=== PATIENT | female | born 1960 | race Caucasian/White ===

== ENCOUNTER 2023-02-15 09:48 | Emergency (ER) | payer SELFPAY ==
[2023-02-15] MEDS ORDERED: NA CHLORIDE 0.9% 1,000 ML ONE (10:27)
[2023-02-15] MEDS ORDERED: FOLIC ACID 5 MG/ML VIAL ONE (10:27)
--- NOTE | 2023-02-15 10:46 | RAD REPORT ---
EXAM DESCRIPTION: US - UPPER EXTREMITY VENOUS BILAT - 02/15/2023 10:32 am CLINICAL HISTORY: upper ext, bilateral;Pain Right arm pain and swelling COMPARISON: No comparisons FINDINGS: Right upper extremity venous system was interrogated. There is no evidence of bilateral up per extremity DVT. IMPRESSION: Negative for bilateral upper extremity DVT.
[2023-02-15 10:59] LABS: Absolute Lymphocytes (CBC) 0.8 K/uL (0.7-4.9); Hematocrit 44.3 % (36.0-45.0); Lymphocytes % 9.3 % (15.3-44.8); MCV 90.9 fL (80-100); MPV 7.4 fL (7.6-11.3); RBC Red Blood Cell Count 4.87 M/uL (3.86-4.86)
[2023-02-15 11:02] LABS: Protime INR 0.98
--- NOTE | 2023-02-15 11:16 | RAD REPORT ---
EXAM DESCRIPTION: RAD - Chest Single View - 02/15/2023 10:49 am CLINICAL HISTORY: COUGH Chest pain. COMPARISON: No comparisons FINDINGS: Portable technique limits examination quality. Prominent COPD is noted. Vague nodular opacity is present in the left upper lobe. The heart is normal in size. No displaced fractures. IMPRESSION: Prominent COPD. Vague nodularity in the left upper lobe is present. Nonemergent CT chest followup would be advised.
[2023-02-15 11:19] LABS: Albumin 4.2 g/dL (3.4-5.0); Bilirubin Direct 0.1 mg/dL (0-0.2); Bilirubin Indirect, Calculated 0.3 mg/dL (0.2-0.8); Bilirubin Total 0.4 mg/dL (0.2-1.0); C-Reactive Protein 2.98 mg/L (<3.00); Magnesium 2.2 mg/dL (1.6-2.4); Potassium 4.2 mEq/L (3.5-5.1); Protein, Total 8.3 g/dL (6.4-8.2); Troponin High Sensitivity 5.2 pg/mL (<58.9)
[2023-02-15] MEDS ORDERED: dexAMETHasone 10 MG/ML VIAL ONE (12:28)
[2023-02-15] MEDS ORDERED: levETIRAcetam 1,000 MG in NA CHLORIDE 0.9% 100 ML IV ONE (12:30)
[2023-02-15 12:36] LABS: Specific Gravity 1.007 (1.005-1.030); Urine Bacteria None Seen /HPF (<20); Urine Bilirubin NEGATIVE (Negative); Urine Blood Negative (Negative); Urine Clarity Clear (Clear); Urine Color Colorless (Yellow); Urine Glucose NEGATIVE (Negative); Urine Mucus Slight /HPF (None Seen); Urine Protein NEGATIVE (Negative); Urine RBC <5 /HPF (None Seen); Urine Urobilinogen Normal (Normal); Urine pH 6.5 (5.0-7.0)
--- NOTE | 2023-02-15 12:45 | RAD REPORT ---
EXAM DESCRIPTION: MRI - Brain W/Wo Cont - 02/15/2023 12:03 pm CLINICAL HISTORY: TIA Headache, drowsiness COMPARISON: Chest Single View dated 02/15/2023 TECHNIQUE: Multi-sequence, multiplanar MR imaging of the brain was performed with contrast. FINDINGS: Large intra-axial enhancing mass is present measuring 34 x 31 mm posterior left frontal lo be with moderate surrounding edema. There is evidence of hemorrhagic components to this mass. Additional smaller intra-axial enhancing mass measuring 14 x 11 mm is seen medial posterior right fro ntal lobe abutting the falx. There is very subtle midline shift related to the brain edema caused by the left-sided mass. No hydrocephalus is evident. No extra-axial fluid collection. IMPRESSION: Bilateral intra-axial solid brain masses are present, larger on the left as detailed. Mo st likely, this represents metastatic disease. Findings were discussed with doctor Paige in the emergency room. No pathologic post-contrast enhancement suspected.
--- NOTE | 2023-02-15 12:49 | RAD REPORT ---
EXAM DESCRIPTION: MRI - C Spine Wo Cont- 02/15/2023 12:03 pm CLINICAL HISTORY: cervical disc injury Neck pain, radiculopathy COMPARISON: No comparisons FINDINGS: Cervical vertebral bodies are normal in height and alignment. No suspicious marrow edema or marrow replacing process. No fracture or traumatic subluxation. The craniocervical junction is normal. C2-3 level: No significant findings. C3-4 level: Small posterior osteophyte/disc complex. C4-5 level: Small posterior disc bulge. C5-6 level: Small posterior osteophyte/ disc complex slightly attenuates the anterior subarachnoid sp jacklyn. C6-7 level: Small to moderate posterior osteophyte/ disc complex mildly attenuates the anterior subar achnoid space. C7-T1 level: No significant findings. Cervical cord is normal in size and signal. IMPRESSION: Mild lower cervical spondylosis. No severe canal stenosis or foraminal stenosis at any l evel.
--- NOTE | 2023-02-15 13:24 | ER ---
Nurse's Notes [facility] Name: Paola Alex Age: 62 yrs Sex: Female : 1960 Arrival Date: 02/15/2023 Time: 09:48 Bed 5 Private MD: Diagnosis: Secondary malignant neoplasm of brain;Malignant neoplasm of unspecified part of left bronchus or lung;Weakness-left arm, leg;Essential (primary) hypertension;Tobacco abuse counseling;Tobacco use Presentation: 02/15 10:08 Chief complaint: Patient states: R arm weakness/numbness for around 2 months. ll1 Coronavirus screen: Vaccine status: Patient reports receiving the 2nd dose of the covid vaccine. Client denies travel out of the [place] in the last 14 days. At this time, the client does not indicate any symptoms associated with coronavirus-19. Ebola Screen: Patient denies travel to an Ebola-affected area in the 21 days before illness onset. Initial Sepsis Screen: Does the patient meet any 2 criteria? No. Patient's initial sepsis screen is negative. Does the patient have a suspected source of infection? No. Patient's initial sepsis screen is negative. Risk Assessment: Do you want to hurt yourself or someone else? Patient reports no desire to harm self or others. Onset of symptoms was December 16, 2022. 10:08 Method Of Arrival: Ambulatory ll1 10:08 Acuity: TEENA 2 ll1 Triage Assessment: 10:09 General: Appears in no apparent distress. Behavior is calm, cooperative, appropriate ll1 for age. Pain: Denies pain. Neuro: Reports weakness in right arm. Musculoskeletal: Circulation, motion, and sensation intact. Capillary refill < 3 seconds, Reports numbness in right arm. Historical: - Allergies: 10:07 No Known Allergies; ll1 - PMHx: 12:59 Hypertensive disorder; ll1 13:33 Chronic obstructive lung disease; ll1 - Immunization history:: Client reports receiving the 2nd dose of the Covid vaccine. - Social history:: Smoking status: Patient reports the use of cigarette tobacco products, smokes one-half pack cigarettes per day. - Family history:: not pertinent. Screenin:23 [facility] ED Fall Risk Assessment (Adult) Score/Fall Risk Level 0 - 2 = Low Risk ll1 Oriented to surroundings, Maintained a safe environment, Educated pt \T\ family on fall prevention, incl call for assistance when getting out of bed, Hourly rounding (assess needs \T\ fall precautionary measures) done. Abuse screen: Denies threats or abuse. Nutritional screening: No deficits noted. Tuberculosis screening: No symptoms or risk factors identified. Assessment: 10:10 Reassessment: No changes from previously documented assessment. To US via stretcher. ll1 10:45 Reassessment: No changes from previously documented assessment. Patient and/or family ll1 updated on plan of care and expected duration. Pain level reassessed. Patient is alert, oriented x 3, equal unlabored respirations, skin warm/dry/pink. 12:51 Reassessment: No changes from previously documented assessment. Patient and/or family ll1 updated on plan of care and expected duration. Pain level reassessed. Patient is alert, oriented x 3, equal unlabored respirations, skin warm/dry/pink. 13:15 Reassessment: No changes from previously documented assessment. Her PCP at . ll1 14:54 Reassessment: No changes from previously documented assessment. Patient and/or family ll1 updated on plan of care and expected duration. Pain level reassessed. Patient is alert, oriented x 3, equal unlabored respirations, skin warm/dry/pink. Vital Signs: 10:08 BP 139 / 92; Pulse 96; Resp 17; Temp 98.4; Pulse Ox 100% on R/A; Weight 58.97 kg; ll1 Height 5 ft. 7 in. ; Pain 0/10; 12:23 BP 169 / 90; Pulse 88; Resp 17; ll1 12:57 BP 177 / 95; Pulse 91; Resp 16; Pulse Ox 97% ; ll1 13:14 BP 137 / 93; Pulse 88; Resp 17; Pulse Ox 98% ; ll1 13:31 BP 138 / 86; Pulse 89; Resp 17; Pulse Ox 97% on R/A; ll1 14:53 BP 150 / 91; Pulse 84; Resp 17; Pulse Ox 99% on R/A; Pain 0/10; ll1 10:08 Body Mass Index 20.36 (58.97 kg, 170.18 cm) ll1 10:08 Pain Scale: Adult ll1 14:53 Pain Scale: Adult ll1 ED Course: 09:52 Patient arrived in ED. ts1 09:53 Bill Paige MD is Attending Physician. [facility] 10:07 Ava Welch RN is Primary Nurse. ll1 10:07 Arm band placed on Patient placed in an exam room, on a stretcher. ll1 10:09 Triage completed. ll1 10:25 Inserted saline lock: 20 gauge in left antecubital area, using aseptic technique. Blood ll1 collected. 10:34 UPPER EXTREMITY VENOUS BILAT In Process Unspecified. EDMS 10:52 XRAY Chest (1 view) In Process Unspecified. EDMS 11:23 Patient has correct armband on for positive identification. Bed in low position. Call ll1 light in reach. Client placed on continuous cardiac and pulse oximetry monitoring. NIBP monitoring applied. clinical research monitor on. 12:05 C Spine Wo Cont In Process Unspecified. EDMS 12:05 Brain W/Wo Cont In Process Unspecified. EDMS 12:35 initiated transfer to [facility]. bd 14:00 No provider procedures requiring assistance completed. Patient transferred, IV remains ll1 in place. Administered Medications: 10:40 Drug: NS 0.9% IV 500 ml Route: IV; Rate: bolus; Site: left antecubital; ll1 10:58 Follow up: Response: No adverse reaction; IV Status: Completed infusion; IV Intake: ll1 500ml 10:41 Drug: foLIC Acid IVPB 1 mg Route: IVPB; Site: left antecubital; ll1 10:58 Follow up: Response: No adverse reaction; IV Status: Completed infusion; IV Intake: ll1 0.2ml 10:58 Drug: NS 0.9% IV 1000 ml Route: IV; Rate: 125 ml/hr; Site: left antecubital; ll1 13:35 Follow up: Response: No adverse reaction; IV Status: Completed infusion; IV Intake: ll1 125ml 12:50 Drug: Decadron - Dexamethasone IVP 20 mg Route: IVP; Site: left antecubital; ll1 13:34 Follow up: Response: No adverse reaction ll1 12:50 Drug: Keppra IV 1000 mg Route: IV; Rate: per protocol; Site: left antecubital; ll1 13:34 Follow up: Response: No adverse reaction; IV Status: Completed infusion; IV Intake: ll1 100ml Medication: 11:23 VIS not applicable for this client. ll1 Intake: 10:58 IV: 500ml; Total: 500ml. ll1 10:58 IV: 0ml; Total: 500ml. ll1 13:34 IV: 100ml; Total: 600ml. ll1 13:35 IV: 125ml; Total: 725ml. ll1 Outcome: 13:23 ER care complete, transfer ordered by . [place] 14:00 Transferred by ground EMS to [facility], Transfer form completed. [facility] 14:00 Transferred Note: Report called to EUGENIA Machado at [facility] 1231 14:00 Condition: stable 14:00 Instructed on the need for transfer. 14:54 Patient left the ED. 1 Signatures: Dispatcher [employer] EDMS Marjan Dewitt Corey, MD MD cha Lewis, Lynsay, RN RN ll1 Carlota Paredes, JACK PAS ts1 Corrections: (The following items were deleted from the chart) 11:30 11:20 In radiology for C Spine Wo Cont. EDMS EDMS
--- NOTE | 2023-02-15 13:24 | EDPHYS ---
Physician Documentation [facility] Name: Paola Alex Age: 62 yrs Sex: Female : 1960 Arrival Date: 02/15/2023 Time: 09:48 Bed 5 Private MD: ED Physician Bill Paige HPI: 02/15 12:27 This 62 yrs old Female presents to ER via Ambulatory with complaints of Arm [place] Pain, Hand Pain. 12:27 The patient or guardian complains of decreased range of motion. The complaints affect [place] the right bicep, dorsal aspect of right forearm, right hand, right tricep and palmar aspect of right forearm. Context: The problem was sustained at an unknown location, resulted from unknown cause. Onset: The symptoms/episode began/occurred 1 month(s) ago. Treatment prior to arrival includes: no previous treatment. Modifying factors: The symptoms are alleviated by nothing. the symptoms are aggravated by nothing. Associated signs and symptoms: Pertinent positives: decreased range of motion, tingling. Severity of symptoms: At their worst the symptoms were moderate, severe, in the emergency department the symptoms are unchanged. The patient has not experienced similar symptoms in the past. Historical: - Allergies: 10:07 No Known Allergies; ll1 - PMHx: 12:59 Hypertensive disorder; ll1 13:33 Chronic obstructive lung disease; ll1 - Immunization history:: Client reports receiving the 2nd dose of the Covid vaccine. - Social history:: Smoking status: Patient reports the use of cigarette tobacco products, smokes one-half pack cigarettes per day. - Family history:: not pertinent. ROS: 12:27 Constitutional: Negative for fever, chills, and weight loss, Eyes: Negative for injury, [place] pain, redness, and discharge, ENT: Negative for injury, pain, and discharge, Neck: Negative for injury, pain, and swelling, Cardiovascular: Negative for chest pain, palpitations, and edema, Respiratory: Negative for shortness of breath, cough, wheezing, and pleuritic chest pain, Abdomen/GI: Negative for abdominal pain, nausea, vomiting, diarrhea, and constipation, Back: Negative for injury and pain, : Negative for injury, bleeding, discharge, and swelling, MS/Extremity: Negative for injury and deformity, Skin: Negative for injury, rash, and discoloration, Psych: Negative for depression, anxiety, suicide ideation, homicidal ideation, and hallucinations, Allergy/Immunology: Negative for hives, rash, and allergies, Endocrine: Negative for neck swelling, polydipsia, polyuria, polyphagia, and marked weight changes, Hematologic/Lymphatic: Negative for swollen nodes, abnormal bleeding, and unusual bruising. 12:27 Neuro: Positive for weakness, of the right arm and right leg. Exam: 12:27 Constitutional: This is a well developed, well nourished patient who is awake, alert, [place] and in no acute distress. Head/Face: Normocephalic, atraumatic. Eyes: Pupils equal round and reactive to light, extra-ocular motions intact. Lids and lashes normal. Conjunctiva and sclera are non-icteric and not injected. Cornea within normal limits. Periorbital areas with no swelling, redness, or edema. ENT: Nares patent. No nasal discharge, no septal abnormalities noted. Tympanic membranes are normal and external auditory canals are clear. Oropharynx with no redness, swelling, or masses, exudates, or evidence of obstruction, uvula midline. Mucous membranes moist. Neck: Trachea midline, no thyromegaly or masses palpated, and no cervical lymphadenopathy. Supple, full range of motion without nuchal rigidity, or vertebral point tenderness. No Meningismus. Chest/axilla: Normal chest wall appearance and motion. Nontender with no deformity. No lesions are appreciated. Cardiovascular: Regular rate and rhythm with a normal S1 and S2. No gallops, murmurs, or rubs. Normal PMI, no JVD. No pulse deficits. Respiratory: Lungs have equal breath sounds bilaterally, clear to auscultation and percussion. No rales, rhonchi or wheezes noted. No increased work of breathing, no retractions or nasal flaring. Abdomen/GI: Soft, non-tender, with normal bowel sounds. No distension or tympany. No guarding or rebound. No evidence of tenderness throughout. Back: No spinal tenderness. No costovertebral tenderness. Full range of motion. Female : Normal external genitalia. Skin: Warm, dry with normal turgor. Normal color with no rashes, no lesions, and no evidence of cellulitis. Psych: Awake, alert, with orientation to person, place and time. Behavior, mood, and affect are within normal limits. 12:27 Musculoskeletal/extremity: Extremities: grossly normal except: decreased ROM, ROM: full passive range of motion, limited active range of motion, Circulation is intact in all extremities. Sensation intact. Compartment Syndrome exam of affected extremity: is normal. DVT Exam: No signs of deep vein thrombosis. no pain, no swelling, no tenderness, negative Homans' sign noted on exam, no appreciated bluish discoloration, no erythema, no increased warmth. 13:29 ECG was reviewed by the Attending Physician. [facility] Vital Signs: 10:08 BP 139 / 92; Pulse 96; Resp 17; Temp 98.4; Pulse Ox 100% on R/A; Weight 58.97 kg; ll1 Height 5 ft. 7 in. ; Pain 0/10; 12:23 BP 169 / 90; Pulse 88; Resp 17; ll1 12:57 BP 177 / 95; Pulse 91; Resp 16; Pulse Ox 97% ; ll1 13:14 BP 137 / 93; Pulse 88; Resp 17; Pulse Ox 98% ; ll1 13:31 BP 138 / 86; Pulse 89; Resp 17; Pulse Ox 97% on R/A; ll1 14:53 BP 150 / 91; Pulse 84; Resp 17; Pulse Ox 99% on R/A; Pain 0/10; ll1 10:08 Body Mass Index 20.36 (58.97 kg, 170.18 cm) ll1 10:08 Pain Scale: Adult ll1 14:53 Pain Scale: Adult ll1 MDM: 10:18 Patient medically screened. [facility] 13:13 Differential diagnosis: contusion. Data reviewed: vital signs, nurses notes, lab test [facility] result(s), EKG, radiologic studies, CT scan, doppler, MRI, plain films. Consideration of Admission/Observation Escalation of care including admission/observation considered. Management of patient was discussed with the following: Optoelectronic Technician: neuro. Independent interpretation of the following test(s) in the Emergency Department EKG: See my EKG interpretation above. Test considered but Not performed: CT: no ct chest. Care significantly affected by the following chronic conditions: Hypertension. Counseling: I had a detailed discussion with the patient and/or guardian regarding: the historical points, exam findings, and any diagnostic results supporting the discharge/admit diagnosis, lab results, radiology results. 02/15 09:57 Order name: Basic Metabolic Panel; Complete Time: 11:44 [place] 02/15 09:57 Order name: CBC with Diff; Complete Time: 11:44 [facility] 02/15 09:57 Order name: LFT's; Complete Time: 11:44 [facility] 02/15 09:57 Order name: Magnesium; Complete Time: 11:44 [facility] 02/15 09:57 Order name: NT PRO-BNP; Complete Time: 11:44 02/15 09:57 Order name: PT-INR; Complete Time: 11:44 02/15 09:57 Order name: Troponin HS; Complete Time: 11:44 [facility] 02/15 09:57 Order name: Lipase; Complete Time: 11:44 [facility] 02/15 09:57 Order name: Urinalysis W/Microscopic 02/15 09:57 Order name: CRP; Complete Time: 11:44 [facility] 02/15 09:57 Order name: XRAY Chest (1 view); Complete Time: 11:44 [facility] 02/15 10:01 Order name: UPPER EXTREMITY VENOUS BILAT; Complete Time: 11:44 [facility] 02/15 11:32 Order name: C Spine Wo Cont [facility] 02/15 11:37 Order name: Brain W/Wo Cont [facility] 02/15 09:57 Order name: EKG; Complete Time: 09:57 [facility] 02/15 09:57 Order name: Cardiac monitoring; Complete Time: 10:46 [facility] 02/15 09:57 Order name: EKG - Nurse/Tech; Complete Time: 10:46 [facility] 02/15 09:57 Order name: IV Saline Lock; Complete Time: 10:31 [facility] 02/15 09:57 Order name: Labs collected and sent; Complete Time: 10:31 [facility] 02/15 09:57 Order name: O2 Per Protocol; Complete Time: 10:10 [facility] 02/15 09:57 Order name: O2 Sat Monitoring; Complete Time: 10:10 [facility] EC:29 Rate is 81 beats/min. Rhythm is regular. QRS [place] is Normal. [place] interval is normal. QRS [place] interval is normal. QT interval is normal. No Q waves. T waves are Normal. No ST changes noted. Clinical impression: NSR w/ Non-specific ST/T Changes and No evidence of ischemia. Interpreted by me. Reviewed by me. Administered Medications: 10:40 Drug: NS 0.9% IV 500 ml Route: IV; Rate: bolus; Site: left antecubital; ll1 10:58 Follow up: Response: No adverse reaction; IV Status: Completed infusion; IV Intake: ll1 500ml 10:41 Drug: foLIC Acid IVPB 1 mg Route: IVPB; Site: left antecubital; ll1 10:58 Follow up: Response: No adverse reaction; IV Status: Completed infusion; IV Intake: ll1 0.2ml 10:58 Drug: NS 0.9% IV 1000 ml Route: IV; Rate: 125 ml/hr; Site: left antecubital; ll1 13:35 Follow up: Response: No adverse reaction; IV Status: Completed infusion; IV Intake: ll1 125ml 12:50 Drug: Decadron - Dexamethasone IVP 20 mg Route: IVP; Site: left antecubital; ll1 13:34 Follow up: Response: No adverse reaction ll1 12:50 Drug: Keppra IV 1000 mg Route: IV; Rate: per protocol; Site: left antecubital; ll1 13:34 Follow up: Response: No adverse reaction; IV Status: Completed infusion; IV Intake: ll1 100ml Disposition Summary: 02/15/23 13:23 Transfer Ordered Transfer Location: [facility] [place] Reason: Higher level of care [place] Condition: Fair [place] Problem: new [place] Symptoms: have improved [place] Accepting Physician: to [facility](02/15/23 14:54) ll1 Diagnosis - Secondary malignant neoplasm of brain [place] - Malignant neoplasm of unspecified part of left bronchus or lung [place] - Weakness - left arm, leg [place] - Essential (primary) hypertension [place] - Tobacco abuse counseling [place] - Tobacco use [place] Forms: - Medication Reconciliation Form [place] - SBAR form [place] Signatures: Dispatcher [employer] EDBill Pollack MD MD cha Lewis, Lynsay, RN RN ll1 Corrections: (The following items were deleted from the chart) 10:00 09:57 Extrem Venous W Compression Angel Luis+US.RAD.BRZ ordered. EDMS EDMS 11:30 09:58 C Spine Wo Cont ordered. EDMS EDMS 11:32 09:57 MR STROKE PROTOCOL+MRI.RAD.BRZ ordered. EDMS EDMS 11:37 11:33 Brain Wo Cont ordered. EDMS EDMS 14:54 13:23 to [facility] [place] ll1
[2023-02-15 15:14] VITALS: TEMP 98.4
[2023-02-15 15:25] VITALS: BP 150/91; O2SAT 99
--- NOTE | 2023-02-16 05:38 | EKG ---
Test Date: 2023-02-15 Test Time: 10:48:52 Victim Advocate: JACOBO MEASUREMENT RESULTS: Intervals: Rate: 81 CA: 136 QRSD: 84 QT: 358 QTc: 415 [place]: P: 75 CA: 136 QRS: 81 T: 82 INTERPRETIVE STATEMENTS: Normal sinus rhythm Normal ECG No previous ECG available for comparison Electronically Signed On 02-16-23 05:36:43 CDT by Jose Durham
== END 2023-02-15 14:54 | disposition short-term general hospital (02) ==
LOC: ER 09:48
DX: C79.31 Secondary malignant neoplasm of brain (principal); C34.92 Malignant neoplasm of unspecified part of left bronchus or lung; I10 Essential (primary) hypertension; Z72.0 Tobacco use; Z71.6 Tobacco abuse counseling; J44.9 Chronic obstructive pulmonary disease, unspecified
CPT/HCPCS: 36415; 70553; 71045; 72141; 80048; 80076; 81001; 83690; 83735; 83880; 84484; 85025; 85610; 86140; 93005; 93970; J1100; J1953; J7030

== ENCOUNTER 2023-04-28 18:17 | Emergency (ER) | payer OTHER ==
--- OUTSIDE RECORDS SUMMARY | 2023-04-28 18:23 | XMS REPORT | Continuity of Care Document ---
:1960 Author Organization [facility] t Address [address]. [address]. [address] [place] [address] Care Team Providers Name Role Phone RONY CRICKETJOSEPH Attending Clinician Unavailable SALLY JEROME IN H Attending Clinician Unavailable Lisa TORREZ, Danielle Carlin Attending Clinician [place] Sheyla DAVILA Attending Clinician [phone] Estuardo Walters MD Attending Clinician SHAZIA DOMINGO Admitting Clinician Unavailable Problems Condition Condition Condition Status Onset Resolution Last Treating Co mments Source Name Details Category Date Date Treatment Clinician Date Lung Lung Disease [facility]ur[facility] 00 [place] COPD COPD Disease Recur[facility] (chronic ([facility] obstructiv obstructiv 00:00: Wy dical e e 00 Center pulmonary pulmonary disease) disease) Vasogenic Vasogenic Disease [facility] brain [facility] edema edema 00:00: Medical 00 Center HTN HTN Disease Active [facility] (hypertens (hypertens 5-25 [facility] ion) ion) 00:00: Medical 00 Center Anxiety Anxiety Disease Active [facility] 00 [place] Alcohol Alcohol Disease Active [facility] use use [facility]25 [facility] disorder disorder 00:00: Medica l 00 [place] Brain mass Brain mass Disease Active [facility] 00 Center Allergies, Adverse Reactions, Alerts Allergy Allergy Status Severity Reaction(s) Onset Inactive Treating Comm ents Source Name Type Date Date Clinician NO KNOWN Allergy Active [facility] ALLERGIE [facility] Social History Social Habit Start Date Stop Date Quantity Comments Source Sex Assigned At [birth year] [facility] 00:00:00 [facility]:00 [facility] Center Medications Ordered Filled Start Stop Current Ordering Indication Dosage Frequency Signature Comments Components Source Medication Medication Date Date Medication? Clinician (SIG) Name Name amLODIPine 0 Yes 5mg QD Take [facility] ([facility] 5 5-26 tablet (5 [facility] MG tablet 08:23: mg total) Med ical 24 by mouth Center in the morning. lisinopriL 0 Yes 10mg QD Take 1 [facility] (PRINIVIL,Z 5-26 tablet (10 [facility] ESTRIL) 10 08:23: mg total) Me dical MG tablet 24 by mouth Center in the morning. sertraline 0 Yes 75mg QD Take 1.[address] [facility] (ZOLOFT) 50 5-26 tablets [facility] MG tablet 08:23: (75 mg Medica l 24 total) by Center mouth in the morning. TiZANidine 0 Yes 4mg Take 1 [facility] (ZANAFLEX) 5-26 capsule (4 Leila es 4 MG 08:23: mg total) Medical capsule 24 by mouth 3 Center (three) times daily as needed for Muscle spasms. hydrOXYzine 0 Yes 25mg Take [address] [facility] (ATARAX) 25 5-26 tablet (25 [facility] MG tablet 08:23: mg total) Med ical 24 by mouth 3 Center (three) times daily as needed for Itching. ALPRAZolam 2022-0 Yes 1mg Take 1 [facility] (XANAX) 1 5-26 tablet (1 [facility] MG tablet 08:23: mg total) Med ical 24 by mouth 3 Center (three) times daily as needed for Anxiety. Max Daily Amount: 3 mg thiamine 2022-0 2024- Yes 100mg QD Take 1 [facility] MG 5-26 05-25 tablet [facility] tablet 00:00: 23:59 (100 mg Medical 00 :00 total) by Center mouth in the morning. famotidine 2022- Yes 20mg Take 1 [facility] (PEPCID) 20 02-24-25 tablet (20 L ukes MG tablet 00:00: 23:59 mg total) Me dical 00 :00 by mouth Center every 12 (twelve) hours for 30 days. dexAMETHaso 2022- Yes 2mg Take 1 [facility] ne 02-24 06-09 tablet (2 [facility] (DECADRON) 00:00: 23:59 mg total) M edical 2 MG tablet 00 :00 by mouth [facility] er every 12 (twelve) hours for 14 days. Vital Signs Vital Name Observation Time Observation Value Comments Source HEIGHT 2023-02-22 14:00:00 170.2 cm WEIGHT 2023-02-22 14:00:00 61.1 kg WEIGHT 2023-02-15 16:36:00 58.968 kg HEIGHT 2023-02-22 14:00:00 170.2 cm WEIGHT 2023-02-22 14:00:00 61.1 kg WEIGHT 2023-02-15 16:36:00 58.968 kg Systolic blood 2023-02-28 07:57:00 166 mm[Hg] Rn Aware [facility] pressure [facility] Diastolic blood 2023-02-28 07:57:00 85 mm[Hg] Rn [facility]ware [facility] Heart rate 2023-02-28 07:57:00 77 /min [facility] Body temperature 2023-02-28 07:57:00 36.11 Ava [facility] Respiratory rate 2023-02-28 07:57:00 18 /min [facility] Oxygen saturation in 2023-02-28 07:57:00 94 /min [facility] Arterial blood by Medical Ce nter Pulse oximetry Body height 2023-02-23 07:03:00 170.2 cm [facility] Body weight 2023-02-23 07:03:00 61.1 kg [facility] BMI 2023-02-23 07:03:00 21.10 kg/m2 [facility] Procedures Procedure Date / Time Performing Clinician Source Performed POCT-GLUCOSE METER 2023-02-28 06:20:00 Rony [facility] CBC W/PLT COUNT & AUTO 2023-02-28 04:36:00 BlayneheydiAlma I [facility] BASIC METABOLIC PANEL 2023-02-28 04:36:[address] [facility] 2023-02-28 04:36:00 [facility] MAGNESIUM 2023-02-28 04:36:00 [facility] CBC W/PLT COUNT & AUTO 2023-02-28 04:36:00 BlayneZachary solizina [facility] POCT-GLUCOSE METER 2023-02-28 00:18:00 Rony [facility] POCT-GLUCOSE METER 2023-02-27 17:35:00 [facility] POCT-GLU[facility]SE METER 2023-02-27 13:15:00 Rony [facility] CBC W/PLT COUNT & AUTO 2023-02-27 05:40:00 Zachary Stapletonina [facility] BASIC METABOLIC PANEL 2023-02-27 05:40:00 Blayneheydi [facility] PHOSPHORUS 2023-02-27 05:40:00 Lisa [facility] MAGNESIUM 2023-02-27 05:40:00 [facility] CBC W/PLT COUNT & AUTO 2023-02-27 05:40:00 Blayneheydi Alma [facility] POCT-GLUCOSE METER 2023-02-26 21:50:00 Rony [facility] POCT-GLUCOSE METER 2023-02-26 [facility]:06[facility] 2023-02-26 11:50[facility]00 [facility]SE [facility] 2023-02-26 07:19:00 [facility]OLIC PANEL 2023-02-26 06:20:00 Rony, [facility] CBC W/PLT COUNT & AUTO 2023-02-26 06:20:00 Alma Stapleton [facility] MAGNESIUM 2023-02-26 06:20:00 [facility] 2023-02-26 06:20:00 Pieter [facility] CBC W/PLT COUNT & AUTO 2023-02-26 06:20:00 Alma Stapleton [facility] POCT-GLUCOSE METER 2023-02-25 22:12:00 [facility]SE METER 2023-02-25 17:53:00 [facility] POCT-[facility]UCOSE METER 2023-02-25 13:18:00 Rony [facility] POCT-GLUCOSE METER 2023-02-25 07:43:00 Rony [facility] CBC W/PLT COUNT & AUTO 2023-02-25 05:11:00 Alma Stapleton [facility] BASIC METABOLIC PANEL 2023-02-25 05:11:00 Pieter [facility] MAGNESIUM 2023-02-25 05:11:00 Pieter [facility] PHOSPHORUS 2023-02-25 05:11:00 Pieter [facility] CBC W/PLT COUNT & AUTO 2023-02-25 05:11:00 Alma Stapleton [facility] POCT-GLUCOSE METER 2023-02-25 05:02:00 Rony, [facility] POCT-GLUCOSE METER 2023-02-24 23:36:00 [facility] PO[facility]UCOSE METER 2023-02-24 17:29:00 [facility] POCT-GLUCOSE METER 2023-02-24 12:11[facility] 2023-02-24 06:15:00 [facility] CBC W/PLT COUNT & AUTO 2023-02-24 04:09:00 [facility] BASIC METABOLIC PANEL 2023-02-24 04:09:00 [facility] MAGNESIUM 2023-02-24 04:09:00 Blayneheydi [facility] PHOSPHORUS 2023-02-24 04:09:00 [facility] CBC W/PLT COUNT & AUTO 2023-02-24 04:09:00 [facility] POCT-GLUCOSE METER 2023-02-23 21:26:00 [facility] POCT-GLUCOSE METER 2023-02-23 15:43:00 [facility] MR BRAIN WITH & WITHOUT IV 2023-02-23 14:39:00 Surendra Massey [facility] CONTRAST [facility] POCT-GLUCOSE METER 2023-02-23 09:03:00 [facility] POCT-GLUCOSE METER 2023-02-23 05:29:00 [facility] CBC W/PLT COUNT & AUTO 2023-02-23 01:48:00 [facility] BASIC METABOLIC PANEL 2023-02-23 01:48:00 [facility]UM 2023-02-23 01:48:00 Pieter [facility] PHOSPHORUS 2023-02-23 01:48:00 [facility] CBC W/PLT COUNT & AUTO 2023-02-23 01:48:00 Surendra Massey [facility] (CELLAVISION MANUAL DIFF) 2023-02-23 01:48:00 Surendra Massey CH, I [facility] POCT-GLUCOSE METER 2023-02-23 00:43:00 [facility] POCT-[facility]SE METER 2023-02-22 17:33:00 [facility] CRANIECTOMY OR CRANIOTOMY, 2023-02-22 08:30:00 Estuardo Walters [facility] FOR EXCISION OF BRAIN Medical Ce nter NEOPLASM POCT-GLUCOSE METER 2023-02-22 06:32:00 Shazia Domingo [facility] CBC W/PLT COUNT & AUTO 2023-02-22 05:15:00 [facility] sol[facility] BASIC METABOLIC PANEL 2023-02-22 05:15:00 Alma Stapleton [facility] MAGNESIUM 2023-02-22 05:15:00 Alma Stapleton [facility] PHOSPHORUS 2023-02-22 05:15:00 [facility] TYPE AND SCREEN, AUTOMATED 2023-02-22 05:15:00 Danielle Gonzalez [facility] CBC W/PLT COUNT & AUTO 2023-02-22 05:15:[address] [facility] POCT-GLUCOSE METER 2023-02-21 23:35:00 Shazia Domingo [facility] SARS-COV2/RT-PCR ([facility] & 2023-02-21 17:24:[address] [facility] REF [facility] POCT-GLUCOSE METER 2023-02-21 17:23:00 Shazia Domingo [facility] PROTHROMBIN TIME/INR 2023-02-21 15:13:00 Dhaval Levy [facility] APTT 2023-02-21 15:13:00 Dhaval Levy [facility] POCT-GLUCOSE METER 2023-02-21 11:51:00 Shazia Domingo [facility] CBC W/PLT COUNT & AUTO 2023-02-21 05:04:00 Alma Stapleton [facility] I [facility] BASIC METABOLIC PANEL 2023-02-21 05:04:00 Alma Stapleton [facility] MAGNESIUM 2023-02-21 05:04:00 Alma Stapleton [facility] PHOSPHORUS 2023-02-21 05:04:00 Pieter [facility] CBC W/PLT COUNT & AUTO 2023-02-21 05:04:00 Sam, [facility] POCT-GLUCOSE METER 2023-02-21 04:01:00 Shazia Domingo [facility] POCT-GLUCOSE METER 2023-02-20 23:41:00 Shazia Domingo [facility] POCT-GLUCOSE METER 2023-02-20 16:28:00 Shazia Domingo [facility] POCT-GLUCOSE METER 2023-02-20 11:44:00 Shazia Domingo [facility] POCT-GLUCOSE METER 2023-02-20 10:41:00 Shazia Domingo [facility] POCT-GLUCOSE METER 2023-02-20 04:41:00 Shazia Domingo [facility] CBC W/PLT COUNT & AUTO 2023-02-20 03:40:00 Alma Stapleton [facility] BASIC METABOLIC PANEL 2023-02-20 03:40:00 Pieter [facility] MAGNESIUM 2023-02-20 03:40:00 [facility]US 2023-02-20 03:40:00 [facility] CBC W/PLT COUNT & AUTO 2023-02-20 03:40:00 Sam [facility] POCT-GLUCOSE METER 2023-02-19 23:41:00 Shazia Domingo [facility] POCT-GLUCOSE METER 2023-02-19 19:33:00 Shazia Domingo [facility] POCT-GLUCOSE METER 2023-02-19 16:22:00 Shazia Domingo [facility] POCT-GLUCOSE METER 2023-02-19 11:07:00 Shazia Domingo [facility] CBC W/PLT COUNT & AUTO 2023-02-19 06:06:00 [facility] METABOLIC PANEL 2023-02-19 06:06:00 Pieter [facility] MAGNESIUM 2023-02-19 06:06:00 Pieter [facility] PHOSPHORUS 2023-02-19 06:06:00 [facility] CBC W/PLT COUNT & AUTO 2023-02-19 06:06:00 Sma [facility] POCT-GLUCOSE METER 2023-02-19 05:31:00 Shazia Domingo [facility] POCT-GLUCOSE METER 2023-02-19 00:01:00 Shazia Domingo [facility] POCT-GLUCOSE METER 2023-02-18 12:10:00 Shazia Domingo [facility] POCT-GLUCOSE METER 2023-02-18 06:02:00 Shazia Domingo [facility] CBC W/PLT COUNT & AUTO 2023-02-18 05:57:00 PieterAlma [facility] BASIC METABOLIC PANEL 2023-02-18 05:57:00 [facility] MAGNESIUM 2023-02-18 05:57:00 [facility] PHOSPHORUS 2023-02-18 05:57:00 [facility] CBC W/PLT COUNT & AUTO 2023-02-18 05:57:00 Sam [facility] POCT-GLUCOSE METER 2023-02-18 00:26:00 Shazia Domingo [facility] XR CHEST 1 VIEW PORTABLE / 2023-02-17 17:56:00 Giovanny De Leon [facility] POCT-GLUCOSE METER 2023-02-17 17:02:00 Shazia Domingo [facility] XR CHEST 1 VIEW PORTABLE / 2023-02-17 15:27:00 Giovanny De Leon [facility] CT BIOPSY LUNG 2023-02-17 15:05:[address] [facility] TISSUE EXAM 2023-02-17 14:51:[address] [facility] POCT-GLUCOSE METER 2023-02-17 12:03:00 Shazia Domingo [facility] POCT-GLUCOSE METER 2023-02-17 05:35:00 Eva Santiago [facility] CBC W/PLT COUNT & AUTO 2023-02-17 04:52:00 [facility] BASIC METABOLIC PANEL 2023-02-17 04:52:00 [facility] MAGNESIUM 2023-02-17 04:52:00 [facility] PHOSPHORUS 2023-02-17 04:52:00 [facility] CBC W/PLT COUNT & AUTO 2023-02-17 04:52:00 [facility] POCT-GLUCOSE METER 2023-02-17 00:02:00 Eva [facility] MR BRAIN WITH & WITHOUT IV 2023-02-16 21:20:00 Dhaval Levy [facility] PROTHROMBIN TIME/INR 2023-02-16 18:14:00 Dhaval Levy [facility] APTT 2023-02-16 18:14:00 Dhaval Levy [facility] POCT-GLUCOSE METER 2023-02-16 17:43:00 Eva Santiago [facility] POCT-GLUCOSE METER 2023-02-16 11:02:00 Eva [facility]add[facility] hospital[facility] SODIUM, RANDOM URINE 2023-02-16 07:58:00 Katja Vargas [facility] CREATININE, RANDOM URINE 2023-02-16 07:58:00 Sam Kingsleyyaa Héctor [facility] POCT-GLUCOSE METER 2023-02-16 06:13:00 Edilia Westfall [facility] CBC W/PLT COUNT & AUTO 2023-02-16 05:20:00 [facility] BASIC METABOLIC PANEL 2023-02-16 05:20:00 [facility] MAGNESIUM 2023-02-16 05:20:00 [facility] PHOSPHORUS 2023-02-16 05:20:00 [facility] OSMOLALITY, SERUM 2023-02-16 05:20:00 Sam [facility] CBC W/PLT COUNT & AUTO 2023-02-16 05:20:00 Sam [facility] CARCINOEMBRYONIC ANTIGEN 2023-02-16 03:37:00 Edilia Westfall [facility] Center ABORH, MANUAL 2023-02-16 03:37:00 Ning Tavarez [facility] CT BRAIN WITHOUT IV 2023-02-16 02:28:00 Sam [facility] CONTRAST [facility] CT CHEST WITH IV CONTRAST 2023-02-16 02:28:[address] [facility] [address] ABDOMEN/PELVIS WITH IV 2023-02-16 02:28:00 Sam [facility] CBC W/PLT COUNT & AUTO 2023-02-15 23:09:00 Sam [facility] BASIC METABOLIC PANEL 2023-02-15 [facility]R 2023-02-15 23:09:00 [facility] TYPE AND SCREEN, AUTOMATED 2023-02-15 23:09:[address] [facility] CBC W/PLT COUNT & AUTO 2023-02-15 23:09:[address] [facility] DIFFERENTIAL [facility] XR CHEST 1 VIEW PORTABLE / 2023-02-15 19:09:[address] [facility] BEDSIDE [facility] Plan of Care Planned Activity Planned Date Details Comments Source Future Scheduled 2023-06-[address] [facility] Test 00:00:00 (Season Ended) [code = Medic al Center INFLUENZA VACCINE (Season Ended)] Future Scheduled [address] [facility] Test 00:00:00 (12+) [code = Medical Center DEPRESSION SCREENING (12+)] Future Scheduled 2007 Lipid panel (procedure) [facility] Test 00:00:00 [code = 41506290] Medical Ce nter Future Scheduled 1983 Screening for malignant [facility] Test 00:00:00 neoplasm of cervix Medical C enter (procedure) [code = 536281858] Future Scheduled 1981 DTAP/TDAP/TD VACCINES [facility] 00:00:00 (1 - Tdap) [code = Medical C enter DTAP/TDAP/TD VACCINES (1 - Tdap)] Future Scheduled 1981 SHINGLES VACCINES ([address] [facility] Test 00:00:00 2) [code = SHINGLES [facility] Center VACCINES (1 of 2)] Future Scheduled 1980 HEPATITIS C SCREENING [facility] 00:00:00 [code = HEPATITIS C Medical Center SCREENING] Future Scheduled [address] [facility] Test 00:00:00 Counseling and Medical Cente r Screening (12+) [code = Tobacco Cessation Counseling and Screening (12+)] Future Scheduled [address] [facility] Test 00:00:00 0-64 YRS (1 - PCV) Medical C enter [code = PNEUMOCOCCAL VACCINE 0-64 YRS (1 - PCV)] Future Scheduled 1961-04[birth year]01 COVID-19 VACCINE (#1) [facility] 00:[facility]:00 [code = COVID-[address] VACCINE (#1)] Future Scheduled 1962 Screening for malignant [facility] Test 00:00:00 neoplasm of breast Medical C enter (procedure) [code = 222791987] Future Scheduled 1962 CT Colonography (combo) [facility] Test 00:00:00 [code = CT Colonography [facility] (combo)] Future Scheduled 1962 Screening for malignant [facility] Test 00:00:00 neoplasm of colon Medical Ce nter (procedure) [code = 700031675] Future Scheduled 1962 Screening for malignant [facility] Test 00:00:00 neoplasm of colon Medical Ce nter (procedure) [code = 525535073] Future Scheduled 1962 Screening for malignant [facility] Test 00:00:00 neoplasm of colon Medical Ce nter (procedure) [code = 651951194] Future Scheduled 1962 Screening for malignant [facility] Test 00:00:00 neoplasm of colon Medical Ce nter (procedure) [code = 223915800] Future Scheduled 1960 Sigmoidoscopy [code = [facility] Sigmoidoscopy] Medical Cente r Encounters Start End Encounter Admission Attending Care Care Encounter Source Date/Time Date/Time Type Type Clinicians Facility Department ID 2023-02-15 2023-02-28 Inpatient ER BISMARK STRATTON Surgery [id number] [facility] 15:55:00 13:18:00 [facility] 2023-02-22 2023-02-22 Anesthesia Danielle Gonzalez [facility] [id number] [facility] 08:30:00 13:46:00 Event Sheyla Michael [facility] 2023-02-22 2023-02-22 Surgery Estuardo Walters [facility] [id number] 09:00:00 13:35:00 [facility] Results Test Description Test Time Test Comments Results Result Sour e Comments TISSUE EXAM 2023-03-06 Surgical Pathology Report 13:50:54 Case: [id number] Authorizing Provider: Estuardo Walters MD Collected: 02/22/2023 10:54 AM Ordering Location: [facility] PERIOPERATIVE Received: 02/22/2023 10:58 AM SERVICES Pathologist: Parker Petersen MD Specimens: A) - Brain, Left, LEFT FRONTAL BRAIN TUMOR B) - Brain, Right, RIGHT FRONTAL BRAIN TUMOR C) - Brain, Left, LEFT FRONTAL BRAIN TUMOR A. 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 In some areas, the tumor cells are more solid with abundant pale eosinophilic cytoplasm. Focally, bizarre, pleomorphic tumor giant cells are seen. Immunohistochemical stains (performed with appropriate control) show the following in tumor:- CK7: Diffusely positive- CK20: Negative- TTF1: Diffusely positive- NapsinA: Diffusely positive- CK5/6: Focally positive, including some glandular component- P40: Widespread weak nonspecific reactivity with focally strong reactivity, including some glandular component- Mucicarmine: Highlights mucinAdditional immunohistochemical stains (performed and interpreted at [facility]) shows:- NUT: Negative- P40: Positive in minor subpopulation of neoplastic cellsThe overall findings are most consistent with a metastatic poorly differentiated carcinoma. There is focal pleomorphic features. Morphologically it resembles an adenocarcinoma with diffuse TTF-1 and Napsin reactivity. There is focal weak p40 and CK5/6 immunostain without definitive squamous cell carcinoma morphology. The differential diagnosis includes an adenocarcinoma versus an adenosquamous carcinoma. Clinical and imaging correlation is recommended. Dr. Judy Jean reviewed the case and agrees.Block C4 has adequate tumor cellularity for additional ancillary studies.[id number], [id number], [id number], [id number], [id number] patient is a 62-year-old female with a lung lesion status post biopsy ([id number]) and a large left frontal brain lesion with a contralateral lesion.A. Brain, LeftReceived fresh for intraoperative consultation, labeled the patient's name, MRN and designated as "left frontal brain tumor" is a 1.5 x 0.5 x 0.5 cm lan-white to lan-red piece of brain. Touch preps are made and a portion is submitted in FSA1 with the remainder being submitted in cassette A2.B. Brain, RightReceived in formalin, labeled the patient's name, KAREN and designated as "right frontal brain tumor" is a 1.0 x 0.3 x 0.3 cm lan-white piece of tissue. It is submitted entirely in cassette B1 following filtration.C. Brain, LeftReceived in formalin, labeled the patient's name, MRJewel and designated as "left frontal brain tumor" is a 2.5 x 2.0 x 0.3 cm lan-white to lan-brown piece of tissue. It is serially sectioned and submitted entirely in cassettes C1-C4.A. Brain, LeftBRAIN, LEFT FRONTAL BRAIN TUMOR, BIOPSY:- METASTATIC NEOPLASMReported by Dr. Petersen at 11:17 AM on 02/22/2023.PerformedThe interpretation of this case included the use of immunohistochemistry or special stains.Control Slides Examined: In-house known positive controls were evaluated along with the test tissue. These control slides run alongside of the patients sample show appropriate staining. Internal positive and negative controls when available are evaluated Immunohistochemistry technical testing was performed at [facility], Pathology Laboratory where it was developed and its performance characteristics were determined. It has not been cleared or approved by the U.S. Food and Drug Administration. The FDA has determined that such clearance or approval is not necessary. The test is used for clinical purposes. It should not be regarded as investigational or for research. This laboratory is certified under the Clinical Laboratory Improvement Amendments of 1988 (CLIA-88) as qualified to perform high complexity clinical laboratory testing.[facility], Department of Pathology, [address] [place] [id number], [facility], Department of Pathology, [address] [place] [address], [facility], Department of Pathology, [address] [place] [address], POC-Glucose meter 2023-02-28 06:31:58 Test Item Value Reference Range Interpretation Comme nts POC-Glucose Meter (test code = 130 mg/dL 70-110 H : TESTED AT [facility] [address]) [place], [address]: Automotive Service Technician/Techni nate ID = [id number] for Nohemy Morfin Lab Interpretation (test code = Abnormal 53879-2) [facility] [id number] 06:31:58 Test Item Value Reference Range Interpretation Comments POC-GLUCOSE METER 130 mg/dL 70-110 H : TESTED A T [facility] [address]20 (BEAKER) (test code = [facility], 1538) [address]: Automotive Service Technician/Techni nate ID = [id number] for Nohemy Stone BASIC METABOLIC [id number] 05:18:43 Test Item Value Reference Range Interpretation Comments SODIUM (BEAKER) 127 meq/L 136-145 L (test code = 381) POTASSIUM 4.2 meq/L 3.5-5.1 Specimen slight ly (BEAKER) (test hemolyzed code = 379) CHLORIDE (BEAKER) 94 meq/L 98-107 L (test code = 382) CO2 (BEAKER) 22 meq/L 22-29 (test code = 355) BLOOD UREA 9 mg/dL 7-21 NITROGEN (BEAKER) (test code = 354) CREATININE 0.55 mg/dL 0.57-1.25 L Specimen slight ly (BEAKER) (test hemolyzed code = 358) GLUCOSE RANDOM 102 mg/dL 70-105 (BEAKER) (test code = 652) CALCIUM (BEAKER) 8.8 mg/dL 8.4-10.2 (test code = 697) EGFR (BEAKER) 105 Interpretatio n of eGFR (test code = mL/min/1.73 values Stage De scription 1092) sq m Result G1 Katie l or high >=90 G2 Mildly decreased 60-89 G3a Mildl y to moderately 45-5 9 G3b Moderately to s everely 30-44 G4 Severl y decreased 15-29 G5 Kidney failure <15Reported eGF R is based on the CKD-EPI 2020 equation that d oes not use a race coefficientEsti mated GFR is not as accur ate as Creatinine Shonna nadir in predicting glom erular filtration rate . Estimated GFR is not appl icable for dialysis patien ts Automotive Service Technician ID - DREW [id number] 05:18:42 Test Item Value Reference Range Interpretation Comments MAGNESIUM (BEAKER) 1.7 mg/dL 1.6-2.6 Specimen slightly (test code = 627) hemolyzed Automotive Service Technician ID - DREW [id number] 05:18:42 Test Item Value Reference Range Interpretation Comments PHOSPHORUS (BEAKER) 3.5 mg/dL 2.3-4.7 Specimen slightly (test code = 604) hemolyzed Automotive Service Technician ID - DREW WCBC W/PLT COUNT & AUTO [id number] 05:03:57 Test Item Value Reference Range Interpretation Comments WHITE BLOOD CELL COUNT 16.2 K/ L 3.5-10.5 H (BEAKER) (test code = 775) RED BLOOD CELL COUNT 4.11 M/ L 3.93-5.22 (BEAKER) (test code = 761) HEMOGLOBIN (BEAKER) 12.6 GM/DL 11.2-15.7 (test code = 410) HEMATOCRIT (BEAKER) 39.5 % 34.1-44.9 (test code = 411) MEAN CORPUSCULAR 96 fL 79-95 H Discordant results VOLUME (BEAKER) (test compar ed to previous code = 753) results; clinic al correlation req uired MEAN CORPUSCULAR 30.7 pg 25.6-32.2 HEMOGLOBIN (BEAKER) (test code = 751) MEAN CORPUSCULAR 31.9 GM/DL 32.2-35.5 L HEMOGLOBIN CONC (BEAKER) (test code = 752) RED CELL DISTRIBUTION 12.7 % 11.7-14.4 WIDTH (BEAKER) (test code = 412) PLATELET COUNT 322 K/CU MM 150-450 (BEAKER) (test code = 756) MEAN PLATELET VOLUME 9.6 fL 9.4-12.3 (BEAKER) (test code = 754) NUCLEATED RED BLOOD 0 /100 WBC 0-0 CELLS (BEAKER) (test code = 413) NEUTROPHILS RELATIVE 85 % PERCENT (BEAKER) (test code = 429) LYMPHOCYTES RELATIVE 6 % PERCENT (BEAKER) (test code = 430) MONOCYTES RELATIVE 5 % PERCENT (BEAKER) (test code = 431) EOSINOPHILS RELATIVE 2 % PERCENT (BEAKER) (test code = 432) BASOPHILS RELATIVE 0 % PERCENT (BEAKER) (test code = 437) NEUTROPHILS ABSOLUTE 13.86 K/ L 1.56-6.13 H COUNT (BEAKER) (test code = 670) LYMPHOCYTES ABSOLUTE 1.03 K/ L 1.18-3.74 L COUNT (BEAKER) (test code = 414) MONOCYTES ABSOLUTE 0.87 K/ L 0.24-0.36 H COUNT (BEAKER) (test code = 415) EOSINOPHILS ABSOLUTE 0.27 K/ L 0.04-0.36 COUNT (BEAKER) (test code = 416) BASOPHILS ABSOLUTE 0.05 K/ L 0.01-0.08 COUNT (BEAKER) (test code = 417) IMMATURE 0.80 % 0.00-1.00 GRANULOCYTES-RELATIVE PERCENT (BEAKER) (test code = 2801) POCT-GLUCOSE [id number] 00:29:38 Test Item Value Reference Range Interpretation Comments POC-GLUCOSE METER 120 mg/dL 70-110 H : TESTED A T [facility] 6720 (BEAKER) (test code = [facility]) [address]: Automotive Service Technician/Techni nate ID = [id number] for Nohemy Stone POCT-GLUCOSE [id number] 17:47:03 Test Item Value Reference Range Interpretation Comments POC-GLUCOSE METER 131 mg/dL 70-110 H : TESTED A T [facility] 6720 (BEAKER) (test code = [facility], 153) [address]: Automotive Service Technician/Techni nate ID = [id number] for Um eh, Akumbu POCT-GLUCOSE [id number] 17:14:57 Test Item Value Reference Range Interpretation Comments POC-GLUCOSE METER 89 mg/dL 70-110 : TESTED A T [facility] 6720 (BEAKER) (test code = [facility], 153) [address]: Automotive Service Technician/Techni nate ID = [id number] for Umeh , Akumbu [id number] 07:22:04 Test Item Value Reference Range Interpretation Comments PHOSPHORUS (BEAKER) 3.5 mg/dL 2.3-4.7 Specimen slightly (test code = 604) hemolyzed Automotive Service Technician ID - AAHAMIDBASIC METABOLIC [id number] 07:22:04 Test Item Value Reference Range Interpretation Comments SODIUM (BEAKER) 128 meq/L 136-145 L (test code = 381) POTASSIUM 4.5 meq/L 3.5-5.1 Specimen slight ly (BEAKER) (test hemolyzed code = 379) CHLORIDE (BEAKER) 95 meq/L 98-107 L (test code = 382) CO2 (BEAKER) 26 meq/L 22-29 (test code = 355) BLOOD UREA 10 mg/dL 7-21 NITROGEN (BEAKER) (test code = 354) CREATININE 0.59 mg/dL 0.57-1.25 Specimen slight ly (BEAKER) (test hemolyzed code = 358) GLUCOSE RANDOM 88 mg/dL 70-105 (BEAKER) (test code = 652) CALCIUM (BEAKER) 8.8 mg/dL 8.4-10.2 (test code = 697) EGFR (BEAKER) 103 Interpretatio n of eGFR (test code = mL/min/1.73 values Stage De scription 1092) sq m Result G1 Katie l or high >=90 G2 Mildly decreased 60-89 G3a Mildl y to moderately 45-5 9 G3b Moderately to s everely 30-44 G4 Severl y decreased 15-29 G5 Kidney failure <15Reported eGF R is based on the CKD-EPI 2020 equation that d oes not use a race coefficientEsti mated GFR is not as accur ate as Creatinine Shonna schmitz in predicting glom erular filtration rate . Estimated GFR is not appl icable for dialysis patien ts Automotive Service Technician ID - AAHAMIDOperator ID - [id number] 07:22:03 Test Item Value Reference Range Interpretation Comments MAGNESIUM (BEAKER) 1.7 mg/dL 1.6-2.6 Specimen slightly (test code = 627) hemolyzed Automotive Service Technician ID - AAHAMIDCBC W/PLT COUNT & AUTO [id number] 06:26:03 Test Item Value Reference Range Interpretation Comments WHITE BLOOD CELL COUNT (BEAKER) 14.4 K/ L 3.5-10.5 H (test code = 775) RED BLOOD CELL COUNT (BEAKER) 4.33 M/ L 3.93-5.22 (test code = 761) HEMOGLOBIN (BEAKER) (test code = 13.0 GM/DL 11.2-15.7 410) HEMATOCRIT (BEAKER) (test code = 38.1 % 34.1-44.9 411) MEAN CORPUSCULAR VOLUME (BEAKER) 88 fL 79-95 (test code = 753) MEAN CORPUSCULAR HEMOGLOBIN 30.0 pg 25.6-32.2 (BEAKER) (test code = 751) MEAN CORPUSCULAR HEMOGLOBIN CONC 34.1 GM/DL 32.2-35.5 (BEAKER) (test code = 752) RED CELL DISTRIBUTION WIDTH 12.6 % 11.7-14.4 (BEAKER) (test code = 412) PLATELET COUNT (BEAKER) (test 375 K/CU MM 150-450 code = 756) MEAN PLATELET VOLUME (BEAKER) 9.7 fL 9.4-12.3 (test code = 754) NUCLEATED RED BLOOD CELLS 0 /100 WBC 0-0 (BEAKER) (test code = 413) NEUTROPHILS RELATIVE PERCENT 84 % (BEAKER) (test code = 429) LYMPHOCYTES RELATIVE PERCENT 6 % (BEAKER) (test code = 430) MONOCYTES RELATIVE PERCENT 7 % (BEAKER) (test code = 431) EOSINOPHILS RELATIVE PERCENT 2 % (BEAKER) (test code = 432) BASOPHILS RELATIVE PERCENT 0 % (BEAKER) (test code = 437) NEUTROPHILS ABSOLUTE COUNT 12.14 K/ L 1.56-6.13 H (BEAKER) (test code = 670) LYMPHOCYTES ABSOLUTE COUNT 0.92 K/ L 1.18-3.74 L (BEAKER) (test code = 414) MONOCYTES ABSOLUTE COUNT (BEAKER) 1.04 K/ L 0.24-0.36 H (test code = 415) EOSINOPHILS ABSOLUTE COUNT 0.22 K/ L 0.04-0.36 (BEAKER) (test code = 416) BASOPHILS ABSOLUTE COUNT (BEAKER) 0.02 K/ L 0.01-0.08 (test code = 417) IMMATURE GRANULOCYTES-RELATIVE 0.60 % 0.00-1.00 PERCENT (BEAKER) (test code = 2801) POCT-GLUCOSE [id number] 22:02:06 Test Item Value Reference Range Interpretation Comments POC-GLUCOSE METER 101 mg/dL 70-110 : TESTED A T [facility] 6720 (BEAKER) (test code = [place], 1538) [address]: Automotive Service Technician/Techni nate ID = [id number] for JODIE ANGUIANO POCT-GLUCOSE [id number] 17:18:49 Test Item Value Reference Range Interpretation Comments POC-GLUCOSE METER 116 mg/dL 70-110 H : TESTED A T [facility] 6720 (BEAKER) (test code = DICK Schmidt [facility], 1538) [address]: Automotive Service Technician/Techni nate ID = [id number] for Emiliana Cao POCT-GLUCOSE [id number] 12:06:34 Test Item Value Reference Range Interpretation Comments POC-GLUCOSE METER 89 mg/dL 70-110 : TESTED A T [facility] 6720 (BEAKER) (test code = [facility] Brayan [facility], 1538) [address]: Automotive Service Technician/Techni nate ID = [id number] for Emiliana Caro [id number] 08:29:55 Test Item Value Reference Range Interpretation Comments PHOSPHORUS (BEAKER) (test code = 3.6 mg/dL 2.3-4.7 604) Automotive Service Technician ID - MARCOBASIC METABOLIC [id number] 08:29:54 Test Item Value Reference Range Interpretation Comments SODIUM (BEAKER) 130 meq/L 136-145 L (test code = 381) POTASSIUM 4.4 meq/L 3.5-5.1 (BEAKER) (test code = 379) CHLORIDE (BEAKER) 95 meq/L 98-107 L (test code = 382) CO2 (BEAKER) 28 meq/L 22-29 (test code = 355) BLOOD UREA 10 mg/dL 7-21 NITROGEN (BEAKER) (test code = 354) CREATININE 0.60 mg/dL 0.57-1.25 (BEAKER) (test code = 358) GLUCOSE RANDOM 90 mg/dL 70-105 (BEAKER) (test code = 652) CALCIUM (BEAKER) 9.0 mg/dL 8.4-10.2 (test code = 697) EGFR (BEAKER) 103 Interpretatio n of eGFR (test code = mL/min/1.73 values Stage De scription 1092) sq m Result G1 Katie l or high >=90 G2 Mildly decreased 60-89 G3a Mildl y to moderately 45-5 9 G3b Moderately to s everely 30-44 G4 Severl y decreased 15-29 G5 Kidney failure <15Reported eGF R is based on the CKD-EPI 1 equation that d oes not use a race coefficientEsti mated GFR is not as accur ate as Creatinine Shonna nadir in predicting glom erular filtration rate . Estimated GFR is not appl icable for dialysis patien ts Automotive Service Technician ID - [id number] 08:29:54 Test Item Value Reference Range Interpretation Comments MAGNESIUM (BEAKER) (test code = 1.8 mg/dL 1.6-2.6 627) Automotive Service Technician ID - MARCOCBC W/PLT COUNT & AUTO [id number] 07:41:47 Test Item Value Reference Range Interpretation Comments WHITE BLOOD CELL COUNT (BEAKER) 16.7 K/ L 3.5-10.5 H (test code = 775) RED BLOOD CELL COUNT (BEAKER) 4.35 M/ L 3.93-5.22 (test code = 761) HEMOGLOBIN (BEAKER) (test code = 13.3 GM/DL 11.2-15.7 410) HEMATOCRIT (BEAKER) (test code = 39.6 % 34.1-44.9 411) MEAN CORPUSCULAR VOLUME (BEAKER) 91 fL 79-95 (test code = 753) MEAN CORPUSCULAR HEMOGLOBIN 30.6 pg 25.6-32.2 (BEAKER) (test code = 751) MEAN CORPUSCULAR HEMOGLOBIN CONC 33.6 GM/DL 32.2-35.5 (BEAKER) (test code = 752) RED CELL DISTRIBUTION WIDTH 12.7 % 11.7-14.4 (BEAKER) (test code = 412) PLATELET COUNT (BEAKER) (test 359 K/CU MM 150-450 code = 756) MEAN PLATELET VOLUME (BEAKER) 10.1 fL 9.4-12.3 (test code = 754) NUCLEATED RED BLOOD CELLS 0 /100 WBC 0-0 (BEAKER) (test code = 413) NEUTROPHILS RELATIVE PERCENT 86 % (BEAKER) (test code = 429) LYMPHOCYTES RELATIVE PERCENT 6 % (BEAKER) (test code = 430) MONOCYTES RELATIVE PERCENT 6 % (BEAKER) (test code = 431) EOSINOPHILS RELATIVE PERCENT 1 % (BEAKER) (test code = 432) BASOPHILS RELATIVE PERCENT 0 % (BEAKER) (test code = 437) NEUTROPHILS ABSOLUTE COUNT 14.39 K/ L 1.56-6.13 H (BEAKER) (test code = 670) LYMPHOCYTES ABSOLUTE COUNT 1.05 K/ L 1.18-3.74 L (BEAKER) (test code = 414) MONOCYTES ABSOLUTE COUNT (BEAKER) 0.97 K/ L 0.24-0.36 H (test code = 415) EOSINOPHILS ABSOLUTE COUNT 0.24 K/ L 0.04-0.36 (BEAKER) (test code = 416) BASOPHILS ABSOLUTE COUNT (BEAKER) 0.01 K/ L 0.01-0.08 (test code = 417) IMMATURE GRANULOCYTES-RELATIVE 0.40 % 0.00-1.00 PERCENT (BEAKER) (test code = 2801) POCT-GLUCOSE [id number] 07:32:03 Test Item Value Reference Range Interpretation Comments POC-GLUCOSE METER 88 mg/dL 70-110 : [facility] T [facility] 6720 [facility] (test code = [facility]) [address]: Automotive Service Technician/Techni nate ID = [id number] for Kendall prado, Emiliana POCT-GLUCOSE [id number] 22:24:14 Test Item Value Reference Range Interpretation Comments POC-GLUCOSE METER 101 mg/dL 70-110 : TESTED A T [facility] 6720 ([facility]) (test code = [facility], [facility]) [address]: Automotive Service Technician/Techni nate ID = [id number] for GERARDO STEVENS JODIE POCT-GLUCOSE [id number] 18:24:18 Test Item Value Reference Range Interpretation Comments POC-GLUCOSE METER 104 mg/dL 70-110 : [facility] T [facility] 6720 [facility] (test code = [facility]) [address]: Automotive Service Technician/Techni nate ID = [id number] for MA RTINEZ, ROMMEL POCT-GLUCOSE [id number] 13:30:42 Test Item Value Reference Range Interpretation Comments POC-GLUCOSE METER 100 mg/dL 70-110 : TESTED A T [facility] 6720 (BEAKER) (test code = [facility], [facility]) [address]: Automotive Service Technician/Techni nate ID = [id number] for MA RTINEZ, ROMMEL POCT-GLUCOSE [id number] 08:34:38 Test Item Value Reference Range Interpretation Comments POC-GLUCOSE METER 85 mg/dL 70-110 : [facility] ([facility]ER[facility] (test code = [place], 1538) [address]: Automotive Service Technician/Techni nate ID = [id number] for ROMMEL ALLEN BASIC METABOLIC [id number] 06:48:43 Test Item Value Reference Range Interpretation Comments SODIUM (BEAKER) 127 meq/L 136-145 L (test code = 381) POTASSIUM 4.2 meq/L 3.5-5.1 Specimen slight ly (BEAKER) (test hemolyzed code = 379) CHLORIDE (BEAKER) 96 meq/L 98-107 L (test code = 382) CO2 (BEAKER) 23 meq/L 22-29 (test code = 355) BLOOD UREA 10 mg/dL 7-21 NITROGEN (BEAKER) (test code = 354) CREATININE 0.58 mg/dL 0.57-1.25 Specimen slight ly (BEAKER) (test hemolyzed code = 358) GLUCOSE RANDOM 99 mg/dL 70-105 (BEAKER) (test code = 652) CALCIUM (BEAKER) 8.6 mg/dL 8.4-10.2 (test code = 697) EGFR (BEAKER) 104 Interpretatio n of eGFR (test code = mL/min/1.73 values Stage De scription 1092) sq m Result G1 Katie l or high >=90 G2 Mildly decreased 60-89 G3a Mildl y to moderately 45-5 9 G3b Moderately to s everely 30-44 G4 Severl y decreased 15-29 G5 Kidney failure <15Reported eGF R is based on the CKD-EPI 2020 equation that d oes not use a race coefficientEsti mated GFR is not as accur ate as Creatinine Shonna schmitz in predicting glom erular filtration rate . Estimated GFR is not appl icable for dialysis patien ts Automotive Service Technician ID - [id number] 06:48:42 Test Item Value Reference Range Interpretation Comments MAGNESIUM (BEAKER) 1.9 mg/dL 1.6-2.6 Specimen slightly (test code = 627) hemolyzed Automotive Service Technician ID - [id number] 06:48:42 Test Item Value Reference Range Interpretation Comments PHOSPHORUS (BEAKER) 3.3 mg/dL 2.3-4.7 Specimen slightly (test code = 604) hemolyzed Automotive Service Technician ID - BSCBC W/PLT COUNT & AUTO [id number] 06:05:02 Test Item Value Reference Range Interpretation Comments WHITE BLOOD CELL COUNT (BEAKER) 15.6 K/ L 3.5-10.5 H (test code = 775) RED BLOOD CELL COUNT (BEAKER) 3.99 M/ L 3.93-5.22 (test code = 761) HEMOGLOBIN (BEAKER) (test code = 12.5 GM/DL 11.2-15.7 410) HEMATOCRIT (BEAKER) (test code = 35.9 % 34.1-44.9 411) MEAN CORPUSCULAR VOLUME (BEAKER) 90 fL 79-95 (test code = 753) MEAN CORPUSCULAR HEMOGLOBIN 31.3 pg 25.6-32.2 (BEAKER) (test code = 751) MEAN CORPUSCULAR HEMOGLOBIN CONC 34.8 GM/DL 32.2-35.5 (BEAKER) (test code = 752) RED CELL DISTRIBUTION WIDTH 12.7 % 11.7-14.4 (BEAKER) (test code = 412) PLATELET COUNT (BEAKER) (test 308 K/CU MM 150-450 code = 756) MEAN PLATELET VOLUME (BEAKER) 10.0 fL 9.4-12.3 (test code = 754) NUCLEATED RED BLOOD CELLS 0 /100 WBC 0-0 (BEAKER) (test code = 413) NEUTROPHILS RELATIVE PERCENT 84 % (BEAKER) (test code = 429) LYMPHOCYTES RELATIVE PERCENT 7 % (BEAKER) (test code = 430) MONOCYTES RELATIVE PERCENT 8 % (BEAKER) (test code = 431) EOSINOPHILS RELATIVE PERCENT 1 % (BEAKER) (test code = 432) BASOPHILS RELATIVE PERCENT 0 % (BEAKER) (test code = 437) NEUTROPHILS ABSOLUTE COUNT 13.00 K/ L 1.56-6.13 H (BEAKER) (test code = 670) LYMPHOCYTES ABSOLUTE COUNT 1.07 K/ L 1.18-3.74 L (BEAKER) (test code = 414) MONOCYTES ABSOLUTE COUNT (BEAKER) 1.23 K/ L 0.24-0.36 H (test code = 415) EOSINOPHILS ABSOLUTE COUNT 0.16 K/ L 0.04-0.36 (BEAKER) (test code = 416) BASOPHILS ABSOLUTE COUNT ([facility]) 0.02 K/ L 0.01-0.08 (test code = 417) IMMATURE GRANULOCYTES-RELATIVE 0.60 % 0.00-1.00 PERCENT ([facility]) (test code = 2801) POCT-GLUCOSE [id number] 05:13:39 Test Item Value Reference Range Interpretation Comments POC-GLUCOSE METER 113 mg/dL 70-110 H : Notified RN/MD: ([facility]) (test code = TESTED AT [place] [address]) [facility], [address]: Automotive Service Technician/Techni nate ID = [id number] for LATHBRIDGE, LARRY ICE POCT-GLUCOSE [id number] 23:47:59 Test Item Value Reference Range Interpretation Comments POC-GLUCOSE METER 91 mg/dL 70-110 : Notified RN/MD: TESTED ([facility]) (test code = AT [place] [address]) [facility], [address]: Automotive Service Technician/Techni nate ID = [id number] for LATH BRIDGE, GIRISH POCT-GLUCOSE [id number] 17:41:03 Test Item Value Reference Range Interpretation Comments POC-GLUCOSE METER 107 mg/dL 70-110 : [facility] (test code = [facility]) [address]: Automotive Service Technician/Techni nate ID = [id number] for RO DGERS, JAMECA POCT-GLUCOSE [id number] 12:28:51 Test Item Value Reference Range Interpretation Comments POC-GLUCOSE METER 129 mg/dL 70-110 H : TESTED A T [facility] 6720 ([facility]) (test code = [facility], [facility]) [address]: Automotive Service Technician/Techni nate ID = [id number] for RO DGERS, JAMECA POCT-GLUCOSE [id number] 06:26:17 Test Item Value Reference Range Interpretation Comments POC-GLUCOSE METER 95 mg/dL 70-110 : TESTED A T [facility] 6720 ([facility]) (test code = [facility], [facility]) [address]: Automotive Service Technician/Techni nate ID = [id number] for Weav er, Nohemy [id number] 04:51:25 Test Item Value Reference Range Interpretation Comments PHOSPHORUS (BEAKER) (test code = 3.1 mg/dL 2.3-4.7 604) Automotive Service Technician ID - MMBASIC METABOLIC [id number] 04:51:24 Test Item Value Reference Range Interpretation Comments SODIUM (BEAKER) 134 meq/L 136-145 L (test code = 381) POTASSIUM 4.0 meq/L 3.5-5.1 (BEAKER) (test code = 379) CHLORIDE (BEAKER) 102 meq/L 98-107 (test code = 382) CO2 (BEAKER) 25 meq/L 22-29 (test code = 355) BLOOD UREA 10 mg/dL 7-21 NITROGEN (BEAKER) (test code = 354) CREATININE 0.64 mg/dL 0.57-1.25 (BEAKER) (test code = 358) GLUCOSE RANDOM 96 mg/dL 70-105 (BEAKER) (test code = 652) CALCIUM (BEAKER) 8.5 mg/dL 8.4-10.2 (test code = 697) EGFR (BEAKER) 101 Interpretatio n of eGFR (test code = mL/min/1.73 values Stage De scription 1092) sq m Result G1 Katie l or high >=90 G2 Mildly decreased 60-89 G3a Mildl y to moderately 45-5 9 G3b Moderately to s everely 30-44 G4 Severl y decreased 15-29 G5 Kidney failure <15Reported eGF R is based on the CKD-EPI 2020 equation that d oes not use a race coefficientEsti mated GFR is not as accur ate as Creatinine Shonna nadir in predicting glom erular filtration rate . Estimated GFR is not appl icable for dialysis patien ts Automotive Service Technician ID - [id number] 04:51:24 Test Item Value Reference Range Interpretation Comments MAGNESIUM (BEAKER) (test code = 2.2 mg/dL 1.6-2.6 627) Automotive Service Technician ID - MMCBC W/PLT COUNT & AUTO [id number] 04:29:22 Test Item Value Reference Range Interpretation Comments WHITE BLOOD CELL COUNT (BEAKER) 13.0 K/ L 3.5-10.5 H (test code = 775) RED BLOOD CELL COUNT (BEAKER) 4.07 M/ L 3.93-5.22 (test code = 761) HEMOGLOBIN (BEAKER) (test code = 12.3 GM/DL 11.2-15.7 410) HEMATOCRIT (BEAKER) (test code = 36.0 % 34.1-44.9 411) MEAN CORPUSCULAR VOLUME (BEAKER) 89 fL 79-95 (test code = 753) MEAN CORPUSCULAR HEMOGLOBIN 30.2 pg 25.6-32.2 (BEAKER) (test code = 751) MEAN CORPUSCULAR HEMOGLOBIN CONC 34.2 GM/DL 32.2-35.5 (BEAKER) (test code = 752) RED CELL DISTRIBUTION WIDTH 12.8 % 11.7-14.4 (BEAKER) (test code = 412) PLATELET COUNT (BEAKER) (test 300 K/CU MM 150-450 code = 756) MEAN PLATELET VOLUME (BEAKER) 9.3 fL 9.4-12.3 L (test code = 754) NUCLEATED RED BLOOD CELLS 0 /100 WBC 0-0 (BEAKER) (test code = 413) NEUTROPHILS RELATIVE PERCENT 67 % (BEAKER) (test code = 429) LYMPHOCYTES RELATIVE PERCENT 20 % (BEAKER) (test code = 430) MONOCYTES RELATIVE PERCENT 11 % (BEAKER) (test code = 431) EOSINOPHILS RELATIVE PERCENT 1 % (BEAKER) (test code = 432) BASOPHILS RELATIVE PERCENT 0 % (BEAKER) (test code = 437) NEUTROPHILS ABSOLUTE COUNT 8.77 K/ L 1.56-6.13 H (BEAKER) (test code = 670) LYMPHOCYTES ABSOLUTE COUNT 2.56 K/ L 1.18-3.74 (BEAKER) (test code = 414) MONOCYTES ABSOLUTE COUNT (BEAKER) 1.44 K/ L 0.24-0.36 H (test code = 415) EOSINOPHILS ABSOLUTE COUNT 0.15 K/ L 0.04-0.36 (BEAKER) (test code = 416) BASOPHILS ABSOLUTE COUNT (BEAKER) 0.01 K/ L 0.01-0.08 (test code = 417) IMMATURE GRANULOCYTES-RELATIVE 0.50 % 0.00-1.00 PERCENT (BEAKER) (test code = 2801) POCT-GLUCOSE [id number] 21:47:28 Test Item Value Reference Range Interpretation Comments POC-GLUCOSE METER 148 mg/dL 70-110 H : TESTED A T [facility] 6720 (BEAKER) (test code = DICK Schmidt [facility], 1538) [id number]: Automotive Service Technician/Techni nate ID = [id number] for Efrain Geronimo MR, BRAIN, [id number] 21:20:00Unlisted Reason for Exam - Click Yes and Enter Reason Below->No [facility] : 1960 Sex: FFINAL REPORT MR, BRAIN, WITH \\T\\ WITHOUT CONTRAST INDICATION: Brain/PHYSICAL THERAPY ASSISTANT neoplasm,staging Technique: MRI of the brain utilizing axial T1, T2, FLAIR, GRE, DWI, sagittal T1; and postgadolinium axial, sagittal, and coronal T1-weighted images. 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 There is minimal linear enhancement surrounding the resection cavity. No residual nodular enhancement or residual tumor is identified. AdjacentT2/FLAIR hyperintense signal within the adjacent left parietal subcortical white matter is redemonstrated. 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 Pneumocephalus at the frontal poles. No restricted diffusion to suggest recent infarct. No hydrocephalus. Orbits are within normal limits. No obstructive paranasal sinus disease. Additional findings: None. 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 Signed: Rocio [place] Verified Date/Time: 02/23/2023 21:20:37 POCT-GLUCOSE [id number] 15:57:43 Test Item Value Reference Range Interpretation Comments POC-GLUCOSE METER 127 mg/dL 70-110 H : TESTED A T [facility] 6720 (BEAKER) (test code = [facility] Brayan [facility] [facility], 1538) [address]: Automotive Service Technician/Techni nate ID = [id number] for Burnett-Arredondo , Eunice POCT-GLUCOSE [id number] 09:17:01 Test Item Value Reference Range Interpretation Comments POC-GLUCOSE METER 118 mg/dL 70-110 H : TESTED A T [facility] 6720 (BEAKER) (test code = [facility], 1538) 679[address]: Automotive Service Technician/Techni nate ID = [id number] for Burnett-Arredondo , Eunice POCT-GLUCOSE [id number] 06:04:37 Test Item Value Reference Range Interpretation Comments POC-GLUCOSE METER 110 mg/dL 70-110 : TESTED A T [facility] 6720 (BEAKER) (test code = [facility], 1538) 32213: Automotive Service Technician/Techni nate ID = [id number] for CASSANDRA GARAY (CELLAVISION MANUAL DIFF)2023-02-23 02:31:17 Test Item Value Reference Range Interpretation Comments NEUTROPHILS - REL 85 % (CELLAVISION)(BEAKER) (test code = 2816) LYMPHOCYTES - REL 8 % (CELLAVISION)(BEAKER) (test code = 2817) MONOCYTES - REL 6 % (CELLAVISION)(BEAKER) (test code = 2818) BANDS - REL (CELLAVISION)(BEAKER) 1 % 0-10 (test code = 2826) NEUTROPHILS - ABS 16.92 K/ul 1.56-6.13 H (CELLAVISION)(BEAKER) (test code = 2830) LYMPHOCYTES - ABS 1.59 K/ul 1.18-3.74 (CELLAVISION)(BEAKER) (test code = 2831) MONOCYTES - ABS 1.19 K/uL 0.24-0.36 H (CELLAVISION)(BEAKER) (test code = 2832) BANDS - ABS (CELLAVISION)(BEAKER) 0.20 K/uL 0.00-0.80 (test code = 2840) TOTAL COUNTED (BEAKER) (test code 100 = 1351) RBC MORPHOLOGY (BEAKER) (test code Normal = 762) WBC MORPHOLOGY (BEAKER) (test code Normal = 487) PLT MORPHOLOGY (BEAKER) (test code Normal = 486) ARTIFACT (CELLAVISION)(BEAKER) Present (test code = 3432) PLATELET CONCENTRATION Adequate (CELLAVISION)(BEAKER) (test code = 3438) Automotive Service Technician ID - Jaycee ScottTrue comments: Slide comments:CBC W/PLT COUNT & AUTO [id number] 02:31:16 Test Item Value Reference Range Interpretation Comments WHITE BLOOD CELL COUNT 19.9 K/ L 3.5-10.5 H (BEAKER) (test code = 775) RED BLOOD CELL COUNT 3.99 M/ L 3.93-5.22 (BEAKER) (test code = 761) HEMOGLOBIN (BEAKER) 12.3 GM/DL 11.2-15.7 (test code = 410) HEMATOCRIT (BEAKER) 36.3 % 34.1-44.9 (test code = 411) MEAN CORPUSCULAR 91 fL 79-95 Discordant results VOLUME (BEAKER) (test compar ed to previous code = 753) results; clinic al correlation req uired MEAN CORPUSCULAR 30.8 pg 25.6-32.2 HEMOGLOBIN (BEAKER) (test code = 751) MEAN CORPUSCULAR 33.9 GM/DL 32.2-35.5 HEMOGLOBIN CONC (BEAKER) (test code = 752) RED CELL DISTRIBUTION 12.8 % 11.7-14.4 WIDTH (BEAKER) (test code = 412) PLATELET COUNT 295 K/CU MM 150-450 (BEAKER) (test code = 756) MEAN PLATELET VOLUME 9.4 fL 9.4-12.3 (BEAKER) (test code = 754) NUCLEATED RED BLOOD 0 /100 WBC 0-0 CELLS (BEAKER) (test code = 413) [id number] 02:18:54 Test Item Value Reference Range Interpretation Comments PHOSPHORUS (BEAKER) (test code = 3.4 mg/dL 2.3-4.7 604) Automotive Service Technician ID - BSBASIC METABOLIC [id number] 02:18:53 Test Item Value Reference Range Interpretation Comments SODIUM (BEAKER) 129 meq/L 136-145 L (test code = 381) POTASSIUM 3.7 meq/L 3.5-5.1 (BEAKER) (test code = 379) CHLORIDE (BEAKER) 100 meq/L 98-107 (test code = 382) CO2 (BEAKER) 21 meq/L 22-29 L (test code = 355) BLOOD UREA 12 mg/dL 7-21 NITROGEN (BEAKER) (test code = 354) CREATININE 0.62 mg/dL 0.57-1.25 (BEAKER) (test code = 358) GLUCOSE RANDOM 100 mg/dL 70-105 (BEAKER) (test code = 652) CALCIUM (BEAKER) 8.2 mg/dL 8.4-10.2 L (test code = 697) EGFR (BEAKER) 102 Interpretatio n of eGFR (test code = mL/min/1.73 values Stage De scription 1092) sq m Result G1 Katie l or high >=90 G2 Mildly decreased 60-89 G3a Mildl y to moderately 45-5 9 G3b Moderately to s everely 30-44 G4 Severl y decreased 15-29 G5 Kidne y failure <15Reported eGF R is based on the CKD-EPI 2020 equation that d oes not use a race coefficientEsti mated GFR is not as accur ate as Creatinine Shonna schmitz in predicting glom erular filtration rate . Estimated GFR is not appl icable for dialysis patien ts Automotive Service Technician ID - [id number] 02:18:53 Test Item Value Reference Range Interpretation Comments MAGNESIUM (BEAKER) (test code = 1.8 mg/dL 1.6-2.6 627) Automotive Service Technician ID - BSPOCT-GLUCOSE [id number] 00:56:09 Test Item Value Reference Range Interpretation Comments POC-GLUCOSE METER 99 mg/dL 70-110 : [facility] ([facility]ER) (test code = [facility] [place], 1538) [address]: Automotive Service Technician/Techni nate ID = [id number] for Gerardo araujo Terri POCT-GLUCOSE [id number] 17:47:55 Test Item Value Reference Range Interpretation Comments POC-GLUCOSE METER 112 mg/dL 70-110 H : TESTED A T [facility] 6720 (BEAKER) (test code = [facility], 1538) 34654: Automotive Service Technician/Techni nate ID = [id number] for Eunice Urbina POCT-GLUCOSE [id number] 06:44:18 Test Item Value Reference Range Interpretation Comments POC-GLUCOSE METER 97 mg/dL 70-110 : TESTED A T [facility] 6720 (BEAKER) (test code = [facility], 1538) 882[address]: Automotive Service Technician/Techni nate ID = [id number] for Bethany Talley [id number] 06:39:21 Test Item Value Reference Range Interpretation Comments MAGNESIUM (BEAKER) (test code = 2.0 mg/dL 1.6-2.6 627) Automotive Service Technician ID - DREW [id number] 06:39:21 Test Item Value Reference Range Interpretation Comments PHOSPHORUS (BEAKER) (test code = 3.1 mg/dL 2.3-4.7 604) Automotive Service Technician ID - DREW WBASIC METABOLIC [id number] 06:39:20 Test Item Value Reference Range Interpretation Comments SODIUM (BEAKER) 130 meq/L 136-145 L (test code = 381) POTASSIUM 4.2 meq/L 3.5-5.1 (BEAKER) (test code = 379) CHLORIDE (BEAKER) 98 meq/L 98-107 (test code = 382) CO2 (BEAKER) 24 meq/L 22-29 (test code = 355) BLOOD UREA 12 mg/dL 7-21 NITROGEN (BEAKER) (test code = 354) CREATININE 0.68 mg/dL 0.57-1.25 (BEAKER) (test code = 358) GLUCOSE RANDOM 106 mg/dL 70-105 H (BEAKER) (test code = 652) CALCIUM (BEAKER) 8.9 mg/dL 8.4-10.2 (test code = 697) EGFR (BEAKER) 100 Interpretatio n of eGFR (test code = mL/min/1.73 values Stage De scription 1092) sq m Result G1 Katie l or high >=90 G2 Mildly decreased 60-89 G3a Mildl y to moderately 45-5 9 G3b Moderately to s everely 30-44 G4 Severl y decreased 15-29 G5 Kidney failure <15Reported eGF R is based on the CKD-EPI 202 equation that d oes not use a race coefficientEsti mated GFR is not as accur ate as Creatinine Shonna schmitz in predicting glom erular filtration rate . Estimated GFR is not appl icable for dialysis patien ts Automotive Service Technician ID - DREW WCBC W/PLT COUNT & AUTO [id number] 06:02:52 Test Item Value Reference Range Interpretation Comments WHITE BLOOD CELL COUNT (BEAKER) 16.2 K/ L 3.5-10.5 H (test code = 775) RED BLOOD CELL COUNT (BEAKER) 4.81 M/ L 3.93-5.22 (test code = 761) HEMOGLOBIN (BEAKER) (test code = 14.3 GM/DL 11.2-15.7 410) HEMATOCRIT (BEAKER) (test code = 41.9 % 34.1-44.9 411) MEAN CORPUSCULAR VOLUME (BEAKER) 87 fL 79-95 (test code = 753) MEAN CORPUSCULAR HEMOGLOBIN 29.7 pg 25.6-32.2 (BEAKER) (test code = 751) MEAN CORPUSCULAR HEMOGLOBIN CONC 34.1 GM/DL 32.2-35.5 (BEAKER) (test code = 752) RED CELL DISTRIBUTION WIDTH 12.4 % 11.7-14.4 (BEAKER) (test code = 412) PLATELET COUNT (BEAKER) (test 378 K/CU MM 150-450 code = 756) MEAN PLATELET VOLUME (BEAKER) 9.6 fL 9.4-12.3 (test code = 754) NUCLEATED RED BLOOD CELLS 0 /100 WBC 0-0 (BEAKER) (test code = 413) NEUTROPHILS RELATIVE PERCENT 92 % (BEAKER) (test code = 429) LYMPHOCYTES RELATIVE PERCENT 5 % (BEAKER) (test code = 430) MONOCYTES RELATIVE PERCENT 3 % (BEAKER) (test code = 431) EOSINOPHILS RELATIVE PERCENT 0 % (BEAKER) (test code = 432) BASOPHILS RELATIVE PERCENT 0 % (BEAKER) (test code = 437) NEUTROPHILS ABSOLUTE COUNT 14.84 K/ L 1.56-6.13 H (BEAKER) (test code = 670) LYMPHOCYTES ABSOLUTE COUNT 0.80 K/ L 1.18-3.74 L (BEAKER) (test code = 414) MONOCYTES ABSOLUTE COUNT (BEAKER) 0.46 K/ L 0.24-0.36 H (test code = 415) EOSINOPHILS ABSOLUTE COUNT 0.01 K/ L 0.04-0.36 L (BEAKER) (test code = 416) BASOPHILS ABSOLUTE COUNT (BEAKER) 0.02 K/ L 0.01-0.08 (test code = 417) IMMATURE GRANULOCYTES-RELATIVE 0.40 % 0.00-1.00 PERCENT (BEAKER) (test code = 2801) POCT-GLUCOSE [id number] 23:46:20 Test Item Value Reference Range Interpretation Comments POC-GLUCOSE METER 122 mg/dL 70-110 H : TESTED A T [facility] 6720 (BEAKER) (test code = [facility], 1538) 38353: Automotive Service Technician/Techni nate ID = [id number] for Bethany Anguiano SARS-CoV2/RT-PCR ([facility])2023-02-21 18:36:57 Test Item Value Reference Interpretation Comments Range SARS-COV2/RT-PCR Negative Negative The SARS-Co V-2 (test code = target nucleic 36556-1) acids are not detected in thi s specimen. Negat efrain results do not preclude SARS-C oV-2 infection and should not be u sed as the sole bas is for patient management decisions. Nega tive results must be combined with clinical observations, patient history , and epidemiolog ical information. A false negative result may occu r if a specimen is improperly collected, transported or handled. This S ARS CoV-2 test is a rapid, real-kisha e RT-PCR test intended for th e qualitative detection of nucleic acid fr om SARS-CoV-2 in a nasopharyngeal swab specimen collec ad from individual s suspected of COVID-19 by the ir healthcare provider. MIKIE (test code = This test has been MIKIE) authorized by FDA under an EUA for use by authorized laboratories. This test is only authorized for the duration of the declaration that circumstances exist justifying the authorization of emergency use of in vitro diagnostic tests for detection and/or diagnosis of COVID-19 under Section 564(b)(1) of the Federal Food, Drug and Cosmetic Act, 21 U.S.C. 360bbb-3(b)(1), unless the authorization is terminated or revoked sooner. Fact Sheet for Healthcare Providers: https://www.Fooducate/Documents/Xp ert%20Xpress%20SAR S%20CoV-2/Fact%20S heets/302-3802%20S ARS-COV-2%20HEALTH CARE%20PROVIDERS%2 0FACT%20SHEET.pdf Fact Sheet for Healthcare Patients: https://www.Fooducate/Documents/Xp ert%20Xpress%20SAR S%20CoV-2/Fact%20S heets/302-3801%20S ARS-COV-2%20PATIEN T%20FACT%20SHEET.p df Lab Interpretation Normal (test code = 59817-6) [facility]2023-02-21 18:36:57 Test Item Value Reference Range Interpretation Comments SARS-COV2/RT-PCR Negative Negative The SARS-Co V-2 target (test code = nucleic acids a re not 8494713) detected in thi s specimen. Negative result s do not preclude SARS-C oV-2 infection and s hould not be used as the destiney e basis for patient managem ent decisions. Nega tive results must be combine d with clinical observ ations, patient history , and epidemiological information. A false negativ e result may occur if a spec imen is improperly samara ected, transported or handled. This SARS CoV-2 test is a rapid, real-time RT-PC R test intended for th e qualitative detection of nu cleic acid from SARS-CoV-2 in a nasopharyngeal swab specimen collected from individuals suspected of CO VID-19 by their healthcar e provider. This test has been authorized by FDA under an EUA for use by authorized laboratories. This test is only authorized for the duration of the declaration that circumstances exist justifying the authorization of emergency use of in vitro diagnostic tests for detection and/or diagnosis of COVID-19 under Section 564(b)(1) of the Federal Food, Drug and Cosmetic Act, 21 U.S.C. 360bbb-3(b)(1), unless the authorization is terminated or revoked sooner. Fact Sheet for Healthcare Providers: https://www.GreenerU m/Documents/Xpert%20Xpress%20SARS%20CoV-2/Fact%20Sheets/302-3802%92MLNI-UUO-2%20 HEALTHCARE%20PROVIDERS%20FACT%20SHEET.pdf Fact Sheet for Healthcare Patients: https://www.Kozio/Documents/Xpert%20Xp ress%20SARS%20CoV-2/Fact%20Sheets/302-3801%96AZQY-SPE-5%20PATIENT%20FACT%20SHEET .pdfPOCT-GLUCOSE [id number] 17:36:21 Test Item Value Reference Range Interpretation Comments POC-GLUCOSE METER 125 mg/dL 70-110 H : TESTED A T [facility] 6720 (BEAKER) (test code = [facility] [place], 1538) [address]: Automotive Service Technician/Techni nate ID = [id number] for GUANAKITO BALDWIN [id number] 15:40:40 Test Item Value Reference Range Interpretation Comments PARTIAL THROMBOPLASTIN TIME 28.9 seconds 22.5-36.0 (BEAKER) (test code = 760) PROTHROMBIN TIME/[id number] 15:39:58 Test Item Value Reference Range Interpretation Comments PROTIME (BEAKER) (test code = 13.9 seconds 11.9-14.2 759) INR (BEAKER) (test code = 370) 1.14 <=5.90 RECOMMENDED COUMADIN/WARFARIN INR THERAPY RANGESSTANDARD DOSE: 2.0 - 3.0 Includes: PROPHYLAXIS for venous thrombosis, systemic embolization; TREATMENT for venous thrombosis and/or pulmonary embolus.HIGH RISK: Target INR is 2.5-3.5 for patients with mechanical heart valves.Tissue [id number] 15:21:06 Test Item Value Reference Range Interpretation Comments Case Report (test code Surgical Pathology = 104) Report Case: [id number] Authorizing Provider: Edilia Westfall MD Collected: 02/17/2023 02:51 PM Ordering Location: [address] Received: 02/17/2023 04:08 PM Service Pathologist: Judy Ramineni, MD Specimen: Lung DIAGNOSIS (test code = [id number] 3220) FuZzEwMzNcZnRuYmpcdWMx IHtccnRmMVxlcGljMTAyMD RmHO5alLyitFt2zAcfCASq trZ5wUPnFYxrs3gfTVP2o3 vgmnzdVCTaGBvwLk1vkCNz nLijUlIbFVZpWZg5wF41EA GreQ2icQKyNHz7EDXyjSIo hnEqWwScCIUwuDTgcGF6LB OgLX0phgcsWPgeEZgtFFRl ngD3FJBpsNInF3NyXBIyWI 2xlbfpJGL7VPweRGSoMJR1 FbAbEJZfu6Pzsju9VaXpsM FyZFxwbGFpblxmczIwIEEu MZfVVwykGLOKZOXzXl5NUS OPURMYCpgUZAvdM8JrK4PJ LLEPWA7DBWQBGVIYVR3TL5 r3FKUzriWxVUSbRVnETIXB RTJYJA5IKHgIV4jpUEDyVU EzWDCAWUXCP5DPKBNEZYyF OSQCYO2EJw9JTt6SKZwPIH MNWqZAH9KTMhVhM7zPBZFI JR5IHAVPGG3OH0VLY8nXG9 6VSXWpes73EPE9XwCdn7N7 VEU6OHZlBEPdb8baXUSufD FuZzEwMzNcZnRuYmpcdWMx FEMeSsXyk8hvj910eWKod8 qxQZRzHdL1bEWkUCFftPJf O851WBAuQDlhq8ehm9NaIS SbaZFym1M4PATZtwyccNd5 kLyjQ41lv8W9YqisM7krBM PsHTZmR1HkUR6gMJBvWjk8 EXJ5XJH4RMPeGXZlB2NvGY 1rWPZfrNIqHWn8s8jotSlf KKEbBPB8y2egJQxwqxTfKO 5hzb8jzUq4w7ifceKkNMJe UCSvzFDFTAXuA4AjrRccUp 0rgOj7gKbqEdmwRKY1Nxm3 BC9jtc95uhx8jUglKQRzig jmWmF3VNplNDWhfwpiGWh5 VVhiUIAflYF2AKXdrTNzB9 GoDDZdRU9fewr9SNK7FNtg KRFsIvS7UTUxcOToJHCwcJ usXYgif627XLM7HrQbCO4o T1Rni5H4tU6koNSlLCMomX CfApTvBQJaxa9lnJRmGZqa i4EtNII0lvA5iBAhvBYrHO JmNrA5RYuhFT9jnu27BPAg RZL5if9gtCOseIjofwRaqG UpIVpqK7QtQOXgw792LBVz X2QmDYLpq0R2iuXmOnAqWY UphWP7pbC4UFLpFQ8ttuqg q2arZPeaMNbbBEIecpL9oy D9BYQogHSdG4TmqO7lSFZz MR8wxuipa5vpNRI5IUmzPP TqLBN1IcXfTFPlc9Hkdoq8 RcZhc0RfhUIjRAioJ26uv7 91RCBsesWuI1qgcUDmfyle sDEamhqjJAmcxjC5IKBaLN olcbrfUEZqIQmeJ3kvXoVf UPOonXxhOSloy9QlECLmII ChFaCfeTGcCHJcApe6VUDi cTEoGNOxAjEnG0fwagqgRk EZOSIsu4ueW2qvzYVOjHSv V0TyJQyatjXgGPumYAdyGu DaMCc8VB27WmVwRQUuer45 COMMENT (test code = l6pppSBvEUAseHPnIFEyJG 3359) vkloPvPEYmvPCgN1Zazgke GZuwSL2qBW8fyNmwrAVxsH RpXGQhYnAmz4evi880sTUw g0sbMMZOqgcakEb4oAsxL2 5qp6Z9KpdkY44cbDUtLAK1 SQCsIICfkCUtNCDjYEA9CC WupNOvP8wqPKIyEN4axncf EWacOMmoCPGidZQ0WJQcnF HzO2LtLPJiIUpeRSNxnxm3 VrYcPn4swNTacZmiFCryOQ JkXHBsYWluXGZzMjAgVGhl JBGdfTHunP0lBEwgCMK6qQ YoqMSlfQJimR6jmBPfWGOu ZVIxy30bjRI8lcUbNcWkpI GaiYMgt5RqNV8wAHN4qUQw P6CwTXFvqDkkSCL2oOdghJ OfyTPiczWqi0SvaJe4ORF0 oUXoCIVNOi4pABHqqMOwj4 U9xI9nANUlGUPrAq16EVZs gSLhdr5ruWNdFGPIbOWhkQ pcg5CnUTnuHQQ4bDPrkDAh oLEgeLGhvLUetmHcaJ1vIY AbdUQ7LYZwu3FvZwzluBAx m6QbEWUmc7KswtzcPOIpof 0= CPT Code(s) (test code s4crqGXvFOLxxMOpANFlAB = 8979) bqcmBiXMDmyQErR7Tkabmk TVemFM3iDX1gmUfslORdmA NtNFPoBqVei8zrv102tRDs y3vjWFRInzkbyLt5pYckL8 0zg5M2PhzvH90zqOKwMSX6 ZNVkYRPpyREjKIWjVVC8YL SsrSHiB6oiNWGdIQ1pmncr TEipMKtwBTBbuDE0FHVwjR IoD4PkUVHyHFbvEVKeape9 UrLlMk1tkVJtmGbyOFaeGK JkXHBsYWluXGZzMjAgODgz TCGcnOTpBGq5PmFxWAEhww O5LRL8UPfzYVCthp2= CLINICAL HISTORY (test b6zjnFMtLRYwnGNjFPArRL code = 3356) vcxmDoEKKspTPyE1Uwbdkz FFzpZI2cED7rtWlvjDIjoX UtXWLiXpJrn2dhm297wWAi g3ndQNUAsobnzPz1kAhhX0 8jh3G1QynvL46icQZgQPX9 UMUpHISdjOMtFKJuPOO5BW TxkLNkK6ntVWGuSM8bipoj IAtdYYuvMMFwqHJ4BTHktL DpZ5JlWEStNRnwBWXvioa7 KuFnQh3uoBWwxCmaUDqtUZ JkXHBsYWluXGZzMjAgNjAt sJUzqf2qzGQeQmPjFLjjXX F3qaXknzLeg91iy5YyRXEu SEByrzXfJVW9nQOrXMhhcY ggcmlnaHQgYXJtIHdlYWtu BGGgPdHxHDFLGQ7uUQMzQX NlyySavpJvyM07CNXlOHHr MTEtKDOohkUsQM7gsYjssS BlbmhhbmNpbmcgbWFzcyBt ZWFzdXJpbmcgMzQgeCAzMS RvcDKbilI5pKDteP1czSLh eF8hVQgfQwPnAtSoqqAukN Ukf2QuHuIkCI9iwFaatrZa ewArPR7bgDgpoQAlZLJkFO 4uAAL3zzjxZpJyUHC1EYVy HS9jFCrxXPSxUTOwj6I5CW Tfy5LuansmkNOlNeKnqdUi bZMjz0ExPcFbZ0TbI5xfe5 Xdi2jzr9JlGPXiTlM5LGBc NSBjbSBtYXNzbGlrZSBvcG XmlNI6FGefBJGqZDVcZUC5 FAogh4XeZPspRwLjMFLAME SlJ15jlFYfuTQpdBffjyHo tS5tzOOsy0FzNIkcNMwflk Pgg73lYLZql9Smmf4dXVmm mWW1LKD2DJDxij5jtZFsbZ == GROSS DESCRIPTION (test j3qwnBDkHORtoRECJBIhZB code = [id number]) RwHY0wxEtgeHi6uJzfJYZz wvD7gNNoONdub0pyCCD2o0 lonnQLZdmhZOVlNM6ePRcg JTFwPM4fEfJcUTLxDrZxGQ BhcGVydzEyMjQwXHBhcGVy dRP7GYJvCA8kencdXHmoWY hcIPRvroD3DYQobZGoX9Mw AJYfMI0kkwxqRMD9FGZMMe jcWn8utNYggDbtQwNoFaIp YXJzZXQwXGZuaWwgQXJpYW b2tU6VBamtG01wp5R0Jit9 SPBtWTMhC8DfRW3fIJCkeY KsR63OQxtySBW0OLQKPjyu XogefDoaz3EjkLLdTDQcHF xcaWQgNTEwMDAgXFxkYiBP ZbTkVeNlAUY5KSn6WVQiZW i9XUlrUlQIPMD1HUN7GCdw IBa3MIuvUXlmtUViEZSlSL BwKPUrCPixudY9p1urPWWq zYIoZIG7ZVqpd3ucBUybQS G9VGYlQsWkGLQeUA9PVoKp CMTbBCPdNTPvQwO8SXz2AY BPVlMgIiAgMzQzNjcwMDUi PXp6YSp4OLhMGhW7KwuuKu oxOrLeLCO9RXuePFy9OJBc XFxzcyAzIFxcZmwgXFxuY3 1ccGFyZCANClxwbGFpblxm iaIbVKObIZm7tvqwjMGgHB 0OKXGpjpVdPYqqdKepgH2a ZnMyMlxsdHJjaFxlcGljTm VzdERvYzEgDQpcbHRycGFy XGxpbjBccmluMCANClxjZj FcZnMyMCBSZWNlaXZlZCBp yhXpj9UzUNillbDeTUMjmE VkIHdpdGggdGhlIHBhdGll pvMpS5P6bcArCO4mRHTtPE RfU9ZkNMOeS54kLJQjbS4n YJTnHR4tETz0XTFpBGQlGv zguUWiLhLaPBZmXN69dXGf tVqbOVRnvjKxw6IoVRLlf3 TycSHdTEXtmfrhatxigJ3u h1w8ZLYqdb5mSPEpPL0bEv SmJ44zTEcmiEElTKClARDv sFXcmHJ9PBVlgR0wdX66vm ZfigLUQUk3MWOpBWVcKtm5 QTIuXHBhciANClxwYXIgDQ emu8gmA6CnjHPqLCYaOyVd DGDgU0vyYQQfPN1LOWHtFM sifiNbGLxlgVN0osLKHB5x vu8IFPYrhFJACAE9BP7xWL biAMKpV4XpD5TegmT8p9sf bWubi1RehZBiRF1fgJVmFS 4CYFDkonWtKAo4 MICROSCOPIC DESCRIPTION y9mwxTLdHGLtwENzGMIuWQ (test code = 3371) cvysXeBZXkbBGvA2Oiphve YSjnDL6vJN9ljZsehRNrmG CcMTNwOzJke8vhm460yPDr d0neFTQOkrvgoOc2vJmfE8 7us9R9InzmS13jjZKmJCJ2 QQXvYLYueYOhTOUfUCK2KL DpdUPbM7zyBMMiQR2kmokt ZQbqFLtdIGHdtMZ8WUVllA OrO2GwYKHzKCcvDSObsxs4 UaZgZn8vcLQdyNjtMOodLM JkXHBsYWluXGZzMjAgUGVy Fl0jiEJxVGSxmq9= SPECIAL STUDIES (test f7hduOOkKLGweGYkEMOiQU code = 3376) gykpYsXQWlzXHxI6Zzemiv YLzfMN3pHB5yxGbadQSgtA WyEYEnNpYua3vpz024ePZv k7guFIWXylubpKk7z6xjBU XJFQvkMzKuF342v6stf2wc wiZmzFF9MDLeXWWoX6NmXM 6mTWOtsMZxM03agWDaYKL4 EPBsPGOzkNNsEEFvYRS5MF AefIUjA1zrWZOgAN1lsfdf QOazJBdiLUXxsBT6MDJbkD MrX2RbESErAPurYWCbilr6 UaWgUw3feRXjzXwzTOkuAD JkXHBsYWluXGYxXGZzMjJc T5PdEWSsERPbdnLlmpAbIF PqzJkvimHzOgS9qSmvZPHf e3XgcG7ieKEtHJKkaHmuPS OmOMNwFdLuqO43ap1wyUT0 n6NqPC7vp4DhjFOewlJgyF WjuYBnNRA9GHvomi4laKHx ZEHdicPJd681gr6fNUPoaS FnycAPtEIqhA9fJQruCAbq NQtugEQmLLbzh1zzQEItd3 y5uMYgKHTmcvSsi9roPUqb cmUgZXZhbHVhdGVkIGFsb2 0fCHermBvhgLnbRPXza7Dp tCqlf8VqIsHgMOfxt6FqT8 9udHJvbCBzbGlkZXMgcnVu YZIsz62sj7moRBJzObT4pV RtmWX0aQRbmRKcq1VaiMth WWNpq2uoNYCbdl7yfoirxN Dug8FtxI7exhtfMUysuZAe nhOlFFSjs7d6sVRsCXQqIS SnEHrkeZi3OCIbp582rx4z smU2kFWtWCQ6ZSixSAExBN BhcmUgZXZhbHVhdGVkXHBh tzPkPCCgydLUjG52su5oxQ I8m7SqNK4oy9OxzDB7AGNm rsidRSdhpHWwaMvwDlG6OB ZrgGKbYh0oxROmVWI4FAGs bYjasnLXfW4iQYYhHSg9ZT QaQoDeTiabxuZTMTFiW1Hh VXImbeOlphqhXNS0fI7ct9 l5BDkqEw1sCKVwasbob5mn euTwxMBso3DeKKSjzuGkz5 BlZCBhbmQgaXRzIHBlcmZv dn1cqvIrUNOsSVVpV1Tejv xgeFjycgM5MQAmZABdkHYq nIzhSQLhPGt0HWdwnlArq4 HuHeOhneCqpGDrciVwZO8h CRPzsPPhkyFaLPR2SUOsHG KDEtHdQBTkz4YoWL6tAIFi yOfaJJJuiN9ru1SkAUAcs1 4uIFRoZSBGREEgaGFzIGRl dGVybWluZWQgdGhhdCBzdW UmGDHrHJEaTN2uGPKxozXl mMKul0DnsCEahuAga4Eatq MeQAHmHVT9CzOIuRVzbJAo pFLyteX3h5OmNIVbyvLzxE wgnEZmmUVilOWmx5Adyw2o YPIis1qwgUtmUB1krZDaCL ByZWdhcmRlZCBhcyBpbnZl z6KkX3C8sC1vYZfxf8DmVb 8vGJEof8PyccUrKwWToUyt HPgqZp8aZYSuqroxrKAzT1 VydGlmaWVkIHVuZGVyIHRo ZSBDbGluaWNhbCBMYWJvcm D1p1O0DPogkCVttwPrRO36 EIAjCL6qdIRytBQnl4PnSC p4ZNAsQ1wAVD56HJlzMYCv cXVhbGlmaWVkIHRvIHBlcm Dyow2ecWbqhWBop88ujEV6 mJA5UFGghB0yQ2PpIWymRl 1eWVAxchemaPMvfDqxYt1t sNVcXOMij1DjYHFhAsgkPC SpLPXXDND6JAXcp5v3vRVl VMNolaVWEYI0IS4uE0V8lT ZlXHBhciBHQVRBMzogTmVn YXRpdmVccGFyfQ== [id number] 15:21:06Surgical Pathology Report Case: [id number] Authorizing Provider: Edilia Westfall MD Collected: 02/17/2023 02:51 PM Ordering Location: [address] Received: 02/17/2023 04:08 PM Service Pathologist: Judy Jean MD Specimen: Lung A. LUNG, SITE NOT SPECIFIED, CT-GUIDED NEEDLE BIOPSY:- LIMITED SAMPLING- ATYPICAL CELLS, IMMUNOPROFILE CONSISTENT WITH LUNG ADENOCARCINOMA Signing Pathologist Direct Phone Line: [phone] signed by Judy Jean MD on 02/21/2023 at 3:21 PMPreliminary result electronically signed by Judy Jean MD on 02/20/2023 at 11:37 AMThe sampling is extremely limited and consists of small foci of atypical cells, which stain positive with TTF-1, supporting the above diagnosis. The tissue is extremely small and inadequate for biomarker testing.[id number] female current smoker presented with with right arm weakness. MRI of the brain showed a large intra-axial enhancing mass measuring 34 x 31 mm in the posterior left frontal lobe. Another intra-axial mass measuring 14 x 11 mm in the posterior right frontal lobe. CT chest showed 3.2 x 2.5 cm masslike opacity in the left lower lobe. A 1 cm left hilar lymph node is worrisome for charlette metastasis.A. LungReceived in formalin labeled with the patient's name, medical record number and "lung" are multiple lan core biopsies ranging in size from 0.1-1.2 cm, which are submitted in toto in A1-A2.Elvira CamachoPerformedThe interpretation of this case included the use of immunohistochemistry or special stains.Control Slides Examined: In-house known positive controls were evaluated along with the test tissue. These control slides run alongside of the patients sample show appropri ate staining. Internal positive and negative controls when available are evaluated Immunohistochemistry technical testing was performed at [facility], Pathology Laboratory where it was developed and its performance characteristics were determined. It has not been cleared or approved by the U.S. Food and Drug Administration. The FDA has determined that such clearance or approval is not necessary. The test is used for clinical purposes. It should not be regarded as investigational or for research. This laboratory is certified under the Clinical Laboratory Improvement Amendments of 1988 (CLIA-88) as qualified to perform high complexity clinical laboratory testing.Block A1:TTF-1:NrhqviupX41: NegativeGATA3: NegativePOCT-GLUCOSE [id number] 12:24:38 Test Item Value Reference Range Interpretation Comments POC-GLUCOSE METER 152 mg/dL 70-110 H : TESTED A T BSC 6720 (BEAKER) (test code = [facility], 1538) [address]148: Automotive Service Technician/Techni nate ID = [id number] for GUANAKITO BALDWIN [id number] 06:02:41 Test Item Value Reference Range Interpretation Comments MAGNESIUM (BEAKER) (test code = 2.1 mg/dL 1.6-2.6 627) Automotive Service Technician ID - [id number] 06:02:41 Test Item Value Reference Range Interpretation Comments PHOSPHORUS (BEAKER) (test code = 3.8 mg/dL 2.3-4.7 604) Automotive Service Technician ID - MMBASIC METABOLIC [id number] 06:02:40 Test Item Value Reference Range Interpretation Comments SODIUM (BEAKER) 127 meq/L 136-145 L (test code = 381) POTASSIUM 3.9 meq/L 3.5-5.1 (BEAKER) (test code = 379) CHLORIDE (BEAKER) 95 meq/L 98-107 L (test code = 382) CO2 (BEAKER) 25 meq/L 22-29 (test code = 355) BLOOD UREA 13 mg/dL 7-21 NITROGEN (BEAKER) (test code = 354) CREATININE 0.71 mg/dL 0.57-1.25 (BEAKER) (test code = 358) GLUCOSE RANDOM 115 mg/dL 70-105 H (BEAKER) (test code = 652) CALCIUM (BEAKER) 9.2 mg/dL 8.4-10.2 (test code = 697) EGFR (BEAKER) 97 Interpretatio n of eGFR (test code = mL/min/1.73 values Stage De scription 1092) sq m Result G1 Katie l or high >=90 G2 Mildly decreased 60-89 G3a Mildl y to moderately 45-5 9 G3b Moderately to s everely 30-44 G4 Severl y decreased 15-29 G5 Kidney failure <15Reported eGF R is based on the CKD-EPI 2020 equation that d oes not use a race coefficientEsti mated GFR is not as accur ate as Creatinine Shonna nadir in predicting glom erular filtration rate . Estimated GFR is not appl icable for dialysis patien ts Automotive Service Technician ID - MMCBC W/PLT COUNT & AUTO [id number] 05:48:33 Test Item Value Reference Range Interpretation Comments WHITE BLOOD CELL COUNT (BEAKER) 10.9 K/ L 3.5-10.5 H (test code = 775) RED BLOOD CELL COUNT (BEAKER) 4.83 M/ L 3.93-5.22 (test code = 761) HEMOGLOBIN (BEAKER) (test code = 14.4 GM/DL 11.2-15.7 410) HEMATOCRIT (BEAKER) (test code = 42.2 % 34.1-44.9 411) MEAN CORPUSCULAR VOLUME (BEAKER) 87 fL 79-95 (test code = 753) MEAN CORPUSCULAR HEMOGLOBIN 29.8 pg 25.6-32.2 (BEAKER) (test code = 751) MEAN CORPUSCULAR HEMOGLOBIN CONC 34.1 GM/DL 32.2-35.5 (BEAKER) (test code = 752) RED CELL DISTRIBUTION WIDTH 12.4 % 11.7-14.4 (BEAKER) (test code = 412) PLATELET COUNT (BEAKER) (test 337 K/CU MM 150-450 code = 756) MEAN PLATELET VOLUME (BEAKER) 9.5 fL 9.4-12.3 (test code = 754) NUCLEATED RED BLOOD CELLS 0 /100 WBC 0-0 (BEAKER) (test code = 413) NEUTROPHILS RELATIVE PERCENT 90 % (BEAKER) (test code = 429) LYMPHOCYTES RELATIVE PERCENT 6 % (BEAKER) (test code = 430) MONOCYTES RELATIVE PERCENT 4 % (BEAKER) (test code = 431) EOSINOPHILS RELATIVE PERCENT 0 % (BEAKER) (test code = 432) BASOPHILS RELATIVE PERCENT 0 % (BEAKER) (test code = 437) NEUTROPHILS ABSOLUTE COUNT 9.75 K/ L 1.56-6.13 H (BEAKER) (test code = 670) LYMPHOCYTES ABSOLUTE COUNT 0.60 K/ L 1.18-3.74 L (BEAKER) (test code = 414) MONOCYTES ABSOLUTE COUNT (BEAKER) 0.41 K/ L 0.24-0.36 H (test code = 415) EOSINOPHILS ABSOLUTE COUNT 0.01 K/ L 0.04-0.36 L (BEAKER) (test code = 416) BASOPHILS ABSOLUTE COUNT (BEAKER) 0.01 K/ L 0.01-0.08 (test code = 417) IMMATURE GRANULOCYTES-RELATIVE 0.70 % 0.00-1.00 PERCENT (BEAKER) (test code = 2801) POCT-GLUCOSE [id number] 04:12:24 Test Item Value Reference Range Interpretation Comments POC-GLUCOSE METER 123 mg/dL 70-110 H : TESTED A T [facility] 6720 (BEAKER) (test code = [facility], 153) 48574: Automotive Service Technician/Techni nate ID = [id number] for Li jeanine, Phillips POCT-GLUCOSE [id number] 23:52:59 Test Item Value Reference Range Interpretation Comments POC-GLUCOSE METER 126 mg/dL 70-110 H : TESTED A T [facility] 6720 (BEAKER) (test code = [facility], 1538) 84242: Automotive Service Technician/Techni nate ID = [id number] for Bethany Anguiano POCT-GLUCOSE [id number] 16:39:21 Test Item Value Reference Range Interpretation Comments POC-GLUCOSE METER 110 mg/dL 70-110 : TESTED A T [facility] 6720 (BEAKER) (test code = [facility], 1538) 64448: Automotive Service Technician/Techni nate ID = [id number] for Dajuan Winkler POCT-GLUCOSE [id number] 11:56:10 Test Item Value Reference Range Interpretation Comments POC-GLUCOSE METER 92 mg/dL 70-110 : TESTED A T [facility] 6720 (BEAKER) (test code = [facility], 1538) 81484: Automotive Service Technician/Techni nate ID = [id number] for Dajuan Melgoza POCT-GLUCOSE [id number] 10:53:04 Test Item Value Reference Range Interpretation Comments POC-GLUCOSE METER 124 mg/dL 70-110 H : TESTED A T [facility] 6720 (BEAKER) (test code = [facility], 1538) 09470: Automotive Service Technician/Techni nate ID = [id number] for Shar keke (contract)Mandy POCT-GLUCOSE [id number] 04:53:12 Test Item Value Reference Range Interpretation Comments POC-GLUCOSE METER 122 mg/dL 70-110 H : TESTED A T [facility] 6720 (BEAKER) (test code = [facility], 1538) 82436: Automotive Service Technician/Techni nate ID = [id number] for Eboni nh, Phillips [id number] 04:49:28 Test Item Value Reference Range Interpretation Comments PHOSPHORUS (BEAKER) (test code = 3.9 mg/dL 2.3-4.7 604) Automotive Service Technician ID - MMBASIC METABOLIC [id number] 04:49:27 Test Item Value Reference Range Interpretation Comments SODIUM (BEAKER) 126 meq/L 136-145 L (test code = 381) POTASSIUM 3.7 meq/L 3.5-5.1 (BEAKER) (test code = 379) CHLORIDE (BEAKER) 96 meq/L 98-107 L (test code = 382) CO2 (BEAKER) 20 meq/L 22-29 L (test code = 355) BLOOD UREA 16 mg/dL 7-21 NITROGEN (BEAKER) (test code = 354) CREATININE 0.67 mg/dL 0.57-1.25 (BEAKER) (test code = 358) GLUCOSE RANDOM 115 mg/dL 70-105 H (BEAKER) (test code = 652) CALCIUM (BEAKER) 8.9 mg/dL 8.4-10.2 (test code = 697) EGFR (BEAKER) 100 Interpretatio n of eGFR (test code = mL/min/1.73 values Stage De scription 1092) sq m Result G1 Katie l or high >=90 G2 Mildly decreased 60-89 G3a Mildl y to moderately 45-5 9 G3b Moderately to s everely 30-44 G4 Severl y decreased 15-29 G5 Kidney failure <15Reported eGF R is based on the CKD-EPI 2020 equation that d oes not use a race coefficientEsti mated GFR is not as accur ate as Creatinine Shonna nadir in predicting glom erular filtration rate . Estimated GFR is not appl icable for dialysis patien ts Automotive Service Technician ID - [id number] 04:49:27 Test Item Value Reference Range Interpretation Comments MAGNESIUM (BEAKER) (test code = 2.1 mg/dL 1.6-2.6 627) Automotive Service Technician ID - MMCBC W/PLT COUNT & AUTO [id number] 04:34:15 Test Item Value Reference Range Interpretation Comments WHITE BLOOD CELL COUNT (BEAKER) 12.9 K/ L 3.5-10.5 H (test code = 775) RED BLOOD CELL COUNT (BEAKER) 4.72 M/ L 3.93-5.22 (test code = 761) HEMOGLOBIN (BEAKER) (test code = 14.3 GM/DL 11.2-15.7 410) HEMATOCRIT (BEAKER) (test code = 42.3 % 34.1-44.9 411) MEAN CORPUSCULAR VOLUME (BEAKER) 90 fL 79-95 (test code = 753) MEAN CORPUSCULAR HEMOGLOBIN 30.3 pg 25.6-32.2 (BEAKER) (test code = 751) MEAN CORPUSCULAR HEMOGLOBIN CONC 33.8 GM/DL 32.2-35.5 (BEAKER) (test code = 752) RED CELL DISTRIBUTION WIDTH 12.4 % 11.7-14.4 (BEAKER) (test code = 412) PLATELET COUNT (BEAKER) (test 312 K/CU MM 150-450 code = 756) MEAN PLATELET VOLUME (BEAKER) 9.6 fL 9.4-12.3 (test code = 754) NUCLEATED RED BLOOD CELLS 0 /100 WBC 0-0 (BEAKER) (test code = 413) NEUTROPHILS RELATIVE PERCENT 88 % (BEAKER) (test code = 429) LYMPHOCYTES RELATIVE PERCENT 7 % (BEAKER) (test code = 430) MONOCYTES RELATIVE PERCENT 4 % (BEAKER) (test code = 431) EOSINOPHILS RELATIVE PERCENT 0 % (BEAKER) (test code = 432) BASOPHILS RELATIVE PERCENT 0 % (BEAKER) (test code = 437) NEUTROPHILS ABSOLUTE COUNT 11.34 K/ L 1.56-6.13 H (BEAKER) (test code = 670) LYMPHOCYTES ABSOLUTE COUNT 0.88 K/ L 1.18-3.74 L (BEAKER) (test code = 414) MONOCYTES ABSOLUTE COUNT (BEAKER) 0.56 K/ L 0.24-0.36 H (test code = 415) EOSINOPHILS ABSOLUTE COUNT 0.03 K/ L 0.04-0.36 L (BEAKER) (test code = 416) BASOPHILS ABSOLUTE COUNT (BEAKER) 0.01 K/ L 0.01-0.08 (test code = 417) IMMATURE GRANULOCYTES-RELATIVE 0.50 % 0.00-1.00 PERCENT (BEAKER) (test code = 2801) POCT-GLUCOSE [id number] 23:53:02 Test Item Value Reference Range Interpretation Comments POC-GLUCOSE METER 89 mg/dL 70-110 : TESTED A T [facility] 6720 (BEAKER) (test code = [facility], [facility]) 16972: Automotive Service Technician/Techni nate ID = [id number] for Wandy , Phillips POCT-GLUCOSE [id number] 19:45:14 Test Item Value Reference Range Interpretation Comments POC-GLUCOSE METER 115 mg/dL 70-110 H : TESTED A T [facility] 6720 (BEAKER) (test code = [facility], 1538) 31968: Automotive Service Technician/Techni nate ID = [id number] for Bi bbs (contract), Mandy xis POCT-GLUCOSE [id number] 16:33:23 Test Item Value Reference Range Interpretation Comments POC-GLUCOSE METER 193 mg/dL 70-110 H : TESTED A T [facility] 6720 (BEAKER) (test code = [facility], 1538) 71388: Automotive Service Technician/Techni nate ID = [id number] for Co ok, Skye POCT-GLUCOSE [id number] 11:18:13 Test Item Value Reference Range Interpretation Comments POC-GLUCOSE METER 126 mg/dL 70-110 H : TESTED A T [facility] 6720 (BEAKER) (test code = [facility] [place], 1538) 98510: Automotive Service Technician/Techni nate ID = [id number] for Co Skye allen CBC W/PLT COUNT & AUTO [id number] 06:51:35 Test Item Value Reference Range Interpretation Comments WHITE BLOOD CELL COUNT (BEAKER) 10.2 K/ L 3.5-10.5 (test code = 775) RED BLOOD CELL COUNT (BEAKER) 4.98 M/ L 3.93-5.22 (test code = 761) HEMOGLOBIN (BEAKER) (test code = 14.8 GM/DL 11.2-15.7 410) HEMATOCRIT (BEAKER) (test code = 43.9 % 34.1-44.9 411) MEAN CORPUSCULAR VOLUME (BEAKER) 88 fL 79-95 (test code = 753) MEAN CORPUSCULAR HEMOGLOBIN 29.7 pg 25.6-32.2 (BEAKER) (test code = 751) MEAN CORPUSCULAR HEMOGLOBIN CONC 33.7 GM/DL 32.2-35.5 (BEAKER) (test code = 752) RED CELL DISTRIBUTION WIDTH 12.6 % 11.7-14.4 (BEAKER) (test code = 412) PLATELET COUNT (BEAKER) (test 349 K/CU MM 150-450 code = 756) MEAN PLATELET VOLUME (BEAKER) 9.3 fL 9.4-12.3 L (test code = 754) NUCLEATED RED BLOOD CELLS 0 /100 WBC 0-0 (BEAKER) (test code = 413) NEUTROPHILS RELATIVE PERCENT 87 % (BEAKER) (test code = 429) LYMPHOCYTES RELATIVE PERCENT 8 % (BEAKER) (test code = 430) MONOCYTES RELATIVE PERCENT 4 % (BEAKER) (test code = 431) EOSINOPHILS RELATIVE PERCENT 0 % (BEAKER) (test code = 432) BASOPHILS RELATIVE PERCENT 0 % (BEAKER) (test code = 437) NEUTROPHILS ABSOLUTE COUNT 8.88 K/ L 1.56-6.13 H (BEAKER) (test code = 670) LYMPHOCYTES ABSOLUTE COUNT 0.80 K/ L 1.18-3.74 L (BEAKER) (test code = 414) MONOCYTES ABSOLUTE COUNT (BEAKER) 0.41 K/ L 0.24-0.36 H (test code = 415) EOSINOPHILS ABSOLUTE COUNT 0.01 K/ L 0.04-0.36 L (BEAKER) (test code = 416) BASOPHILS ABSOLUTE COUNT (BEAKER) 0.01 K/ L 0.01-0.08 (test code = 417) IMMATURE GRANULOCYTES-RELATIVE 0.60 % 0.00-1.00 PERCENT (BEAKER) (test code = 2801) [id number] 06:41:32 Test Item Value Reference Range Interpretation Comments PHOSPHORUS (BEAKER) (test code = 4.2 mg/dL 2.3-4.7 604) Automotive Service Technician ID - MARCOBASIC METABOLIC [id number] 06:41:31 Test Item Value Reference Range Interpretation Comments SODIUM (BEAKER) 130 meq/L 136-145 L (test code = 381) POTASSIUM 4.2 meq/L 3.5-5.1 (BEAKER) (test code = 379) CHLORIDE (BEAKER) 96 meq/L 98-107 L (test code = 382) CO2 (BEAKER) 27 meq/L 22-29 (test code = 355) BLOOD UREA 12 mg/dL 7-21 NITROGEN (BEAKER) (test code = 354) CREATININE 0.69 mg/dL 0.57-1.25 (BEAKER) (test code = 358) GLUCOSE RANDOM 117 mg/dL 70-105 H (BEAKER) (test code = 652) CALCIUM (BEAKER) 9.3 mg/dL 8.4-10.2 (test code = 697) EGFR (BEAKER) 99 Interpretatio n of eGFR (test code = mL/min/1.73 values Stage De scription 1092) sq m Result G1 Katie l or high >=90 G2 Mildly decreased 60-89 G3a Mildl y to moderately 45-5 9 G3b Moderately to s everely 30-44 G4 Severl y decreased 15-29 G5 Kidney failure <15Reported eGF R is based on the CKD-EPI 2021 equation that d oes not use a race coefficientEsti mated GFR is not as accur ate as Creatinine Shonna nadir in predicting glom erular filtration rate . Estimated GFR is not appl icable for dialysis patien ts Automotive Service Technician ID - [id number] 06:41:31 Test Item Value Reference Range Interpretation Comments MAGNESIUM (BEAKER) (test code = 2.1 mg/dL 1.6-2.6 627) Automotive Service Technician ID - MARCOPOCT-GLUCOSE [id number] 05:42:09 Test Item Value Reference Range Interpretation Comments POC-GLUCOSE METER 137 mg/dL 70-110 H : TESTED A T [facility] 6720 (BEAKER) (test code = [facility], 1538) 50263: Automotive Service Technician/Techni nate ID = [id number] for HANDY HARTMAN POCT-GLUCOSE [id number] 00:13:36 Test Item Value Reference Range Interpretation Comments POC-GLUCOSE METER 159 mg/dL 70-110 H : TESTED A T [facility] 6720 (BEAKER) (test code = [facility], 1538) 65425: Automotive Service Technician/Techni nate ID = [id number] for HANDY HARTMAN POCT-GLUCOSE [id number] 12:23:13 Test Item Value Reference Range Interpretation Comments POC-GLUCOSE METER 112 mg/dL 70-110 H : TESTED A T [facility] 6720 (BEAKER) (test code = [facility], 1538) 71473: Automotive Service Technician/Techni nate ID = [id number] for Dajuan Winkler [id number] 06:31:41 Test Item Value Reference Range Interpretation Comments PHOSPHORUS (BEAKER) 3.9 mg/dL 2.3-4.7 Specimen slightly (test code = 604) hemolyzed Automotive Service Technician ID - MARCOBASIC METABOLIC [id number] 06:31:41 Test Item Value Reference Range Interpretation Comments SODIUM (BEAKER) 129 meq/L 136-145 L (test code = 381) POTASSIUM 4.2 meq/L 3.5-5.1 Specimen slight ly (BEAKER) (test hemolyzed code = 379) CHLORIDE (BEAKER) 99 meq/L 98-107 (test code = 382) CO2 (BEAKER) 22 meq/L 22-29 (test code = 355) BLOOD UREA 12 mg/dL 7-21 NITROGEN (BEAKER) (test code = 354) CREATININE 0.66 mg/dL 0.57-1.25 Specimen slight ly (BEAKER) (test hemolyzed code = 358) GLUCOSE RANDOM 120 mg/dL 70-105 H (BEAKER) (test code = 652) CALCIUM (BEAKER) 8.8 mg/dL 8.4-10.2 (test code = 697) EGFR (BEAKER) 100 Interpretatio n of eGFR (test code = mL/min/1.73 values Stage De scription 1092) sq m Result G1 Katie l or high >=90 G2 Mildly decreased 60-89 G3a Mildl y to moderately 45-5 9 G3b Moderately to s everely 30-44 G4 Severl y decreased 15-29 G5 Kidney failure <15Reported eGF R is based on the CKD-EPI 2020 equation that d oes not use a race coefficientEsti mated GFR is not as accur ate as Creatinine Shonna nadir in predicting glom erular filtration rate . Estimated GFR is not appl icable for dialysis patien ts Automotive Service Technician ID - [id number] 06:31:40 Test Item Value Reference Range Interpretation Comments MAGNESIUM (BEAKER) 2.0 mg/dL 1.6-2.6 Specimen slightly (test code = 627) hemolyzed Automotive Service Technician ID - MARCOPOCT-GLUCOSE [id number] 06:13:53 Test Item Value Reference Range Interpretation Comments POC-GLUCOSE METER 123 mg/dL 70-110 H : [facility] (test code = [facility], 1538) 19114: Automotive Service Technician/Techni nate ID = [id number] for Safia Isaacs CBC W/PLT COUNT & AUTO [id number] 06:10:17 Test Item Value Reference Range Interpretation Comments WHITE BLOOD CELL COUNT (BEAKER) 11.6 K/ L 3.5-10.5 H (test code = 775) RED BLOOD CELL COUNT (BEAKER) 4.54 M/ L 3.93-5.22 (test code = 761) HEMOGLOBIN (BEAKER) (test code = 13.8 GM/DL 11.2-15.7 410) HEMATOCRIT (BEAKER) (test code = 40.1 % 34.1-44.9 411) MEAN CORPUSCULAR VOLUME (BEAKER) 88 fL 79-95 (test code = 753) MEAN CORPUSCULAR HEMOGLOBIN 30.4 pg 25.6-32.2 (BEAKER) (test code = 751) MEAN CORPUSCULAR HEMOGLOBIN CONC 34.4 GM/DL 32.2-35.5 (BEAKER) (test code = 752) RED CELL DISTRIBUTION WIDTH 12.6 % 11.7-14.4 (BEAKER) (test code = 412) PLATELET COUNT (BEAKER) (test 328 K/CU MM 150-450 code = 756) MEAN PLATELET VOLUME (BEAKER) 9.5 fL 9.4-12.3 (test code = 754) NUCLEATED RED BLOOD CELLS 0 /100 WBC 0-0 (BEAKER) (test code = 413) NEUTROPHILS RELATIVE PERCENT 91 % (BEAKER) (test code = 429) LYMPHOCYTES RELATIVE PERCENT 5 % (BEAKER) (test code = 430) MONOCYTES RELATIVE PERCENT 3 % (BEAKER) (test code = 431) EOSINOPHILS RELATIVE PERCENT 0 % (BEAKER) (test code = 432) BASOPHILS RELATIVE PERCENT 0 % (BEAKER) (test code = 437) NEUTROPHILS ABSOLUTE COUNT 10.53 K/ L 1.56-6.13 H (BEAKER) (test code = 670) LYMPHOCYTES ABSOLUTE COUNT 0.62 K/ L 1.18-3.74 L (BEAKER) (test code = 414) MONOCYTES ABSOLUTE COUNT (BEAKER) 0.35 K/ L 0.24-0.36 (test code = 415) EOSINOPHILS ABSOLUTE COUNT 0.01 K/ L 0.04-0.36 L (BEAKER) (test code = 416) BASOPHILS ABSOLUTE COUNT (BEAKER) 0.00 K/ L 0.01-0.08 L (test code = 417) IMMATURE GRANULOCYTES-RELATIVE 0.30 % 0.00-1.00 PERCENT (BEAKER) (test code = 2801) POCT-GLUCOSE [id number] 00:37:58 Test Item Value Reference Range Interpretation Comments POC-GLUCOSE METER 157 mg/dL 70-110 H : TESTED A T [facility] 6720 (BEAKER) (test code = [facility] [place], 1538) 20122: Automotive Service Technician/Techni nate ID = [id number] for Safia Isaacs RAD, CHEST, 1 VIEW, NON [id number] 17:56:00Reason for exam:->post lung biopsy 3 hrShould this be performed at the bedside?->Yes [facility] 1960 Sex: FFINAL REPORT Exam: RAD, CHEST, 1 VIEW, NON DEPTDate: 02/17/2023 5:54 PM Indication: Status post lung biopsy Comparison: Chest x-ray from three hours prior FINDINGS: Lines/Tubes:None Lungs:Stable appearance of a left lower lobe pulmonary mass. Pleura:No pleural effusion. No pneumothorax. Heart/Mediastinum:The cardiomediastinal silhouette is normal in size and contour. Bones/Soft Tissues: No acute osseous injury. Old left eighth and ninth rib fractures. Abdomen: No free air below thediaphragm. IMPRESSION:Status post left lung mass biopsy. No pneumothorax. Signed: Giovanny De Leon Verified Date/Time: 02/17/2023 17:56:58 Reading Location: [address] Neuro Reading Room POCT-GLUCOSE [id number] 17:13:48 Test Item Value Reference Range Interpretation Comments POC-GLUCOSE METER 177 mg/dL 70-110 H : TESTED A T [facility] 6720 (ARMANDOCHARLIE) (test code = [facility] [place], 1538) 66374: Automotive Service Technician/Techni nate ID = [id number] for Dajuan Winkler RAD, CHEST, 1 VIEW, NON [id number] 17:09:00Reason for exam:->Post lung biopsy immediateShould this be performed at the bedside?->Yes [facility] 1960 Sex: FFINAL REPORT TECHNIQUE: Frontal view of the chest. INDICATION: Post lung biopsy immediate. COMPARISON: 02/15/2023. FINDINGS: LINES/TUBES: None. HEART AND MEDIASTINUM: Cardiomediastinal contour is within normal limits. LUNGS: Nodules in the left mid-upper lung, as before. No consolidation or pulmonary edema. PLEURA: No pneumothorax. No significant pleural effusion. SOFT TISSUES AND ARABELLA CHRISTOPH: Healing eighth and ninth rib fractures laterally. IMPRESSION: 1. No pneumothorax status post left lung nodule biopsy.2. Healing left eighth and ninth rib fractures laterally. Signed: Jones Ely [facility] Verified Date/Time: 02/17/2023 17:09:20 CT, BIOPSY, [id number] 15:36:00lung biopsy julienne mass [facility] 1960 Sex: FFINAL REPORT PROCEDURE: CT-guided lung biopsy Procedural PersonnelAttending physician(s): Fransisco Lowery physician(s): NoneResident physician(s): NoneAdvanced practice provider(s): None Pre-procedure diagnosis: Left lower lobe pulmonary massPost-procedure diagnosis: SameIndic ation: Histopathologic diagnosisPrevious biopsy of same target (QCDR): NoAdditional clinical history: None Complications: No immediate complications. IMPRESSION: CT-guided left lower lobe pulmonary mass biopsy. Plan: Specimen(s) sent for evaluation. PROCEDURE SUMMARY:- Percutaneous CT-guided coaxial core needle biopsy- Additional procedure(s): None PROCEDURE DETAILS: Pre-procedureReference imaging for biopsy target: NoneConsent: Informedconsent for the procedure including risks, benefits and alternatives was obtained and time-out was performed prior to the procedure.Preparation: The site was prepared and draped using maximal sterile barrier technique including cutaneous antisepsis. Anesthesia/sedationLevel of anesthesia/sedation: Moderate sedation (conscious sedation)Anesthesia/sedation administered by: Independent trained observer under attending supervision with continuous monitoring of the patient\\X2019\\s level of consciousness and physiologic statusTotal intra-service sedation time (minutes): 30 Imaging prior to biopsyThe patient was positioned prone. Initial imaging was performed using noncontrast CT.Biopsy target:- Maximal diameter (cm): 3.0- Location: Left lower lobeOther findings: None Biopsy Local anesthesia was administered. Under CT guidance, the biopsy needle was advanced to the target and biopsy was performed.Coaxial needle: 19 gauge Core needle biopsy device: Wirescan needle size: 20 gaugeNumber of core specimens: 3 On-site biopsy touch preparation: No Additional sampling recommendations: NonePreliminary assessment of sample adequacy: Not applicable Needle removalThe biopsy needle was removed and a sterile dressing was applied.Tract embolization: None Imaging following biopsyImmediate post-biopsy imaging was performed using noncontrast CT.Post- biopsy imaging findings: No pneumothorax. ContrastContrast agent:NoneContrast volume (mL): 0 Radiation DoseCT dose length product (mGy-cm): 628 This exam was performed according to the departmental dose-optimization program which includes automated exposure control,adjustment of the mA and/or kV according to patient size and/or use of iterative reconstruction technique. Additional DetailsAdditional description of procedure: NoneEquipment details: NoneSpecimens removed: Biopsy samples as detailed aboveEstimated blood loss (mL): Less than 10Standardized report: [id number] AttestationSigner name: Giovanny Daly attest that I was present for the entire procedure. I reviewed the stored images and agree with the report as written. Signed: Giovanny De Leon MDReport Verified Date/Time: 02/17/2023 15:36:51 Reading Location: [address] Neuro Reading Room POCT-GLUCOSE [id number] 12:17:07 Test Item Value Reference Range Interpretation Comments POC-GLUCOSE METER 118 mg/dL 70-110 H : TESTED A T [facility] 6720 (BEAKER) (test code = [facility], 1538) 53478: Automotive Service Technician/Techni nate ID = [id number] for Dajuan Winkler BASIC METABOLIC [id number] 06:10:23 Test Item Value Reference Range Interpretation Comments SODIUM (BEAKER) 131 meq/L 136-145 L (test code = 381) POTASSIUM 4.0 meq/L 3.5-5.1 (BEAKER) (test code = 379) CHLORIDE (BEAKER) 100 meq/L 98-107 (test code = 382) CO2 (BEAKER) 22 meq/L 22-29 (test code = 355) BLOOD UREA 12 mg/dL 7-21 NITROGEN (BEAKER) (test code = 354) CREATININE 0.67 mg/dL 0.57-1.25 (BEAKER) (test code = 358) GLUCOSE RANDOM 127 mg/dL 70-105 H (BEAKER) (test code = 652) CALCIUM (BEAKER) 8.9 mg/dL 8.4-10.2 (test code = 697) EGFR (BEAKER) 100 Interpretatio n of eGFR (test code = mL/min/1.73 values Stage De scription 1092) sq m Result G1 Katie l or high >=90 G2 Mildly decreased 60-89 G3a Mildl y to moderately 45-5 9 G3b Moderately to s everely 30-44 G4 Severl y decreased 15-29 G5 Kidney failure <15Reported eGF R is based on the CKD-EPI 2020 equation that d oes not use a race coefficientEsti mated GFR is not as accur ate as Creatinine Shonna nadir in predicting glom erular filtration rate . Estimated GFR is not appl icable for dialysis patien ts Automotive Service Technician ID - [id number] 06:10:23 Test Item Value Reference Range Interpretation Comments MAGNESIUM (BEAKER) (test code = 2.0 mg/dL 1.6-2.6 627) Automotive Service Technician ID - [id number] 06:10:23 Test Item Value Reference Range Interpretation Comments PHOSPHORUS (BEAKER) (test code = 4.0 mg/dL 2.3-4.7 604) Automotive Service Technician ID - [id number] [id number] 05:46:20 Test Item Value Reference Range Interpretation Comments POC-GLUCOSE METER 109 mg/dL 70-110 : TESTED A T [facility] 6720 (BEAKER) (test code = [facility], 1538) [address]: Automotive Service Technician/Techni nate ID = [id number] for Eg be, Mary CBC W/PLT COUNT & AUTO [id number] 05:38:28 Test Item Value Reference Range Interpretation Comments WHITE BLOOD CELL COUNT (BEAKER) 12.1 K/ L 3.5-10.5 H (test code = 775) RED BLOOD CELL COUNT (BEAKER) 4.48 M/ L 3.93-5.22 (test code = 761) HEMOGLOBIN (BEAKER) (test code = 13.6 GM/DL 11.2-15.7 410) HEMATOCRIT (BEAKER) (test code = 39.1 % 34.1-44.9 411) MEAN CORPUSCULAR VOLUME (BEAKER) 87 fL 79-95 (test code = 753) MEAN CORPUSCULAR HEMOGLOBIN 30.4 pg 25.6-32.2 (BEAKER) (test code = 751) MEAN CORPUSCULAR HEMOGLOBIN CONC 34.8 GM/DL 32.2-35.5 (BEAKER) (test code = 752) RED CELL DISTRIBUTION WIDTH 12.8 % 11.7-14.4 (BEAKER) (test code = 412) PLATELET COUNT (BEAKER) (test 334 K/CU MM 150-450 code = 756) MEAN PLATELET VOLUME (BEAKER) 9.5 fL 9.4-12.3 (test code = 754) NUCLEATED RED BLOOD CELLS 0 /100 WBC 0-0 (BEAKER) (test code = 413) NEUTROPHILS RELATIVE PERCENT 91 % (BEAKER) (test code = 429) LYMPHOCYTES RELATIVE PERCENT 6 % (BEAKER) (test code = 430) MONOCYTES RELATIVE PERCENT 3 % (BEAKER) (test code = 431) EOSINOPHILS RELATIVE PERCENT 0 % (BEAKER) (test code = 432) BASOPHILS RELATIVE PERCENT 0 % (BEAKER) (test code = 437) NEUTROPHILS ABSOLUTE COUNT 11.05 K/ L 1.56-6.13 H (BEAKER) (test code = 670) LYMPHOCYTES ABSOLUTE COUNT 0.68 K/ L 1.18-3.74 L (BEAKER) (test code = 414) MONOCYTES ABSOLUTE COUNT (BEAKER) 0.33 K/ L 0.24-0.36 (test code = 415) EOSINOPHILS ABSOLUTE COUNT 0.01 K/ L 0.04-0.36 L (BEAKER) (test code = 416) BASOPHILS ABSOLUTE COUNT (BEAKER) 0.01 K/ L 0.01-0.08 (test code = 417) IMMATURE GRANULOCYTES-RELATIVE 0.40 % 0.00-1.00 PERCENT (BEAKER) (test code = 2801) POCT-GLUCOSE [id number] 00:13:52 Test Item Value Reference Range Interpretation Comments POC-GLUCOSE METER 151 mg/dL 70-110 H : TESTED A T [facility] 6720 (BEAKER) (test code = [place], 1538) [id number]: Automotive Service Technician/Techni nate ID = [id number] for MEERA HASSANZIHANDY Hunter MR, BRAIN, [id number] 21:24:00STEALTH protocol - please include the tip of the noseUnlisted Reason for Exam - Click Yes and Enter Reason Below- >YesUnlisted Reason for Exam->Brain massDoes the patient have an implanted electronic device?->No [facility] 1960 Sex: FFINAL REPORT EXAM: MR, BRAIN, WITH \\T\\ WITHOUT CONTRAST CLINICAL INDICATION: Brain mass. TECHNIQUE: Pre-contrast sagittal and axial T1-w, and axial T2-FLAIR, GRE, and diffusion-w sequences of the brain with ADC maps. Post- contrast axial fat-saturated T2-w and T1-w, and sagittal volumetric T1-w images of the brain with axial and coronal reformations. Intravenous contrast material was administered for the examination. COMPARISON: CT from one day prior FINDINGS:Parenchyma: There yolanda ring-enhancing intra-axial mass in the posterior left frontal lobe involving the left precentral gyrus with moderate associated vasogenic edema and measurements of 3.6 x 2.9 x 3.1 cm. There is an additional ring-enhancing mass with mild associated vasogenic edema in the posterior right paracentral frontal lobe involving the right superior frontal gyrus abutting the falx with measurements of 1.4 x 1.3 x 1.7 cm. No midline shift or downward herniation. The left frontal lobe mass contains intralesional hemorrhage and is heterogeneously T1 and T2 hyper/isointense with mild restricted diffusion suggesting hypercellularity. No infarction on DWI. No hemorrhage separate from the masses. Abnormal Enhancement: As above Extra-axial Collection: None Ventricular System: Normal Major Intracranial Flow Voids:Pedunculated T2 hypointense lesion suspicious for saccular aneurysm arising superiorly from the right M1/M2 junction with measurements of 0.8 x 0.5 x 0.5 cm. Flow-voids are otherwise preserved. OsseousStructures: Expected marrow signal. Included Orbits: Normal Paranasal Sinuses: Predominantly clear Tympanomastoid Cavities: Normal IMPRESSION: 1. 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 No midline shift. 2. 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 Recommend further evaluation with CTA which may be obtained on a nonemergent basis. Signed: Jae Castillo MDReport Verified Date/Time: 02/16/2023 21:24:19 [id number] 19:01:06 Test Item Value Reference Range Interpretation Comments PARTIAL THROMBOPLASTIN TIME 28.7 seconds 22.5-36.0 (BEAKER) (test code = 760) PROTHROMBIN [id number] 19:00:25 Test Item Value Reference Range Interpretation Comments PROTIME (BEAKER) (test code = 14.1 seconds 11.9-14.2 759) INR (BEAKER) (test code = 370) 1.16 <=5.90 RECOMMENDED COUMADIN/WARFARIN INR THERAPY RANGESSTANDARD DOSE: 2.0 - 3.0 Includes: PROPHYLAXIS for venous thrombosis, systemic embolization; TREATMENT for venous thrombosis and/or pulmonary embolus.HIGH RISK: Target INR is 2.5-3.5 for patients with mechanical heart valves.POCT-GLUCOSE [id number] 17:54:50 Test Item Value Reference Range Interpretation Comments POC-GLUCOSE METER 124 mg/dL 70-110 H : TESTED A T [facility] 6720 ([place]) (test code = [employer] [place], 1538) [id number]: Automotive Service Technician/Techni nate ID = [id number] for Pa stran, Joy POCT-GLUCOSE [id number] 11:14:09 Test Item Value Reference Range Interpretation Comments POC-GLUCOSE METER 109 mg/dL 70-110 : TESTED A T [facility] 6720 ([place]) (test code = [facility], 1538) [address]: Automotive Service Technician/Techni nate ID = [id number] for Pa stran, Joy Sodium, random [id number] 10:41:26 Test Item Value Reference Range Interpretation Comments Sodium Urine (test 54 meq/L code = 2955-3) MIKIE (test code = Reference Range: No MIKIE) NormalsOperator ID - ADMIN [facility] HospitalODIUM, RANDOM [id number] 10:41:26 Test Item Value Reference Range Interpretation Comments SODIUM URINE (BEAKER) (test code = 54 meq/L 243) Reference Range: No NormalsOperator ID - ADMINCreatinine, random [id number] 10:41:25 Test Item Value Reference Range Interpretation Comments Creatinine, Ur 81.8 mg/dL (test code = 2161-8) MIKIE (test code = Reference Range: No MIKIE) NormalsOperator ID - ADMIN [facility] CenterCREATININE, RANDOM [id number] 10:41:25 Test Item Value Reference Range Interpretation Comments CREATININE URINE (BEAKER) (test 81.8 mg/dL code = 375) Reference Range: No NormalsOperator ID - ADMINCT, CHEST, WITH [id number] 08:55:00Unlisted Reason for Exam - Click Yes and Enter Reason Below->No 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 This exam was performed according to our departmental dose optimization program which includes automated exposure control, adjustment of the mA and/or kV according to patient's size and/or use of iterative reconstructive technique. Comparison Film: None Discussion: Visualized thyroid gland is normal. No supraclavicular, axillary, or mediastinal lymphadenopathy. There is a mildly enlarged left hilar lymph node that measures 1 cm. Heart and pericardium are unremarkable. In the superior segment of the left lower lobe, there is a lobulated masslike opacity that measures 3.2 x 2.5 cm, highly suspicious for malignancy. There is minimal atelectasis/or scarring in both lower lobes. No effusion. No bronchiectasis or bronchial wall thickening. There is focal hypodensity aroundthe falciform ligament most likely to represent focal fat. No liver mass. No biliary ductal dilatation, gallbladder is normal. The spleen, pancreas, and adrenal glands are normal. Kidneys demonstrate no mass, hydronephrosis, or radiopaque stone. No evidence of bowel obstruction, or abnormal bowel wallthickening. Normal appendix. No pericolonic or mesenteric edema. There is mild colonic diverticulosis. In the pelvis, bladder, uterus and adnexa are unremarkable. No ascites, free air or adenopathy. Bony structures demonstrate mild degenerative changes. A densely sclerotic focus in the right posterioriliac bone is likely a bone island. No destructive bony lesion is seen. Impression: 3.2 x 2.5 cm mass like opacity in the left lower lobe, highly suspicious for bronchogenic neoplasm. A 1 cm left hilar lymph node is worrisome for charlette metastasis. 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 This exam was performed according to our departmental dose optimizationprogram which includes automated exposure control, adjustment of the mA and/or kV according to patien t's size and/or use of iterative reconstructive technique. Comparison Film: None Discussion: Visualized thyroid gland is normal. No supraclavicular, axillary, or mediastinal lymphadenopathy. There is amildly enlarged left hilar lymph node that measures 1 cm. Heart and pericardium are unremarkable. Inthe superior segment of the left lower lobe, there is a lobulated masslike opacity that measures 3.2x 2.5 cm, highly suspicious for malignancy. There is minimal atelectasis/or scarring in both lower lobes. No effusion. No bronchiectasis or bronchial wall thickening. There is focal hypodensity around the falciform ligament most likely to represent focal fat. No liver mass. No biliary ductal dilatation, gallbladder is normal. The spleen, pancreas, and adrenal glands are normal. Kidneys demonstrate nomass, hydronephrosis, or radiopaque stone. No evidence of bowel obstruction, or abnormal bowel wall thickening. Normal appendix. No pericolonic or mesenteric edema. There is mild colonic diverticulosis. In the pelvis, bladder, uterus and adnexa are unremarkable. No ascites, free air or adenopathy. Bony structures demonstrate mild degenerative changes. A densely sclerotic focus in the right posterior iliac bone is likely a bone island. No destructive bony lesion is seen. Impression: 3.2 x 2.5 cm massl lizzy opacity in the left lower lobe, highly suspicious for bronchogenic neoplasm. A 1 cm left hilar lymph node is worrisome for charlette metastasis. Signed: Rand Putnam Verified Date/Time: 308:55:23 Reading Location: [facility] [id number] [facility] Consult Reading Room OSMOLALITY, [id number] 07:54:52 Test Item Value Reference Range Interpretation Comments OSMOLALITY, SERUM (BEAKER) (test 275 mOsm/kg 275-295 code = 615) CARCINOEMBRYONIC ANTIGEN (CEA)2023-02-16 06:59:03 Test Item Value Reference Range Interpretation Comments CARCINOEMBRYONIC ANTIGEN (BEAKER) 102.4 ng/mL 0.0-5.0 H (test code = 685) Automotive Service Technician ID - ADMINBASIC METABOLIC [id number] 06:27:36 Test Item Value Reference Range Interpretation Comments SODIUM (BEAKER) 129 meq/L 136-145 L (test code = 381) POTASSIUM 3.9 meq/L 3.5-5.1 (BEAKER) (test code = 379) CHLORIDE (BEAKER) 98 meq/L 98-107 (test code = 382) CO2 (BEAKER) 22 meq/L 22-29 (test code = 355) BLOOD UREA 9 mg/dL 7-21 NITROGEN (BEAKER) (test code = 354) CREATININE 0.69 mg/dL 0.57-1.25 (BEAKER) (test code = 358) GLUCOSE RANDOM 122 mg/dL 70-105 H (BEAKER) (test code = 652) CALCIUM (BEAKER) 8.9 mg/dL 8.4-10.2 (test code = 697) EGFR (BEAKER) 99 Interpretatio n of eGFR (test code = mL/min/1.73 values Stage De scription 1092) sq m Result G1 Katie l or high >=90 G2 Mildly decreased 60-89 G3a Mildl y to moderately 45-5 9 G3b Moderately to s everely 30-44 G4 Severl y decreased 15-29 G5 Kidney failure <15Reported eGF R is based on the CKD-EPI 1 equation that d oes not use a race coefficientEsti mated GFR is not as accur ate as Creatinine Shonna nadir in predicting glom erular filtration rate . Estimated GFR is not appl icable for dialysis patien ts Automotive Service Technician ID - [id number] 06:27:36 Test Item Value Reference Range Interpretation Comments MAGNESIUM (BEAKER) (test code = 2.0 mg/dL 1.6-2.6 627) Automotive Service Technician ID - [id number] 06:27:36 Test Item Value Reference Range Interpretation Comments PHOSPHORUS (BEAKER) (test code = 4.0 mg/dL 2.3-4.7 604) Automotive Service Technician ID - ADMINPOCT-GLUCOSE [id number] 06:25:21 Test Item Value Reference Range Interpretation Comments POC-GLUCOSE METER 117 mg/dL 70-110 H : TESTED Renny T [facility] 67[address] (BEAKER) (test code = [place], 1538) [address]: Automotive Service Technician/Techni nate ID = [id number] for Eg be, Mary CBC W/PLT COUNT & AUTO [id number] 05:57:23 Test Item Value Reference Range Interpretation Comments WHITE BLOOD CELL COUNT 6.3 K/ L 3.5-10.5 (BEAKER) (test code = 775) RED BLOOD CELL COUNT 4.92 M/ L 3.93-5.22 (BEAKER) (test code = 761) HEMOGLOBIN (BEAKER) 14.7 GM/DL 11.2-15.7 (test code = 410) HEMATOCRIT (BEAKER) 42.9 % 34.1-44.9 (test code = 411) MEAN CORPUSCULAR 87 fL 79-95 Discordant results VOLUME (BEAKER) (test compar ed to previous code = 753) results; clinic al correlation req uired MEAN CORPUSCULAR 29.9 pg 25.6-32.2 HEMOGLOBIN (BEAKER) (test code = 751) MEAN CORPUSCULAR 34.3 GM/DL 32.2-35.5 HEMOGLOBIN CONC (BEAKER) (test code = 752) RED CELL DISTRIBUTION 12.7 % 11.7-14.4 WIDTH (BEAKER) (test code = 412) PLATELET COUNT 336 K/CU MM 150-450 (BEAKER) (test code = 756) MEAN PLATELET VOLUME 9.3 fL 9.4-12.3 L (BEAKER) (test code = 754) NUCLEATED RED BLOOD 0 /100 WBC 0-0 CELLS (BEAKER) (test code = 413) NEUTROPHILS RELATIVE 90 % PERCENT (BEAKER) (test code = 429) LYMPHOCYTES RELATIVE 7 % PERCENT (BEAKER) (test code = 430) MONOCYTES RELATIVE 2 % PERCENT (BEAKER) (test code = 431) EOSINOPHILS RELATIVE 0 % PERCENT (BEAKER) (test code = 432) BASOPHILS RELATIVE 0 % PERCENT (BEAKER) (test code = 437) NEUTROPHILS ABSOLUTE 5.61 K/ L 1.56-6.13 COUNT (BEAKER) (test code = 670) LYMPHOCYTES ABSOLUTE 0.46 K/ L 1.18-3.74 L COUNT (BEAKER) (test code = 414) MONOCYTES ABSOLUTE 0.14 K/ L 0.24-0.36 L COUNT (BEAKER) (test code = 415) EOSINOPHILS ABSOLUTE 0.00 K/ L 0.04-0.36 L COUNT (BEAKER) (test code = 416) BASOPHILS ABSOLUTE 0.01 K/ L 0.01-0.08 COUNT (BEAKER) (test code = 417) IMMATURE 0.50 % 0.00-1.00 GRANULOCYTES-RELATIVE PERCENT (BEAKER) (test code = 2801) CT, BRAIN, WITHOUT [id number] 03:24:00[facility] protocol [facility] : 1960 Sex: FFINAL REPORT EXAM: CT, BRAIN, WITHOUT CONTRAST INDICATION: Unlisted Reason for Exam TECHNIQUE: CT images from skull base to vertex without IV contrast. This exam was performed according to the departmental dose optimization program which includes automated exposure control, adjustment of the mA and/or kV according to the patient size, and/or use of an iterative reconstruction technique. COMPARISON: None. FINDINGS: Parenchyma: There is a heterogeneously dense mass favored to be intra-axial within the posterior left frontal lobe with measurements of 3.0 x 3.4 x 2.8 cm with moderatesurrounding vasogenic edema. No midline shift or downward herniation. Additional focal hyperdensity adjacent to the right sylvian fissure 0.5 cm in diameter without associated mass effect. No evidence of acute infarction. No hemorrhage. Extra- axial Collection: None Ventricular System: No hydrocephalusOsseous Structures: No acute osseous abnormality. Included Orbits: Normal Paranasal Sinuses: Predominantly clear Tympanomastoid Cavities: Normal Other: None IMPRESSION:The 3.0 x 3.4 x 2.7 mass in the posterior left frontal lobe is favored intra-axial and is compatible with neoplasm. There is moderate associated vasogenic edema without midline shift. Recommend further evaluation with MRI preferably with and without contrast. Additional small focal 0.5 cm hyperdensity in the cerebral parenchyma near the right sylvian fissure suspicious for additional brain lesion. Attention to on forthcoming MRI. Signed: Jae Castillo MDReport Verified Date/Time: 02/16/2023 03:24:24 BASIC METABOLIC [id number] 23:45:44 Test Item Value Reference Range Interpretation Comments SODIUM (BEAKER) 129 meq/L 136-145 L (test code = 381) POTASSIUM 4.8 meq/L 3.5-5.1 Specimen slight ly (BEAKER) (test hemolyzed code = 379) CHLORIDE (BEAKER) 98 meq/L 98-107 (test code = 382) CO2 (BEAKER) 19 meq/L 22-29 L (test code = 355) BLOOD UREA 8 mg/dL 7-21 NITROGEN (BEAKER) (test code = 354) CREATININE 0.72 mg/dL 0.57-1.25 Specimen slight ly (BEAKER) (test hemolyzed code = 358) GLUCOSE RANDOM 123 mg/dL 70-105 H (BEAKER) (test code = 652) CALCIUM (BEAKER) 9.2 mg/dL 8.4-10.2 (test code = 697) EGFR (BEAKER) 96 Interpretatio n of eGFR (test code = mL/min/1.73 values Stage De scription 1092) sq m Result G1 Katie l or high >=90 G2 Mildly decreased 60-89 G3a Mildl y to moderately 45-5 9 G3b Moderately to s everely 30-44 G4 Severl y decreased 15-29 G5 Kidney failure <15Reported eGF R is based on the CKD-EPI 2020 equation that d oes not use a race coefficientEsti mated GFR is not as accur ate as Creatinine Shonna schmitz in predicting glom erular filtration rate . Estimated GFR is not appl icable for dialysis patien ts Automotive Service Technician ID - ADMINPT/[id number] 23:32:32 Test Item Value Reference Range Interpretation Comments PROTIME (BEAKER) (test code = 14.0 seconds 11.9-14.2 759) INR (BEAKER) (test code = 370) 1.14 <=5.90 PARTIAL THROMBOPLASTIN TIME 31.5 seconds 22.5-36.0 (BEAKER) (test code = 760) RECOMMENDED COUMADIN/WARFARIN INR THERAPY RANGESSTANDARD DOSE: 2.0 - 3.0 Includes: PROPHYLAXIS for venous thrombosis, systemic embolization; TREATMENT for venous thrombosis and/or pulmonary embolus.HIGH RISK: Target INR is 2.5-3.5 for patients with mechanical heart valves.PROTHROMBIN [id number] 23:31:34 Test Item Value Reference Range Interpretation Comments PROTIME (BEAKER) (test code = 14.1 seconds 11.9-14.2 759) INR (BEAKER) (test code = 370) 1.16 <=5.90 RECOMMENDED COUMADIN/WARFARIN INR THERAPY RANGESSTANDARD DOSE: 2.0 - 3.0 Includes: PROPHYLAXIS for venous thrombosis, systemic embolization; TREATMENT for venous thrombosis and/or pulmonary embolus.HIGH RISK: Target INR is 2.5-3.5 for patients with mechanical heart valves.CBC W/PLT COUNT & AUTO [id number] 23:21:41 Test Item Value Reference Range Interpretation Comments WHITE BLOOD CELL COUNT (BEAKER) 4.9 K/ L 3.5-10.5 (test code = 775) RED BLOOD CELL COUNT (BEAKER) 4.74 M/ L 3.93-5.22 (test code = 761) HEMOGLOBIN (BEAKER) (test code = 14.4 GM/DL 11.2-15.7 410) HEMATOCRIT (BEAKER) (test code = 42.9 % 34.1-44.9 411) MEAN CORPUSCULAR VOLUME (BEAKER) 91 fL 79-95 (test code = 753) MEAN CORPUSCULAR HEMOGLOBIN 30.4 pg 25.6-32.2 (BEAKER) (test code = 751) MEAN CORPUSCULAR HEMOGLOBIN CONC 33.6 GM/DL 32.2-35.5 (BEAKER) (test code = 752) RED CELL DISTRIBUTION WIDTH 12.8 % 11.7-14.4 (BEAKER) (test code = 412) PLATELET COUNT (BEAKER) (test 351 K/CU MM 150-450 code = 756) MEAN PLATELET VOLUME (BEAKER) 9.1 fL 9.4-12.3 L (test code = 754) NUCLEATED RED BLOOD CELLS 0 /100 WBC 0-0 (BEAKER) (test code = 413) NEUTROPHILS RELATIVE PERCENT 92 % (BEAKER) (test code = 429) LYMPHOCYTES RELATIVE PERCENT 7 % (BEAKER) (test code = 430) MONOCYTES RELATIVE PERCENT 0 % (BEAKER) (test code = 431) EOSINOPHILS RELATIVE PERCENT 0 % (BEAKER) (test code = 432) BASOPHILS RELATIVE PERCENT 0 % (BEAKER) (test code = 437) NEUTROPHILS ABSOLUTE COUNT 4.52 K/ L 1.56-6.13 (BEAKER) (test code = 670) LYMPHOCYTES ABSOLUTE COUNT 0.33 K/ L 1.18-3.74 L (BEAKER) (test code = 414) MONOCYTES ABSOLUTE COUNT (BEAKER) 0.02 K/ L 0.24-0.36 L (test code = 415) EOSINOPHILS ABSOLUTE COUNT 0.00 K/ L 0.04-0.36 L (BEAKER) (test code = 416) BASOPHILS ABSOLUTE COUNT (BEAKER) 0.01 K/ L 0.01-0.08 (test code = 417) IMMATURE GRANULOCYTES-RELATIVE 0.40 % 0.00-1.00 PERCENT (BEAKER) (test code = 2801) RAD, CHEST, 1 VIEW, NON [id number] 21:27:00Reason for exam:->Pre-opShould this be performed at the bedside?->Yes [facility] : 1960 Sex: FFINAL REPORT EXAM: Chest one view CLINICAL HISTORY: Preop FINDINGS: A 2.6 cm softtissue density lesion is seen in the left suprahilar region with ill- defined border. This may represent a pulmonary mass. CT is recommended for further assessment. There is no evidence of pleural effusion or pneumothorax. The cardiac size is within normal limits. The regional osseous structures are unremarkable. IMPRESSION: 1. Left suprahilar pulmonary lesion as described. Signed: Anastacio Hooper MDReport Verified Date/Time: 02/15/2023 21:27:18
[2023-04-28] MEDS ORDERED: NA CHLORIDE 0.9% 500 ML ONE (19:01)
[2023-04-28] MEDS ORDERED: NA CHLORIDE 0.9% 1,000 ML ONE (19:01)
[2023-04-28] MEDS ORDERED: FOLIC ACID 5 MG/ML VIAL ONE (19:02)
--- NOTE | 2023-04-28 19:17 | RAD REPORT ---
EXAM DESCRIPTION: CT - Ct Stroke Brain Wo Cont - 04/28/2023 6:48 pm CLINICAL HISTORY: C79.31 right-sided weakness COMPARISON: MRI may in April 2023 TECHNIQUE: Computed axial tomography of the head was obtained. All CT scans are performed using dose optimization technique as appropriate and may include automated exposure control or mA/KV adjustment according to patient size. FINDINGS: Postsurgical changes left cerebrum. 3.8 centimeter bleed posterior left frontal lobe at the site of prior presumed metastasis. Moderate s urrounding vasogenic edema. Shift of midline structures 2 millimeters. Ventricles normal caliber Previously described small lesion right cerebrum not visualized on this unenhanced scan Fluid within the sinuses/ mastoids is not seen. IMPRESSION: 3.8 centimeter bleed at the site of prior presumed metastasis posterior left frontal lob e. The majority of this bleed is acute Satya Muna of the emergency room notified 6:50 p.m. April 28, 2023
[2023-04-28 19:21] LABS: Protime INR 1.01
[2023-04-28 19:23] LABS: Absolute Lymphocytes (CBC) 1.7 K/uL (0.7-4.9); Hematocrit 38.7 % (36.0-45.0); Lymphocytes % 22.6 % (15.3-44.8); MCV 91.5 fL (80-100); MPV 6.7 fL (7.6-11.3); RBC Red Blood Cell Count 4.22 M/uL (3.86-4.86)
[2023-04-28] MEDS ORDERED: dexAMETHasone 10 MG/ML VIAL ONE (19:26)
[2023-04-28 19:34] LABS: ALT/SGPT 17 U/L (13-56); AST/SGOT 14 U/L (15-37); Albumin 3.9 g/dL (3.4-5.0); Alkaline Phosphatase 193 U/L (45-117); BUN Blood Urea Nitrogen 14 mg/dL (7-18); Bicarbonate 27 mEq/L (21-32); Bilirubin Total 0.3 mg/dL (0.2-1.0); Glomerular Filtration Rate 76 ml/min (=/>90); Glucose Level 104 mg/dL (74-106); Magnesium 2.4 mg/dL (1.6-2.4); NT PRO-BNP 277 pg/mL (<125); Potassium 4.1 mEq/L (3.5-5.1); Protein, Total 8.1 g/dL (6.4-8.2); Sodium Level 133 mEq/L (136-145); Troponin High Sensitivity 3.8 pg/mL (<58.9)
--- NOTE | 2023-04-28 19:36 | EDPHYS ---
Physician Documentation [facility] Name: Paola Alex Age: 62 yrs Sex: Female : 1960 Arrival Date: 04/28/2023 Time: 18:17 Bed 18 Private MD: ED Physician Bill Paige HPI: 04/28 19:27 This 62 yrs old Female presents to ER via Wheelchair with complaints of [place] Numbness, General Weakness. 19:27 The patient's problem is reported as weakness, in the right upper extremity, in the [place] right lower extremity. Onset: The symptoms/episode began/occurred just prior to arrival, at 17:00. Duration: The episode is continuous. Context: the episode(s) was witnessed, by family. The symptoms are alleviated by nothing. The symptoms are aggravated by nothing. Associated signs and symptoms: Pertinent positives: dizziness, gait abnormality. Severity of symptoms: At their worst the symptoms were moderate in the emergency department the symptoms are unchanged. Patient's baseline: Neuro: alert and fully oriented. The patient has not experienced similar symptoms in the past. Historical: - Allergies: 18:32 No Known Allergies; hb - Home Meds: 18:32 Lisinopril Oral [Active]; Famotidine Oral [Active]; sertraline oral [Active]; hb - PMHx: 18:32 Chronic obstructive lung disease; Hypertensive disorder; hb - PSHx: 18:32 Brain CA; hb - Immunization history:: Adult Immunizations up to date. - Social history:: Smoking status: unknown. ROS: 19:28 Constitutional: Negative for fever, chills, and weight loss, Eyes: Negative for injury, [place] pain, redness, and discharge, ENT: Negative for injury, pain, and discharge, Neck: Negative for injury, pain, and swelling, Cardiovascular: Negative for chest pain, palpitations, and edema, Respiratory: Negative for shortness of breath, cough, wheezing, and pleuritic chest pain, Abdomen/GI: Negative for abdominal pain, nausea, vomiting, diarrhea, and constipation, Back: Negative for injury and pain, : Negative for injury, bleeding, discharge, and swelling, Skin: Negative for injury, rash, and discoloration, Psych: Negative for depression, anxiety, suicide ideation, homicidal ideation, and hallucinations, Allergy/Immunology: Negative for hives, rash, and allergies, Endocrine: Negative for neck swelling, polydipsia, polyuria, polyphagia, and marked weight changes, Hematologic/Lymphatic: Negative for swollen nodes, abnormal bleeding, and unusual bruising. 19:28 MS/extremity: Positive for decreased range of motion, paresthesias, of the right arm and right leg. 19:28 Neuro: Positive for headache, weakness, of the right arm and right leg. Exam: 19:28 Radiologist reports: 3.8 cm hemorrhage post left vfrontal [place] 19:28 Constitutional: This is a well developed, well nourished patient who is awake, alert, and in no acute distress. Head/Face: Normocephalic, atraumatic. Eyes: Pupils equal round and reactive to light, extra-ocular motions intact. Lids and lashes normal. Conjunctiva and sclera are non-icteric and not injected. Cornea within normal limits. Periorbital areas with no swelling, redness, or edema. ENT: Nares patent. No nasal discharge, no septal abnormalities noted. Tympanic membranes are normal and external auditory canals are clear. Oropharynx with no redness, swelling, or masses, exudates, or evidence of obstruction, uvula midline. Mucous membranes moist. Neck: Trachea midline, no thyromegaly or masses palpated, and no cervical lymphadenopathy. Supple, full range of motion without nuchal rigidity, or vertebral point tenderness. No Meningismus. Chest/axilla: Normal chest wall appearance and motion. Nontender with no deformity. No lesions are appreciated. Cardiovascular: Regular rate and rhythm with a normal S1 and S2. No gallops, murmurs, or rubs. Normal PMI, no JVD. No pulse deficits. Respiratory: Lungs have equal breath sounds bilaterally, clear to auscultation and percussion. No rales, rhonchi or wheezes noted. No increased work of breathing, no retractions or nasal flaring. Abdomen/GI: Soft, non-tender, with normal bowel sounds. No distension or tympany. No guarding or rebound. No evidence of tenderness throughout. Back: No spinal tenderness. No costovertebral tenderness. Full range of motion. Female : Normal external genitalia. Skin: Warm, dry with normal turgor. Normal color with no rashes, no lesions, and no evidence of cellulitis. MS/ Extremity: Pulses equal, no cyanosis. Neurovascular intact. Full, normal range of motion. Psych: Awake, alert, with orientation to person, place and time. Behavior, mood, and affect are within normal limits. 19:28 Neuro: Orientation: is normal, appropriate for stated age, no acute changes, Mentation: is normal, appropriate for stated age, no acute changes, Memory: is normal, appropriate for stated age, no acute changes, Cranial nerves: grossly normal, is grossly normal based on the patient's age, no acute changes, Motor: Strength is 3/5 in the right arm and right leg, Sensation: is normal, Gait: not tested. seizure activity, is not displayed by the patient. 19:38 ECG was reviewed by the Attending Physician. [facility] Vital Signs: 18:30 BP 159 / 91; Pulse 93; Resp 20; Temp 98.2(TE); Pulse Ox 100% on R/A; Weight 62.6 kg; hb Height 5 ft. 7 in. ; Pain 0/10; 19:00 BP 149 / 91; Pulse 88; Resp 18; Pulse Ox 100% on R/A; eh3 19:30 BP 169 / 96; Pulse 80; Resp 18; Pulse Ox 100% on R/A; eh3 20:00 BP 161 / 96; Pulse 78; Resp 16; Pulse Ox 100% on R/A; eh3 20:30 BP 156 / 90; Pulse 80; Resp 16; Pulse Ox 100% on R/A; eh3 21:00 BP 154 / 95; Pulse 83; Resp 14; Pulse Ox 100% on R/A; eh3 18:30 Body Mass Index 21.61 (62.60 kg, 170.18 cm) hb 18:30 Pain Scale: Adult hb NIH Stroke Scale Scores: 19:36 NIHSS Score: 6 [place] Pat[place] Coma Score: 19:32 Eye Response: spontaneous(4). Motor Response: obeys commands(6). Verbal Response: [place] oriented(5). Total: 15. 19:36 Eye Response: spontaneous(4). Motor Response: obeys commands(6). Verbal Response: [place] oriented(5). Total: 15. MDM: 18:40 Patient medically screened. [place] 18:46 Patient medically screened. [place] 19:32 Differential diagnosis: cerebral abscess, cervical epidural bleed, cervical perispinal [place] abcess, cerebral vascular accident, epidural hematoma, CVA, TIA, paralysis, metabolic disorder, hypertensive headache, hyponatremia, intracerebral hemorrhage, migraine, neoplasm, sinusitis, subarachnoid bleed, subdural hematoma, tension headache, traumatic injuries, trigeminal neuralgia, vasomotor headache. Data reviewed: vital signs, nurses notes, lab test result(s), EKG, radiologic studies, CT scan. Consideration of Admission/Observation Escalation of care including admission/observation considered. I considered the following discharge prescriptions or medication management in the emergency department Medications were administered in the Emergency Department. See MAR. Discussion of test interpretation with radiology: I had a discussion with radiology regarding a test interpretation. ct with hemorrhage. Care significantly affected by the following chronic conditions: Hypertension, Chronic Obstructive Pulmonary Disease, Cancer. Counseling: I had a detailed discussion with the patient and/or guardian regarding: the historical points, exam findings, and any diagnostic results supporting the discharge/admit diagnosis, lab results, the need to transfer to another facility, for higher level of care, [facility] does not immediately have the required specialist. 04/28 18:42 Order name: Basic Metabolic Panel; Complete Time: 20:47 04/28 18:42 Order name: CBC with Diff; Complete Time: 20:47 04/28 18:42 Order name: LFT's; Complete Time: 20:47 04/28 18:42 Order name: Magnesium; Complete Time: 20:47 04/28 18:42 Order name: NT PRO-BNP; Complete Time: 20:47 04/28 18:42 Order name: PT-INR; Complete Time: 20:47 04/28 18:42 Order name: Troponin HS; Complete Time: 20:47 [facility] 04/28 18:42 Order name: XRAY Chest (1 view); Complete Time: 20:47 [facility] 04/28 18:42 Order name: CT Stroke Brain w/o Contrast; Complete Time: 19:38 [facility] 04/28 18:42 Order name: EKG; Complete Time: 18:42 [facility] 04/28 18:42 Order name: Cardiac monitoring; Complete Time: 19:10 [facility] 04/28 18:42 Order name: EKG - Nurse/Tech; Complete Time: 19:30 04/28 18:42 Order name: IV Saline Lock; Complete Time: 19:10 [facility] 04/28 18:42 Order name: Labs collected and sent; Complete Time: 19:10 [place] 04/28 18:42 Order name: O2 Per Protocol; Complete Time: 19:10 [place] 04/28 18:42 Order name: O2 Sat Monitoring; Complete Time: 19:10 [place] 04/28 18:53 Order name: Seizure Precautions; Complete Time: 19:30 [place] EC:38 Rate is 882 beats/min. Rhythm is regular. GA interval is normal. QRS interval is [place] normal. QT interval is normal. No Q waves. T waves are Normal. No ST changes noted. Clinical impression: NSR w/ Non-specific ST/T Changes and No evidence of ischemia. Interpreted by me. Reviewed by me. Administered Medications: 19:10 Drug: NS 0.9% IV 500 ml Route: IV; Rate: bolus; Site: left antecubital; 3 19:42 Follow up: IV Status: Completed infusion; IV Intake: 500ml 3 19:10 Drug: foLIC Acid IVPB 1 mg Route: IVPB; Site: left antecubital; 3 19:42 Follow up: Response: No adverse reaction; IV Status: Completed infusion; IV Intake: 1ml 3 19:10 Drug: NS 0.9% IV 1000 ml Route: IV; Rate: 125 ml/hr; Site: left antecubital; 3 21:11 Follow up: IV Status: Completed infusion; IV Intake: 250ml 3 19:30 Drug: Decadron - Dexamethasone IVP 10 mg Route: IVP; Site: left antecubital; eh3 20:30 Follow up: Response: No adverse reaction 3 19:41 Drug: Keppra IV 2000 mg Route: IV; Rate: per protocol; Site: left antecubital; eh3 20:00 Follow up: Response: No adverse reaction; IV Status: Completed infusion; IV Intake: eh3 100ml Disposition Summary: 04/28/23 19:36 Transfer Ordered Transfer Location: [facility] [place] Reason: Higher level of care [place] Condition: Serious [place] Problem: new [place] Symptoms: have improved [place] Accepting Physician: to [facility](04/28/23 21:19) eh3 Diagnosis - Nontraumatic intracerebral hemorrhage, unspecified - 3.8 cm left posterior frontal [place] - Cerebral edema [place] - Neoplasm of uncertain behavior of trachea, bronchus and lung [place] - Hypo-osmolality and hyponatremia - 133 MILD [place] Forms: - Medication Reconciliation Form [place] - SBAR form [place] Critical care time excluding procedures: 19:38 Critical care time: Bedside Care: 5 minutes, Consultation: 10 minutes, Family [place] Intervention: 10 minutes. Total time: 25 minutes NIH Stroke Scale - NIH Stroke Score Date: 04/28/2023 Time: 19:36 Total Score = 6 10. Dysarthria (speech clarity - read or repeat words) - 0(Normal) 11. Extinction and Inattention (visual/tactile/auditory/spatial/personal) - 0(No abnormality) 1a. Level of Consciousness (LOC) - 0(Alert) 1b. Level of Consciousness (LOC) (Month \T\ Age) - 0(Both) 1c. LOC Commands (Open \T\ Closes Eyes/Mold Carrier) - 0(Both) 2. Best Gaze (Lateral Gaze Paresis) - 0(Normal) 3. Visual Field Loss - 0(No visual loss) 4. Facial Palsy - 0(Normal) 5a. Left Arm: Motor (10-second hold) - 0(No drift) 5b. Right Arm: Motor (10-second hold) - 2(Drift, some effort against gravity) 6a. Left Leg: Motor (5-second hold - always test supine) - 0(No drift) 6b. Right Leg: Motor (5-second hold - always test supine) - 2(Drift, some effort against gravity) 7. Limb Ataxia (finger/nose \T\ heel/[place] - test with eyes open) - 2(Present in two limbs) 8. Sensory Loss (pinprick arms/legs/face) - 0(Normal) 9. Best Language: Aphasia (description/naming/reading) - 0(No aphasia) Initials: [place] Signatures: Dispatcher [employer] Bill Barbosa MD MD cha Baxter, Heather, RN RN hb Hall, Erin, RN RN 3 Corrections: (The following items were deleted from the chart) 19:39 19:36 to [facility] [place] 20:48 19:39 to [facility] [place] 21:19 20:48 to [facility] [place] eh3
--- NOTE | 2023-04-28 19:36 | ER ---
Nurse's Notes [facility] Name: Paola Alex Age: 62 yrs Sex: Female : 1960 Arrival Date: 04/28/2023 Time: 18:17 Bed 18 Private MD: Diagnosis: Nontraumatic intracerebral hemorrhage, unspecified-3.8 cm left posterior frontal;Cerebral edema;Neoplasm of uncertain behavior of trachea, bronchus and lung;Hypo-osmolality and hyponatremia-133 MILD Presentation: 04/28 18:30 Chief complaint: Pt reports right side felt "different " yesterday, woke up this morning with right sided weakness and numbness that became progressively worse this afternoon. Had brain masses excised 02/[address] [facility]. Coronavirus screen: At this time, the client does not indicate any symptoms associated with coronavirus-19. Ebola Screen: No symptoms or risks identified at this time. Initial Sepsis Screen: Does the patient meet any 2 criteria? No. Patient's initial sepsis screen is negative. Does the patient have a suspected source of infection? No. Patient's initial sepsis screen is negative. Risk Assessment: Do you want to hurt yourself or someone else? Patient reports no desire to harm self or others. Onset of symptoms was April 27, 2023. 18:30 Method Of Arrival: Wheelchair hb 18:30 Acuity: TEENA 2 hb Historical: - Allergies: 18:32 No Known Allergies; hb - Home Meds: 18:32 Lisinopril Oral [Active]; Famotidine Oral [Active]; sertraline oral [Active]; hb - PMHx: 18:32 Chronic obstructive lung disease; Hypertensive disorder; hb - PSHx: 18:32 Brain CA; hb - Immunization history:: Adult Immunizations up to date. - Social history:: Smoking status: unknown. Screenin:50 [facility] ED Fall Risk Assessment (Adult) Score/Fall Risk Level 0 - 2 = Low Risk. Abuse eh3 screen: Denies threats or abuse. Denies injuries from another. Nutritional screening: No deficits noted. Tuberculosis screening: No symptoms or risk factors identified. Assessment: 18:38 Reassessment: CODE STROKE. hb 18:46 Reassessment: Pt returned from CT via wheelchair to room 18. [facility] 18:50 General: Appears in no apparent distress. comfortable, Behavior is calm, cooperative, eh3 appropriate for age. Pain: Denies pain. Neuro: Level of Consciousness is awake, alert, obeys commands, Oriented to person, place, time, situation, Weakness in right hand(s) arm(s) leg(s) foot/feet Gait is unsteady, Speech is normal, Facial symmetry appears normal, Pupils are PERRLA, Numbness in right arm and right leg. Cardiovascular: Capillary refill < 3 seconds Patient's skin is warm and dry. Respiratory: Airway is patent Respiratory effort is even, unlabored, Respiratory pattern is regular, symmetrical. GI: Abdomen is round non-distended. Derm: Skin is pink, warm \\T\\ dry. Musculoskeletal: Range of motion: limited in right shoulder, right elbow, right wrist, right knee and right ankle. 19:30 Reassessment: Patient appears in no apparent distress at this time. Patient and/or 3 family updated on plan of care and expected duration. Pain level reassessed. Patient is alert, oriented x 3, equal unlabored respirations, skin warm/dry/pink. 20:00 Reassessment: Patient appears in no apparent distress at this time. Patient and/or 3 family updated on plan of care and expected duration. Pain level reassessed. Patient is alert, oriented x 3, equal unlabored respirations, skin warm/dry/pink. Assisted to restroom in wheelchair, pt ambulated in and out of wheelchair with standby assistance. 20:30 Reassessment: Patient appears in no apparent distress at this time. Patient and/or eh3 family updated on plan of care and expected duration. Pain level reassessed. Patient is alert, oriented x 3, equal unlabored respirations, skin warm/dry/pink. 20:55 Reassessment: Failed attempt to call nurse to nurse report, receiving facility did not 3 answer. Vital Signs: 18:30 BP 159 / 91; Pulse 93; Resp 20; Temp 98.2(TE); Pulse Ox 100% on R/A; Weight 62.6 kg; hb Height 5 ft. 7 in. ; Pain 0/10; 19:00 BP 149 / 91; Pulse 88; Resp 18; Pulse Ox 100% on R/A; eh3 19:30 BP 169 / 96; Pulse 80; Resp 18; Pulse Ox 100% on R/A; eh3 20:00 BP 161 / 96; Pulse 78; Resp 16; Pulse Ox 100% on R/A; eh3 20:30 BP 156 / 90; Pulse 80; Resp 16; Pulse Ox 100% on R/A; eh3 21:00 BP 154 / 95; Pulse 83; Resp 14; Pulse Ox 100% on R/A; eh3 18:30 Body Mass Index 21.61 (62.60 kg, 170.18 cm) hb 18:30 Pain Scale: Adult hb [place] Coma Score: 19:32 Eye Response: spontaneous(4). Motor Response: obeys commands(6). Verbal Response: [place] oriented(5). Total: 15. 19:36 Eye Response: spontaneous(4). Motor Response: obeys commands(6). Verbal Response: [place] oriented(5). Total: 15. NIH Stroke Scale Scores: 19:36 NIHSS Score: 6 [place] ED Course: 18:19 Patient arrived in ED. ts1 18:32 Triage completed. hb 18:33 Arm band placed on. hb 18:40 Bill Paige MD is Attending Physician. [place] 18:47 Maryam Alvarez, EUGENIA is Primary Nurse. eh3 18:49 CT Stroke Brain w/o Contrast In Process Unspecified. EDMS 18:50 Patient has correct armband on for positive identification. Bed in low position. Call 3 light in reach. Side rails up X2. Adult w/ patient. Seizure precautions initiated. Client placed on continuous cardiac and pulse oximetry monitoring. NIBP monitoring applied. 18:50 Inserted saline lock: 20 gauge in left antecubital area, using aseptic technique. Blood eh3 collected. 18:[address] Paige with Emir Wray. eb 19:29 XRAY Chest (1 view) In Process Unspecified. EDMS 20:37 Patient accepted to [facility] by [place]. Magaña [place] 7408[place] [facility] [place] Provided Education on: N/A. eh3 21:18 No provider procedures requiring assistance completed. Patient transferred, IV remains eh3 in place. Administered Medications: 19:10 Drug: NS 0.9% IV 500 ml Route: IV; Rate: bolus; Site: left antecubital; eh3 19:42 Follow up: IV Status: Completed infusion; IV Intake: 500ml eh3 19:10 Drug: foLIC Acid IVPB 1 mg Route: IVPB; Site: left antecubital; eh3 19:42 Follow up: Response: No adverse reaction; IV Status: Completed infusion; IV Intake: 1ml eh3 19:10 Drug: NS 0.9% IV 1000 ml Route: IV; Rate: 125 ml/hr; Site: left antecubital; eh3 21:11 Follow up: IV Status: Completed infusion; IV Intake: 250ml eh3 19:30 Drug: Decadron - Dexamethasone IVP 10 mg Route: IVP; Site: left antecubital; eh3 20:30 Follow up: Response: No adverse reaction eh3 19:41 Drug: Keppra IV 2000 mg Route: IV; Rate: per protocol; Site: left antecubital; eh3 20:00 Follow up: Response: No adverse reaction; IV Status: Completed infusion; IV Intake: eh3 100ml Medication: 21:18 VIS not applicable for this client. eh3 Intake: 19:42 IV: 500ml; Total: 500ml. eh3 19:42 IV: 1ml; Total: 501ml. eh3 20:00 IV: 100ml; Total: 601ml. eh3 21:11 IV: 250ml; Total: 851ml. eh3 Outcome: 19:36 ER care complete, transfer ordered by [facility] 21:18 Transferred by ground EMS to [facility], Transfer form completed. eh3 Note: Report received by EUGENIA Cho 21:18 Condition: stable 21:18 Instructed on the need for transfer. 21:19 Patient left the ED. eh3 NIH Stroke Scale - NIH Stroke Score Date: 04/28/2023 Time: 19:36 Total Score = 6 10. Dysarthria (speech clarity - read or repeat words) - 0(Normal) 11. Extinction and Inattention (visual/tactile/auditory/spatial/personal) - 0(No abnormality) 1a. Level of Consciousness (LOC) - 0(Alert) 1b. Level of Consciousness (LOC) (Month \\T\\ Age) - 0(Both) 1c. LOC Commands (Open \\T\\ Closes Eyes/It Software Developer) - 0(Both) 2. Best Gaze (Lateral Gaze Paresis) - 0(Normal) 3. Visual Field Loss - 0(No visual loss) 4. Facial Palsy - 0(Normal) 5a. Left Arm: Motor (10-second hold) - 0(No drift) 5b. Right Arm: Motor (10-second hold) - 2(Drift, some effort against gravity) 6a. Left Leg: Motor (5-second hold - always test supine) - 0(No drift) 6b. Right Leg: Motor (5-second hold - always test supine) - 2(Drift, some effort against gravity) 7. Limb Ataxia (finger/nose \\T\\ heel/[place] - test with eyes open) - 2(Present in two limbs) 8. Sensory Loss (pinprick arms/legs/face) - 0(Normal) 9. Best Language: Aphasia (description/naming/reading) - 0(No aphasia) Initials: [place] Signatures: Dispatcher [employer] EDBill Pollack MD MD cha Baxter, Heather RN RN Mirela Bob RN RN [id number] Tania Vincent Erin, RN RN 3 Carlota Paredes PAS [facility]1 Darcy Nova 5 Corrections: (The following items were deleted from the chart) 18:38 18:30 Acuity: TEENA 3 hb hb 18:44 18:30 Chief complaint: Right sided weakness and numbness since yesterday hb afternoon. Had brain masses excised 02/[address] [facility] hb 18:44 18:30 Chief complaint: Pt reports right side felt "different " yesterday, woke hb up this morning with right sided weakness and numbness that became progressively worse this afternoon. Had brain masses excised 02/[address] [facility] hb 21:15 18:50 Patient has correct armband on for positive identification. Bed in low eh3 position. Call light in reach. Side rails up X2. Adult w/ patient. eh3
[2023-04-28] MEDS ORDERED: LEVETIRACETAM 500 MG/5 ML VIAL IV ONE (19:38)
--- NOTE | 2023-04-28 19:38 | RAD REPORT ---
EXAM DESCRIPTION: [place] Single View04/28/2023 7:27 pm CLINICAL HISTORY: Cough COMPARISON: January 2023 FINDINGS: 2.5 centimeter left upper lobe nodule mildly enlarged. Right lung appears clear. 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
[2023-04-28 19:43] LABS: Bilirubin Direct < 0.1 mg/dL (0-0.2); Bilirubin Indirect, Calculated ND mg/dL (0.2-0.8)
[2023-04-28] MEDS ORDERED: NA CHLORIDE 0.9% 100 ML ONE (19:43)
[2023-04-28 21:25] VITALS: TEMP 98.2; O2SAT 100
[2023-04-28 21:30] VITALS: BP 156/90
--- NOTE | 2023-04-30 13:15 | EKG ---
Test Date: 2023-04-28 Test Time: 19:27:50 Insole And Outsole Splitter: KORINA MEASUREMENT RESULTS: Intervals: Rate: 82 VT: 154 QRSD: 78 QT: 374 QTc: 436 [place]: P: 76 VT: 154 QRS: 66 T: 66 INTERPRETIVE STATEMENTS: Normal sinus rhythm Normal ECG Compared to ECG 02/15/2023 10:48:52 No significant changes Electronically Signed On 04-30-23 13:11:59 CDT by Ki Mcguire
== END 2023-04-28 21:19 | disposition short-term general hospital (02) ==
LOC: ER 18:17
DX: I61.9 Nontraumatic intracerebral hemorrhage, unspecified (principal); R29.706 NIHSS score 6; G93.6 Cerebral edema; D38.1 Neoplasm of uncertain behavior of trachea, bronchus and lung; E87.1 Hypo-osmolality and hyponatremia; I10 Essential (primary) hypertension; J44.9 Chronic obstructive pulmonary disease, unspecified; Z85.841 Personal history of malignant neoplasm of brain
CPT/HCPCS: 96365; 96361; 93005; 85025; 80048; 36415; 83735; 85610; 80076; 84484; 83880; 70450; 71045; 96375; 99285; J1953; J1100; J7040; J7030

== ENCOUNTER 2023-05-29 13:41 | Emergency (ER) | payer OTHER ==
--- OUTSIDE RECORDS SUMMARY | 2023-05-29 13:47 | XMS REPORT | Continuity of Care Document ---
:1960 Author Organization [facility] t Address [address] [facility] [address]. [address]. [address] [place] [address] Care Team Providers Name Role Phone Kevin Marx Rahil Attending Clinician Unavailable YAMILKA MULLEN Attending Clinician Unavailable AMBERLY HERNANDES Attending Clinician Unavailable TANIA CHO Attending Clinician Unavailable LEANDER MATIAS Attending Clinician Unavailable JONAH STRATTON Attending Clinician Unavailable SALLY JEROME IN Attending Clinician Unavailable Danielle Gonzalez MD Attending Clinician [place] Sheyla DAVILA Attending Clinician [phone] Leander Matias MD Attending Clinician Kevin Marx Rahil Admitting Clinician Unavailable VIKASH REYNA I Admitting Clinician Unavailable SHAZIA DOMINGO Admitting Clinician Unavailable Payers Payer Name Policy Type Policy Number Effective Date Expiration Date S [facility] [id number] 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 [facility] edema edema 00:00: Medical 00 [place] HTN HTN Disease Active [facility] (hypertens (hypertens 5[facility]25 [facility] ion) ion) 00:00: Medical [place] Anxiety Anxiety Disease Active [facility] 00[facility]: Medical [place] Alcohol Alcohol Disease Active [facility] use use [facility] disorder disorder 00:00: Medica l 00 [place] Brain mass Brain mass Disease Active [facility] 00:00: Medical [place] Allergies, Adverse Reactions, Alerts Allergy Allergy Status Severity Reaction(s) Onset Inactive Treating Comm ents Source Name Type Date Date Clinician NO KNOWN Allergy Active [facility] Social History Social Habit Start Date Stop Date Quantity Comments Source Sex Assigned At [address] [facility] 00:00:00 00:00:00 [facility] Medications Ordered Filled Start Stop Current Ordering Indication Dosage Frequency Signature Comments Components Source Medication Medication Date Date Medication? Clinician (SIG) Name Name amLODIPine Yes 5mg QD Take [facility] ([facility]VASC) 5 5-26 tablet (5 Leila es MG tablet 08:23: mg total) Med ical 24 by mouth Center in the morning. lisinopriL Yes 10mg QD Take [facility] (PRINIVIL,Z 5-26 tablet (10 [facility] ESTRIL) 10 08:23: mg total) Me dical MG tablet 24 by mouth Center in the morning. sertraline Yes 75mg QD Take 1.[address] [facility] (ZOLOFT) 50 5-26 tablets [facility] MG tablet 08:23: (75 mg Medica l 24 total) by Center mouth in the morning. TiZANidine Yes 4mg Take 1 [facility] (ZANAFLEX) 5-26 capsule (4 Leila es 4 MG 08:23: mg total) Medical capsule 24 by mouth 3 Center (three) times daily as needed for Muscle spasms. hydrOXYzine Yes 25mg Take [address] [facility] [address] (ATARAX) 25 5-26 tablet (25 [facility] MG tablet 08:23: mg total) Med ical 24 by mouth 3 Center (three) times daily as needed for Itching. ALPRAZolam Yes 1mg Take 1 [facility] (XANAX) 1 5-26 tablet (1 [facility] MG tablet 08:23: mg total) Med ical 24 by mouth 3 Center (three) times daily as needed for Anxiety. Max Daily Amount: 3 mg thiamine 2023- No 100mg QD Take 1 [facility] 100 MG 5-26 05-25 tablet [facility] tablet 00:00: 23:59 (100 mg Medical 00 :00 total) by Center mouth in the morning. famotidine 2022- No 20mg Take [address] [facility] [address] (PEPCID) 20 5-26 06-25 tablet (20 L ukes MG tablet 00:00: 23:59 mg total) Me dical 00 :00 by mouth Center every 12 (twelve) hours for 30 days. dexAMETHaso 2022- No 2mg Take [address] [facility] ne 5-26 06-09 tablet (2 [facility] (DECADRON) 00:00: 23:59 mg total) M edical 2 MG tablet 00 :00 by mouth Cent er every 12 (twelve) hours for 14 days. Vital Signs Vital Name Observation Time Observation Value Comments Source HEIGHT 2023-04-29 00:00:00 170.2 cm WEIGHT 2023-04-29 00:00:00 63.5 kg HEIGHT 2023-04-29 00:00:00 170.2 cm WEIGHT 2023-04-29 00:00:00 63.5 kg HEIGHT 2023-02-22 14:00:00 170.2 cm WEIGHT 2023-02-22 14:00:00 61.1 kg WEIGHT 2023-02-15 16:36:00 58.968 kg HEIGHT 2023-02-22 14:00:00 170.2 cm WEIGHT 2023-02-22 14:00:00 61.1 kg WEIGHT 2023-02-15 16:36:00 58.968 kg Systolic blood 2023-02-28 07:57:00 166 mm[Hg] Rn Aware [facility] pressure Medical [place] Diastolic blood 2023-02-28 07:57:00 85 mm[Hg] Rn Aware [facility] Heart rate 2023-02-28 07:57:00 77 /min [facility] Body temperature 2023-02-28 07:57:[address] [facility] Respiratory rate 2023-02-28 07:57:00 18 /min [facility] Oxygen saturation in 2023-02-28 07:57:00 94 /min [facility] Arterial blood by Medical Ce nter Pulse oximetry Body height 2023-02-23 07:03:00 170.2 cm [facility] Body weight 2023-02-23 07:03:00 61.1 kg [facility] BMI 2023-02-23 07:03:00 21.10 kg/m2 [facility] Procedures Procedure Date / Time Performing Clinician Source Performed POCT-GLUCOSE METER 2023-02-28 06:20:00 Rony [facility] CBC W/PLT COUNT & AUTO 2023-02-28 04:36:[address] [facility] BASIC METABOLIC PANEL 2023-02-28 04:36:[address] [facility] PHOSPHORUS 2023-02-28 04:36:00 [facility] MAGNESIUM 2023-02-28 04:36:[address] [facility] CBC W/PLT COUNT & AUTO 2023-02-28 04:36:00 Alma Stapleton [facility] POCT-GLUCOSE METER 2023-02-28 00:18:00 Rony [facility] POCT-GLUCOSE METER 2023-02-27 17:[facility] 2023-02-27 13:15:00 [facility] W/PLT COUNT & AUTO 2023-02-27 05:40:00 Alma Stapleton [facility] BASIC METABOLIC PANEL 2023-02-27 05:40:00 [facility] 2023-02-27 05:40:00 [facility] MAGNESIUM 2023-02-27 05:40:00 Ali [facility] CBC W/PLT COUNT & AUTO 2023-02-27 05:40:00 Alma Stapleton [facility] POCT-GLUCOSE METER 2023-02-26 21:50:00 [facility] POCT-GLUCOSE METER 2023-02-26 17:06:00 [facility] POCT-GLUCOSE METER 2023-02-26 11:50:00 [facility] POCT-GLUCOSE METER 2023-02-26 07:19:00 [facility]OL[facility] 2023-02-26 06:20[facility]00 [facility] W/[facility]T [facility] & AUTO 2023-02-26 06:20:00 Alma Stapleton [facility] MAGNESIUM 2023-02-26 06:20:00 [facility] PHOSPHORUS 2023-02-26 06:20:00 Pieter [facility] CBC W/PLT COUNT & AUTO 2023-02-26 06:20:00 Alma Stapleton [facility] POCT-GLUCOSE METER 2023-02-25 22:12:00 [facility]SE [facility] 2023-02-25 17:53:00 [facility] POCT-GLUCOSE METER 2023-02-25 13:18:00 [facility] POCT-GLUCOSE METER 2023-02-25 07:43:00 [facility] CBC W/PLT COUNT & AUTO 2023-02-25 05:11:00 Alma Stapleton [facility] BASIC METABOLIC PANEL 2023-02-25 05:11:00 Pieter [facility] MAGNESIUM 2023-02-25 05:11:00 Pieter [facility] PHOSPHORUS 2023-02-25 05:11:00 [facility] CBC W/PLT COUNT & AUTO 2023-02-25 05:11:[address] [facility] POCT-GLUCOSE METER 2023-02-25 05:02:00 [facility] POCT-GLUCOSE METER 2023-02-24 23:36:00 [facility] POCT-GLUCOSE METER 2023-02-24 17:29:00 [facility] POCT-GLUCOSE METER 2023-02-24 12:11:00 [facility] POCT-GLUCOSE METER 2023-02-24 06:15:00 [facility] CBC W/PLT COUNT & AUTO 2023-02-24 04:09:[address] [facility] [address] BASIC METABOLIC PANEL 2023-02-24 04:09:00 [facility] MAGNESIUM 2023-02-24 04:09:00 [facility] PHOSPHORUS 2023-02-24 04:09:00 [facility] CBC W/PLT COUNT & AUTO 2023-02-24 04:09:[address] [facility] POCT-GLUCOSE METER 2023-02-23 21:26:00 [facility] POCT-GLUCOSE METER 2023-02-23 15:43:00 [facility] MR BRAIN WITH & WITHOUT IV 2023-02-23 14:39:00 Surendra Massey [facility] POCT-GLUCOSE METER 2023-02-23 09:03:00 [facility]SE [facility] 2023-02-23 05:29:00 Rony [facility] CBC W/PLT COUNT & AUTO 2023-02-23 01:48:00 [facility] BAS[facility] METABOLIC PANEL 2023-02-23 01:48:00 [facility] MAGNESIUM 2023-02-23 01:48:[address] [facility] PHOSPHORUS 2023-02-23 01:48:00 [facility] CBC W/PLT COUNT & AUTO 2023-02-23 01:48:00 Surendra Massey [facility] (CELLAVISION MANUAL DIFF) 2023-02-23 01:48:00 Surendra Massey [facility] POCT-GLUCOSE METER 2023-02-23 00:43:00 [facility] POCT-GLUCOSE METER 2023-02-22 17:33:00 [facility] CRANIECTOMY OR CRANIOTOMY, 2023-02-22 08:30:00 Leander Matias [facility] FOR EXCISION OF BRAIN Medical Ce nter NEOPLASM POCT-GLUCOSE METER 2023-02-22 06:32:[address] [facility] CBC W/PLT COUNT & AUTO 2023-02-22 05:15:[address] [facility] BASIC METABOLIC PANEL 2023-02-22 05:15:00 [facility] MAGNESIUM 2023-02-22 05:15:00 [facility] PHOSPHORUS 2023-02-22 05:15:00 [facility] TYPE AND SCREEN, AUTOMATED 2023-02-22 05:15:[address] [facility] CBC W/PLT COUNT & AUTO 2023-02-22 05:15:00 Katja Vargas [facility] POCT-GLUCOSE METER 2023-02-21 23:35:[address] [facility] SARS-COV2/RT-PCR ([facility] & 2023-02-21 17:24:00 [facility] POCT-GLUCOSE METER 2023-02-21 17:23:[address] [facility] PROTHROMBIN TIME/INR 2023-02-21 15:13:00 [facility] APTT 2023-02-21 15:13:00 [facility] POCT-GLUCOSE METER 2023-02-21 11:51:[address] [facility] CBC W/PLT COUNT & AUTO 2023-02-21 05:04:[address] [facility] BASIC METABOLIC PANEL 2023-02-21 05:04:[address] [facility] MAGNESIUM 2023-02-21 05:04:[address] [facility] PHOSPHORUS 2023-02-21 05:04:00 [facility] CBC W/PLT COUNT & AUTO 2023-02-21 05:04:00 Katja Vargas [facility] POCT-GLUCOSE METER 2023-02-21 04:01:[address] [facility] POCT-GLUCOSE METER 2023-02-20 23:41:[address] [facility] POCT-GLUCOSE METER 2023-02-20 16:28:[address] [facility] POCT-GLUCOSE METER 2023-02-20 11:44:[address] [facility] POCT-GLUCOSE METER 2023-02-20 10:41:[address] [facility] POCT-GLUCOSE METER 2023-02-20 04:41:[address] [facility] CBC W/PLT COUNT & AUTO 2023-02-20 03:40:00 Alma Stapleton [facility] BASIC METABOLIC PANEL 2023-02-20 03:40:00 Pieter [facility] MAGNESIUM 2023-02-20 03:40:00 [facility] PHOSPHORUS 2023-02-20 03:40:00 Pieter [facility] CBC W/PLT COUNT & AUTO 2023-02-20 03:40:00 [facility] POCT-GLUCOSE METER 2023-02-19 23:41:[address] [facility] POCT-GLUCOSE METER 2023-02-19 19:33:[address] [facility] POCT-GLUCOSE METER 2023-02-19 16:22:[address] [facility] POCT-GLUCOSE METER 2023-02-19 11:07:[address] [facility] CBC W/PLT COUNT & AUTO 2023-02-19 06:06:00 Alma Stapleton [facility] BASIC METABOLIC PANEL 2023-02-19 06:06:00 Pieter [facility] MAGNESIUM 2023-02-19 06:06:00 Pieter [facility] PHOSPHORUS 2023-02-19 06:06:[address] [facility] CBC W/PLT COUNT & AUTO 2023-02-19 06:06:00 [facility] POCT-GLUCOSE METER 2023-02-19 05:31:[address] [facility] POCT-GLUCOSE METER 2023-02-19 00:01:[address] [facility] POCT-GLUCOSE METER 2023-02-18 12:10:[address] [facility] POCT-GLUCOSE METER 2023-02-18 06:02:[address] [facility] CBC W/PLT COUNT & AUTO 2023-02-18 05:57:00 Alma Stapleton [facility] BASIC METABOLIC PANEL 2023-02-18 05:57:00 [facility] 2023-02-18 05:57:00 [facility] PHOSPHORUS 2023-02-18 05:57[facility]T [facility] & AUTO 2023-02-18 05:57:00 Katja Vargas [facility] POCT-GLUCOSE METER 2023-02-18 00:26:[address] [facility] XR CHEST 1 VIEW PORTABLE / 2023-02-17 17:56:00 Giovanny De Leon [facility] POCT-GLUCOSE METER 2023-02-17 17:02:[address] [facility] XR CHEST 1 VIEW PORTABLE / 2023-02-17 15:27:00 Giovanny De Leon [facility] CT BIOPSY LUNG 2023-02-17 15:05:00 Malou [facility] TISSUE EXAM 2023-02-17 14:51:[facility] POCT-GLUCOSE METER 2023-02-17 12:03:[address] [facility] POCT-GLUCOSE METER 2023-02-17 05:35:[address] [facility] CBC W/PLT COUNT & AUTO 2023-02-17 04:52:00 Alma Stapleton [facility] BASIC METABOLIC PANEL 2023-02-17 04:52:00 Pieter [facility] MAGNESIUM 2023-02-17 04:52:00 Pieter [facility] PHOSPHORUS 2023-02-17 04:52:[address] [facility] W/PLT COUNT & AUTO 2023-02-17 04:52:00 [facility] POCT-GLUCOSE METER 2023-02-17 00:02:00 [facility] WITHOUT IV 2023-02-16 21:20:00 Cam Dhaval Héctor [facility] PROTHROMBIN TIME/INR 2023-02-16 18:14:[address] [facility] APTT 2023-02-16 18:14:[address] [facility] POCT-GLUCOSE METER 2023-02-16 17:43:00 Jack, [facility] POCT-[facility]SE METER 2023-02-16 11:02:00 [facility] SODIUM, RANDOM URINE 2023-02-16 07:58:00 Sam [facility] CREATININE, RANDOM URINE 2023-02-16 07:58:00 Katja Vargas [facility] POCT-GLUCOSE METER 2023-02-16 06:13:00 Edilia Westfall [facility] CBC W/PLT COUNT & AUTO 2023-02-16 05:20:00 [facility] BASIC METABOLIC PANEL 2023-02-16 05:20:00 [facility] MAGNESIUM 2023-02-16 05:20:[address] [facility] PHOSPHORUS 2023-02-16 05:20:00 [facility] OSMOLALITY, SERUM 2023-02-16 05:20:00 [facility]T [facility] & AUTO 2023-02-16 05:20:00 [facility] CARCINOEMBRYONIC ANTIGEN 2023-02-16 03:37:00 Edilia Westfall [facility] (CEA) [facility] ABORH, MANUAL 2023-02-16 03:37:[address] [facility] CT BRAIN WITHOUT IV 2023-02-16 02:28:00 [facility] CONTRAST [facility] CT CHEST WITH IV CONTRAST 2023-02-16 02:28:[address] [facility] CT ABDOMEN/PELVIS WITH IV 2023-02-16 02:28:00 [facility] CONTRAST [facility] CBC W/PLT COUNT & AUTO 2023-02-15 23:09:00 [facility] DIFFERENTIAL [facility] BASIC METABOLIC PANEL 2023-02-15 23:09:00 [facility] PROTHROMBIN TIME/INR 2023-02-15 23:09:00 [facility] S [facility] TYPE AND SCREEN, AUTOMATED 2023-02-15 23:09:00 [facility] CBC W/PLT COUNT & AUTO 2023-02-15 23:09:00 [facility] XR CHEST 1 VIEW PORTABLE / 2023-02-15 19:09:00 [facility] BEDSIDE [facility] Plan of Care Planned Activity Planned Date Details Comments Source Future Scheduled 2023-06-[address] [facility] Test 00:00:00 (Season Ended) [code = [facility] INFLUENZA VACCINE (Season Ended)] Future Scheduled [address] [facility] Test 00:00:00 (12+) [code = Medical Center DEPRESSION SCREENING (12+)] Future Scheduled 2007 Lipid panel (procedure) [facility] Test 00:00:00 [code = 69254754] Medical Ce nter Future Scheduled 1983 Screening for malignant [facility] Test 00:00:00 neoplasm of cervix Medical C enter (procedure) [code = 463919107] Future Scheduled 1981 DTAP/TDAP/TD VACCINES [facility] Test 00:00:00 (1 - Tdap) [code = Medical C enter DTAP/TDAP/TD VACCINES (1 - Tdap)] Future Scheduled 1981 SHINGLES VACCINES ([address] [facility] Test 00:00:00 2) [code = SHINGLES Medical Center VACCINES (1 of 2)] Future Scheduled [...] breast Medical C enter (procedure) [code = 117685342] Future Scheduled 1962 CT Colonography (combo) [facility] Test 00:00:00 [code = CT Colonography [facility] Center (combo)] Future Scheduled 1962 Screening for malignant [facility] Test 00:00:00 neoplasm of colon Medical Ce nter (procedure) [code = 443230988] Future Scheduled 1962 Screening for malignant [facility] Test 00:00:00 neoplasm of colon Medical Ce nter (procedure) [code = 715519665] Future Scheduled 1962 Screening for malignant [facility] Test 00:00:00 neoplasm of colon Medical Ce nter (procedure) [code = 392364168] Future Scheduled 1962 Screening for malignant [facility] Test 00:00:00 neoplasm of colon Medical Ce nter (procedure) [code = 524220926] Future Scheduled 1960 Sigmoidoscopy [code = [facility] Test 00:[facility]00 Sigm[facility]oscopy] Medical Cente r Encounters Start End Encounter Admission Attending Care Care Encounter Source Date/Time Date/Time Type Type Clinicians Facility Department ID 2023-05-12 Outpatient 3 [place] [id number] [facility] 15:11:04 [facility] [place] [facility] 2023-05-09 [place] 3 [place] [id number] [facility] 13:49:44 Kevin [facility] [place] 2023-05-05 Out[place] 3 [place] [id number] [facility] 10:57:19 Kevin [facility] [place] 2023-05-02 Inpatient ER [facility] [id number] [facility] 17:31:27 2023-05-02 Inpatient ER SEBAS, [facility] [id number] [facility] 07:17:15 [facility] 2023-05-01 Inpatient ER MULLEN, [facility]H [facility] [id number] [facility] 11:09:55 [facility] 2023-04-29 Inpatient ER HERNANDES, [facility]H [facility] [id number] [facility] 08:35:13 AMBERLY 2023-04-29 Inpatient ER PITTARD, [facility]H [facility] [id number] [facility] 02:50:55 TANIA 2023-04-29 Inpatient ER HERNANDES, [facility]H [facility] [id number] [facility] 01:19:07 AMBERLY 2023-04-28 2023-05-08 Inpatient ER LEANDER MATIAS [facility] Neuro ICU 20 [id number] [facility] 22:24:00 15:27:00 2023-05-03 2023-05-03 Inpatient ER SEBAS, [facility]H [facility] [id number] [facility] 14:55:49 00:00:00 [facility] 2023-04-30 2023-04-30 Inpatient ER SLEH [facility] [id number] [facility] 12:43:11 23:59:00 2023-04-30 2023-04-30 Inpatient ER SLEH [facility] [id number] [facility] 12:43:15 00:00:00 2023-02-15 2023-02-28 Inpatient ER RONY, [facility] Surgery [id number] [facility] 15:55:00 13:18:00 [facility] 2023-02-22 2023-02-22 Anesthesia Danielle Gonzalez [facility] [id number] 08:30:00 13:46:00 Event Sheyla Michael [facility] 2023-02-22 2023-02-22 Surgery Leander Matias [facility] [id number] 09:00:00 13:35:00 [facility] Results Test Description Test Time Test Comments Results Result Comments Source POCT-GLUCOSE METER 2023-05-08 12:56:32 Test Item Value Reference Range Interpretation Comme nts POC-GLUCOSE METER (BEAKER) 90 mg/dL 70-110 : TESTED AT [facility] [address] [facility] (test code = 1538) [facility], [address]: Clipman/Techni nate ID = [id number] for MANSOOR GRIFFITHS [id number] 11:02:56 Test Item Value Reference Range Interpretation Comments POTASSIUM (BEAKER) (test code = 4.1 meq/L 3.5-5.1 379) Clipman ID - AAHAMIDPOCT-GLUCOSE [id number] 07:50:33 Test Item Value Reference Range Interpretation Comments POC-GLUCOSE METER 97 mg/dL 70-110 : TESTED A T [facility] [address] (BEAKER) (test code = [facility], 1538) [address]: Clipman/Techni nate ID = [id number] for ROMMEL ALLEN BASIC METABOLIC [id number] 04:15:26 Test Item Value Reference Range Interpretation Comments SODIUM (BEAKER) 133 meq/L 136-145 L (test code = 381) POTASSIUM 5.3 meq/L 3.5-5.1 H (BEAKER) (test code = 379) CHLORIDE (BEAKER) 99 meq/L 98-107 (test code = 382) CO2 (BEAKER) 27 meq/L 22-29 (test code = 355) BLOOD UREA 18 mg/dL 7-21 NITROGEN (BEAKER) (test code = 354) CREATININE 0.56 mg/dL 0.57-1.25 L (BEAKER) (test code = 358) GLUCOSE RANDOM 113 mg/dL 70-105 H (BEAKER) (test code = [...] not appl icable for dialysis patien ts Clipman ID - DREW WCBC W/PLT COUNT & AUTO [id number] 04:10:16 Test Item Value Reference Range Interpretation Comments WHITE BLOOD CELL COUNT (BEAKER) 12.7 K/ L 3.5-10.5 H (test code = 775) RED BLOOD CELL COUNT (BEAKER) 3.35 M/ L 3.93-5.22 L (test code = 761) HEMOGLOBIN (BEAKER) (test code = 10.0 GM/DL 11.2-15.7 L 410) HEMATOCRIT (BEAKER) (test code = 31.6 % 34.1-44.9 L 411) MEAN CORPUSCULAR VOLUME (BEAKER) 94 fL 79-95 (test code = 753) MEAN CORPUSCULAR HEMOGLOBIN 29.9 pg 25.6-32.2 (BEAKER) (test code = 751) MEAN CORPUSCULAR HEMOGLOBIN CONC 31.6 GM/DL 32.2-35.5 L (BEAKER) (test code = 752) RED CELL DISTRIBUTION WIDTH 13.7 % 11.7-14.4 (BEAKER) (test code = 412) PLATELET COUNT (BEAKER) (test 397 K/CU MM 150-450 code = 756) MEAN PLATELET VOLUME (BEAKER) 9.0 fL 9.4-12.3 L (test code = 754) NUCLEATED RED BLOOD CELLS 0 /100 WBC 0-0 (BEAKER) (test code = 413) NEUTROPHILS RELATIVE PERCENT 79 % (BEAKER) (test code = 429) LYMPHOCYTES RELATIVE PERCENT 11 % (BEAKER) (test code = 430) MONOCYTES RELATIVE PERCENT 7 % (BEAKER) (test code = 431) EOSINOPHILS RELATIVE PERCENT 1 % (BEAKER) (test code = 432) BASOPHILS RELATIVE PERCENT 0 % (BEAKER) (test code = 437) NEUTROPHILS ABSOLUTE COUNT 10.04 K/ L 1.56-6.13 H (BEAKER) (test code = 670) LYMPHOCYTES ABSOLUTE COUNT 1.44 K/ L 1.18-3.74 (BEAKER) (test code = 414) MONOCYTES ABSOLUTE COUNT (BEAKER) 0.90 K/ L 0.24-0.36 H (test code = 415) EOSINOPHILS ABSOLUTE COUNT 0.10 K/ L 0.04-0.36 (BEAKER) (test code = 416) BASOPHILS ABSOLUTE COUNT (BEAKER) 0.02 K/ L 0.01-0.08 (test code = 417) IMMATURE GRANULOCYTES-RELATIVE 1.50 % 0.00-1.00 H PERCENT (BEAKER) (test code = 2801) POCT-GLUCOSE [id number] 21:31:11 Test Item Value Reference Range Interpretation Comments POC-GLUCOSE METER 107 mg/dL 70-110 : TESTED A T [facility] ([facility]) (test code = [facility], [facility]) [id number]: Clipman/Techni nate ID = [id number] for Ty Corrina [place]man POCT-GLUCOSE [id number] 17:53:07 Test Item Value Reference Range Interpretation Comments POC-GLUCOSE METER 114 mg/dL 70-110 H : TESTED A T [facility] 6720 (BEAKER) (test code = [facility], [facility]) 17[address]: Clipman/Techni nate ID = [id number] for Um eh, Akumbu POCT-GLUCOSE [id number] 12:58:41 Test Item Value Reference Range Interpretation Comments POC-GLUCOSE METER 102 mg/dL 70-110 : TESTED A T [facility] 6720 (BEAKER) (test code = [facility], 153) 08098: Clipman/Techni nate ID = [id number] for Um eh, [place]umbu POCT-GLUCOSE [id number] 09:03:58 Test Item Value Reference Range Interpretation Comments POC-GLUCOSE METER 87 mg/dL 70-110 : TESTED A T [facility] 6720 (BEAKER) (test code = [facility], 153) 29182: Clipman/Techni nate ID = [id number] for Umeh , Akumbu BASIC METABOLIC [id number] 06:27:58 Test Item Value Reference Range Interpretation Comments SODIUM (BEAKER) 133 meq/L 136-145 L (test code = 381) POTASSIUM 4.1 meq/L 3.5-5.1 (BEAKER) (test code = 379) CHLORIDE (BEAKER) 98 meq/L 98-107 (test code = 382) CO2 (BEAKER) 24 meq/L 22-29 (test code = 355) BLOOD UREA 13 mg/dL 7-21 NITROGEN (BEAKER) (test code = 354) CREATININE 0.59 mg/dL 0.57-1.25 (BEAKER) (test code = 358) GLUCOSE RANDOM 133 mg/dL 70-105 H (BEAKER) (test code = 652) CALCIUM (BEAKER) 8.7 mg/dL 8.4-10.2 (test code = 697) EGFR [...] not appl icable for dialysis patien ts Clipman ID - ADMINCBC W/PLT COUNT & AUTO [id number] 05:36:18 Test Item Value Reference Range Interpretation Comments WHITE BLOOD CELL COUNT (BEAKER) 12.3 K/ L 3.5-10.5 H (test code = 775) RED BLOOD CELL COUNT (BEAKER) 3.57 M/ L 3.93-5.22 L (test code = 761) HEMOGLOBIN (BEAKER) (test code = 10.7 GM/DL 11.2-15.7 L 410) HEMATOCRIT (BEAKER) (test code = 32.7 % 34.1-44.9 L 411) MEAN CORPUSCULAR VOLUME (BEAKER) 92 fL 79-95 (test code = 753) MEAN CORPUSCULAR HEMOGLOBIN 30.0 pg 25.6-32.2 (BEAKER) (test code = 751) MEAN CORPUSCULAR HEMOGLOBIN CONC 32.7 GM/DL 32.2-35.5 (BEAKER) (test code = 752) RED CELL DISTRIBUTION WIDTH 13.4 % 11.7-14.4 (BEAKER) (test code = 412) PLATELET COUNT (BEAKER) (test 395 K/CU MM 150-450 code = 756) MEAN PLATELET VOLUME (BEAKER) 8.9 fL 9.4-12.3 L (test code = 754) NUCLEATED RED BLOOD CELLS 0 /100 WBC 0-0 (BEAKER) (test code = 413) NEUTROPHILS RELATIVE PERCENT 78 % (BEAKER) (test code = 429) LYMPHOCYTES RELATIVE PERCENT 14 % (BEAKER) (test code = 430) MONOCYTES RELATIVE PERCENT 6 % (BEAKER) (test code = 431) EOSINOPHILS RELATIVE PERCENT 1 % (BEAKER) (test code = 432) BASOPHILS RELATIVE PERCENT 0 % (BEAKER) (test code = 437) NEUTROPHILS ABSOLUTE COUNT 9.59 K/ L 1.56-6.13 H (BEAKER) (test code = 670) LYMPHOCYTES ABSOLUTE COUNT 1.69 K/ L 1.18-3.74 (BEAKER) (test code = 414) MONOCYTES ABSOLUTE COUNT (BEAKER) 0.77 K/ L 0.24-0.36 H (test code = 415) EOSINOPHILS ABSOLUTE COUNT 0.08 K/ L 0.04-0.36 (BEAKER) (test code = 416) BASOPHILS ABSOLUTE COUNT (BEAKER) 0.01 K/ L 0.01-0.08 (test code = 417) IMMATURE GRANULOCYTES-RELATIVE 1.30 % 0.00-1.00 H PERCENT (BEAKER) (test code = 2801) POCT-GLUCOSE [id number] 21:42:01 Test Item Value Reference Range Interpretation Comments POC-GLUCOSE METER 130 mg/dL 70-110 H : TESTED A T [facility] 6720 (BEAKER) (test code = [facility], 1538) 63152: Clipman/Techni nate ID = [id number] for Corrina Vilchis POCT-GLUCOSE [id number] 17:23:00 Test Item Value Reference Range Interpretation Comments POC-GLUCOSE METER 114 mg/dL 70-110 H : TESTED A T [facility] 6720 (BEAKER) (test code = [facility], 153) 44549: Clipman/Techni nate ID = [id number] for Um eh, [place] POCT-GLUCOSE [id number] 12:09:27 Test Item Value Reference Range Interpretation Comments POC-GLUCOSE METER 158 mg/dL 70-110 H : TESTED A T [facility] 6720 (BEAKER) (test code = [facility], 1538) 41149: Clipman/Techni nate ID = [id number] for Um eh, [place] POCT-GLUCOSE [id number] 07:52:37 Test Item Value Reference Range Interpretation Comments POC-GLUCOSE METER 108 mg/dL 70-110 : TESTED A T [facility] 6720 (BEAKER) (test code = [facility], 153) 55451: Clipman/Techni nate ID = [id number] for Um eh, Trey BASIC METABOLIC [id number] 07:12:22 Test Item Value Reference Range Interpretation Comments SODIUM (BEAKER) 133 meq/L 136-145 L (test code = 381) POTASSIUM 4.4 meq/L 3.5-5.1 (BEAKER) (test code = 379) CHLORIDE (BEAKER) 99 meq/L 98-107 (test code = 382) CO2 (BEAKER) 26 meq/L 22-29 (test code = 355) BLOOD UREA 12 mg/dL 7-21 NITROGEN (BEAKER) (test code = 354) CREATININE 0.61 mg/dL 0.57-1.25 (BEAKER) (test code = 358) GLUCOSE RANDOM 107 mg/dL 70-105 H (BEAKER) (test code = 652) CALCIUM (BEAKER) 9.1 mg/dL 8.4-10.2 (test code = 697) EGFR (BEAKER) 102 [...] not appl icable for dialysis patien ts Clipman ID - ADMINCBC W/PLT COUNT & AUTO [id number] 06:53:15 Test Item Value Reference Range Interpretation Comments WHITE BLOOD CELL COUNT (BEAKER) 12.8 K/ L 3.5-10.5 H (test code = 775) RED BLOOD CELL COUNT (BEAKER) 3.75 M/ L 3.93-5.22 L (test code = 761) HEMOGLOBIN (BEAKER) (test code = 11.3 GM/DL 11.2-15.7 410) HEMATOCRIT (BEAKER) (test code = 34.2 % 34.1-44.9 411) MEAN CORPUSCULAR VOLUME (BEAKER) 91 fL 79-95 (test code = 753) MEAN CORPUSCULAR HEMOGLOBIN 30.1 pg 25.6-32.2 (BEAKER) (test code = 751) MEAN CORPUSCULAR HEMOGLOBIN CONC 33.0 GM/DL 32.2-35.5 (BEAKER) (test code = 752) RED CELL DISTRIBUTION WIDTH 13.4 % 11.7-14.4 (BEAKER) (test code = 412) PLATELET COUNT (BEAKER) (test 404 K/CU MM 150-450 code = 756) MEAN PLATELET VOLUME (BEAKER) 8.9 fL 9.4-12.3 L (test code = 754) NUCLEATED RED BLOOD CELLS 0 /100 WBC 0-0 (BEAKER) (test code = 413) NEUTROPHILS RELATIVE PERCENT 84 % (BEAKER) (test code = 429) LYMPHOCYTES RELATIVE PERCENT 9 % (BEAKER) (test code = 430) MONOCYTES RELATIVE PERCENT 6 % (BEAKER) (test code = 431) EOSINOPHILS RELATIVE PERCENT 0 % (BEAKER) (test code = 432) BASOPHILS RELATIVE PERCENT 0 % (BEAKER) (test code = 437) NEUTROPHILS ABSOLUTE COUNT 10.71 K/ L 1.56-6.13 H (BEAKER) (test code = 670) LYMPHOCYTES ABSOLUTE COUNT 1.16 K/ L 1.18-3.74 L (BEAKER) (test code = 414) MONOCYTES ABSOLUTE COUNT (BEAKER) 0.77 K/ L 0.24-0.36 H (test code = 415) EOSINOPHILS ABSOLUTE COUNT 0.03 K/ L 0.04-0.36 L (BEAKER) (test code = 416) BASOPHILS ABSOLUTE COUNT (BEAKER) 0.01 K/ L 0.01-0.08 (test code = 417) IMMATURE GRANULOCYTES-RELATIVE 0.80 % 0.00-1.00 PERCENT (BEAKER) (test code = 2801) POCT-GLUCOSE [id number] 20:47:24 Test Item Value Reference Range Interpretation Comments POC-GLUCOSE METER 113 mg/dL 70-110 H : TESTED A T [facility] 6720 (BEAKER) (test code [facility], = 1538) 53814: Clipman/Techni nate ID = [id number] for Jus Hicks POCT-GLUCOSE [id number] 17:27:51 Test Item Value Reference Range Interpretation Comments POC-GLUCOSE METER 115 mg/dL 70-110 H : TESTED A T [facility] 6720 (BEAKER) (test code = [facility], 1538) 35896: Clipman/Techni nate ID = [id number] for Um eh, [place] POCT-GLUCOSE [id number] 11:46:33 Test Item Value Reference Range Interpretation Comments POC-GLUCOSE METER 102 mg/dL 70-110 : TESTED A T [facility] 6720 (BEAKER) (test code = [facility], 1538) 41518: Clipman/Techni naet ID = [id number] for Um eh, [place] POCT-GLUCOSE [id number] 08:03:17 Test Item Value Reference Range Interpretation Comments POC-GLUCOSE METER 124 mg/dL 70-110 H : TESTED A T [facility] 6720 (BEAKER) (test code = [facility], 1538) 40080: Clipman/Techni nate ID = [id number] for Um eh, [place]u BASIC METABOLIC [id number] 05:39:55 Test Item Value Reference Range Interpretation Comments SODIUM (BEAKER) 133 meq/L 136-145 L (test code = 381) POTASSIUM 4.1 meq/L 3.5-5.1 (BEAKER) (test code = 379) CHLORIDE (BEAKER) 99 meq/L 98-107 (test code = 382) CO2 (BEAKER) 25 meq/L 22-29 (test code = 355) BLOOD UREA 13 mg/dL 7-21 NITROGEN (BEAKER) (test code = 354) CREATININE 0.58 mg/dL 0.57-1.25 (BEAKER) (test code = 358) [...] not appl icable for dialysis patien ts Clipman ID - ADMINCBC W/PLT COUNT & AUTO [id number] 05:23:17 Test Item Value Reference Range Interpretation Comments WHITE BLOOD CELL COUNT (BEAKER) 14.0 K/ L 3.5-10.5 H (test code = 775) RED BLOOD CELL COUNT (BEAKER) 3.51 M/ L 3.93-5.22 L (test code = 761) HEMOGLOBIN (BEAKER) (test code = 10.6 GM/DL 11.2-15.7 L 410) HEMATOCRIT (BEAKER) (test code = 32.5 % 34.1-44.9 L 411) MEAN CORPUSCULAR VOLUME (BEAKER) 93 fL 79-95 (test code = 753) MEAN CORPUSCULAR HEMOGLOBIN 30.2 pg 25.6-32.2 (BEAKER) (test code = 751) MEAN CORPUSCULAR HEMOGLOBIN CONC 32.6 GM/DL 32.2-35.5 (BEAKER) (test code = 752) RED CELL DISTRIBUTION WIDTH 13.4 % 11.7-14.4 (BEAKER) (test code = 412) PLATELET COUNT (BEAKER) (test 391 K/CU MM 150-450 code = 756) MEAN PLATELET VOLUME (BEAKER) 9.1 fL 9.4-12.3 L (test code = 754) NUCLEATED RED BLOOD CELLS 0 /100 WBC 0-0 (BEAKER) (test code = 413) NEUTROPHILS RELATIVE PERCENT 84 % (BEAKER) (test code = 429) LYMPHOCYTES RELATIVE PERCENT 9 % (BEAKER) (test code = 430) MONOCYTES RELATIVE PERCENT 6 % (BEAKER) (test code = 431) EOSINOPHILS RELATIVE PERCENT 0 % (BEAKER) (test code = 432) BASOPHILS RELATIVE PERCENT 0 % (BEAKER) (test code = 437) NEUTROPHILS ABSOLUTE COUNT 11.74 K/ L 1.56-6.13 H (BEAKER) (test code = 670) LYMPHOCYTES ABSOLUTE COUNT 1.31 K/ L 1.18-3.74 (BEAKER) (test code = 414) MONOCYTES ABSOLUTE COUNT (BEAKER) 0.83 K/ L 0.24-0.36 H (test code = 415) EOSINOPHILS ABSOLUTE COUNT 0.02 K/ L 0.04-0.36 L (BEAKER) (test code = 416) BASOPHILS ABSOLUTE COUNT (BEAKER) 0.02 K/ L 0.01-0.08 (test code = 417) IMMATURE GRANULOCYTES-RELATIVE 0.60 % 0.00-1.00 PERCENT (BEAKER) (test code = 2801) [id number] 22:34:13 Test Item Value Reference Range Interpretation Comments SODIUM (BEAKER) (test code = 381) 132 meq/L 136-145 L Clipman ID - ADMINPOCT-GLUCOSE [id number] 20:41:20 Test Item Value Reference Range Interpretation Comments POC-GLUCOSE METER 90 mg/dL 70-110 : TESTED A T [facility] 6720 (BEAKER) (test code = [facility], 1538) 55124: Clipman/Techni nate ID = [id number] for Jennie murillo Jus POCT-GLUCOSE [id number] 17:53:44 Test Item Value Reference Range Interpretation Comments POC-GLUCOSE METER 107 mg/dL 70-110 : TESTED A T [facility] 6720 (BEAKER) (test code = [facility], 1538) 95322: Clipman/Techni nate ID = [id number] for Um eh, [place] TISSUE [id number] 14:22:28Surgical Pathology Report Case: [id number] Authorizing Provider: Leander Matias MD Collected: 05/02/2023 10:35 AM Ordering Location: [address] Received: 05/02/2023 03:29 PM Service Pathologist: Parker Petersen MD Specimens: A) - Mass, Left Brain Mass B) - Hardware, Hardware for positive id only A. Brain, left brain mass, excision: - Metastatic carcinoma; see commentB. Hardware, removal: -Hardware as described (gross examination only) Signing Pathologist Direct Phone Line: [phone] ctronically signed by Parker Petersen MD on 05/04/2023 at 2:22 PMThe current specimen was compared to the patient's prior resection ([id number]), and the tumor shows similar histomorphology. Block A1 has adequate tumor cellularity for additional ancillary studies.01623, 72006Vixav tumorA. MassReceived fresh labeled with the patient's name, medical record number and "mass" is a 1.5 x 1.5 x 0.4 cm aggregate of multiple lan-ramachandran soft tissue fragments. The largest tissue is bisected and the specimen is entirely submitted in A1.B. HardwareReceived fresh labeled with the patient's name, medical record number and "hardware" are 6 ramachandran metallic roderick hole covers each measuring 2.4 x 2.4 x 0.1 cm; and 9 ramachandran metallic fully threaded screws each measuring 0.4 cm in length and 0.2 cm in diameter. A gross photograph is taken. No sections are submitted-gross only.RIVERA Roach, PA (ASCP)cmPerformedBaylor Kaiser Hospital, Department of Pathology, [address] [place] [address], [facility], [facility] of [facility], [address] [place] [address], [facility], Department of Pathology, [address] [place] [address], QIYX-GLUCOSE [id number] 11:29:59 Test Item Value Reference Range Interpretation Comments POC-GLUCOSE METER 111 mg/dL 70-110 H : TESTED A T [facility] 6720 (BEAKER) (test code = [facility] [place], 1538) 90702: Clipman/Techni nate ID = [id number] for SPENCRE PETTIT POCT-GLUCOSE [id number] 09:17:23 Test Item Value Reference Range Interpretation Comments POC-GLUCOSE METER 89 mg/dL 70-110 : TESTED A T [facility] 6720 (BEAKER) (test code = [facility], 1538) 97199: Clipman/Techni nate ID = [id number] for SPENCER KNOX BASIC METABOLIC [id number] 05:11:50 Test Item Value Reference Range Interpretation Comments SODIUM (BEAKER) 132 meq/L 136-145 L (test code = 381) POTASSIUM 5.0 meq/L 3.5-5.1 Specimen slight ly (BEAKER) (test hemolyzed code = 379) CHLORIDE (BEAKER) 99 meq/L 98-107 (test code = 382) CO2 (BEAKER) 27 meq/L 22-29 (test code = 355) BLOOD UREA 13 mg/dL 7-21 NITROGEN (BEAKER) (test code = 354) CREATININE 0.58 mg/dL 0.57-1.25 Specimen slight ly (BEAKER) (test hemolyzed code = 358) GLUCOSE RANDOM 128 mg/dL 70-105 H (BEAKER) (test code = [...] not appl icable for dialysis patien ts Clipman ID - ADMINCBC W/PLT COUNT & AUTO [id number] 04:53:40 Test Item Value Reference Range Interpretation Comments WHITE BLOOD CELL COUNT (BEAKER) 15.7 K/ L 3.5-10.5 H (test code = 775) RED BLOOD CELL COUNT (BEAKER) 3.55 M/ L 3.93-5.22 L (test code = 761) HEMOGLOBIN (BEAKER) (test code = 10.7 GM/DL 11.2-15.7 L 410) HEMATOCRIT (BEAKER) (test code = 33.1 % 34.1-44.9 L 411) MEAN CORPUSCULAR VOLUME (BEAKER) 93 fL 79-95 (test code = 753) MEAN CORPUSCULAR HEMOGLOBIN 30.1 pg 25.6-32.2 (BEAKER) (test code = 751) MEAN CORPUSCULAR HEMOGLOBIN CONC 32.3 GM/DL 32.2-35.5 (BEAKER) (test code = 752) RED CELL DISTRIBUTION WIDTH 13.3 % 11.7-14.4 (BEAKER) (test code = 412) PLATELET COUNT (BEAKER) (test 380 K/CU MM 150-450 code = 756) MEAN PLATELET VOLUME (BEAKER) 9.4 fL 9.4-12.3 (test code = 754) NUCLEATED RED BLOOD CELLS 0 /100 WBC 0-0 (BEAKER) (test code = 413) NEUTROPHILS RELATIVE PERCENT 89 % (BEAKER) (test code = 429) LYMPHOCYTES RELATIVE PERCENT 5 % (BEAKER) (test code = 430) MONOCYTES RELATIVE PERCENT 5 % (BEAKER) (test code = 431) EOSINOPHILS RELATIVE PERCENT 0 % (BEAKER) (test code = 432) BASOPHILS RELATIVE PERCENT 0 % (BEAKER) (test code = 437) NEUTROPHILS ABSOLUTE COUNT 14.07 K/ L 1.56-6.13 H (BEAKER) (test code = 670) LYMPHOCYTES ABSOLUTE COUNT 0.85 K/ L 1.18-3.74 L (BEAKER) (test code = 414) MONOCYTES ABSOLUTE COUNT (BEAKER) 0.70 K/ L 0.24-0.36 H (test code = 415) EOSINOPHILS ABSOLUTE COUNT 0.00 K/ L 0.04-0.36 L (BEAKER) (test code = 416) BASOPHILS ABSOLUTE COUNT (BEAKER) 0.01 K/ L 0.01-0.08 (test code = 417) IMMATURE GRANULOCYTES-RELATIVE 0.60 % 0.00-1.00 PERCENT (BEAKER) (test code = 2801) POCT-GLUCOSE [id number] 22:04:05 Test Item Value Reference Range Interpretation Comments POC-GLUCOSE METER 88 mg/dL 70-110 : TESTED A T [facility] 67[facility] (BEAKER) (test code = [facility] [place], 1538) [address]: Clipman/Techni nate ID = [id number] for ARANZA CAVAZOS MR BRAIN WITH & WITHOUT IV [id number] 18:12:59 [facility] 1960 Sex: FMR BRAIN WITH & WITHOUT IV CONTRASTINDICATION: Unlisted Reason for ExamS/p tumor resection, acquire STEALTH MRI for treatment planningTechnique: MRI of the brain utilizing axial T1, T2, FLAIR, GRE, DWI,sagittal T1; and postgadolinium axial, sagittal, and coronal T1-weightedimages.COMPARISON: Postoperative MRI 04/29/2023FINDINGS:Status post left parietal craniotomy for resection of tumor. There ispneumocephalus along the nondependent right frontal pole. A smallextra- axial postoperative fluid collection subjacent to the craniotomymeasures 7 mm.No residual enhancing tumor within the left parietal resection bed. Nosignificant interval change in blood products within the resectioncavity.There is residual enhancement within the contralateral right paramedianfrontal lobe (axial postcontrast image number 130; coronal postcontrastimage 19).No significant interval change in previously described right inferiorfrontal lobe peripherally enhancing focus along the course of the rightMCA with associated T2 hypointense signal (axial postcontrast image#69).No restricted diffusion to suggest recent ischemic insult. No abnormalsusceptibility. No hydrocephalus.Orbits are within normal limits.No obstructive paranasal sinus disease.Additional findings: None.IMPRESSION:1. No significant interval change in blood products within the leftparietal resection cavity as per above.2. Right parasagittal posterior frontal lobe enhancement is grosslyunchanged from preoperative exam as per above.3. Enhancing focus within the right inferior frontal lobe along thecourse of the right MCA with associated hemosiderin depositionisredemonstrated, either representing an aneurysm or an additional tumor.Electronically Signed By: Rocio Parmar05/03/2023 18:15 CDTWorkstation Name: [id number] METER 2023-05-03 16:45:22 Test Item Value Reference Range Interpretation Comments POC-GLUCOSE METER 121 mg/dL 70-110 H : TESTED A T [facility] 6720 (BEAKER) (test code = [facility], 1538) 47548: Clipman/Techni nate ID = [id number] for [place], Pat [id number] 14:44:06 Test Item Value Reference Range Interpretation Comments SODIUM (BEAKER) (test code = 381) 136 meq/L 136-145 Clipman ID - ADMINPOCT-GLUCOSE [id number] 13:47:42 Test Item Value Reference Range Interpretation Comments POC-GLUCOSE METER 121 mg/dL 70-110 H : TESTED A T [facility] 6720 (BEAKER) (test code = [facility], 1538) 63191: Clipman/Techni nate ID = [id number] for [place], Pat POCT-GLUCOSE [id number] 07:10:38 Test Item Value Reference Range Interpretation Comments POC-GLUCOSE METER 96 mg/dL 70-110 : TESTED A T [facility] 6720 (BEAKER) (test code = [facility], 1538) 35657: Clipman/Techni nate ID = [id number] for MIGUEL AIKEN [id number] 05:33:50 Test Item Value Reference Range Interpretation Comments MAGNESIUM (BEAKER) (test code = 2.1 mg/dL 1.6-2.6 627) Clipman ID - [id number] 05:33:50 Test Item Value Reference Range Interpretation Comments PHOSPHORUS (BEAKER) (test code = 3.4 mg/dL 2.3-4.7 604) Clipman ID - ADMINBASIC METABOLIC [id number] 05:33:49 Test Item Value Reference Range Interpretation Comments SODIUM (BEAKER) 133 meq/L 136-145 L (test code = 381) POTASSIUM 3.9 meq/L 3.5-5.1 (BEAKER) (test code = 379) CHLORIDE (BEAKER) 102 meq/L 98-107 (test code = 382) CO2 (BEAKER) 22 meq/L 22-29 (test code = 355) BLOOD UREA 10 mg/dL 7-21 NITROGEN (BEAKER) (test code = 354) CREATININE 0.55 mg/dL 0.57-1.25 L (BEAKER) (test code = 358) GLUCOSE RANDOM 119 mg/dL 70-105 H (BEAKER) (test code = 652) CALCIUM (BEAKER) 8.3 mg/dL 8.4-10.2 L (test code = 697) EGFR (BEAKER) 105 [...] not appl icable for dialysis patien ts Clipman ID - ADMINCBC W/PLT COUNT & AUTO [id number] 05:03:05 Test Item Value Reference Range Interpretation Comments WHITE BLOOD CELL COUNT (BEAKER) 15.2 K/ L 3.5-10.5 H (test code = 775) RED BLOOD CELL COUNT (BEAKER) 3.33 M/ L 3.93-5.22 L (test code = 761) HEMOGLOBIN (BEAKER) (test code = 10.2 GM/DL 11.2-15.7 L 410) HEMATOCRIT (BEAKER) (test code = 30.4 % 34.1-44.9 L 411) MEAN CORPUSCULAR VOLUME (BEAKER) 91 fL 79-95 (test code = 753) MEAN CORPUSCULAR HEMOGLOBIN 30.6 pg 25.6-32.2 (BEAKER) (test code = 751) MEAN CORPUSCULAR HEMOGLOBIN CONC 33.6 GM/DL 32.2-35.5 (BEAKER) (test code = 752) RED CELL DISTRIBUTION WIDTH 13.4 % 11.7-14.4 (BEAKER) (test code = 412) PLATELET COUNT (BEAKER) (test 360 K/CU MM 150-450 code = 756) MEAN PLATELET VOLUME (BEAKER) 8.8 fL 9.4-12.3 L (test code = 754) [...] (test code = 437) NEUTROPHILS ABSOLUTE COUNT 13.36 K/ L 1.56-6.13 H (BEAKER) (test code = 670) LYMPHOCYTES ABSOLUTE COUNT 0.85 K/ L 1.18-3.74 L (BEAKER) (test code = 414) MONOCYTES ABSOLUTE COUNT (BEAKER) 0.89 K/ L 0.24-0.36 H (test code = 415) EOSINOPHILS ABSOLUTE COUNT 0.00 K/ L 0.04-0.36 L (BEAKER) (test code = 416) BASOPHILS ABSOLUTE COUNT (BEAKER) 0.01 K/ L 0.01-0.08 (test code = 417) IMMATURE GRANULOCYTES-RELATIVE 0.50 % 0.00-1.00 PERCENT (BEAKER) (test code = 2801) XR CHEST 1 VIEW PORTABLE / [id number] 23:55:46 [facility] : 1960 Sex: FTECHNIQUE: Frontal view of the chest.INDICATION: SOB.COMPARISON: 05/01/2023.FINDINGS:LINES/TUBES: None.HEART AND MEDIASTINUM: Cardiomediastinal contour is within normallimits. LUNGS: Ovoid opacity within the left midlung, as before. Noconsolidation or pulmonary edema.PLEURA: No pneumothorax. No significant pleural effusion.SOFT TISSUES AND BONES: Unremarkable.IMPRESSION:1. Ovoid masslike opacity within the left midlung, unchanged, and waspreviously sampled. No edema or focal consolidative process.Electronically Signed By: German Vazquez05/02/2023 23:57 CDTWorkstation Name: [id number] 21:22:34 Test Item Value Reference Range Interpretation Comments POC-GLUCOSE METER 161 mg/dL 70-110 H : TESTED A T [facility] 6720 (BEAKER) (test code = [facility], 1538) 40749: Clipman/Techni nate ID = [id number] for LINA VERGARA [id number] 21:22:06 Test Item Value Reference Range Interpretation Comments SODIUM (BEAKER) (test code = 381) 130 meq/L 136-145 L Clipman ID - ADMINPOCT-GLUCOSE [id number] 17:54:40 Test Item Value Reference Range Interpretation Comments POC-GLUCOSE METER 115 mg/dL 70-110 H : TESTED A T [facility] 6720 (BEAKER) (test code = [facility], 1538) [id number]: Clipman/Techni nate ID = [id number] for Chastity Juares SODIUM NA-STAT [id number] 10:08:24 Test Item Value Reference Range Interpretation Comments SODIUM (BEAKER) (test code = 381) 130 meq/L 136-145 L HGB/HCT (H&H) - STAT [id number] 10:08:18 Test Item Value Reference Range Interpretation Comments HEMOGLOBIN (BEAKER) (test code = 11.3 GM/DL 12.0-15.0 L 410) HEMATOCRIT (BEAKER) (test code = 33.0 % 36.0-45.0 L 411) BLOOD GAS, [id number] 10:08:12 Test Item Value Reference Range Interpretation Comments PH ARTERIAL (BEAKER) (test code = 7.36 7.35-7.45 383) PCO2 ARTERIAL (BEAKER) (test code 37 mm Hg 35-45 = 384) PO2 ARTERIAL (BEAKER) (test code 227 mm Hg 80-90 H = 385) O2 SATURATION ARTERIAL (BEAKER) 99.5 % 96.0-97.0 H (test code = 386) HCO3 ARTERIAL (BEAKER) (test code 21 mmol/L 21-29 = 388) BASE EXCESS ARTERIAL (BEAKER) -4.6 mmol/L -2.0-3.0 L (test code = 387) PATIENT TEMPERATURE (BEAKER) 36.4 (test code = 1818) FIO2 (BEAKER) (test code = 1819) 58.0 GLUCOSE-STAT [id number] 10:08:11 Test Item Value Reference Range Interpretation Comments GLUCOSE RANDOM (BEAKER) (test code 125 mg/dL 70-110 H = 652) POTASSIUM-STAT [id number] 10:08:11 Test Item Value Reference Range Interpretation Comments POTASSIUM (BEAKER) (test code = 3.5 meq/L 3.6-5.5 L 379) BLOOD GAS, [id number] 09:16:55 Test Item Value Reference Range Interpretation Comments PH ARTERIAL (BEAKER) (test code 7.40 7.35-7.45 = 383) PCO2 ARTERIAL (BEAKER) (test 19 mm Hg 35-45 LL code = 384) PO2 ARTERIAL (BEAKER) (test code 247 mm Hg 80-90 H = 385) O2 SATURATION ARTERIAL (BEAKER) 99.6 % 96.0-97.0 H (test code = 386) HCO3 ARTERIAL (BEAKER) (test 11 mmol/L 21-29 L code = 388) BASE EXCESS ARTERIAL (BEAKER) -12.1 mmol/L -2.0-3.0 L (test code = 387) PATIENT TEMPERATURE (BEAKER) 36.5 (test code = 1818) FIO2 (BEAKER) (test code = 1819) 100.0 POTASSIUM-STAT [id number] 09:16:43 Test Item Value Reference Range Interpretation Comments POTASSIUM (BEAKER) (test code = 2.0 meq/L 3.6-5.5 LL 379) HGB/HCT (H&H) - STAT [id number] 09:14:53 Test Item Value Reference Range Interpretation Comments HEMOGLOBIN (BEAKER) (test code = 7.7 GM/DL 12.0-15.0 L 410) HEMATOCRIT (BEAKER) (test code = 23.0 % 36.0-45.0 L 411) GLUCOSE-STAT [id number] 09:13:41 Test Item Value Reference Range Interpretation Comments GLUCOSE RANDOM (BEAKER) (test code = 74 mg/dL 70-110 652) SODIUM NA-STAT [id number] 09:13:41 Test Item Value Reference Range Interpretation Comments SODIUM (BEAKER) (test code = 381) 135 meq/L 136-[address] BRAIN WITHOUT IV [id number] 07:59:20 [facility] : 1960 Sex: FCT BRAIN WITHOUT IV CONTRASTCLINICAL INDICATION: Unlisted Reason for ExamCOMPARISON: One day priorTECHNIQUE: Noncontrast axial CT imaging of the brain and skull. Coronaland sagittal reformats obtained.DOSE REDUCTION: Dose modulation, iterative reconstruction, and/orweight-based adjustment of the mA/kV was utilized to reduce theradiation dose to as low as reasonably achievable.FINDINGS:Of cerebral convexity intraparenchymal hematoma measures 4.0 x 3.5 x 3.9cm with moderate surrounding edema and overlying craniotomy. Nosignificant midline shift. Right MCA aneurysm hyperdensity again noted.No new hemorrhage, hydrocephalus or new infarct. Orbits and globes areunremarkable. Stable osseous structures. IMPR ESSION:No significant change in left cerebral hemisphere intraparenchymalhematoma with moderate surrounding edema.Electronically Signed By: Pierre Curtis05/02/2023 08:01 CDTWorkstation Name: [id number] METABOLIC [id number] 05:51:03 Test Item Value Reference Range Interpretation Comments SODIUM (BEAKER) 132 meq/L 136-145 L (test code = 381) POTASSIUM 4.5 meq/L 3.5-5.1 (BEAKER) (test code = 379) CHLORIDE (BEAKER) 98 meq/L 98-107 (test code = 382) CO2 (BEAKER) 24 meq/L 22-29 (test code = 355) BLOOD UREA 14 mg/dL 7-21 NITROGEN (BEAKER) (test code = 354) CREATININE 0.61 mg/dL 0.57-1.25 (BEAKER) (test code = 358) GLUCOSE RANDOM 105 mg/dL 70-105 (BEAKER) (test code = 652) CALCIUM (BEAKER) 8.9 mg/dL 8.4-10.2 (test code = 697) EGFR (BEAKER) 102 [...] not appl icable for dialysis patien ts Clipman ID - ADMINCBC W/PLT COUNT & AUTO [id number] 05:44:43 Test Item Value Reference Range Interpretation Comments WHITE BLOOD CELL COUNT (BEAKER) 12.2 K/ L 3.5-10.5 H (test code = 775) RED BLOOD CELL COUNT (BEAKER) 4.04 M/ L 3.93-5.22 (test code = 761) HEMOGLOBIN (BEAKER) (test code = 12.4 GM/DL 11.2-15.7 410) HEMATOCRIT (BEAKER) (test code = 37.7 % 34.1-44.9 411) MEAN CORPUSCULAR VOLUME (BEAKER) 93 fL 79-95 (test code = 753) MEAN CORPUSCULAR HEMOGLOBIN 30.7 pg 25.6-32.2 (BEAKER) (test code = 751) MEAN CORPUSCULAR HEMOGLOBIN CONC 32.9 GM/DL 32.2-35.5 (BEAKER) (test code = 752) RED CELL DISTRIBUTION WIDTH 13.4 % 11.7-14.4 (BEAKER) (test code = 412) PLATELET COUNT (BEAKER) (test 382 K/CU MM 150-450 code = 756) MEAN PLATELET VOLUME (BEAKER) 9.1 fL 9.4-12.3 L (test code = 754) NUCLEATED RED BLOOD CELLS 0 /100 WBC 0-0 (BEAKER) (test code = 413) NEUTROPHILS RELATIVE PERCENT 81 % (BEAKER) (test code = 429) LYMPHOCYTES RELATIVE PERCENT 12 % (BEAKER) (test code = 430) MONOCYTES RELATIVE PERCENT 7 % (BEAKER) (test code = 431) EOSINOPHILS RELATIVE PERCENT 0 % (BEAKER) (test code = 432) BASOPHILS RELATIVE PERCENT 0 % (BEAKER) (test code = 437) NEUTROPHILS ABSOLUTE COUNT 9.95 K/ L 1.56-6.13 H (BEAKER) (test code = 670) LYMPHOCYTES ABSOLUTE COUNT 1.40 K/ L 1.18-3.74 (BEAKER) (test code = 414) MONOCYTES ABSOLUTE COUNT (BEAKER) 0.79 K/ L 0.24-0.36 H (test code = 415) EOSINOPHILS ABSOLUTE COUNT 0.00 K/ L 0.04-0.36 L (BEAKER) (test code = 416) BASOPHILS ABSOLUTE COUNT (BEAKER) 0.01 K/ L 0.01-0.08 (test code = 417) IMMATURE GRANULOCYTES-RELATIVE 0.60 % 0.00-1.00 PERCENT (BEAKER) (test code = 2801) BASIC METABOLIC [id number] 17:51:29 Test Item Value Reference Range Interpretation Comments SODIUM (BEAKER) 130 meq/L 136-145 L (test code = 381) POTASSIUM 4.4 meq/L 3.5-5.1 Specimen slight ly (BEAKER) (test hemolyzed code = 379) CHLORIDE (BEAKER) 97 meq/L 98-107 L (test code = 382) CO2 (BEAKER) 23 meq/L 22-29 (test code = 355) BLOOD UREA 16 mg/dL 7-21 NITROGEN (BEAKER) (test code = 354) CREATININE 0.72 mg/dL 0.57-1.25 Specimen slight ly (BEAKER) (test hemolyzed code = 358) GLUCOSE RANDOM 109 mg/dL 70-105 H (BEAKER) (test code = 652) CALCIUM (BEAKER) 9.2 mg/dL 8.4-10.2 (test code = 697) EGFR (BEAKER) 96 Interpretatio n of eGFR (test code = mL/min/1.73 values Stage De scription 1092) sq m Result G1 Katie l or high >=90 G2 Mildly decreased 60-89 G3a Mildl y to moderately 45-5 9 G3b Moderately to s everely 30-44 G4 Sever ly decreased 15-29 G5 Kidney failure <15Repo rted eGFR is based on the CKD-EPI 2020 equation t hat does not use a race coefficientEsti mated GFR is not as accur ate as Creatinine Shonna nadir in predicting glom erular filtration rate . Estimated GFR is not appl icable for dialysis patien ts Clipman ID - ADMINXR CHEST 1 VIEW PORTABLE / [id number] 11:33:10 [facility] 1960 Sex: FCLINICAL HISTORY: Pre-op TECHNIQUE: 1 view of the chest.COMPARISON: 02/17/2023IMPRESSION:A left upper lobe mass is again seen. Critical correlation to biopsyresults is recommended.No pneumothorax. No infiltrates or effusions. No cardiomegaly.Electronically Signed By: Scotty Castro05/01/2023 11:39 CDTWorkst ation Name: [id number] 08:01:44 Test Item Value Reference Range Interpretation Comments POC-GLUCOSE METER 107 mg/dL 70-110 : TESTED A T [facility] 6720 (BEAKER) (test code = [place], 1538) [id number]: Clipman/Techni nate ID = [id number] for Karrie Capone [id number] 05:04:07 Test Item Value Reference Range Interpretation Comments PHOSPHORUS (BEAKER) (test code = 3.5 mg/dL 2.3-4.7 604) Clipman ID - ADMINBASIC METABOLIC [id number] 05:04:06 Test Item Value Reference Range Interpretation Comments SODIUM (BEAKER) 130 meq/L 136-145 L (test code = 381) POTASSIUM 4.2 meq/L 3.5-5.1 (BEAKER) (test code = 379) CHLORIDE (BEAKER) 98 meq/L 98-107 (test code = 382) CO2 (BEAKER) 20 meq/L 22-29 L (test code = 355) BLOOD UREA 14 mg/dL 7-21 NITROGEN (BEAKER) (test code = 354) CREATININE 0.62 mg/dL 0.57-1.25 (BEAKER) (test code = 358) GLUCOSE RANDOM 126 mg/dL 70-105 H (BEAKER) (test code = 652) CALCIUM (BEAKER) 9.1 mg/dL 8.4-10.2 (test code = 697) EGFR (BEAKER) 102 [...] not appl icable for dialysis patien ts Clipman ID - [id number] 05:04:06 Test Item Value Reference Range Interpretation Comments MAGNESIUM (BEAKER) (test code = 2.1 mg/dL 1.6-2.6 627) Clipman ID - ADMINCBC W/PLT COUNT & AUTO [id number] 04:31:47 Test Item Value Reference Range Interpretation Comments WHITE BLOOD CELL COUNT (BEAKER) 12.1 K/ L 3.5-10.5 H (test code = 775) RED BLOOD CELL COUNT (BEAKER) 4.37 M/ L 3.93-5.22 (test code = 761) HEMOGLOBIN (BEAKER) (test code = 12.9 GM/DL 11.2-15.7 410) HEMATOCRIT (BEAKER) (test code = 40.1 % 34.1-44.9 411) MEAN CORPUSCULAR VOLUME (BEAKER) 92 fL 79-95 (test code = 753) MEAN CORPUSCULAR HEMOGLOBIN 29.5 pg 25.6-32.2 (BEAKER) (test code = 751) MEAN CORPUSCULAR HEMOGLOBIN CONC 32.2 GM/DL 32.2-35.5 (BEAKER) (test code = 752) RED CELL DISTRIBUTION WIDTH 13.4 % 11.7-14.4 (BEAKER) (test code = 412) PLATELET COUNT (BEAKER) (test 407 K/CU MM 150-450 code = 756) MEAN PLATELET VOLUME (BEAKER) 8.8 fL 9.4-12.3 L (test code = 754) NUCLEATED RED BLOOD CELLS 0 /100 WBC 0-0 (BEAKER) (test code = 413) NEUTROPHILS RELATIVE PERCENT 89 % (BEAKER) (test code = 429) LYMPHOCYTES RELATIVE PERCENT 6 % (BEAKER) (test code = 430) MONOCYTES RELATIVE PERCENT 4 % (BEAKER) (test code = 431) EOSINOPHILS RELATIVE PERCENT 0 % (BEAKER) (test code = 432) BASOPHILS RELATIVE PERCENT 0 % (BEAKER) (test code = 437) NEUTROPHILS ABSOLUTE COUNT 10.77 K/ L 1.56-6.13 H (BEAKER) (test code = 670) LYMPHOCYTES ABSOLUTE COUNT 0.75 K/ L 1.18-3.74 L (BEAKER) (test code = 414) MONOCYTES ABSOLUTE COUNT (BEAKER) 0.43 K/ L 0.24-0.36 H (test code = 415) EOSINOPHILS ABSOLUTE COUNT 0.00 K/ L 0.04-0.36 L (BEAKER) (test code = 416) BASOPHILS ABSOLUTE COUNT (BEAKER) 0.01 K/ L 0.01-0.08 (test code = 417) IMMATURE GRANULOCYTES-RELATIVE 0.70 % 0.00-1.00 PERCENT (BEAKER) (test code = 2801) CALCIUM, [id number] 04:15:33 Test Item Value Reference Range Interpretation Comments CALCIUM IONIZED (BEAKER) (test 1.13 mmol/L 1.12-1.27 code = 698) PH, BLOOD (BEAKER) (test code = 7.42 1810) POCT-GLUCOSE [id number] 00:56:57 Test Item Value Reference Range Interpretation Comments POC-GLUCOSE METER 144 mg/dL 70-110 H : TESTED A T [facility] 6720 (BEAKER) (test code = [place], 1538) [id number]: Clipman/Techni nate ID = [id number] for Ubaldo Boyle (Ioana) CTA [id number] 13:48:50 [facility] 1960 Sex: FCTA BRAIN, CTA CAROTIDINDICATION: Cerebral hemorrhage suspectedCerebral aneurysm, follow- upsuspected right MCA aneurysmCOMPARISON: MRI brain 04/29/2023, CT lung biopsy 02/17/2023TECHNIQUE:Rapid acquisitionspiral images were obtained between the aortic archand the cranial vertex during intravenous contrast infusion toreconstruct axial images and angiographic 3D maximum intensityprojections (MIP). 3-D volumetric reformatted images were created at [employer] [place] workstation. Precontrast images of the brain were alsoobtained. Stenosis evaluation reported in compliance with NASCET criteria.DOSE REDUCTION: Dosemodulation, iterative reconstruction, and/orweight-based adjustment of the mA/kV was utilized to redu ce theradiation dose to as low as reasonably achievable.FINDINGS:Left frontal parietal resection cavity with internal hemorrhagiccollection measures 3.2 x 2.3 x 3.4 cm, not significant changed fromprior examination allowing for normal measurement variation. Moderatesurrounding left cerebral edema and overlying craniotomy changes arestable. Right frontal lobe superior gyrus posttreatment changes present.No hydrocephalus. Remainder of examination is stable.CTA BRAIN:Please note that CTA is inherently insensitive in evaluating thecavernous and skull base portions of the internal carotid arteriesbecause of adjacent bone and venous opacification.No major branch vessel occlusion or high-grade focal stenosis.Right MCA, M1 segment, 6 x 4 mm aneurysm near the origin of the rightanterior temporal branch.The major intradural venous sinuses are unremarkable for bolus timing.CTA neck:Aortic arch vessel origins: No occlusion or high-grade stenosis.Carotid arteries: Minimal carotid bulb atherosclerotic plaques withoutocclusion or stenosis by NASCET criteria. Vertebral arteries: No occlusion or high-grade stenosis.No fracture or suspicious osseous lesion. Cervical soft tissues areunremarkable. Super segment left lower lobe 2.8 cm lesion. 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 Neurosurgical endovascular cons ultationrecommended.Stable left frontal parietal resection cavity containing hemorrhage, 3.2x 2.3 x 3.4 cm. Moderate cerebral edema surrounds the resection site.Right frontal lobe superior gyrus posttreatment changes.CTA of the neck is without acute arterial abnormality.Superior segment left lower lobe 2.8 cm pulmonary lesion suspicious formalignancy, status post biopsy February 17, 2023. Histopathologic correlationrecommended.Electronically Signed By: Pierre Curtis04/30/2023 13:50 CDTWorkstation Name: [id number] 13:48:50 [facility] : 1960 Sex: FCTA BRAIN, CTA CAROTIDINDICATION: Cerebral hemorrhage suspectedCerebral aneurysm, follow- upsuspected right MCA aneurysmCOMPARISON: MRI brain 04/29/2023, CT lung biopsy 02/17/2023TECHNIQUE:Rapid acquisitionspiral images were obtained between the aortic archand the cranial vertex during intravenous contrast infusion toreconstruct axial images and angiographic 3D maximum intensityprojections (MIP). 3-D volumetric reformatted images were created at [employer] workstation. Precontrast images of the brain were alsoobtained. Stenosis evaluation reported in compliance with NASCET criteria.DOSE REDUCTION: Dosemodulation, iterative reconstruction, and/orweight-based adjustment of the mA/kV was utilized to redu ce theradiation dose to as low as reasonably achievable.FINDINGS:Left frontal parietal resection cavity with internal hemorrhagiccollection measures 3.2 x 2.3 x 3.4 cm, not significant changed fromprior examination allowing for normal measurement variation. Moderatesurrounding left cerebral edema and overlying craniotomy changes arestable. Right frontal lobe superior gyrus posttreatment changes present.No hydrocephalus. Remainder of examination is stable.CTA BRAIN:Please note that CTA is inherently insensitive in evaluating thecavernous and skull base portions of the internal carotid arteriesbecause of adjacent bone and venous opacification.No major branch vessel occlusion or high-grade focal stenosis.Right MCA, M1 segment, 6 x 4 mm aneurysm near the origin of the rightanterior temporal branch.The major intradural venous sinuses are unremarkable for bolus timing.CTA neck:Aortic arch vessel origins: No occlusion or high-grade stenosis.Carotid arteries: Minimal carotid bulb atherosclerotic plaques withoutocclusion or stenosis by NASCET criteria. Vertebral arteries: No occlusion or high-grade stenosis.No fracture or suspicious osseous lesion. Cervical soft tissues areunremarkable. Super segment left lower lobe 2.8 cm lesion. 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 Neurosurgical endovascular cons ultationrecommended.Stable left frontal parietal resection cavity containing hemorrhage, 3.2x 2.3 x 3.4 cm. Moderate cerebral edema surrounds the resection site.Right frontal lobe superior gyrus posttreatment changes.CTA of the neck is without acute arterial abnormality.Superior segment left lower lobe 2.8 cm pulmonary lesion suspicious formalignancy, status post biopsy February 17, 2023. Histopathologic correlationrecommended.Electronically Signed By: Pierre Curtis04/30/2023 13:50 CDTWorkstation Name: [id number] 09:41:57 Test Item Value Reference Range Interpretation Comments PHOSPHORUS (BEAKER) (test code = 2.8 mg/dL 2.3-4.7 604) Clipman ID - [id number] 09:41:52 Test Item Value Reference Range Interpretation Comments MAGNESIUM (BEAKER) (test code = 2.0 mg/dL 1.6-2.6 627) Clipman ID - MARCOBASIC METABOLIC [id number] 04:53:01 Test Item Value Reference Range Interpretation Comments SODIUM (BEAKER) 135 meq/L 136-145 L (test code = 381) POTASSIUM 3.8 meq/L 3.5-5.1 (BEAKER) (test code = 379) CHLORIDE (BEAKER) 102 meq/L 98-107 (test code = 382) CO2 (BEAKER) 24 meq/L 22-29 (test code = 355) BLOOD UREA 10 mg/dL 7-21 NITROGEN (BEAKER) (test code = 354) CREATININE 0.66 mg/dL 0.57-1.25 (BEAKER) (test code = 358) GLUCOSE RANDOM 115 mg/dL 70-105 H (BEAKER) (test code = 652) CALCIUM (BEAKER) 9.1 mg/dL 8.4-10.2 (test code = 697) EGFR [...] not appl icable for dialysis patien ts Clipman ID - MARCOCBC W/PLT COUNT & AUTO [id number] 04:26:21 Test Item Value Reference Range Interpretation Comments WHITE BLOOD CELL COUNT (BEAKER) 12.1 K/ L 3.5-10.5 H (test code = 775) RED BLOOD CELL COUNT (BEAKER) 3.81 M/ L 3.93-5.22 L (test code = 761) HEMOGLOBIN (BEAKER) (test code = 11.4 GM/DL 11.2-15.7 410) HEMATOCRIT (BEAKER) (test code = 35.0 % 34.1-44.9 411) MEAN CORPUSCULAR VOLUME (BEAKER) 92 fL 79-95 (test code = 753) MEAN CORPUSCULAR HEMOGLOBIN 29.9 pg 25.6-32.2 (BEAKER) (test code = 751) MEAN CORPUSCULAR HEMOGLOBIN CONC 32.6 GM/DL 32.2-35.5 (BEAKER) (test code = 752) RED CELL DISTRIBUTION WIDTH 13.5 % 11.7-14.4 (BEAKER) (test code = 412) PLATELET COUNT (BEAKER) (test 365 K/CU MM 150-450 code = 756) MEAN PLATELET VOLUME (BEAKER) 8.8 fL 9.4-12.3 L (test code = 754) NUCLEATED RED BLOOD CELLS 0 /100 WBC 0-0 (BEAKER) (test code = 413) NEUTROPHILS RELATIVE PERCENT 83 % (BEAKER) (test code = 429) LYMPHOCYTES RELATIVE PERCENT 11 % (BEAKER) (test code = 430) MONOCYTES RELATIVE PERCENT 5 % (BEAKER) (test code = 431) EOSINOPHILS RELATIVE PERCENT 0 % (BEAKER) (test code = 432) BASOPHILS RELATIVE PERCENT 0 % (BEAKER) (test code = 437) NEUTROPHILS ABSOLUTE COUNT 10.00 K/ L 1.56-6.13 H (BEAKER) (test code = 670) LYMPHOCYTES ABSOLUTE COUNT 1.35 K/ L 1.18-3.74 (BEAKER) (test code = 414) MONOCYTES ABSOLUTE COUNT (BEAKER) 0.64 K/ L 0.24-0.36 H (test code = 415) EOSINOPHILS ABSOLUTE COUNT 0.00 K/ L 0.04-0.36 L (BEAKER) (test code = 416) BASOPHILS ABSOLUTE COUNT (BEAKER) 0.01 K/ L 0.01-0.08 (test code = 417) IMMATURE GRANULOCYTES-RELATIVE 0.40 % 0.00-1.00 PERCENT (BEAKER) (test code = 2801) BASIC METABOLIC [id number] 16:05:55 Test Item Value Reference Range Interpretation Comments SODIUM (BEAKER) 134 meq/L 136-145 L (test code = 381) POTASSIUM 4.4 meq/L 3.5-5.1 Specimen modera tely (BEAKER) (test hemolyzed code = 379) CHLORIDE (BEAKER) 102 meq/L 98-107 (test code = 382) CO2 (BEAKER) 19 meq/L 22-29 L (test code = 355) BLOOD UREA 10 mg/dL 7-21 NITROGEN (BEAKER) (test code = 354) CREATININE 0.66 mg/dL 0.57-1.25 Specimen modera tely (BEAKER) (test hemolyzed code = 358) GLUCOSE RANDOM 147 mg/dL 70-105 H (BEAKER) (test code = 652) CALCIUM (BEAKER) 8.7 mg/dL 8.4-10.2 (test code = 697) EGFR (BEAKER) 100 Interpretatio n of eGFR (test code = mL/min/1.73 values Stage D escription 1092) sq m Result G1 Katie l [...] not appl icable for dialysis patien ts Clipman ID - ADMINRAPID DRUG SCREEN, [id number] 15:55:41 Test Item Value Reference Range Interpretation Comments BARBITURATE URINE (BEAKER) (test Negative Negative code = 725) BENZODIAZEPINE SCREEN URINE (BEAKER) Negative Negative (test code = 726) COCAINE (METAB.) SCREEN (BEAKER) Negative Negative (test code = 1164) METHADONE SCREEN (BEAKER) (test code Negative Negative = 1436) OPIATE SCREEN URINE (BEAKER) (test Negative Negative code = 734) CANNABINOID SCREEN URINE (BEAKER) Positive Negative A (test code = 727) AMPH/METHAMPH SCREEN (BEAKER) (test Negative Negative code = 1438) PHENCYCLIDINE SCREEN URINE (BEAKER) Negative Negative (test code = 608) PH UA (BEAKER) (test code = 467) 8.0 5.0-8.0 DRUG CUTOFF CONC.Cocaine 300 ng/mL Cannabinoid 50 ng/mLBenzodiazepine 200 ng/mLBarbiturate 200 ng/mLPhencyclidine 25 ng/mLOpiate 300 ng/mLMethadone 300 ng/mLAmphetamine/ 1000 ng/mL MethamphetamineThisassay provides an unconfirmed qualitative test result for the clinical management of patients in emergency situations. Chain of custody not maintained. Some ydwy-rgv-ugdevqe medications, as well as adulterants, may cause inaccurate results. Clinical correlation should be applied. A more comprehensive drug screen or confirmation of a detected drug may be performed upon request.Clipman ID - ADMINOperator ID - [auto]Clipman ID - techMR BRAIN WITH & WITHOUT IV [id number] 12:12:06[facility] 1960 Sex: FMRI Brain with and without contrastCLINICAL HISTORY: Brain/SEA KAYAKING GUIDE neoplasm, stagingTechnique: Multiplanar, multisequence MRI images of the brain obtainedwith and without IV contrast.Comparisons: CT head 04/29/2023, MRI brain 02/23/2023Findings:Left posterior frontal lobe acute hemorrhagic collection with peripheralexclude intrinsic T1 hyperintensity and minimal irregular enhancementalong the superficial margin of the resection cavity, collectivelymeasures 3.6 x 3.0 x 3.0 cm. Small extra-axial fluid collection overliesthe collection subjacent to the craniotomy defect. Moderate perilesionaledema present. Smooth diffuse dural enhancement present.5 x 5 x 4 mm curvilinear enhancement involving the right parasagittalfrontal lobe redemonstrated.Right inferior frontal lobe 4 x 4 x 4 mm enhancing lesion adjacent tothe right MCA, M1 segment demonstrates T2*hypointensity.No acute ischemic infarct. Right frontal parasagittal lesiondemonstrates rim of DWI hyperintensity.IMPRESSION:Interval development of acute hemorrhage within the left frontal loberesection cavity, 3.6 x 3.0 x 3.0 cm. There is minimal superficialirregular enhancement possibly infolding of resection cavity versussmall region of tumor recurrence. Remainder of smooth enhancementsurrounding the resection cavity likely postoperative in origin.Right frontal parasagittal 5 x 5 x 4 mm curvilinear enhancementsuggestive of postoperative changes from prior tumor resection.Right inferior frontal lobe 4 x 4 x 4 mm enhancing lesion concerning formetastasis versus vascular abnormality, including aneurysm. Correlationwith CTA or MRA recommended.Electronically Signed By: Pierre Curtis04/29/2023 12:14 CDTWorkstation Name: [id number] HEMOGLOBIN [id number] 08:19:43 Test Item Value Reference Range Interpretation Comments HEMOGLOBIN A1C 5.4 % See_Comment [Automated m essage] ELECTROPHORESIS (RACHELL) The system which (test code = 3811) generated this result transmitted ref erence range: <=5.6%. The reference range was not used to int erpret this result as normal/abnormal . "The A1c is measured using a NGSP-certified method. HbA1c value equal to or greater than 6.5% as thediagnosis cutoff for diabetes. An HbA1c value of 5.7- 6.4% indicates increased risk for diabetes (prediabetes)."Clipman ID - ADMCT BRAIN WITHOUT IV [id number] 07:21:12 [facility] 1960 Sex: FCT BRAIN WITHOUT IV CONTRASTCLINICAL INDICATION: Unlisted Reason for ExamCOMPARISON: CT head 04/29/2023, MRI brain 02/23/2023TECHNIQUE: Noncontrast axial CT imaging of the brain and skull. Coronaland sagittal reformats obtained.DOSE REDUCTION: Dose modulation, iterative reconstruction, and/orweight-based adjustment of the mA/kV was utilized to reduce theradiation dose to as low as reasonably achievable.FI NDINGS:Left posterior frontal lobe hemorrhagic lesion measures 3.3 x 3.7 x 3.1cm (not significantly changed from one hour prior exam allowing fornormal measurement variation). There is moderate surrounding edema andan overlying biparietal craniotomy defect. There is regional sulcaleffacement without si gnificant midline shift. No hydrocephalus.Additional hyperdense lesion right inferior frontal lobe measures 4 x 4x 4 mm, axial image 72, stable compared to February 16, 2023. Hypoattenuationwithin the left paramedian medulla is more conspicuous on the currentexamination and the heart and artifact may be con tributory but raisesthe possibility of ischemia.Orbits, globes, paranasal sinuses and mastoid air cells areunremarkable. Several dental caries are noted.IMPRESSION:Left frontal lobe 3.7 x 3.3 x 3.1 cm lesion with intralesional acutehemorrhage is stable compared to one hour prior examination. As comparedto MRI brain February 23, 2023, findings are concerning for hemorrhagic tumorrecurrence. Moderate perilesional edema with regional sulcal effacementwithout midline shift. Consider further characterization by MRI brainwith and without IV contrast.Stable right inferior frontal lobe 4 mm hyperdense lesion pos siblycalcification or hemorrhagic metastasis.Electronically Signed By: Pierre Curtis04/29/2023 07:23 CDTWorkstation Name: [id number] IF INDICATED 2023-04-29 02:32:32 Test Item Value Reference Range Interpretation Comments THYROID STIMULATING HORMONE 0.514 uIU/mL 0.350-4.940 (BEAKER) (test code = 772) Clipman ID - [id number] 02:13:07 Test Item Value Reference Range Interpretation Comments PHOSPHORUS (BEAKER) (test code = 3.8 mg/dL 2.3-4.7 604) Clipman ID - ADMINLIPID [id number] 02:13:07 Test Item Value Reference Range Interpretation Comments TRIGLYCERIDES (BEAKER) (test code = 53 mg/dL 540) CHOLESTEROL (BEAKER) (test code = 231 mg/dL 631) HDL CHOLESTEROL (BEAKER) (test code 75 mg/dL = 976) LDL CHOLESTEROL CALCULATED (BEAKER) 145 mg/dL (test code = 633) Triglyceride Reference Range: Low Risk <150 Borderline 150-199 High Risk 200- 499 Very High Risk >=500Cholesterol Reference Range: Low Risk <200 Borderline 200-239 High Risk >240HDL Cholesterol Reference Range: Low Risk >=60 High Risk <40LDL Cholesterol Reference Range: Optimal <100 Near Optimal 100-129 Borderline 130-159 High 160-189 Very High >=190 Clipman ID - ADMINCOMPREHENSIVE METABOLIC [id number] 02:13:06 Test Item Value Reference Range Interpretation Comments TOTAL PROTEIN 7.7 gm/dL 6.0-8.3 (BEAKER) (test code = 770) ALBUMIN (BEAKER) 4.3 g/dL 3.5-5.0 (test code = 1145) ALKALINE 177 U/L 40-150 H PHOSPHATASE (BEAKER) (test code = 346) BILIRUBIN TOTAL 0.4 mg/dL 0.2-1.2 (BEAKER) (test code = 377) SODIUM (BEAKER) 134 meq/L 136-145 L (test code = 381) POTASSIUM (BEAKER) 5.5 meq/L 3.5-5.1 H (test code = 379) CHLORIDE (BEAKER) 102 meq/L 98-107 (test code = 382) CO2 (BEAKER) (test 22 meq/L 22-29 code = 355) BLOOD UREA 11 mg/dL 7-21 NITROGEN (BEAKER) (test code = 354) CREATININE 0.69 mg/dL 0.57-1.25 (BEAKER) (test code = 358) GLUCOSE RANDOM 159 mg/dL 70-105 H (BEAKER) (test code = 652) CALCIUM (BEAKER) 9.5 mg/dL 8.4-10.2 (test code = 697) AST (SGOT) 15 U/L 5-34 (BEAKER) (test code = 353) ALT (SGPT) 10 U/L 6-55 (BEAKER) (test code = 347) EGFR (BEAKER) 99 Interpretatio n of eGFR (test code = 1092) mL/min/1.[address] age Description sq m Result G1 Katie l or high >=90 G2 Mildly decreased 60-89 G3a Mildl y to moderately 45-5 9 G3b Moderately to s everely 30-44 G4 Sever ly decreased 15-29 G5 Kidney failure <15Repo rted eGFR is based on the CKD-EPI 2021 equation t hat does not use a race coefficientEsti mated GFR is not as accur ate as Creatinine Shonna schmitz in predicting glom erular filtration rate . Estimated GFR is not appl icable for dialysis patien ts Clipman ID - [id number] 02:13:06 Test Item Value Reference Range Interpretation Comments MAGNESIUM (BEAKER) (test code = 2.2 mg/dL 1.6-2.6 627) Clipman ID - ADMINCT BRAIN WITHOUT IV [id number] 02:11:45 [facility] 1960 Sex: FCLINICAL HISTORY: Unlisted Reason for Exam, intracranial hemorrhage,known posterior left frontal lobehemorrhage in a patient with knownmetastatic brain cancerCOMPARISON: 02/16/2023Multiple axial images of the brain were performed without IV contrast.This exam was performed according to our departmentaldose- optimizationprogram, which includes automated exposure control, adjustment of the mAand/or kV according to patient size and/or use of the iterativereconstruction technique. There is a complex, primarily oval-shaped parenchymal hematoma centeredin the posterior left frontal lobe measuring 3.5 x 3.1 x 3.2 cm. Thereis adjacent parenchymal edema. The hemorrhage is in the region of thepreviously seenleft frontal lobe mass. Extra-axial hyperdensity overlying the hematoma appears to relate topostoperative changes from vertex craniotomy rather than acute bloodproducts.There is overlying sulcal effacement but no significant midline shift.The ventricles are normal in size without evidence of hydrocephalus.The intracranial vasculature is unremarkable.The skull base, paranasal sinuses and orbits are unremarkable.IMPRESSION:3.5 x 3.1 x 3.2 cm parenchymal hematoma in the posterior left frontallobe in the region of a previously diagnosed brain mass. The estimatedhemorrhage volume is 28.8 mL. Hemorrhage from recurrent tumor is aconsideration. Further evaluation with pre and postcontrast MRI can be obtained, asindicated.Electronically Signed By: Sly De Leon04/29/2023 02:13 CDTWorkstation Name: [id number] 01:51:55 Test Item Value Reference Range Interpretation Comments PARTIAL THROMBOPLASTIN TIME 29.6 seconds 22.5-36.0 (BEAKER) (test code = 760) PROTHROMBIN TIME/[id number] 01:51:16 Test Item Value Reference Range Interpretation Comments PROTIME (BEAKER) (test code = 14.0 seconds 11.9-14.2 759) INR (BEAKER) (test code = 370) 1.15 <=5.90 RECOMMENDED COUMADIN/WARFARIN INR THERAPY RANGESSTANDARD DOSE: 2.0 - 3.0 Includes: PROPHYLAXIS for venous thrombosis, systemic embolization; TREATMENT for venous thrombosis and/or pulmonary embolus.HIGH RISK: Target INR is 2.5-3.5 for patients with mechanical heart valves.CBC W/PLT COUNT & AUTO [id number] 01:42:24 Test Item Value Reference Range Interpretation Comments WHITE BLOOD CELL COUNT (BEAKER) 7.2 K/ L 3.5-10.5 (test code = 775) RED BLOOD CELL COUNT (BEAKER) 4.33 M/ L 3.93-5.22 (test code = 761) HEMOGLOBIN (BEAKER) (test code = 12.6 GM/DL 11.2-15.7 410) HEMATOCRIT (BEAKER) (test code = 40.4 % 34.1-44.9 411) MEAN CORPUSCULAR VOLUME (BEAKER) 93 fL 79-95 (test code = 753) MEAN CORPUSCULAR HEMOGLOBIN 29.1 pg 25.6-32.2 (BEAKER) (test code = 751) MEAN CORPUSCULAR HEMOGLOBIN CONC 31.2 GM/DL 32.2-35.5 L (BEAKER) (test code = 752) RED CELL DISTRIBUTION WIDTH 13.6 % 11.7-14.4 (BEAKER) (test code = 412) PLATELET COUNT (BEAKER) (test 403 K/CU MM 150-450 code = 756) MEAN PLATELET VOLUME (BEAKER) 8.6 fL 9.4-12.3 L (test code = 754) NUCLEATED RED BLOOD CELLS 0 /100 WBC 0-0 (BEAKER) (test code = 413) NEUTROPHILS RELATIVE PERCENT 91 % (BEAKER) (test code = 429) LYMPHOCYTES RELATIVE PERCENT 8 % (BEAKER) (test code = 430) MONOCYTES RELATIVE PERCENT 1 % (BEAKER) (test code = 431) EOSINOPHILS RELATIVE PERCENT 0 % (BEAKER) (test code = 432) BASOPHILS RELATIVE PERCENT 0 % (BEAKER) (test code = 437) NEUTROPHILS ABSOLUTE COUNT 6.57 K/ L 1.56-6.13 H (BEAKER) (test code = 670) LYMPHOCYTES ABSOLUTE COUNT 0.58 K/ L 1.18-3.74 L (BEAKER) (test code = 414) MONOCYTES ABSOLUTE COUNT (BEAKER) 0.05 K/ L 0.24-0.36 L (test code = 415) EOSINOPHILS ABSOLUTE COUNT 0.00 K/ L 0.04-0.36 L (BEAKER) (test code = 416) BASOPHILS ABSOLUTE COUNT (BEAKER) 0.02 K/ L 0.01-0.08 (test code = 417) IMMATURE GRANULOCYTES-RELATIVE 0.30 % 0.00-1.00 PERCENT (BEAKER) (test code = 2801) CALCIUM, [id number] 01:25:17 Test Item Value Reference Range Interpretation Comments CALCIUM IONIZED (BEAKER) (test 1.18 mmol/L 1.12-1.27 code = 698) PH, BLOOD (BEAKER) (test code = 7.37 1810) TISSUE [id number] 13:50:54Surgical Pathology Report Case: [id number] Authorizing Provider: Leander Matias MD Collected: 0:54 AM Ordering Location: [facility] Received: 02/22/2023 10:58 AM SERVICES Pathologist: Parker Petersen MD Specimens: A) - Brain, Left, LEFT FRONTAL BRAIN TUMOR B) - Brain, Right, RIGHT FRONTAL BRAIN TUMOR C) - Brain, Left, LEFT FRONTAL BRAIN TUMOR A. 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 In some areas, the tumorcells are more solid with abundant pale eosinophilic [...] mucinAdditional immunohistochemical stains (performed and interpreted at [facility]) shows:- NUT: Negative- P40: Positive in minor [...] has adequate tumor cellularity for additional ancillary studies.33093v0, 49629, 84225, 92861u7, 64222Ful patient is a 62-year-old female with a lung lesion status post biopsy ([id number]) and a large left frontal brain lesion with a contralateral lesion.A. Brain, LeftReceived fresh for intraoperative consultation, labeled the patient's name, MRN and designated as "left frontal brain tumor" is a 1.5 x 0.5 x 0.5 cm lan-whiteto lan-red piece of brain. Touch preps are made and a portion is submitted in FSA1 with the remainder being submitted in cassette A2.B. Brain, RightReceived in formalin, labeled the patient's name, MRNand designated as "right frontal brain tumor" is a 1.0 x 0.3 x 0.3 cm lan-white piece of tissue. It is submitted entirely in cassette B1 following filtration.C. Brain, LeftReceived in formalin, labeledthe patient's name, MRN and designated as "left frontal brain tumor" is a 2.5 x 2.0 x 0.3 cm lan-white to lan-brown piece of tissue. It is serially sectioned and submitted entirely in cassettes C1-C4.A. Brain, LeftBRAIN, LEFT FRONTAL BRAIN TUMOR, BIOPSY:- METASTATIC NEOPLASMReported by Dr. Petersen at 11:17AM on 02/22/2023.PerformedThe interpretation of this case included the use of immunohistochemistry orspecial stains.Control Slides Examined: In-house known positive controls were evaluated along with the test tissue. These control slides run alongside of the patients sample show appropriate staining. Internal positive and negative controls when available are evaluated Immunohistochemistry technical testing was performed at [facility], Pathology Laboratory where it was developedand its performance characteristics were determined. It has not been cleared or approved by the U.S.Food and Drug Administration. The FDA has determined that such clearance or approval is not necessary. The test is used for clinical purposes. It should not be regarded as investigational or for research. This laboratory is certified under the Clinical Laboratory Improvement Amendments of 1988 (CLIA-88) as qualified to perform high complexity clinical laboratory testing.[facility], Department of Pathology, [address] [place] [address], [facility] of [facility], [address] [place] [address], [facility], [facility] of [facility], [address] [place] [address], Tel DOC-Glucose [id number] 06:31:58 Test Item Value Reference Range Interpretation Comments POC-Glucose Meter (test 130 mg/dL 70-110 H : TE STED AT [facility] code = 1538) [address] [place] [address], 7[address] 30: Clipman/Techni nate ID = [id number] for Shelbie Nohemy Lab Interpretation (test Abnormal code = 50598-6) [facility] [id number] 06:31:58 Test Item Value Reference Range Interpretation Comments POC-GLUCOSE METER 130 mg/dL 70-110 H : TESTED A T [facility] 6720 (BEAKER) (test code = [facility], 1538) [address]: Clipman/Techni nate ID = [id number] for Nohemy Stone BASIC METABOLIC [id number] 05:18:43 Test Item Value Reference Range Interpretation [...] not appl icable for dialysis patien ts Clipman ID - DREW [id number] 05:18:42 Test Item Value Reference Range Interpretation Comments MAGNESIUM (BEAKER) 1.7 mg/dL 1.6-2.6 Specimen slightly (test code = 627) hemolyzed Clipman ID - DREW [id number] 05:18:42 Test Item Value Reference Range Interpretation Comments PHOSPHORUS (BEAKER) 3.5 mg/dL 2.3-4.7 Specimen slightly (test code = 604) hemolyzed Clipman ID - DREW WCBC W/PLT COUNT & AUTO [id number] 05:03:57 Test Item Value Reference Range Interpretation [...] PERCENT (BEAKER) (test code = 2801) POCT-GLUCOSE [id number] 00:29:38 Test Item Value Reference Range Interpretation Comments POC-GLUCOSE METER 120 mg/dL 70-110 H : TESTED A T [facility] 6720 (BEAKER) (test code = [facility], 1538) [address]: Clipman/Techni nate ID = [id number] for Nohemy Stone POCT-GLUCOSE [id number] 17:47:03 Test Item Value Reference Range Interpretation Comments POC-GLUCOSE METER 131 mg/dL 70-110 H : TESTED A T [facility] 6720 (BEAKER) (test code = [facility], 1538) [address]: Clipman/Techni nate ID = [id number] for Um eh, Akumbu POCT-GLUCOSE [id number] 17:14:57 Test Item Value Reference Range Interpretation Comments POC-GLUCOSE METER 89 mg/dL 70-110 : TESTED A T [facility] 6720 (BEAKER) (test code = [facility], 1538) [address]: Clipman/Techni nate ID = [id number] for Umeh , Nith[place]umbu [id number] 07:22:04 Test Item Value Reference Range Interpretation Comments PHOSPHORUS (BEAKER) 3.5 mg/dL 2.3-4.7 Specimen slightly (test code = 604) hemolyzed Clipman ID - AAHAMIDBASIC METABOLIC [id number] 07:22:04 Test Item Value Reference Range Interpretation [...] not appl icable for dialysis patien ts Clipman ID - AAHAMIDOperator ID - [id number] 07:22:03 Test Item Value Reference Range Interpretation Comments MAGNESIUM (BEAKER) 1.7 mg/dL 1.6-2.6 Specimen slightly (test code = 627) hemolyzed Clipman ID - AAHAMIDCBC W/PLT COUNT & AUTO [id number] 06:26:03 Test Item Value Reference Range Interpretation [...] PERCENT (BEAKER) (test code = 2801) POCT-GLUCOSE [id number] 22:02:06 Test Item Value Reference Range Interpretation Comments POC-GLUCOSE METER 101 mg/dL 70-110 : TESTED A T [facility] 6720 (BEAKER) (test code = [facility], 153) [address]: Clipman/Techni nate ID = [id number] for GERARDO EMILEEJEROMY CLINTSLIME POCT-GLUCOSE [id number] 17:18:49 Test Item Value Reference Range Interpretation Comments POC-GLUCOSE METER 116 mg/dL 70-110 H : TESTED A T [facility] 6720 (BEAKER) (test code = [facility], 153) 13[address]: Clipman/Techni nate ID = [id number] for Opal burnette, Emiliana POCT-GLUCOSE [id number] 12:06:34 Test Item Value Reference Range Interpretation Comments POC-GLUCOSE METER 89 mg/dL 70-110 : TESTED A T [facility] 6720 (BEAKER) (test code = [facility], 153) [address]: Clipman/Techni nate ID = [id number] for Kendall prado, Emiliana [id number] 08:29:55 Test Item Value Reference Range Interpretation Comments PHOSPHORUS (BEAKER) (test code = 3.6 mg/dL 2.3-4.7 604) Clipman ID - KAROL METABOLIC [id number] 08:29:54 Test Item Value Reference Range Interpretation [...] (test code = 697) EGFR (BEAKER) 103 Interpretati on of eGFR (test code = mL/min/1.73 values [...] not appl icable for dialysis patien ts Clipman ID - [id number] 08:29:54 Test Item Value Reference Range Interpretation Comments MAGNESIUM (BEAKER) (test code = 1.8 mg/dL 1.6-2.6 627) Clipman ID - MARCOCBC W/PLT COUNT & AUTO [id number] 07:41:47 Test Item Value Reference Range Interpretation [...] PERCENT (BEAKER) (test code = 2801) POCT-GLUCOSE [id number] 07:32:03 Test Item Value Reference Range Interpretation Comments POC-GLUCOSE METER 88 mg/dL 70-110 : TESTED A T [facility] 6720 (BEAKER) (test code = [facility] [place], 1538) [address]: Clipman/Techni nate ID = [id number] for Emiliana Caro POCT-GLUCOSE [id number] 22:24:14 Test Item Value Reference Range Interpretation Comments POC-GLUCOSE METER 101 mg/dL 70-110 : TESTED A T [facility] 6720 (BEAKER) (test code = [facility], [facility]) [address]: Clipman/Techni nate ID = [id number] for JODIE ANGUIANO POCT-GLUCOSE [id number] 18:24:18 Test Item Value Reference Range Interpretation Comments POC-GLUCOSE METER 104 mg/dL 70-110 : TESTED A T [facility] 6720 (BEAKER) (test code = [facility], [facility]8) [address]: Clipman/Techni nate ID = [id number] for SANDRA RTINEZ, ROMMEL POCT-GLUCOSE [id number] 13:30:42 Test Item Value Reference Range Interpretation Comments POC-GLUCOSE METER 100 mg/dL 70-110 : TESTED A T [facility] 6720 (BEAKER) (test code = [facility], [facility]) 18254: Clipman/Techni nate ID = [id number] for SANDRA RTINEZ, ROMMEL POCT-GLUCOSE [id number] 08:34:38 Test Item Value Reference Range Interpretation Comments POC-GLUCOSE METER 85 mg/dL 70-110 : TESTED A T [facility] 6720 (BEAKER) (test code = [facility], [facility]) [address]: Clipman/Techni nate ID = [id number] for ASIF DORSEYZ, ROMMEL BASIC METABOLIC [id number] 06:48:43 Test Item Value Reference Range Interpretation [...] not appl icable for dialysis patien ts Clipman ID - [id number] 06:48:42 Test Item Value Reference Range Interpretation Comments MAGNESIUM (BEAKER) 1.9 mg/dL 1.6-2.6 Specimen slightly (test code = 627) hemolyzed Clipman ID - [id number] 06:48:42 Test Item Value Reference Range Interpretation Comments PHOSPHORUS (BEAKER) 3.3 mg/dL 2.3-4.7 Specimen slightly (test code = 604) hemolyzed Clipman ID - BSCBC W/PLT COUNT & AUTO [id number] 06:05:02 Test Item Value Reference Range Interpretation [...] PERCENT (BEAKER) (test code = 2801) POCT-GLUCOSE [id number] 05:13:39 Test Item Value Reference Range Interpretation Comments POC-GLUCOSE METER 113 mg/dL 70-110 H : Notified RN/MD: (RACHELL) (test code = TESTED AT [place] [address]) [facility], [address]: Clipman/Techni nate ID = [id number] for LATLARRY BAILEY ICE POCT-GLUCOSE [id number] 23:47:59 Test Item Value Reference Range Interpretation Comments POC-GLUCOSE METER 91 mg/dL 70-110 : Notified RN/MD: TESTED (BEAKER) (test code = AT [place] [address]) [facility], 770 30: Clipman/Techni nate ID = [id number] for GIRISH WEEKS POCT-GLUCOSE [id number] 17:41:03 Test Item Value Reference Range Interpretation Comments POC-GLUCOSE METER 107 mg/dL 70-110 : TESTED A T [facility] 6720 (BEAKER) (test code = [facility], 1538) 86296: Clipman/Techni nate ID = [id number] for RO DGERS, PATRIAECA POCT-GLUCOSE [id number] 12:28:51 Test Item Value Reference Range Interpretation Comments POC-GLUCOSE METER 129 mg/dL 70-110 H : TESTED A T [facility] 6720 (BEAKER) (test code = [facility], 1538) [address]: Clipman/Techni nate ID = [id number] for RO DGERS, JAMECA POCT-GLUCOSE [id number] 06:26:17 Test Item Value Reference Range Interpretation Comments POC-GLUCOSE METER 95 mg/dL 70-110 : TESTED A T [facility] 6720 (BEAKER) (test code = [facility], 1538) [address]: Clipman/Techni nate ID = [id number] for Nohemy Watkins [id number] 04:51:25 Test Item Value Reference Range Interpretation Comments PHOSPHORUS (BEAKER) (test code = 3.1 mg/dL 2.3-4.7 604) Clipman ID - MMBASIC METABOLIC [id number] 04:51:24 Test Item Value Reference Range Interpretation [...] not appl icable for dialysis patien ts Clipman ID - [id number] 04:51:24 Test Item Value Reference Range Interpretation Comments MAGNESIUM (BEAKER) (test code = 2.2 mg/dL 1.6-2.6 627) Clipman ID - MMCBC W/PLT COUNT & AUTO [id number] 04:29:22 Test Item Value Reference Range Interpretation [...] PERCENT (BEAKER) (test code = 2801) POCT-GLUCOSE [id number] 21:47:28 Test Item Value Reference Range Interpretation Comments POC-GLUCOSE METER 148 mg/dL 70-110 H : TESTED A T [facility] 6720 (BEAKER) (test code = [facility] [place], 1538) [address]: Clipman/Techni nate ID = [id number] for Efrain Geronimo MR, BRAIN, [id number] 21:20:00Unlisted Reason for Exam - Click Yes and Enter Reason Below->No [facility] CENTERName: FEI BURNS : 1960 Sex: FFINAL REPORT MR, BRAIN, WITH \\T\\ WITHOUT CONTRAST INDICATION: Brain/SEA KAYAKING GUIDE neoplasm,staging Technique: MRI of the brain utilizing [...] the right paramedian parietal region). Signed: Rocio Parmar Verified Date/Time: 02/23/2023 21:20:37 POCT-GLUCOSE [id number] 15:57:43 Test Item Value Reference Range Interpretation Comments POC-GLUCOSE METER 127 mg/dL 70-110 H : TESTED A T [facility] 6720 ([employer]) (test code = [facility], 1538) [address]: Clipman/Techni nate ID = [id number] for Burnett-Arredondo , Eunice POCT-GLUCOSE [id number] 09:17:01 Test Item Value Reference Range Interpretation Comments POC-GLUCOSE METER 118 mg/dL 70-110 H : TESTED A T [facility] 6720 ([employer]) (test code = [facility], 1538) 12996: Clipman/Techni nate ID = [id number] for Burnett-Arredondo , Eunice POCT-GLUCOSE [id number] 06:04:37 Test Item Value Reference Range Interpretation Comments POC-GLUCOSE METER 110 mg/dL 70-110 : TESTED A T [facility] 6720 (BEAKER) (test code = [facility] [place], 1538) [address]: Clipman/Techni nate ID = [id number] for CASSANDRA GARAY (CELLAVISION MANUAL DIFF)2023-02-23 02:31:17 [...] CONCENTRATION Adequate (CELLAVISION)(BEAKER) (test code = 3438) Clipman ID - Jaycee Rodriguez comments: Slide comments:CBC W/PLT COUNT & AUTO [id number] 02:31:16 Test Item Value Reference Range Interpretation [...] 0-0 CELLS (BEAKER) (test code = 413) [id number] 02:18:54 Test Item Value Reference Range Interpretation Comments PHOSPHORUS (BEAKER) (test code = 3.4 mg/dL 2.3-4.7 604) Clipman ID - BSBASIC METABOLIC [id number] 02:18:53 Test Item Value Reference Range Interpretation [...] not appl icable for dialysis patien ts Clipman ID - [id number] 02:18:53 Test Item Value Reference Range Interpretation Comments MAGNESIUM (BEAKER) (test code = 1.8 mg/dL 1.6-2.6 627) Clipman ID - BSPOCT-GLUCOSE [id number] 00:56:09 Test Item Value Reference Range Interpretation Comments POC-GLUCOSE METER 99 mg/dL 70-110 : TESTED A T [facility] 6720 (BEAKER) (test code = [facility], 1538) 53293: Clipman/Techni nate ID = [id number] for Terri Moody POCT-GLUCOSE [id number] 17:47:55 Test Item Value Reference Range Interpretation Comments POC-GLUCOSE METER 112 mg/dL 70-110 H : TESTED A T [facility] 6720 (BEAKER) (test code = [facility], 1538) [address]: Clipman/Techni nate ID = [id number] for Eunice Urbina POCT-GLUCOSE [id number] 06:44:18 Test Item Value Reference Range Interpretation Comments POC-GLUCOSE METER 97 mg/dL 70-110 : TESTED A T [facility] 6720 (BEAKER) (test code = [facility], 1538) [address]40: Clipman/Techni nate ID = [id number] for Bethany Talley [id number] 06:39:21 Test Item Value Reference Range Interpretation Comments MAGNESIUM (BEAKER) (test code = 2.0 mg/dL 1.6-2.6 627) Clipman ID - DREW [id number] 06:39:21 Test Item Value Reference Range Interpretation Comments PHOSPHORUS (BEAKER) (test code = 3.1 mg/dL 2.3-4.7 604) Clipman DANNI RUSSELL WBASIC METABOLIC [id number] 06:39:20 Test Item Value Reference Range Interpretation [...] not appl icable for dialysis patien ts Clipman DANNI RUSSELL WCBC W/PLT COUNT & AUTO [id number] 06:02:52 Test Item Value Reference Range Interpretation [...] PERCENT (BEAKER) (test code = 2801) POCT-GLUCOSE [id number] 23:46:20 Test Item Value Reference Range Interpretation Comments POC-GLUCOSE METER 122 mg/dL 70-110 H : TESTED A T [facility] 6720 (BEAKER) (test code = [facility] [place], 1538) [address]: Clipman/Techni nate ID = [id number] for Bethany Anguiano SARS-CoV2/RT-PCR ([facility])2023-02-21 18:36:57 Test Item Value Reference Interpretation Comments Range SARS-COV2/RT-PCR Negative Negative The SARS-Co V-2 (test code = target nucleic 81611-7) acids are not detected in thi s [...] om SARS-CoV-2 in a nasopharyngeal swab specimen colle ad from individual s suspected of COVID-19 [...] revoked sooner. Fact Sheet for Healthcare Providers: https://www.Glide/Documents/Xp ert%20Xpress%20SAR S%20CoV-2/Fact%20S heets/3023802%20S ARS-COV-2%20HEALTH CARE%20PROVIDERS%2 0FACT%20SHEET.pdf Fact Sheet for Healthcare Patients: https://www.Glide/Documents/Xp ert%20Xpress%20SAR S%20CoV-2/Fact%20S heets/302-3801%20S ARS-COV-2%20PATIEN T%20FACT%20SHEET.p df Lab Interpretation Normal (test code = 45894-2) [facility])2023-02-21 18:36:57 Test Item Value Reference Range Interpretation Comments SARS-COV2/RT-PCR Negative Negative The SARS-Co V-2 target (test code = nucleic acids a re not 1863226) detected in thi s specimen. Negative result [...] revoked sooner. Fact Sheet for Healthcare Providers: https://www.Etubics m/Documents/Xpert%20Xpress%20SARS%20CoV-2/Fact%20Sheets/3023802%01KQZE-INN-6%20 HEALTHCARE%20PROVIDERS%20FACT%20SHEET.pdf Fact Sheet for Healthcare Patients: https://www.ZMP/Documents/Xpert%20Xp ress%20SARS%20CoV-2/Fact%20Sheets/3023801%14CXUA-IZD-2%20PATIENT%20FACT%20SHEET .pdfPOCT-GLUCOSE [id number] 17:36:21 Test Item Value Reference Range Interpretation Comments POC-GLUCOSE METER 125 mg/dL 70-110 H : TESTED A T [facility] 6720 (RACHELL) (test code = [facility] [place], 1538) [address]: Clipman/Techni nate ID = [id number] for GUANAKITO BALDWIN [id number] 15:40:40 Test Item Value Reference Range Interpretation Comments PARTIAL THROMBOPLASTIN TIME 28.9 seconds 22.5-36.0 (BEAKER) (test code = 760) PROTHROMBIN TIME/[id number] 15:39:58 Test Item Value Reference Range Interpretation Comments PROTIME (BEAKER) (test code = 13.9 seconds 11.9-14.2 759) INR (BEAKER) (test code = 370) 1.14 <=5.90 RECOMMENDED COUMADIN/WARFARIN INR THERAPY RANGESSTANDARD DOSE: 2.0 - 3.0 Includes: PROPHYLAXIS for venous thrombosis, systemic embolization; TREATMENT for venous thrombosis and/or pulmonary embolus.HIGH RISK: Target INR is 2.5-3.5 for patients with mechanical heart valves.Tissue [id number] 15:21:06 Test Item Value Reference Range Interpretation Comments Case Report (test code Surgical Pathology = 104) Report Case: [id number] Authorizing Provider: Edilia Westfall MD Collected: 02/17/2023 02:51 PM Ordering Location: [address] Received: 02/17/2023 04:08 PM Service Pathologist: Judy Jean MD Specimen: Lung DIAGNOSIS (test code = [id number] 3220) FuZzEwMzNcZnRuYmpcdWMx IHtccnRmMVxlcGljMTAyMD PgHY7zxGmodCs1bUzzGYMk wuI3oZToNQzhq9qeHKB7s2 cqiekcIVZrNOenUj7zaMGu gUchLmBoEALcMHa1rO00QI CxcY2llELlIEa1ITAlzGPu wcTmMmOuINSvyJTpfRS7PQ WwGP2zhadzYBjkGQpyPJLj yjS1CJPgkPXhG8NsQIXnUH 6whfjdIEG9APjtPXJsCFO9 GiHlSEWez2Fzmpc8HlXtjC FyZFxwbGFpblxmczIwIEEu TWbDFqbjDRWTVVDeLj6IHM BJJILDFbmFXWbzK0PmT5YW IROBFS6KBISNUOHICV3WE7 q1LSXttuWjCQYjOOnBJZUK MUSKQJ5COBmII6xkQGPaTK YcRXDLSAPSG1ZHBEKPVBfG WUJPNH5XVl9ZFx2FPYbFYY PTJjESE9SEFtPzK3sNCWMH HO6UVZZMGK6VB3PSE1nHM4 9IQZAvvp00URQ4ExPxf1Q9 SYU2JXFpFCZfl6apRYJvyJ FuZzEwMzNcZnRuYmpcdWMx EHIvAeHwu4fui309sINzv3 afVKQhOjB5cFNzIOLmjSJh F584QKQhTIzlv1unn6UqUE XerUEap1M0ZGEEiitckRh9 oLsgV36yd7F8KrynF3xqVZ EvFWTtM3UkTZ3vPSCkBjo6 IUH9HVJ3CAFjRSRmN0CyTI 5oIKUvqKZkLQq7o4zplVzx RWMeHMC6i3yeAFkrcqYsAP 9kzo5xhTt6y2jgdkLtLQKg BOOvjFFGRWKzY2LdgGjdNl 4oyNi2hDpbLxwdTON0Won0 MQ8xjc23hld3pIwrHDEfxt weUqR2APorDHBfaszkCKq7 XWflWLMooDZ4WJYasKReT5 MfTSRgWC8wixq7RJA1QXwg APKwLhO1DLLhlUFaYYJtgW daTVjfa789DDQ8MqFiAQ4q S3Eiu8N4mO0ktMZeBDUcoW LpPoBoWSXgua4xpKTmAIgt l0QjEFM0jqS2zHGbmZOtVL EgFrE0HNplFF1oik84EJTt NHE9bp3nvJFdhSclvxZhpQ IgQEmxK1EqAPAln110IGJy M5AdFSUui6J5gmNqHcYbRH VvsQH4mzQ8MNKxWC6qeqwj a8lmAOwzCVniQRXompG3zc T3DYDxuHVcI2TxgR3oZFHq MY6oqrxtb8qxRPE7NTavNX AwVTK1KbQcPHAqm3Vhdyj3 WnPeb2AhhGKiZLvpJ17xf3 98SFFcvjOgZ4wdqBTzxlih uMIowtibHJvrgtP5HEArPN zhcvkxBNKkCEtqQ6exZrDh EPUsnRiqEHero4ByWJAmFZ MhSiRroVPgFFAnRbx7RXAx vIVlGOEuCqNmG4ujbfdqGy NOZZJxi9hqI5cqwTJRlXQm Q1PwXQeaqhBtCBupIHocMz OpDLm3RQ58NgMtAYRbdr53 COMMENT (test code = i2qxoKLtTSQlzRTqIOMnBA 3359) wtktHdYEHvvKVgG6Rfarzr AUtfDT5eKO0gkByegJTpjT UnWYQqBeRdl1jtj784eCMz y3csEZFMsepuzCn5aVyvI1 3sf5W8WajoQ09npFGlTNT7 TJZkQFVrvTYsNBFzJZE5FE XvmSZoZ1ipQLBjIH2whucd PUxyWGnnAJBwlQJ0XMEzgZ PrX7RnKAPkFOguRBBuxwy5 UfStSs5skYVbrMoxQJyvRP JkXHBsYWluXGZzMjAgVGhl INLmpWObyI1fTDlfECD4kL MjpTSmePQnnG7jzBAxHMXr RSRij15fgUO0jxPaDkKjjD NihROrh3OdZD4oSJM9zHXv U6OdWFXehXdkXFL0wCrwxT AriRFqnpWpz4GitCy1WAE4 kBVlVESMTi8kPHSelBHhc8 N5wU1bEMUkZMHcUv82KIYt kCXahr4xmVTdUJLQvHQasM gqg4UmMEhfYXU5tUSzlKMv uFGooFQfbBHqulHreC8rUK DxyJB2DTKhi9FlBytfpIWx k3IoJJCuj9KbmoklSVAlsr 0= CPT Code(s) (test code j6kvrTMyFQBhiFRySAPeWS = 3357) rqtjAwYYPptOKkV6Asvklc MLpcDC9nWK6qiWfntMCqeG KtXARxOtNmh0gpm775hCVw h2jmOAMRcpntdPd9vPaqZ6 2yb4X5UenxP40jgTEdJDQ0 SQFqWOYguNDyYGOuYWN6NY IiqWJgL9xbUNFpAG0afdud ONykDNosZNXvnRH6AKKhfZ LqT0FjJPFcVFfkWZGwsdq4 JyXtJu8qwRYrbEjjVQxpLU JkXHBsYWluXGZzMjAgODgz JTGboNLfQYj3HdYlOIWjqd V1WGJ2YDajHVPmpu5= CLINICAL HISTORY (test m0gppGBqARJkmYSuYMDnVL code = 3356) pfwaIcVMZgdLYwT1Wnuuvf NJjjRT8eHY6naFjwkYQriA HwATNcHkSyb6cwt077yHDm e8noKCBPzzcudRz3zDkdU2 0yr5K2CqygL99tmBVyOOZ2 LDXuMYHitLJtJMMbZRD3DK DajYRzR0zqHSCbDA2rtbpy BOkiTSxfSZXshMC4XNVveQ OlA0BmTXXoHLxvHMDsigg0 CiYbPk8qgUCuhGavUVjfCG JkXHBsYWluXGZzMjAgNjAt bLEaww2ldRMyEiDaQKjrPH T9osKbfeUti34nd9EuLWQl WDDeztDlTCA9iOHgCUdugR ggcmlnaHQgYXJtIHdlYWtu KURtWsUqZIOSMG6wMHRsGW PwgeQsyuWwqH79OIKfDDRr YVOjFNYjysZcJY1cnEkknN BlbmhhbmNpbmcgbWFzcyBt ZWFzdXJpbmcgMzQgeCAzMS JuxRMubkW4sBVokL5nuBUp aK7rPFgrJhKyOvPgebNdwH Bvu8XhJiEtMZ1otEhklzMl uvHjTB9naKfwqSDoBBYgNG 6mSPR1pgkdSzYcEXZ2LWXk EJ5eIUaqEMMhAJRmv4Q4FO Ezw7YeeoostHOzPcVunfEr xYQsf2EyEnSmM6MgE7qpn9 Sov1wxn5PbNPIcClM5RRDb NSBjbSBtYXNzbGlrZSBvcG FguNJ5PMhlUGYiAOVzABQ7 XAcbn9RdSFbcIoPmRDXATC EsM70avVWxrSLtzWrszgLn fR9deNHup7HdOKedRQkatn Qug84xQWYaq2Zipo4yCAsz gUD8STH3LZExxm9geKVgvZ == GROSS DESCRIPTION (test x4arpBAvQFQrfWBTFCAwCN code = [id number]) OgLE0duFibuNw2rKbxNJLa bnA5aWNoZUoud0qiFQP2k3 pzbkCBMyrsFPTtTF3sQQpt VVZyNP1xNpQfYTYrLeNlOB BhcGVydzEyMjQwXHBhcGVy fRM1OJOnNS3vpocmFQxuOM gwKDGqnxJ9UDDqqYDjU1Kl DUZlOA3fjcrxXFK2VXGPLg syIc5ceLTjlIbeJeRlEzVz YXJzZXQwXGZuaWwgQXJpYW t6mA1AGbggM17eg4D4Fwq2 HZMvRWUaM4HhIE8nGDHylW SfJ77GCzgqCNI4ZMEBDzpg EzjxxMnsd4LtyTVpQKXlKC xcaWQgNTEwMDAgXFxkYiBP FdLdZdRnQUP0MHv3FTPyUF n3CCvyEjUTKWD5HWE6BPzf DYk8RVjlXJpeoTWrTPVaPT LaNGRaLYoorhV5h0ofXEAu bVObDXH1FOmlz6qhADewID P0PKRvHmRwJNVoMQ4TAfBc VNBwCRAgVMSwVqB8FMu4BA BPVlMgIiAgMzQzNjcwMDUi LUm7ETo2SReCIxN9DedwPx bxDyGoAQU4XZepHTx2HENq XFxzcyAzIFxcZmwgXFxuY3 1ccGFyZCANClxwbGFpblxm wsOwHQEqYPm7enlvoZLdAI 6NEVCoypEtKOrrxGofaC0x ZnMyMlxsdHJjaFxlcGljTm VzdERvYzEgDQpcbHRycGFy XGxpbjBccmluMCANClxjZj FcZnMyMCBSZWNlaXZlZCBp vaVov9OzIOdtbcDqLKDjxV VkIHdpdGggdGhlIHBhdGll evYcX6C3uwDiWR9aKKZoZY ScD3KdCGPdH34pCUCbiS6n ZRKrBO1cKXn2KHHhULOcRg akoWRzBbPoGJHbHI72eIRt yYtyNFGcgpPts6WfQNKxu5 BrcRXlGCNlijcoebqmmS1c u3j1OHOxzl9cVEYnYM0nJc MvE38wALwpxKUfBKTkUJXt zKGviXJ5YUWdhQ8cvY82ns WyenLLBYf8QCCjDJMzUfu9 QTIuXHBhciANClxwYXIgDQ ygk8vhF9QkrGErWGZiSjDl UHXhJ5edKCJlUE1VEQDtBI vhbgZuQMafxBC8nyVHGG5w zc8GBNXqgXXTWEH7BL2hMR jjAAKvT4ClX6YebcN9h8mp uIbvu8QczXFgGT0ujDPvII 2NODBvbwQqMTu8 MICROSCOPIC DESCRIPTION f4ukeZJoNSHmzTHiOBRuCN (test code = 3371) aludOcZIGmtLKiN5Iixtyn XUijIE4nPE0flCxtyFMsmV VwBDQoXyMdc3vzx554zPZk e5rjPOQVfptirSe3bYitM3 6ba2S0GyjmZ45tyFRiERS8 KHIwNWZyhZFwBQVpVJC8TI WnqVIqW0tsHQYyMS2hxioy QOruYOwcVPHlvBC1AZUjfU YuV7CjHIZgNTjbHGIhtuz9 AsHrJf5qwIRriEemGYhpBR JkXHBsYWluXGZzMjAgUGVy Dk0wyQPjSQBbfx5= SPECIAL STUDIES (test p4nuiKMzSYEgfDOqSVMtOR code = 3376) jxztEuOWPfcAHkF3Mxxadm JQhtGV9kWC8ofKnrpOKqnG FiFULaErLoy5fmn341bDHm w7gmEBZPemzxiZk5c6lhND YHJKkfFgYmK118e7pxz1uh wmYudIE1CJRqANLbD6LnXB 6bKLVfxQOmZ28wlGWvTSC5 RJNeBSCajGRxTUPjVTD0JS KbjOHoP6dhEWMiEV8ntwom QPovGUbhURNblUB9FBHldR JcG8VfGEBvTYomYAXmzge2 FwLtXs8boVWljOlsAAkhLN JkXHBsYWluXGYxXGZzMjJc F8FoUEIfWBXothUutqDlEF QelHlyavQwUiM7hEkaPMXp k5WkzC5ixCAvPMXmqFtdVH UsYPBxQyTakI40gv2atAV8 h8VsZU7xe1MmnKSrafTsjJ ZpaLTmDOU2OCyvvi7olEOk CMCeygMOg586tl3wNCTrxW FhagYVhMHjmD5hXEqoMVws PLbxzVNnCQyvk3nqCOQgm1 y2pDJyPNLdpbFzs8jkZImr cmUgZXZhbHVhdGVkIGFsb2 8pVEkqyQuqdInxOJHff2Dk hLwxr9CxJzEzTDcsx0NfP5 9udHJvbCBzbGlkZXMgcnVu MKZok76vy1ieDBPwYmD9dQ BchQR3uOFwrXHxi7RfuBto FIBka4ieFZVknl8wcrqqnT Xyr7LfgD0oixqsPGrkcXQk xkOrYNWco0b5qZTjSIMtUA SnMMgocCf9GTLyg494py4u mmX7iRPwVGL3WMwhXNDqAZ BhcmUgZXZhbHVhdGVkXHBh ffPtXIXdtiJIvB76bk1kpC N1l0SnBF5xb8XhhWL1TFDk taoiUJnyzLMrxUztDuJ1IF WqmTDaFp4imKNnCUF5VVXo jBdrfuQXdJ9hGNZhCJj0ZJ PqIjQoZsjxvpKNAGUcV9Cb UWSamvTjgvqvVGK2gS1xg3 y6RNfkTf3nUDJiqdkpn7av ueMhdRRqf1HoKVEwdpWph0 BlZCBhbmQgaXRzIHBlcmZv ui2wztQqBLUcQIIoB4Eoli fwaWpnyzR7YUBvZGXqpCMq hCwiUTLwMHz0WSsfbaTcy4 YtRdEpaiCxyMPgvdRkZW3k MVPfsZEbuhPtBWC9ABRiGE DUQlEgAEJuz7AxXF1gPDJq tHleNLJdkJ6xz3DbQCYlz5 4uIFRoZSBGREEgaGFzIGRl dGVybWluZWQgdGhhdCBzdW LyOUFkVUWgRT9aLBRqwuXw fASul0UgcQHlviCuh0Rnya FnILUyTEQ8RiNYrKXdvKEm lMDxvbL8w2DhCRHeskIcfF sdwFGnqMWcvQDrw5Pyyh0q AHJrq6kfyItvQP6pzFQbEI ByZWdhcmRlZCBhcyBpbnZl o2QsV2S1oP7tIYybp1FnOp 3wGFBwv1PkofRgCqHBgTpw AHlwJy9nXYSrdwadaOEwI4 VydGlmaWVkIHVuZGVyIHRo ZSBDbGluaWNhbCBMYWJvcm D1z8P5NYoqrDOqkbEmMI48 CJFwMV0pfEWudATlh7YzBA p1IGZbM3fOQX14FKqvAYCn cXVhbGlmaWVkIHRvIHBlcm Wifo8neWyboSFmm84xjPM2 fVN1XMJlqE7xQ3TgSTrjLm 8rJYLzomspvABxjCohUs6v fCHaARUgq1ZiISAnWjpzHX RfYABKJMC3ESRsy8e5bFTt JHVvgsLKUYA5NN9lB5U2hB ZlXHBhciBHQVRBMzogTmVn YXRpdmVccGFyfQ== [facility] [id number] 15:21:06Surgical Pathology Report Case: [id number] Authorizing Provider: Edilia Westfall MD Collected: 02/17/2023 02:51 PM Ordering Location: [address] Received: 02/17/2023 04:08 PM Service Pathologist: Judy Jean MD Specimen: Lung A. LUNG, SITE NOT SPECIFIED, CT-GUIDED NEEDLE BIOPSY:- LIMITED SAMPLING- ATYPICAL CELLS, IMMUNOPROFILE CONSISTENT WITH LUNG ADENOCARCINOMA Signing Pathologist Direct Phone Line: [phone] signed by Judy Jean MD on 02/21/2023 at3:21 PMPreliminary result electronically signed by Judy Jean MD on 02/20/2023 at 11:37 AMThe sampling is extremely limited and consists of small foci of atypical cells, which stain positive with TTF-1, supporting the above diagnosis. The tissue is extremely small and inadequate for biomarkertesting.[id number] female current smoker presented with with right [...] run alongside of the patients sample show appropr iate staining. Internal positive and negative controls when available are evaluated Immunohistochemistry technical testing was performed at [facility], Pathology Laboratory where it was developed and its performance characteristics were determined. It has not been cleared or approved by the U.S. Food and Drug Administration. The FDA has determined that such clearance or approvalis not necessary. The test is used for clinical purposes. It should not be regarded as investigational or for research. This laboratory is certified under the Clinical Laboratory Improvement Amendmentsof 1988 (CLIA-88) as qualified to perform high complexity clinical laboratory testing.Block A1:TTF-1: VjrbmlblW85: NegativeGATA3: NegativePOCT-GLUCOSE [id number] 12:24:38 Test Item Value Reference Range Interpretation Comments POC-GLUCOSE METER 152 mg/dL 70-110 H : TESTED A T [facility] 6720 (BEAKER) (test code = [place], 1538) 11427: Clipman/Techni nate ID = [id number] for GUANAKITO BALDWIN [id number] 06:02:41 Test Item Value Reference Range Interpretation Comments MAGNESIUM (BEAKER) (test code = 2.1 mg/dL 1.6-2.6 627) Clipman ID - [id number] 06:02:41 Test Item Value Reference Range Interpretation Comments PHOSPHORUS (BEAKER) (test code = 3.8 mg/dL 2.3-4.7 604) Clipman ID - MMBASIC METABOLIC [id number] 06:02:40 Test Item Value Reference Range Interpretation [...] not appl icable for dialysis patien ts Clipman ID - MMCBC W/PLT COUNT & AUTO [id number] 05:48:33 Test Item Value Reference Range Interpretation [...] PERCENT (BEAKER) (test code = 2801) POCT-GLUCOSE [id number] 04:12:24 Test Item Value Reference Range Interpretation Comments POC-GLUCOSE METER 123 mg/dL 70-110 H : TESTED A T [facility] 6720 (BEAKER) (test code = [facility], 1538) 59921: Clipman/Techni nate ID = [id number] for Eboni nh, Phillips POCT-GLUCOSE [id number] 23:52:59 Test Item Value Reference Range Interpretation Comments POC-GLUCOSE METER 126 mg/dL 70-110 H : TESTED A T [facility] 6720 (BEAKER) (test code = [facility], 1538) 04668: Clipman/Techni nate ID = [id number] for Bethany Anguiano POCT-GLUCOSE [id number] 16:39:21 Test Item Value Reference Range Interpretation Comments POC-GLUCOSE METER 110 mg/dL 70-110 : TESTED A T [facility] 6720 (BEAKER) (test code = [facility], 1538) 17154: Clipman/Techni nate ID = [id number] for Dajuan Winkler POCT-GLUCOSE [id number] 11:56:10 Test Item Value Reference Range Interpretation Comments POC-GLUCOSE METER 92 mg/dL 70-110 : TESTED A T [facility] 6720 ([facility]) (test code = [facility], 1538) 60889: Clipman/Techni nate ID = [id number] for Dajuan Melgoza POCT-GLUCOSE [id number] 10:53:04 Test Item Value Reference Range Interpretation Comments POC-GLUCOSE METER 124 mg/dL 70-110 H : TESTED A T [facility] 6720 (BEAKER) (test code = [facility], 1538) 85243: Clipman/Techni nate ID = [id number] for Shar davies (contract)Mandy POCT-GLUCOSE [id number] 04:53:12 Test Item Value Reference Range Interpretation Comments POC-GLUCOSE METER 122 mg/dL 70-110 H : TESTED A T [facility] 6720 (BEAKER) (test code = [place], 1538) 50445: Clipman/Techni nate ID = [id number] for Jacqueline Ruiz [id number] 04:49:28 Test Item Value Reference Range Interpretation Comments PHOSPHORUS (BEAKER) (test code = 3.9 mg/dL 2.3-4.7 604) Clipman ID - MMBASIC METABOLIC [id number] 04:49:27 Test Item Value Reference Range Interpretation [...] not appl icable for dialysis patien ts Clipman ID - [id number] 04:49:27 Test Item Value Reference Range Interpretation Comments MAGNESIUM (BEAKER) (test code = 2.1 mg/dL 1.6-2.6 627) Clipman ID - MMCBC W/PLT COUNT & AUTO [id number] 04:34:15 Test Item Value Reference Range Interpretation [...] PERCENT (BEAKER) (test code = 2801) POCT-GLUCOSE [id number] 23:53:02 Test Item Value Reference Range Interpretation Comments POC-GLUCOSE METER 89 mg/dL 70-110 : TESTED A T [facility] 6720 (BEAKER) (test code = [facility], [facility]) 88216: Clipman/Techni nate ID = [id number] for Wandy , Phillips POCT-GLUCOSE [id number] 19:45:14 Test Item Value Reference Range Interpretation Comments POC-GLUCOSE METER 115 mg/dL 70-110 H : TESTED A T [facility] 6720 (BEAKER) (test code = [facility], [facility]8) 02640: Clipman/Techni nate ID = [id number] for Bi keke (contract), Mandy xis POCT-GLUCOSE [id number] 16:33:23 Test Item Value Reference Range Interpretation Comments POC-GLUCOSE METER 193 mg/dL 70-110 H : TESTED A T [facility] 6720 (BEAKER) (test code = [facility], [facility]8) 46335: Clipman/Techni nate ID = [id number] for Co ok, Skye POCT-GLUCOSE [id number] 11:18:13 Test Item Value Reference Range Interpretation Comments POC-GLUCOSE METER 126 mg/dL 70-110 H : TESTED A T [facility] 6720 (BEAKER) (test code = [facility], [facility]) 91487: Clipman/Techni nate ID = [id number] for Co ok, Skye CBC W/PLT COUNT & AUTO [id number] 06:51:35 Test Item Value Reference Range Interpretation [...] 0.00-1.00 PERCENT (BEAKER) (test code = 2801) [id number] 06:41:32 Test Item Value Reference Range Interpretation Comments PHOSPHORUS (BEAKER) (test code = 4.2 mg/dL 2.3-4.7 604) Clipman ID - MARCOBASIC METABOLIC [id number] 06:41:31 Test Item Value Reference Range Interpretation [...] De scription 1092) sq m Result G1 Norm al or high >=90 G2 Mildly decreased 60-89 [...] not appl icable for dialysis patien ts Clipman ID - [id number] 06:41:31 Test Item Value Reference Range Interpretation Comments MAGNESIUM (BEAKER) (test code = 2.1 mg/dL 1.6-2.6 627) Clipman ID - MARCOPOCT-GLUCOSE [id number] 05:42:09 Test Item Value Reference Range Interpretation Comments POC-GLUCOSE METER 137 mg/dL 70-110 H : TESTED A T [facility] 6720 (BEAKER) (test code = [facility], 153) 68837: Clipman/Techni nate ID = [id number] for HANDY HARTMAN POCT-GLUCOSE [id number] 00:13:36 Test Item Value Reference Range Interpretation Comments POC-GLUCOSE METER 159 mg/dL 70-110 H : TESTED A T [facility] 67[address] (BEAKER) (test code = [facility], 1538) 24930: Clipman/Techni nate ID = [id number] for MEERA HERNANDEZEHANDY POCT-GLUCOSE [id number] 12:23:13 Test Item Value Reference Range Interpretation Comments POC-GLUCOSE METER 112 mg/dL 70-110 H : TESTED A T [facility] 67[address] (BEAKER) (test code = [place], 1538) 82079: Clipman/Techni nate ID = [id number] for Dajuan Winkler [id number] 06:31:41 Test Item Value Reference Range Interpretation Comments PHOSPHORUS (BEAKER) 3.9 mg/dL 2.3-4.7 Specimen slightly (test code = 604) hemolyzed Clipman ID - MARCOBASIC METABOLIC [id number] 06:31:41 Test Item Value Reference Range Interpretation [...] De scription 1092) sq m Result G1 Norm al or high >=90 G2 Mildly decreased 60-89 [...] not appl icable for dialysis patien ts Clipman ID - [id number] 06:31:40 Test Item Value Reference Range Interpretation Comments MAGNESIUM (BEAKER) 2.0 mg/dL 1.6-2.6 Specimen slightly (test code = 627) hemolyzed Clipman ID - MARCOPOCT-GLUCOSE [id number] 06:13:53 Test Item Value Reference Range Interpretation Comments POC-GLUCOSE METER 123 mg/dL 70-110 H : TESTED A T [facility] 67[address] (BEAKER) (test code = [place], 1538) 88536: Clipman/Techni nate ID = [id number] for Safia Isaacs CBC W/PLT COUNT & AUTO [id number] 06:10:17 Test Item Value Reference Range Interpretation [...] PERCENT (BEAKER) (test code = 2801) POCT-GLUCOSE [id number] 00:37:58 Test Item Value Reference Range Interpretation Comments POC-GLUCOSE METER 157 mg/dL 70-110 H : TESTED A T [facility] [address] (BEAKER) (test code = [place], 1538) 89365: Clipman/Techni nate ID = [id number] for Safia Isaacs RAD, CHEST, 1 VIEW, NON [id number] 17:56:00Reason for exam:->post lung biopsy 3 hrShould this be performed at the bedside?->Yes [facility] 1960 Sex: FFINAL [...] biopsy. No pneumothorax. Signed: Giovanny De Leon MDReport Verified Date/Time: 02/17/2023 17:56:58 Reading Location: [facility] C013V Neuro Reading Room POCT-GLUCOSE [id number] 17:13:48 Test Item Value Reference Range Interpretation Comments POC-GLUCOSE METER 177 mg/dL 70-110 H : TESTED A T [facility] 6720 (BEAKER) (test code = [place], 1538) 42412: Clipman/Techni nate ID = [id number] for Dajuan Winkler, CHEST, 1 VIEW, NON [id number] 17:09:00Reason for exam:->Post lung biopsy immediateShould this be performed at the bedside?->Yes [facility] HERNANDEZ : 1960 Sex: FFINAL REPORT TECHNIQUE: Frontal [...] eighth and ninth rib fractures laterally. Signed: German Vazquez MDReport Verified Date/Time: 02/17/2023 17:09:20 CT, BIOPSY, [id number] 15:36:00lung biopsy julienne mass [facility] 1960 Sex: FFINAL REPORT PROCEDURE: CT-guided lung biopsy Procedural PersonnelAttending physician(s): Fransisco Lowrey physician(s): NoneResident physician(s): NoneAdvanced practice provider(s): None [...] needle: 19 gauge Core needle biopsy device: [employer] needle size: 20 gaugeNumber of core specimens: [...] MDReport Verified Date/Time: 02/17/2023 15:36:51 Reading Location: [facility] C013V Neuro Reading Room POCT-GLUCOSE [id number] 12:17:07 Test Item Value Reference Range Interpretation Comments POC-GLUCOSE METER 118 mg/dL 70-110 H : TESTED A T [facility] [address] (BEAKER) (test code = [place], 1538) 06325: Clipman/Techni nate ID = [id number] for Dajuan Winkler BASIC METABOLIC [id number] 06:10:23 Test Item Value Reference Range Interpretation [...] not appl icable for dialysis patien ts Clipman ID - [id number] 06:10:23 Test Item Value Reference Range Interpretation Comments MAGNESIUM (BEAKER) (test code = 2.0 mg/dL 1.6-2.6 627) Clipman ID - [id number] 06:10:23 Test Item Value Reference Range Interpretation Comments PHOSPHORUS (BEAKER) (test code = 4.0 mg/dL 2.3-4.7 604) Clipman ID - MMPOCT-GLUCOSE [id number] 05:46:20 Test Item Value Reference Range Interpretation Comments POC-GLUCOSE METER 109 mg/dL 70-110 : TESTED Renny T [facility] 6720 (BEAKER) (test code = [place], 1538) [address]: Clipman/Techni nate ID = [id number] for Eg Mary royal CBC W/PLT COUNT & AUTO [id number] 05:38:28 Test Item Value Reference Range Interpretation [...] PERCENT (BEAKER) (test code = 2801) POCT-GLUCOSE [id number] 00:13:52 Test Item Value Reference Range Interpretation Comments POC-GLUCOSE METER 151 mg/dL 70-110 H : TESTED A T [facility] 6720 (BEAKER) (test code = [place], 1538) [address]: Clipman/Techni nate ID = [id number] for HANDY HARTMAN MR, BRAIN, [id number] 21:24:00STEALTH protocol - please include the tip of the noseUnlisted Reason for Exam - Click Yes and Enter Reason Below- >YesUnlisted Reason for Exam->Brain massDoes the patient have an implanted electronic device?->No [facility] 1960 Sex: FFINAL [...] CT from one day prior FINDINGS:Parenchyma: There is aring-enhancing intra-axial mass in the posterior left frontal lobe involving the left precentral gyrus with moderate associated vasogenic edema and measurements of 3.6 x 2.9 x 3.1 cm. There is an additional ring-enhancing mass with mild associated vasogenic edema in the posterior right paracentral frontal lobe involving the right superior frontal gyrus abutting the falx with measurements of 1.4 x 1.3x 1.7 cm. No midline shift or downward herniation. The left frontal lobe mass contains intralesionalhemorrhage and is heterogeneously T1 and T2 hyper/isointense with mild restricted diffusion suggesting hypercellularity. No infarction on DWI. No hemorrhage separate from the masses. Abnormal Enhancement: As above Extra-axial Collection: None Ventricular System: Normal Major Intracranial Flow Voids: Pedunculated T2 hypointense lesion suspicious for saccular aneurysm arising superiorly from the right M1/M2 junction with measurements of 0.8 x 0.5 x 0.5 cm. Flow-voids are otherwise preserved. Osseous Structures: Expected marrow signal. Included Orbits: Normal Paranasal Sinuses: Predominantly clear Tympanomastoid Cavities: Normal IMPRESSION: 1. 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 No midline shift. 2. 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 Recommend further evaluation with CTA which may be obtained on a nonemergent basis. Signed: Jae Castillo [facility] Verified Date/Time: 02/16/2023 21:24:19 [id number] 19:01:06 Test Item Value Reference Range Interpretation Comments PARTIAL THROMBOPLASTIN TIME 28.7 seconds 22.5-36.0 (BEAKER) (test code = 760) PROTHROMBIN TIME/[id number] 19:00:25 Test Item Value Reference Range Interpretation Comments PROTIME (BEAKER) (test code = 14.1 seconds 11.9-14.2 759) INR (BEAKER) (test code = 370) 1.16 <=5.90 RECOMMENDED COUMADIN/WARFARIN INR THERAPY RANGESSTANDARD DOSE: 2.0 - 3.0 Includes: PROPHYLAXIS for venous thrombosis, systemic embolization; TREATMENT for venous thrombosis and/or pulmonary embolus.HIGH RISK: Target INR is 2.5-3.5 for patients with mechanical heart valves.POCT-GLUCOSE [id number] 17:54:50 Test Item Value Reference Range Interpretation Comments POC-GLUCOSE METER 124 mg/dL 70-110 H : TESTED A T [facility] 6720 (BEAKER) (test code = [facility], 1538) [address]: Clipman/Techni nate ID = [id number] for Hansel carrington Joy POCT-GLUCOSE [id number] 11:14:09 Test Item Value Reference Range Interpretation Comments POC-GLUCOSE METER 109 mg/dL 70-110 : TESTED A T [facility] 6720 (BEAKER) (test code = [facility], 1538) [address]: Clipman/Techni nate ID = [id number] for Hansel carrington Joy Sodium, random [id number] 10:41:26 Test Item Value Reference Range Interpretation Comments Sodium Urine (test 54 meq/L code = 2955-3) MIKIE (test code = Reference Range: No MIKIE) NormalsOperator ID - ADMIN [facility] [id number] 10:41:26 Test Item Value Reference Range Interpretation Comments SODIUM URINE (BEAKER) (test code = 54 meq/L 243) Reference Range: No NormalsOperator ID - ADMINCreatinine, random [id number] 10:41:25 Test Item Value Reference Range Interpretation Comments Creatinine, Ur 81.8 mg/dL (test code = 2161-8) MIKIE (test code = Reference Range: No MIKIE) NormalsOperator ID - ADMIN [facility] [id number] 10:41:25 Test Item Value Reference Range Interpretation Comments CREATININE URINE (BEAKER) (test 81.8 mg/dL code = 375) Reference Range: No NormalsOperator ID - ADMINCT, CHEST, WITH [id number] 08:55:00Unlisted Reason for Exam - Click Yes and Enter Reason Below->No [facility] : 1960 Sex: FFINAL REPORT CT of the chest, abdomen and pelvis, with contrast Clinical History:Brain/SEA KAYAKING GUIDE neoplasm, staging Technique: CT of the chest, [...] worrisome for charlette metastasis. Signed: Rand Putnam MDReport Verified Date/Time: 308:55:23 Reading Location: [facility] C013X Ortho Consult Reading Room CT, [id number] 08:55:00Unlisted Reason for Exam - Click Yes and Enter Reason Below->NoProtocol Please Specify:->Standard ProtocolWill this procedure require oral contrast?->No [facility] : 1960 Sex: FFINAL REPORT CT of the chest, abdomen and pelvis, with contrast Clinical History:Brain/SEA KAYAKING GUIDE neoplasm, staging Technique: CT of the chest, [...] charlette metastasis. Signed: Rand Putnamort Verified Date/Time: 308:55:23 Reading Location: [address] Ortho Consult Reading Room OSMOLALITY, [id number] 07:54:52 Test Item Value Reference Range Interpretation Comments OSMOLALITY, SERUM (BEAKER) (test 275 mOsm/kg 275-295 code = 615) CARCINOEMBRYONIC ANTIGEN (CEA)2023-02-16 06:59:03 Test Item Value Reference Range Interpretation Comments CARCINOEMBRYONIC ANTIGEN (BEAKER) 102.4 ng/mL 0.0-5.0 H (test code = 685) Clipman ID - ADMINBASIC METABOLIC [id number] 06:27:36 Test Item Value Reference Range Interpretation [...] not appl icable for dialysis patien ts Clipman ID - [id number] 06:27:36 Test Item Value Reference Range Interpretation Comments MAGNESIUM (BEAKER) (test code = 2.0 mg/dL 1.6-2.6 627) Clipman ID - [id number] 06:27:36 Test Item Value Reference Range Interpretation Comments PHOSPHORUS (BEAKER) (test code = 4.0 mg/dL 2.3-4.7 604) Clipman ID - ADMINPOCT-GLUCOSE [id number] 06:25:21 Test Item Value Reference Range Interpretation Comments POC-GLUCOSE METER 117 mg/dL 70-110 H : TESTED A T [facility] 6720 (BEAKER) (test code = D[place], 1538) [address]: Clipman/Techni nate ID = [id number] for Eg be, Mary CBC W/PLT COUNT & AUTO [id number] 05:57:23 Test Item Value Reference Range Interpretation [...] (test code = 2801) CT, BRAIN, WITHOUT [id number] 03:24:00STEALTH protocol [facility] 1960 Sex: FFINAL [...] MDReport Verified Date/Time: 02/16/2023 03:24:24 BASIC METABOLIC [id number] 23:45:44 Test Item Value Reference Range Interpretation [...] not appl icable for dialysis patien ts Clipman ID - [id number] 23:32:32 Test Item Value Reference Range Interpretation [...] 2.5-3.5 for patients with mechanical heart valves.PROTHROMBIN TIME/[id number] 23:31:34 Test Item Value Reference Range Interpretation Comments PROTIME (BEAKER) (test code = 14.1 seconds 11.9-14.2 759) INR (BEAKER) (test code = 370) 1.16 <=5.90 RECOMMENDED COUMADIN/WARFARIN INR THERAPY RANGESSTANDARD DOSE: 2.0 - 3.0 Includes: PROPHYLAXIS for venous thrombosis, systemic embolization; TREATMENT for venous thrombosis and/or pulmonary embolus.HIGH RISK: Target INR is 2.5-3.5 for patients with mechanical heart valves.CBC W/PLT COUNT & AUTO [id number] 23:21:41 Test Item Value Reference Range Interpretation [...] = 2801) RAD, CHEST, 1 VIEW, NON [id number] 21:27:00Reason for exam:->Pre-opShould this be performed at the bedside?->Yes [facility] 1960 Sex: FFINAL REPORT EXAM: Chest [...]
--- NOTE | 2023-05-29 14:56 | RAD REPORT ---
EXAM DESCRIPTION: CT - CTHCSPWOC - 05/29/2023 2:33 pm CLINICAL HISTORY: Trauma, head and neck injury. back pain COMPARISON: Brain W/Wo Cont dated 05/19/2023 TECHNIQUE: Axial 5 mm thick images of the head were obtained. Axial 2 mm thick images of the cervical spine were obtained with sagittal and coronal reconstruction images generated and reviewed. All CT scans are performed using dose optimization technique as appropriate and may include automated exposure control or mA/KV adjustment according to patient size. FINDINGS: CT HEAD WITHOUT CONTRAST: There is a 38 x 26 mm area of interest cerebral hematoma noted left superior frontal lobe. Moderate s urrounding edema is present. No hdju-jf-gqgko midline shift is seen. Left craniotomy noted. CT CERVICAL SPINE WITHOUT CONTRAST: No fracture or subluxation.No prevertebral soft tissues swelling is identified. IMPRESSION: 38 x 26 mm acute intercerebral hematoma in the left frontal lobe with surrounding modera te edema.This is presumably related to recent surgery and underlying hemorrhagic metastatic deposit. No midline shift.
--- NOTE | 2023-05-29 15:01 | RAD REPORT ---
EXAM DESCRIPTION: CT - Spine Lumbar Wo Con - 05/29/2023 2:37 pm CLINICAL HISTORY: Radiculopathy. back pain COMPARISON: No comparisons TECHNIQUE: Axial noncontrast CT imaging of the lumbar spine was performed with coronal and sagittal re-formatted images. All CT scans are performed using dose optimization technique as appropriate and may include automated exposure control or mA/KV adjustment according to patient size. FINDINGS: There is a mild acute compression fracture affecting the L1 vertebral body. Vertebral body height loss is estimated at 20%. There is left-sided canal compromise of approximately 10% at this l evel. Moderate spondylosis is present remaining lumbar levels with mild canal narrowing at L2-3. No paraspinal mass. IMPRESSION: Mild acute compression fracture affects the L1 vertebral body as detailed. This results in mild left-sided canal narrowing. Moderate multilevel spondylosis elsewhere in the lumbar spine.
[2023-05-29] MEDS ORDERED: MORPHINE 4 MG/ML SYR ONE ×2 (16:06→20:16)
[2023-05-29] MEDS ORDERED: dexAMETHasone 10 MG/ML VIAL ONE (16:07)
[2023-05-29 16:37] LABS: Absolute Lymphocytes (CBC) 0.4 K/uL (0.7-4.9); Hematocrit 34.5 % (36.0-45.0); Lymphocytes % 3.4 % (15.3-44.8); MPV 6.8 fL (7.6-11.3); Platelets 496 thou/uL (152-406); RBC Red Blood Cell Count 3.79 M/uL (3.86-4.86)
[2023-05-29 16:41] LABS: Protime INR 1.08
[2023-05-29 16:51] LABS: Potassium 3.9 mEq/L (3.5-5.1)
[2023-05-29 23:37] VITALS: TEMP 98.5
[2023-05-29 23:43] VITALS: BP 153/86; O2SAT 95
--- NOTE | 2023-05-30 21:00 | EDPHYS ---
Physician Documentation [facility] Name: Paola Alex Age: 62 yrs Sex: Female : 1960 Arrival Date: 05/29/2023 Time: 13:41 Bed 7 Private MD: ED Physician Rylan Cutler HPI: 05/29 13:55 This 62 yrs old Female presents to ER via EMS with complaints of low back pain s/p fall.ci Historical: - Allergies: 14:18 No Known Allergies; kc6 - PMHx: 14:18 Hypertensive disorder; Chronic obstructive lung disease; ledy tumor; kc6 - PSHx: 14:18 Brain CA; kc6 - Immunization history:: Client reports having NOT received the Covid vaccine. Flu vaccine is not up to date. - Social history:: Smoking status: Patient denies any tobacco usage or history of. Vital Signs: 14:16 BP 147 / 84; Pulse 77; Resp 18 S; Temp 98.5(O); Pulse Ox 95% on R/A; Weight 61.69 kg kc6 (R); Height 5 ft. 7 in. (R); 15:20 BP 146 / 77; Pulse 70; Resp 18 S; Pulse Ox 99% on R/A; kc6 16:15 BP 159 / 88; Pulse 81; Resp 19 S; Pulse Ox 100% on R/A; kc6 17:33 BP 155 / 89; Pulse 70; Resp 18; Pulse Ox 94% on R/A; ph 18:44 BP 159 / 86; Pulse 73; Resp 16 S; Pulse Ox 95% on R/A; kc6 20:00 BP 154 / 82; Pulse 72; Resp 16; Pulse Ox 96% on R/A; vc1 20:41 BP 153 / 86; Pulse 71; Resp 16; Pulse Ox 95% ; vc1 14:16 Body Mass Index 21.30 (61.69 kg, 170.18 cm) kc6 MDM: 13:54 Patient medically screened. ci 15:45 ED course: [facility] ED course: ci Transfer initiated to speak to a neurosurgeon regarding left ICH and L1 fracture. Dr. Walters patient's neurologist paged. 16:59 ED course: I spoke with neurosurgery resident at [facility] who states that imaging ci is ICH is about the same from his review. He is speaking to the supervising doctor to see of there will be any nsgy intervention. 17:20 ED course: Patient accepted by NSGY, transfer to neuro tele, admitting hospitalist Dr. alexa Allen. 05/29 15:49 Order name: CBC with Diff; Complete Time: 16:54 [facility] 05/29 15:49 Order name: Ptt, Activated; Complete Time: 16:54 [facility] 05/29 15:49 Order name: BMP; Complete Time: 16:54 [facility] 05/29 15:49 Order name: PT-INR; Complete Time: 16:54 [facility] 05/29 14:18 Order name: Head C Spine Mpr Wo Con; Complete Time: 15:25 EDMS 05/29 16:59 Interpretation: Per Radiologist's finding(s): CT CERVICAL SPINE WITHOUT CONTRAST: ci No fracture or subluxation. No prevertebral soft tissues swelling is identified. IMPRESSION: 38 x 26 mm acute intercerebral hematoma in the left frontal lobe with surrounding moderate edema.This is presumably related to recent surgery and underlying hemorrhagic metastatic deposit. No midline shift. 05/29 14:18 Order name: Spine Lumbar Wo Con; Complete Time: 15:27 EDMS 05/29 15:28 Interpretation: Per Radiologist's finding(s): IMPRESSION: Mild acute compression ci fracture affects the L1 vertebral body as detailed. This results in mild left-sided canal narrowing. Moderate multilevel spondylosis elsewhere in the lumbar spine. Administered Medications: 16:12 Drug: morphine IVP or IV 4 mg Route: IVP; Infused Over: 4 mins; Site: left forearm; kc6 16:54 Follow up: Response: No adverse reaction; Pain is decreased; RASS: Alert and Calm (0) kc6 16:12 Drug: Decadron - Dexamethasone IVP 10 mg Route: IVP; Site: left forearm; kc6 16:54 Follow up: Response: No adverse reaction kc6 20:14 Drug: morphine IVP or IV 4 mg Route: IVP; Infused Over: 4 mins; Site: left wrist; vc1 Disposition Summary: 05/29/23 17:43 Transfer Ordered Transfer Location: [facility] ci Reason: Higher level of care ci Condition: Stable ci Problem: an acute exacerbation ci Symptoms: are unchanged ci Accepting Physician: Dr. Allen(05/29/23 20:59) swapnil Diagnosis - Fracture of first lumbar vertebra ci - Nontraumatic intracranial hemorrhage, unspecified ci - Fall (on) (from) unspecified stairs and steps ci Discharge Instructions: - Discharge Summary Sheet ph Forms: - SBAR form ph - Medication Reconciliation Form ci Signatures: Dispatcher [employer] EDCristal Cespedes RN RN kl Ese Fajardo RN RN vc1 Mitzy Farooq RN RN kc6 Rylan Cutler ci Corrections: (The following items were deleted from the chart) 15:27 15:26 ICH in left frontal lobe, no midline shift. . ci ci 16:59 15:27 ICH in left frontal lobe, no midline shift. ci ci 17:52 17:43 Dr. Allen ci ci 20:59 17:52 Dr. Allen ci kl
--- NOTE | 2023-05-30 21:00 | ER ---
Nurse's Notes [facility] Name: Paola Alex Age: 62 yrs Sex: Female : 1960 Arrival Date: 05/29/2023 Time: 13:41 Bed 7 Private MD: Diagnosis: Fracture of first lumbar vertebra;Nontraumatic intracranial hemorrhage, unspecified;Fall (on) (from) unspecified stairs and steps Presentation: 05/29 14:16 Chief complaint: EMS states: pt fell at home and was found in the passenger seat of her [facility] friends car upon EMS arrival. pt denies LOC, reports her right leg gave out. 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 100mcg of fentanyl given en right for left lower back pain. Coronavirus screen: At this time, the client does not indicate any symptoms associated with coronavirus-19. Ebola Screen: No symptoms or risks identified at this time. Initial Sepsis Screen: Does the patient meet any 2 criteria? No. Patient's initial sepsis screen is negative. Does the patient have a suspected source of infection? No. Patient's initial sepsis screen is negative. Risk Assessment: Do you want to hurt yourself or someone else? Patient reports no desire to harm self or others. Onset of symptoms was May 29, 2023. 14:16 Method Of Arrival: EMS: [place] [address] 14:16 Acuity: TEENA 4 [facility] 19:27 Note Report called to RN [facility]. sg5 Triage Assessment: 14:18 General: Appears in no apparent distress. uncomfortable, Behavior is calm, cooperative, kc6 appropriate for age. Pain: Complains of pain in back. EENT: No signs and/or symptoms were reported regarding the EENT system. Neuro: Level of Consciousness is awake, alert, obeys commands, Oriented to person, place, time, situation, Appropriate for age. Cardiovascular: Capillary refill < 3 seconds. Respiratory: Airway is patent Trachea midline Respiratory effort is even, unlabored, Respiratory pattern is regular, symmetrical. GI: No signs and/or symptoms were reported involving the gastrointestinal system. : No signs and/or symptoms were reported regarding the genitourinary system. Derm: No signs and/or symptoms reported regarding the dermatologic system. Skin is intact, is healthy with good turgor, Skin is pink, warm \T\ dry. Musculoskeletal: No signs and/or symptoms reported regarding the musculoskeletal system. Circulation, motion, and sensation intact. Capillary refill < 3 seconds, Range of motion: intact in all extremities. Historical: - Allergies: 14:18 No Known Allergies; kc6 - PMHx: 14:18 Hypertensive disorder; Chronic obstructive lung disease; ledy tumor; kc6 - PSHx: 14:18 Brain CA; kc6 - Immunization history:: Client reports having NOT received the Covid vaccine. Flu vaccine is not up to date. - Social history:: Smoking status: Patient denies any tobacco usage or history of. Screenin:19 [facility] ED Fall Risk Assessment (Adult) History of falling in the last 3 months, kc6 including since admission Yes- single mechanical fall (1 pt) Confusion or Disorientation No (0 pts) Intoxicated or Sedated No (0 pts) Impaired Gait No (0 pts) Mobility Assist Device Used No (0 pt) Altered Elimination No (0 pt) Score/Fall Risk Level 0 - 2 = Low Risk. Abuse screen: Denies threats or abuse. Denies injuries from another. Nutritional screening: No deficits noted. Tuberculosis screening: No symptoms or risk factors identified. Assessment: 14:20 Reassessment: please see triage assessment. [facility] 15:20 Reassessment: Patient appears in no apparent distress at this time. No changes from 6 previously documented assessment. Patient and/or family updated on plan of care and expected duration. Pain level reassessed. Patient is alert, oriented x 3, equal unlabored respirations, skin warm/dry/pink. 16:14 Reassessment: Chantell King (friend) [phone]. kc6 16:15 Reassessment: Patient appears in no apparent distress at this time. No changes from 6 previously documented assessment. Patient and/or family updated on plan of care and expected duration. Pain level reassessed. Patient is alert, oriented x 3, equal unlabored respirations, skin warm/dry/pink. 17:15 Reassessment: Patient appears in no apparent distress at this time. No changes from kc6 previously documented assessment. Patient and/or family updated on plan of care and expected duration. Pain level reassessed. Patient is alert, oriented x 3, equal unlabored respirations, skin warm/dry/pink. 18:15 Reassessment: Patient appears in no apparent distress at this time. No changes from 6 previously documented assessment. Patient and/or family updated on plan of care and expected duration. Pain level reassessed. Patient is alert, oriented x 3, equal unlabored respirations, skin warm/dry/pink. 18:49 Reassessment: attempted to call report, nurse unavailable. on hold for 10min. kc6 20:23 Reassessment: No changes from previously documented assessment. Patient and/or family vc1 updated on plan of care and expected duration. Pain level reassessed. Patient is alert, oriented x 3, equal unlabored respirations, skin warm/dry/pink. Vital Signs: 14:16 BP 147 / 84; Pulse 77; Resp 18 S; Temp 98.5(O); Pulse Ox 95% on R/A; Weight 61.69 kg kc6 (R); Height 5 ft. 7 in. (R); 15:20 BP 146 / 77; Pulse 70; Resp 18 S; Pulse Ox 99% on R/A; kc6 16:15 BP 159 / 88; Pulse 81; Resp 19 S; Pulse Ox 100% on R/A; kc6 17:33 BP 155 / 89; Pulse 70; Resp 18; Pulse Ox 94% on R/A; ph 18:44 BP 159 / 86; Pulse 73; Resp 16 S; Pulse Ox 95% on R/A; kc6 20:00 BP 154 / 82; Pulse 72; Resp 16; Pulse Ox 96% on R/A; vc1 20:41 BP 153 / 86; Pulse 71; Resp 16; Pulse Ox 95% ; vc1 14:16 Body Mass Index 21.30 (61.69 kg, 170.18 cm) [facility] ED Course: 13:54 Patient arrived in ED. rn 13:54 Rylan Cutler is Attending Physician. ci 14:16 Mitzy Farooq, EUGENIA is Primary Nurse. kc6 14:18 Triage completed. kc6 14:18 Arm band placed on. kc6 14:19 Maintain EMS IV. Dressing intact. Good blood return noted. Site clean \T\ dry. Gauge \T\ cristina 6 site: 20G LAC. 14:20 Patient has correct armband on for positive identification. Bed in low position. Call kc light in reach. Side rails up X2. Adult w/ patient. 14:33 Head C Spine Mpr Wo Con In Process Unspecified. EDMS 14:36 Spine Lumbar Wo Con In Process Unspecified. EDMS 16:27 Marizol. initiated transfer to [facility], spoke with Bruce Grey. 18:06 Pt accepted for transfer to [facility] [id number] Jessica Allen \T\ 1732 per Bruce Grey per MOT wm by Marizol. 19:00 Report given to EUGENIA Mulligan \T\ EUGENIA Merida. kc6 19:20 EMS accepted Pt for transport, ETA 1944. wm 20:00 No provider procedures requiring assistance completed. bleeding controlled, Pressure vc1 dressing applied, IV infiltrated. Administered Medications: 16:12 Drug: morphine IVP or IV 4 mg Route: IVP; Infused Over: 4 mins; Site: left forearm; kc6 16:54 Follow up: Response: No adverse reaction; Pain is decreased; RASS: Alert and Calm (0) kc6 16:12 Drug: Decadron - Dexamethasone IVP 10 mg Route: IVP; Site: left forearm; kc6 16:54 Follow up: Response: No adverse reaction kc6 20:14 Drug: morphine IVP or IV 4 mg Route: IVP; Infused Over: 4 mins; Site: left wrist; vc1 Medication: 20:23 VIS not applicable for this client. vc1 Outcome: 17:43 ER care complete, transfer ordered by . ci 20:43 Transferred by ground EMS to [facility], Transfer form completed. vc1 X-rays sent w/ patient. 20:43 Condition: stable 20:43 Instructed on the need for transfer. 20:59 Patient left the ED. kl Signatures: Dispatcher [employer] EDMS Cristal Welch RN RN kl Nieto, Roman, MD MD rn Hall, Patricia, RN RN ph Marsh, Wendy Ese Fajardo RN RN vc1 Mitzy Farooq RN RN kc6 Magnolia Johnson RN RN sg5 Rylan Cutler ci Corrections: (The following items were deleted from the chart) 05/30 00:44 05/29 18:06 EMS accepted Pt for transport, ETA 1944 wm wm
== END 2023-05-29 20:59 | disposition short-term general hospital (02) ==
LOC: ER 13:41
DX: S32.019A Unspecified fracture of first lumbar vertebra, initial encounter for closed fracture (principal); I62.9 Nontraumatic intracranial hemorrhage, unspecified; W10.9XXA Fall (on) (from) unspecified stairs and steps, initial encounter; I10 Essential (primary) hypertension; Z85.841 Personal history of malignant neoplasm of brain
CPT/HCPCS: 85025; 80048; 36415; 85610; 85730; 72131; 70450; 72125; 99285; J1100

== ENCOUNTER 2023-07-29 14:36 | Emergency (ER) | payer OTHER ==
--- OUTSIDE RECORDS SUMMARY | 2023-07-29 15:05 | XMS REPORT | Continuity of Care Document ---
:1960 Author Organization [facility] t Address [address] [facility] [address] [place] [address] Care Team Providers Name Role Phone DESTINY Attending Clinician Unavailable DAHLIA TAYLOR Attending Clinician Unavailable Kevin Marx Rahil Attending Clinician Unavailable YAMILKA MULLEN Attending Clinician Unavailable AMBERLY HERNANDES Attending Clinician Unavailable TANIA CHO Attending Clinician Unavailable CATALINA ALEXANDER Attending Clinician Unavailable LEANDER MATIAS Attending Clinician Unavailable JONAH STRATTON Attending Clinician Unavailable SALLY JEROME IN H Attending Clinician Unavailable Danielle Gonzalez MD Attending Clinician [place] Sheyla DAVILA Attending Clinician [phone] Leander Matias MD Attending Clinician SHADIA BRAVO Admitting Clinician Unavailable Kevin Marx Rahil Admitting Clinician Unavailable VIKASH REYNA I Admitting Clinician Unavailable SHAZIA DOMINGO Admitting Clinician Unavailable Payers Payer Name Policy Type Policy Number Effective Date Expiration Date S khurram [facility] EXCH[facility] [id number] 2023 00:00[facility] [id number] [facility] [id number] [place] [id number] 2023 00:00:00 Problems Condition Condition Condition Status Onset Resolution Last Treating Co mments Source Name Details Category Date Date Treatment Clinician Date Lung Lung Disease [facility] [place] COPD COPD Disease [facility] obstructiv obstructiv 00:00: Nv dical e e 00 [place] pulmonary pulmonary disease) disease) Vasogenic Vasogenic Disease [facility] edema edema 00:00: Medical 00 [place] HTN HTN Disease Active [facility] (hypertens (hypertens [facility] ion) ion) 00:00: Medical [address] [place] [address] Anxiety Anxiety Disease Active [facility] 00 [place] Alcohol Alcohol Disease Active [facility] use use [facility] disorder disorder 00:00: Medica l 00 [place] Brain mass Brain mass Disease Active [facility]: Medical 00 [place] Allergies, Adverse Reactions, Alerts Allergy Allergy Status Severity Reaction(s) Onset Inactive Treating Comm ents Source Name Type Date Date Clinician NO KNOWN Allergy Active [facility] Social History Social Habit Start Date Stop Date Quantity Comments Source Sex Assigned At [address] [facility] 00:00:00 00:00:00 [facility] Medications Ordered Filled Start Stop Current Ordering [...] times daily as needed for Itching. ALPRAZolam 0 Yes 1mg Take 1 [facility] [...] 2 MG tablet 00 :00 by mouth [facility] er every 12 (twelve) hours for 14 days. Vital Signs Vital Name Observation Time Observation Value Comments Source WEIGHT 2023-05-31 01:00:00 60 kg WEIGHT 2023-05-31 01:00:00 60 kg HEIGHT 2023-04-29 00:00:00 170.2 cm WEIGHT 2023-04-29 00:00:00 63.5 kg HEIGHT 2023-04-29 00:00:00 170.2 cm WEIGHT 2023-04-29 00:00:00 63.5 kg HEIGHT 2023-02-22 14:00:00 170.2 cm WEIGHT 2023-02-22 14:00:00 61.1 kg WEIGHT 2023-02-15 16:36:00 58.968 kg HEIGHT 2023-02-22 14:00:00 170.2 cm WEIGHT 2023-02-22 14:00:00 61.1 kg WEIGHT 2023-02-15 16:36:00 58.968 kg Systolic blood 2023-02-28 07:57:00 166 mm[Hg] Rn [facility]ware [facility] Diastolic blood 2023-02-28 07:57:00 85 mm[Hg] Rn Aware [facility] Heart rate 2023-02-28 07:57:00 77 /min [facility] Body temperature 2023-02-28 07:57:00 36.11 Ava [facility] Respiratory rate 2023-02-28 07:57:00 18 /min [facility] Oxygen saturation in 2023-02-28 07:57:00 94 /min [facility] Arterial blood by Medical Ce nter Pulse oximetry Body height 2023-02-23 07:03:00 170.2 cm [facility] Body weight 2023-02-23 07:03:00 61.1 kg [facility] BMI 2023-02-23 07:03:00 21.10 kg/m2 [facility] Procedures Procedure Date / Time Performing Clinician Source Performed POCT-GLUCOSE METER 2023-02-28 06:20:00 Rony [facility] CBC W/PLT COUNT & AUTO 2023-02-28 04:36:[address] [facility] BASIC METABOLIC PANEL 2023-02-28 04:36:00 Alma Stapleton [facility] PHOSPHORUS 2023-02-28 04:36:00 Harish Gonzalez [facility] MAGNESIUM 2023-02-28 04:36:00 Harish Gonzalez [facility] CBC W/PLT COUNT & AUTO 2023-02-28 04:36:[address] [facility] POCT-GLUCOSE METER 2023-02-28 00:18:00 Rony [facility] POCT-GLUCOSE METER 2023-02-27 17:35:00 Rony, [facility] POCT-GLUCOSE METER 2023-02-27 13:15:00 Rony, [facility] CBC W/PLT COUNT & AUTO 2023-02-27 05:40:00 [facility]OLIC PANEL 2023-02-27 05:40:00 Blayneheydi [facility] PHOSPHORUS 2023-02-27 05:40:[address] [facility] MAGNESIUM 2023-02-27 05:40:00 Ali [facility] CBC W/PLT COUNT & AUTO 2023-02-27 05:40:00 Pieter [facility] POCT-GLUCOSE METER 2023-02-26 21:50:00 Rony [facility] POCT-GLUCOSE METER 2023-02-26 17:06:00 [facility] POCT-GLUCOSE METER 2023-02-26 11:50:00 [facility] POCT-GLUCOSE METER 2023-02-26 07:19:00 Rony, [facility] BASIC METABOLIC PANEL 2023-02-26 06:20:00 [facility] CBC W/PLT COUNT & AUTO 2023-02-26 06:20:00 Alma Stapleton [facility] MAGNESIUM 2023-02-26 06:20:00 Blayneheydi [facility] PHOSPHORUS 2023-02-26 06:20[facility]00 [facility] CBC W/PLT COUNT & AUTO 2023-02-26 06:20:00 Zachary Stapletonina [facility] POCT-GLUCOSE METER 2023-02-25 22:12:00 Rony [facility] POCT-GLUCOSE METER 2023-02-25 17:53:00 [facility] POCT-GLUCOSE METER 2023-02-25 13:18:00 [facility] POCT-GLUCOSE METER 2023-02-25 07:43:00 [facility] CBC W/PLT COUNT & AUTO 2023-02-25 05:11:00 [facility] BASIC METABOLIC PANEL 2023-02-25 05:11:00 [facility]ES[facility]UM 2023-02-25 05:11:00 [facility] PHOS[facility]ORUS 2023-02-25 05:11:00 [facility] CBC W/PLT COUNT & AUTO 2023-02-25 05:11:00 [facility] POCT-GLUCOSE METER 2023-02-25 05:02:00 [facility] POCT-GLUCOSE METER 2023-02-24 23:36:00 [facility] POCT-GLUCOSE METER 2023-02-24 17:29:00 [facility] POCT-GLUCOSE METER 2023-02-24 12:11:00 [facility] POCT-GLUCOSE METER 2023-02-24 06:15:00 [facility] CBC W/PLT COUNT & AUTO 2023-02-24 04:09:00 [facility] BASIC METABOLIC PANEL 2023-02-24 04:09:00 [facility] MAGNESIUM 2023-02-24 04:09:00 Pieter [facility] PHOSPHORUS 2023-02-24 04:09:00 [facility] CBC W/PLT COUNT & AUTO 2023-02-24 04:09:00 [facility] POCT-GLUCOSE METER 2023-02-23 21:26:00 [facility] POCT-GLUCOSE METER 2023-02-23 15:43:00 [facility] MR BRAIN WITH & WITHOUT IV 2023-02-23 14:39:00 Baylee Massey [facility] CONTRAST [facility] POCT-GLUCOSE METER 2023-02-23 09:03:00 [facility] POCT-GLUCOSE METER 2023-02-23 05:29:00 [facility] CBC W/PLT COUNT & AUTO 2023-02-23 01:48:00 [facility] BASIC METABOLIC PANEL 2023-02-23 01:48:00 [facility] MAGNESIUM 2023-02-23 01:48:00 [facility] PHOSPHORUS 2023-02-23 01:48:00 [facility] CBC W/PLT COUNT & AUTO 2023-02-23 01:48:00 Baylee Massey [facility] (CELLAVISION MANUAL DIFF) 2023-02-23 01:48:[address] [facility] POCT-GLUCOSE METER 2023-02-23 00:43:00 [facility] POCT-GLUCOSE METER 2023-02-22 17:33:00 [facility] CRANIECTOMY OR CRANIOTOMY, 2023-02-22 08:30:00 Leander Matias [facility] FOR EXCISION OF BRAIN Medical Ce nter NEOPLASM POCT-GLUCOSE METER 2023-02-22 06:32:00 Shazia Domingo [facility] CBC W/PLT COUNT & AUTO 2023-02-22 05:15:00 [facility] BASIC METABOLIC PANEL 2023-02-22 05:15:00 [facility] MAGNESIUM 2023-02-22 05:15:00 [facility] PHOSPHORUS 2023-02-22 05:15:00 [facility] TYPE AND SCREEN, AUTOMATED 2023-02-22 05:15:00 Danielle Gonzalez [facility] CBC W/PLT COUNT & AUTO 2023-02-22 05:15:00 Sam [facility] POCT-GLUCOSE METER 2023-02-21 23:35:00 Shazia Domingo [facility] SARS-COV2/RT-PCR ([facility] 2023-02-21 17:24:00 [facility] POCT-GLUCOSE METER 2023-02-21 17:23:00 Shazia Domingo [facility] PROTHROMBIN TIME/INR 2023-02-21 15:13:00 [facility] APTT 2023-02-21 15:13:00 [facility] POCT-GLUCOSE METER 2023-02-21 11:51:00 Shazia Domingo [facility] CBC W/PLT COUNT & AUTO 2023-02-21 05:04:00 [facility] BASIC METABOLIC PANEL 2023-02-21 05:04:00 Pieter [facility] MAGNESIUM 2023-02-21 05:04:00 [facility] 2023-02-21 05:04:00 [facility] CBC W/PLT COUNT & AUTO 2023-02-21 05:04:00 Sam [facility] POCT-GLUCOSE METER 2023-02-21 04:01:00 Shazia Domingo [facility] POCT-GLUCOSE METER 2023-02-20 23:41:00 Shazia Domingo [facility] POCT-GLUCOSE METER 2023-02-20 16:28:00 Shazia Domingo [facility] POCT-GLUCOSE METER 2023-02-20 11:44:00 Shazia Domingo [facility] POCT-GLUCOSE METER 2023-02-20 10:41:00 Shazia Domingo [facility] POCT-GLUCOSE METER 2023-02-20 04:41:00 Shazia Domingo [facility] CBC W/PLT COUNT & AUTO 2023-02-20 03:40:00 [facility] BASIC METABOLIC PANEL 2023-02-20 03:40:00 [facility] MAGNESIUM 2023-02-20 03:40:00 [facility] PHOSPHORUS 2023-02-20 03:40:00 [facility] CBC W/PLT COUNT & AUTO 2023-02-20 03:40:00 Sam [facility] POCT-GLUCOSE METER 2023-02-19 23:41:00 Shazia Domingo [facility] POCT-GLUCOSE METER 2023-02-19 19:33:00 Shazia Domingo [facility] POCT-GLUCOSE METER 2023-02-19 16:22:00 Shazia Domingo [facility] POCT-GLUCOSE METER 2023-02-19 11:07:00 Shazia Domingo [facility] CBC W/PLT COUNT & AUTO 2023-02-19 06:06:00 [facility] BASIC METABOLIC PANEL 2023-02-19 06:06:00 [facility] MAGNESIUM 2023-02-19 06:06:00 [facility]US 2023-02-19 06:06:00 [facility] CBC W/PLT COUNT & AUTO 2023-02-19 06:06:00 Sam [facility] POCT-GLUCOSE METER 2023-02-19 05:31:00 Shazia Domingo [facility] POCT-GLUCOSE METER 2023-02-19 00:01:00 Shazia Domingo [facility] POCT-GLUCOSE METER 2023-02-18 12:10:00 Shazia Domingo [facility] POCT-GLUCOSE METER 2023-02-18 06:02:00 Shazia Domingo [facility] CBC W/PLT COUNT & AUTO 2023-02-18 05:57:00 [facility] BASIC METABOLIC PANEL 2023-02-18 05:57:00 Pieter [facility] MAGNESIUM 2023-02-18 05:57:00 Pieter [facility] PHOSPHORUS 2023-02-18 05:57:00 [facility] CBC W/PLT COUNT & AUTO 2023-02-18 05:57:00 Katja Vargas [facility] POCT-GLUCOSE METER 2023-02-18 00:26:00 Shazia Domingo [facility] XR CHEST 1 VIEW PORTABLE / 2023-02-17 17:56:00 Giovanny De Leon [facility] POCT-GLUCOSE METER 2023-02-17 17:02:00 Shazia Domingo [facility] XR CHEST 1 VIEW PORTABLE / 2023-02-17 15:27:00 Giovanny De Leon [facility] CT BIOPSY LUNG 2023-02-17 15:05:00 Malou [facility] TISSUE EXAM 2023-02-17 14:51:[address] [facility] POCT-GLUCOSE METER 2023-02-17 12:03:00 Shazia Domingo [facility] POCT-GLUCOSE METER 2023-02-17 05:35:00 Eva Santiago [facility] CBC W/PLT COUNT & AUTO 2023-02-17 04:52:00 Alma Stapleton [facility] BASIC METABOLIC PANEL 2023-02-17 04:52:00 Blayneheydi [facility] MAGNESIUM 2023-02-17 04:52:00 Pieter [facility] PHOSPHORUS 2023-02-17 04:52:00 [facility] CBC W/PLT COUNT & AUTO 2023-02-17 04:52:00 Sam [facility] POCT-GLUCOSE METER 2023-02-17 00:02:00 [facility] WITHOUT IV 2023-02-16 21:20:00 Dhaval Levy [facility] PROTHROMBIN TIME/INR 2023-02-16 18:14:00 Dhaval Levy [facility] APTT 2023-02-16 18:14:00 Dhaval Levy [facility] POCT-GLUCOSE METER 2023-02-16 17:43:00 [facility] PO[facility]SE [facility]ER 2023-02-16 11:02:00 Jakc Eva [facility] SODIUM, RANDOM URINE 2023-02-16 07:58:00 Sam [facility] CREATININE, RANDOM URINE 2023-02-16 07:58:00 Katja Vargas [facility] POCT-GLUCOSE METER 2023-02-16 06:13:00 Edilia Westfall [facility] CBC W/PLT COUNT & AUTO 2023-02-16 05:20:00 Pieter Alma [facility] BASIC METABOLIC PANEL 2023-02-16 05:20:00 [facility] MAGNESIUM 2023-02-16 05:20:00 Pieter [facility] PHOSPHORUS 2023-02-16 05:20:00 [facility] OSMOLALITY, SERUM 2023-02-16 05:20:00 [facility] AUTO 2023-02-16 05:20:00 [facility] CARCINOEMBRYONIC ANTIGEN 2023-02-16 03:37:00 Edilia Westfall [facility], I [facility] (CEA) [facility], MANUAL 2023-02-16 03:37:00 Ning Tavarez [facility] CT BRAIN WITHOUT IV 2023-02-16 02:28:00 [facility] CONTRAST [facility] CT CHEST WITH IV CONTRAST 2023-02-16 02:28:[address] [facility] [address] ABDOMEN/PELVIS WITH IV 2023-02-16 02:28:00 [facility] CBC W/PLT COUNT & AUTO 2023-02-15 23:09:00 [facility] BASIC METABOLIC PANEL 2023-02-15 23:09:00 [facility] PROTHROMBIN TIME/INR 2023-02-15 23:09:00 [facility] TYPE AND SCREEN, AUTOMATED 2023-02-15 23:09:00 [facility] CBC W/PLT COUNT & AUTO 2023-02-15 23:09:00 [facility] XR CHEST 1 VIEW PORTABLE / 2023-02-15 19:09:00 [facility] BEDSIDE [facility] Plan of Care Planned Activity Planned Date Details Comments Source Future Scheduled 2023-06-[address] [facility] Test 00:00:00 (Season Ended) [code = [facility] INFLUENZA VACCINE (Season Ended)] Future Scheduled [address] [facility] Test 00:00:00 (12+) [code = Medical Center DEPRESSION SCREENING (12+)] Future Scheduled 2007 Lipid panel (procedure) [facility] Test 00:00:00 [code = 77685735] Medical Ce nter Future Scheduled 1983 Screening for malignant [facility] Test 00:00:00 neoplasm of cervix Medical C enter (procedure) [code = 789456928] Future Scheduled 1981 DTAP/TDAP/TD VACCINES CH I [...] breast Medical C enter (procedure) [code = 415354118] Future Scheduled 1962 CT Colonography (combo) [facility] Test 00:00:00 [code = CT Colonography [facility] (combo)] Future Scheduled 1962 Screening for malignant [facility] Test 00:00:00 neoplasm of colon Medical Ce nter (procedure) [code = 114444397] Future Scheduled 1962 Screening for malignant [facility] Test 00:00:00 neoplasm of colon Medical Ce nter (procedure) [code = 746631037] Future Scheduled 1962 Screening for malignant [facility] Test 00:00:00 neoplasm of colon Medical Ce nter (procedure) [code = 178850090] Future Scheduled 1962 Screening for malignant [facility] Test 00:00:00 neoplasm of colon Medical Ce nter (procedure) [code = 649423873] Future Scheduled 1960 Sigmoidoscopy [code = [facility]00 S[facility]oscopy] Medical Cente r Encounters Start End Encounter Admission Attending Care Care Encounter Source Date/Time Date/Time Type Type Clinicians Facility Department ID 2023-05-31 Inpatient ER [facility] [id number] [facility] 09:01:32 DESTINY 2023-05-30 [id number] 03:42:06 2023-05-30 [facility] [id number] 03:42:00 2023-05-30 [facility] [id number] 03:41:43 2023-05-30 [facility] [id number] 03:02:41 2023-05-12 Out[place] 3 [place] [id number] [facility] 15:11:04 [facility] 2023-05-09 Outpatient 3 [place] [id number] [facility] 13:49:44 Kevin [facility] 2023-05-05 Outpatient 3 [place] [id number] [facility] 10:57:19 Kevin [facility] 2023-05-02 Inpatient ER [facility] [id number] [facility] 17:31:27 2023-05-02 Inpatient ER SEBAS [facility] [id number] [facility] 07:17:15 YAMILKA 2023-05-01 Inpatient ER [facility] [id number] [facility] 11:09:55 YAMILKA 2023-04-29 Inpatient ER HERNANDES, [facility] [id number] [facility] 08:35:13 AMBERLY 2023-04-29 Inpatient ER PITTARD, [facility] [id number] [facility] 02:50:55 TANIA 2023-04-29 Inpatient ER HERNANDES, [facility] [id number] [facility] 01:19:07 AMBERLY 2023-05-29 2023-06-[address] [facility] Surgery [id number] SLE 22:02:00 17:02:00 MRINALINI 2023-05-30 2023-05-30 Inpatient ER DAHLIA TAYLOR [facility] [id number] SLE 09:25:26 00:00:00 2023-04-28 2023-05-08 Inpatient ER [facility] [id number] SLE 22:24:00 15:27:00 2023-05-03 2023-05-03 Inpatient ER SEBAS [facility] [id number] SLE 14:55:49 00:00:00 YAIMLKA 2023-04-30 2023-04-30 Inpatient ER [facility] [id number] SLE 12:43:11 23:59:00 2023-04-30 2023-04-30 Inpatient ER [facility] [id number] SLE 12:43:15 00:00:00 2023-02-15 2023-02-[address] [facility] Surgery [id number] SLE 15:55:00 13:18:00 AR 2023-02-22 2023-02-22 Anesthesia Danielle Gonzalez [facility] [id number] [facility] 08:30:00 13:46:00 Event [facility] 2023-02-22 2023-02-22 Surgery Leander Matias [facility] [id number] 09:00:00 13:35:00 [facility] Results Test Description Test Time Test Comments Results Result [facility] e Comments TISSUE EXAM 2023-07-18 Surgical Pathology Report 09:: Case: [id number] Authorizing Provider: Leander Matias MD Collected: 02/22/2023 10:54 AM Ordering Location: [facility] PERIOPERATIVE Received: 02/22/2023 10:58 AM SERVICES Pathologist: Parker Petersen MD Specimens: A) - Brain, Left, LEFT FRONTAL BRAIN TUMOR B) - Brain, Right, RIGHT FRONTAL BRAIN TUMOR C) - Brain, Left, LEFT FRONTAL BRAIN TUMOR Lung NGS fusion panel was performed at the request of Dr. Suly Womack (analysis performed and interpreted at [facility]). It shows no evidence of a fusion RNA alteration involving any of the gene in the NGS panel. Please see the scanned report for detail.Addendum electronically signed by Parker Petersen MD on 07/18/2023 at 9:25 AMPD-L1 was performed at the request of Dr. Suly Womack (analysis performed and interpreted at [facility]). It shows:PD-L1 22C3 FDA for NSCLC: PD-L1 expressionTumor proportion score: 35%Intensity: 1+Please refer to the scanned [facility] report for detail.Addendum electronically signed by Parker Petersen MD on 07/11/2023 at 11:42 AMA. 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; see comment Signing Pathologist Direct Phone Line: [phone] y signed by Parker Petersen MD on [...] mucinAdditional immunohistochemical stains (performed and interpreted at [facility]) shows:- NUT: Negative- P40: Positive [...] has adequate tumor cellularity for additional ancillary studies.[id number], [id number], [id number], [id number], [id number] patient is a 62-year-old female with a lung lesion status post biopsy ([id number]) and a large left frontal brain lesion [...] RightReceived in formalin, labeled the patient's name, MRN and designated as "right frontal brain tumor" is a 1.0 x 0.3 x 0.3 cm lan-white piece of tissue. It is submitted entirely in cassette B1 following filtration.C. Brain, LeftReceived in formalin, labeled the patient's name, MRN and designated [...] evaluated Immunohistochemistry technical testing was performed at [facility], Pathology Laboratory where it was developed [...] qualified to perform high complexity clinical laboratory testing.[facility], Department of Pathology, [address] [place] [id number], [facility], [address] [place] [id number], [facility], [address] [place] [phone], TISSUE EXAM 2023-06-12 Surgical Pathology Report 15:33:56 Case: [id number] Authorizing Provider: Lisa Jarrett MD Collected: 05/30/2023 09:47 PM Ordering Location: [address] Received: 05/31/2023 10:24 AM Service Pathologist: Vannesa Blair MD Specimen: Brain, Left Frontal Mass BRAIN, LEFT FRONTAL MASS, CRANIOTOMY WITH RESECTION: - METASTATIC CARCINOMA, COMPATIBLE WITH LUNG PRIMARY Signing Pathologist Direct Phone Line: [phone] y signed by Vannesa Blair MD on 06/12/2023 at 3:33 [id number] female with metastatic non-small cell lung carcinoma.A. BrainReceived in formalin labeled with the patient's name, accession number and "left frontal mass" is a 2.0 x 2.0 x 0.4 cm aggregate of lan-red soft tissue which is submitted in toto in A1.RONEL Verdugo, HT (ASCP)H&E-stained sections show metastatic carcinoma predominantly forming solid sheets with focal gland formation. Mitotic activity is robust and foci of necrosis are present with scattered mixed inflammation. Additionally, there is dense fibrous tissue present with a mixed acute and chronic inflammation infiltration. The background brain parenchymal shows reactive astrogliosis. Immunohistochemical studies show that the neoplasm is positive for CK7 and TTF1. Special stains for organisms, including Cecy, GMS and Gram are negative.Overall, these findings are most consistent with metastatic carcinoma, with an immunophenotype compatible with lung primary.The interpretation of this case included the use of immunohistochemistry or special stains.Control Slides Examined: In-house known positive controls were evaluated along with the test tissue. These control slides run alongside of the patients sample show appropriate staining. Internal positive and negative controls when available are evaluated Immunohistochemistry technical testing was performed at [facility], Pathology Laboratory where it was developed [...] qualified to perform high complexity clinical laboratory testing.[facility], Department of Pathology, [address] [place] [id number], [facility], [facility], [address] [place] [id number], DcprgtSan Gabriel Valley Medical Center, Department of Pathology, [address] [place] [id number], POCT-GLUCOSE METER 2023-06-05 09:18:58 Test Item Value Reference Range Interpretation Comme nts POC-GLUCOSE METER ([employer]) 97 mg/dL 70-110 : TESTED AT [address] (test code = 1538) [facility] X, [address]: Grades 6 Through 8 Teacher/Techni nate ID = [id number] for Umeh, Akumbu POCT-GLUCOSE [id number] 21:18:38 Test Item Value Reference Range Interpretation Comments POC-GLUCOSE METER 122 mg/dL 70-110 H : TESTED A [place] [address] ([employer]) (test code = [facility], 1538) [address]: Grades 6 Through 8 Teacher/Techni nate ID = [id number] for JODIE ANGUIANO POCT-GLUCOSE [id number] 17:58:40 Test Item Value Reference Range Interpretation Comments POC-GLUCOSE METER 128 mg/dL 70-110 H : TESTED A [facility] 6720 ([employer]) (test code = [facility] R [facility], 1538) [address]: Grades 6 Through 8 Teacher/Techni nate ID = [id number] for Um eh, Akumbu POCT-GLUCOSE [id number] 12:03:09 Test Item Value Reference Range Interpretation Comments POC-GLUCOSE METER 167 mg/dL 70-110 H : TESTED A T [facility] 6720 (BEAKER) (test code = [facility], 1538) [address]: Grades 6 Through 8 Teacher/Techni nate ID = [id number] for Um eh, Akumbu POCT-GLUCOSE [id number] 07:59:01 Test Item Value Reference Range Interpretation Comments POC-GLUCOSE METER 131 mg/dL 70-110 H : TESTED A T [facility] 6720 (BEAKER) (test code = [facility], 1538) 58[address]: Grades 6 Through 8 Teacher/Techni nate ID = [id number] for Um eh, Akumbu POCT-GLUCOSE [id number] 21:29:34 Test Item Value Reference Range Interpretation Comments POC-GLUCOSE METER 111 mg/dL 70-110 H : TESTED A T [facility] 6720 (BEAKER) (test code [facility], = 1538) 57687: Grades 6 Through 8 Teacher/Techni nate ID = [id number] for Jus Hicks POCT-GLUCOSE [id number] 17:39:13 Test Item Value Reference Range Interpretation Comments POC-GLUCOSE METER 131 mg/dL 70-110 H : TESTED A T [facility] 6720 (BEAKER) (test code = [facility], [facility]8) [address]: Grades 6 Through 8 Teacher/Techni nate ID = [id number] for HI DALGO, AGLAE POCT-GLUCOSE [id number] 12:03:00 Test Item Value Reference Range Interpretation Comments POC-GLUCOSE METER 133 mg/dL 70-110 H : TESTED A T [facility] 6720 (BEAKER) (test code = [facility], 1538) 07251: Grades 6 Through 8 Teacher/Techni nate ID = [id number] for HI DALGO, AGLAE POCT-GLUCOSE [id number] 08:24:58 Test Item Value Reference Range Interpretation Comments POC-GLUCOSE METER 119 mg/dL 70-110 H : TESTED A T [facility] 6720 (BEAKER) (test code = [facility], [facility]8) [address]: Grades 6 Through 8 Teacher/Techni nate ID = [id number] for HI DALGO, AGLAE POCT-GLUCOSE [id number] 22:17:26 Test Item Value Reference Range Interpretation Comments POC-GLUCOSE METER 127 mg/dL 70-110 H : TESTED A T [facility] 6720 (BEAKER) (test code = [facility], 1538) 722[address]: Grades 6 Through 8 Teacher/Techni nate ID = [id number] for JODIE ANGUIANO POCT-GLUCOSE [id number] 18:13:32 Test Item Value Reference Range Interpretation Comments POC-GLUCOSE METER 142 mg/dL 70-110 H : TESTED A T [facility] 6720 (BEAKER) (test code = [facility], 1538) 487[address]: Grades 6 Through 8 Teacher/Techni nate ID = [id number] for Qian Anguiano POCT-GLUCOSE [id number] 13:12:10 Test Item Value Reference Range Interpretation Comments POC-GLUCOSE METER 100 mg/dL 70-110 : TESTED A T [facility] 6720 (BEAKER) (test code = [facility], 1538) 26551: Grades 6 Through 8 Teacher/Techni nate ID = [id number] for Qian Anguiano BASIC METABOLIC [id number] 13:03:37 Test Item Value Reference Range Interpretation Comments [...] (BEAKER) (test code = 652) CALCIUM (BEAKER) 9.4 mg/dL 8.4-10.2 (test code = 697) EGFR [...] GFR is not appl icable for dialysis patiaddie samson Grades 6 Through 8 Teacher ID - ADMINPOCT-GLUCOSE [id number] 08:37:49 Test Item Value Reference Range Interpretation Comments POC-GLUCOSE METER 137 mg/dL 70-110 H : TESTED A T [facility] 6720 (BEAKER) (test code = [facility], 153) 38289: Grades 6 Through 8 Teacher/Techni nate ID = [id number] for Qian Anguiano POCT-GLUCOSE [id number] 22:11:59 Test Item Value Reference Range Interpretation Comments POC-GLUCOSE METER 154 mg/dL 70-110 H : TESTED A T [facility] 6720 (BEAKER) (test code = [facility], [facility]8) 00181: Grades 6 Through 8 Teacher/Techni nate ID = [id number] for Corrina Vilchis POCT-GLUCOSE [id number] 16:58:44 Test Item Value Reference Range Interpretation Comments POC-GLUCOSE METER 149 mg/dL 70-110 H : TESTED A T [facility] 6720 (BEAKER) (test code = [facility], 1538) 91176: Grades 6 Through 8 Teacher/Techni nate ID = [id number] for Ca endy, Zennia POCT-GLUCOSE [id number] 12:09:28 Test Item Value Reference Range Interpretation Comments POC-GLUCOSE METER 144 mg/dL 70-110 H : TESTED A T [facility] 6720 (BEAKER) (test code = [facility], 1538) 86715: Grades 6 Through 8 Teacher/Techni nate ID = [id number] for Ca endy, Zennia POCT-GLUCOSE [id number] 07:51:23 Test Item Value Reference Range Interpretation Comments POC-GLUCOSE METER 121 mg/dL 70-110 H : TESTED A T [facility] 6720 (BEAKER) (test code = [facility], 1538) 49281: Grades 6 Through 8 Teacher/Techni nate ID = [id number] for Ca endy, Zennia POCT-GLUCOSE [id number] 01:35:26 Test Item Value Reference Range Interpretation Comments POC-GLUCOSE METER 121 mg/dL 70-110 H : TESTED A T [facility] 6720 (BEAKER) (test code = DICK Schmidt [place], 1538) 25[address]: Grades 6 Through 8 Teacher/Techni nate ID = [id number] for MARICARMEN MEDEIROS POCT-GLUCOSE [id number] 16:19:27 Test Item Value Reference Range Interpretation Comments POC-GLUCOSE METER 132 mg/dL 70-110 H : TESTED A T [facility] 6720 (RACHELL) (test code = DICK Schmidt [facility], 1538) 0[address]: Grades 6 Through 8 Teacher/Techni nate ID = [id number] for Maryam Can MR BRAIN WITH & WITHOUT IV [id number] 12:18:08 [facility]DE[facility] : 1960 Sex: FMRI Brain with and without contrastClinical History: Post op, please obtain stealth sequence for radiationplanningTechnique: MRI of the brain utilizing axial T1, T2, FLAIR, GRE, DWI,sagittal T1; and postgadolinium axial, sagittal, and coronal T1- weightedimages. Stealth protocol sequences are included.Comparisons: 05/30/2023Findings:The patient is status post repeat left vertex craniotomy for resectionofthe perirolandic mass. There are residual blood products withoutdefinite evidence for masslike enhancement in the surgical cavity.Elsewhere, multifocal nodular pachymeningeal spread of neoplasm isunchan ged. An enhancing right middle cerebral artery aneurysm is againnoted. There is no evidence for acute infarction. T2 FLAIR hyperintensevasogenic edema in the left greater than right cerebral hemispheres isgrossly unchanged. Generalized parenchymal volume loss is again seenwithout hydrocephalus.IMPRESSION:Since 05/30/2023, status post repeat craniotomy without definite residualmasslike enhancement in the left perirolandic surgical cavity. Other diffuse pachymeningeal nodular enhancement is unchanged.Electronically Signed By: Scotty Castro05/31/2023 12:20 CDTWorkstation Name: [id number] 11:17:16 Test Item Value Reference Range Interpretation Comments POC-GLUCOSE METER 133 mg/dL 70-110 H : TESTED A T [facility] 6720 (BEAKER) (test code = DICK Schmidt [facility], 1538) 925[address]: Grades 6 Through 8 Teacher/Techni nate ID = [id number] for BAYLEE HOBSON BASIC METABOLIC [id number] 04:37:34 Test Item Value Reference Range Interpretation Comments SODIUM (BEAKER) 134 meq/L 136-145 L (test code = 381) POTASSIUM 4.0 meq/L 3.5-5.1 (BEAKER) (test code = 379) CHLORIDE (BEAKER) 101 meq/L 98-107 (test code = 382) CO2 (BEAKER) 20 meq/L 22-29 L (test code = 355) BLOOD UREA 12 mg/dL 7-21 NITROGEN (BEAKER) (test code = 354) CREATININE 0.72 mg/dL 0.57-1.25 (BEAKER) (test code = 358) GLUCOSE RANDOM 136 mg/dL 70-105 H (BEAKER) (test code = 652) CALCIUM (BEAKER) 9.5 mg/dL 8.4-10.2 (test code = 697) EGFR [...] not appl icable for dialysis patien ts Grades 6 Through 8 Teacher ID - ADMINCBC (HEMOGRAM ONLY)2023-05-31 04:23:09 Test Item Value Reference Range Interpretation Comments WHITE BLOOD CELL COUNT (BEAKER) 19.7 K/ L 3.5-10.5 H (test code = 775) RED BLOOD CELL COUNT (BEAKER) 3.50 M/ L 3.93-5.22 L (test code = 761) HEMOGLOBIN (BEAKER) (test code = 10.6 GM/DL 11.2-15.7 L 410) HEMATOCRIT (BEAKER) (test code = 31.4 % 34.1-44.9 L 411) MEAN CORPUSCULAR VOLUME (BEAKER) 90 fL 79-95 (test code = 753) MEAN CORPUSCULAR HEMOGLOBIN 30.3 pg 25.6-32.2 (BEAKER) (test code = 751) MEAN CORPUSCULAR HEMOGLOBIN CONC 33.8 GM/DL 32.2-35.5 (BEAKER) (test code = 752) RED CELL DISTRIBUTION WIDTH 12.9 % 11.7-14.4 (BEAKER) (test code = 412) PLATELET COUNT (BEAKER) (test 552 K/CU MM 150-450 H code = 756) MEAN PLATELET VOLUME (BEAKER) 9.0 fL 9.4-12.3 L (test code = 754) NUCLEATED RED BLOOD CELLS 0 /100 WBC 0-0 (BEAKER) (test code = 413) CALCIUM, [id number] 21:49:34 Test Item Value Reference Range Interpretation Comments CALCIUM IONIZED (BEAKER) (test 1.06 mmol/L 1.12-1.27 L code = 698) PH, BLOOD (BEAKER) (test code = 7.45 1810) SODIUM NA-STAT [id number] 21:49:33 Test Item Value Reference Range Interpretation Comments SODIUM (BEAKER) (test code = 381) 131 meq/L 136-145 L HGB/HCT (H&H) - STAT [id number] 21:49:33 Test Item Value Reference Range Interpretation Comments HEMOGLOBIN (BEAKER) (test code = 9.9 GM/DL 12.0-15.0 L 410) HEMATOCRIT (BEAKER) (test code = 29.0 % 36.0-45.0 L 411) BLOOD GAS, [id number] 21:49:32 Test Item Value Reference Range Interpretation Comments PH ARTERIAL (BEAKER) (test code = 7.46 7.35-7.45 H 383) PCO2 ARTERIAL (BEAKER) (test code 31 mm Hg 35-45 L = 384) PO2 ARTERIAL (BEAKER) (test code 189 mm Hg 80-90 H = 385) O2 SATURATION ARTERIAL (BEAKER) 99.4 % 96.0-97.0 H (test code = 386) HCO3 ARTERIAL (BEAKER) (test code 22 mmol/L = 388) BASE EXCESS ARTERIAL (BEAKER) -1.7 mmol/L -2.0-3.0 (test code = 387) PATIENT TEMPERATURE (BEAKER) 36.0 (test code = 1818) FIO2 (BEAKER) (test code = 1819) 50.0 POTASSIUM-STAT [id number] 21:49:22 Test Item Value Reference Range Interpretation Comments POTASSIUM (BEAKER) (test code = 3.9 meq/L 3.6-5.5 379) GLUCOSE-STAT [id number] 21:49:16 Test Item Value Reference Range Interpretation Comments GLUCOSE RANDOM (BEAKER) (test code 128 mg/dL 70-110 H = 652) POCT-GLUCOSE [id number] 17:57:31 Test Item Value Reference Range Interpretation Comments POC-GLUCOSE METER 128 mg/dL 70-110 H : TESTED A T [facility] 6720 (BEAKER) (test code = [facility] [employer] [facility], 1538) [address]: Grades 6 Through 8 Teacher/Techni nate ID = [id number] for Qian Anguiano [id number] 16:21:33 Test Item Value Reference Range Interpretation Comments POTASSIUM (BEAKER) (test code = 4.5 meq/L 3.5-5.1 379) Grades 6 Through 8 Teacher ID - ADMINPOCT-GLUCOSE [id number] 12:16:59 Test Item Value Reference Range Interpretation Comments POC-GLUCOSE METER 108 mg/dL 70-110 : TESTED A T [facility] 6720 (BEAKER) (test code = [facility] [employer] [facility], 1538) 887[address]: Grades 6 Through 8 Teacher/Techni nate ID = [id number] for Maritza sweeney, Debbiewanda MR BRAIN WITH & WITHOUT IV [id number] 11:13:08 [facility] 1960 Sex: FMRI Brain with and without contrastClinical History: Neuro deficit, acute, stroke suspectedTechnique: MRI of the brain utilizing axial T1, T2, FLAIR, GRE, DWI,sagittal T1; and postgadolinium axial, sagittal, and coronal T1- weightedimages.Comparisons: CT 05/30/2023, MRI 05/03/2023Findings:A left frontal craniotomy is again seen. The underlying enhancing masshas increased in size measuring 3.4 cm TV x 4.2 cm AP x 3.5 cm CC,previously 2.0 cm x 3.0 cm x 2.8 cm. Associated hemorrhage is alsosubstantially increased since the previous MRI, but similar to the CT.Surrounding nonenhancing T2 FLAIR is no abnormality is similar versusminimally increased.An enhancing right parasagittal mass at the cerebral vertex has alsoincreased measuring 1.0 cm, previously 0.6 cm. There is new diffusenodular pachymeningeal enhancement seen most prominently along theposterior falx and overlying the posterior cerebral hemispheres.5 mm enhancement corresponding to a known right middle cerebral arteryaneurysm is again seen.There is no evidence for acute infarct. There is no hydrocephalus. Thereare no extra-axial fluid collections. The craniocervical junction ispreserved. The major intracranial flow-voids otherwise appear patent. IMPRESSION:Since 05/03/2023, the left frontal lobe mass has increased in size withincreased internal hemorrhage.Right cerebral vertex parasagittal enhancing nodule has also increased.New diffuse nodularpachymeningeal enhancement compatible with spread ofneoplasm.Right MCA aneurysm again noted.Electronically Signed By: Scotty Castro05/30/2023 11:15 CDTWorkstation Name: [id number] ABDOMEN/PELVIS WITH IV [id number] 07:53:36 [facility] : 1960 Sex: FTECHNIQUE: CT of the chest, abdomen, and pelvis WITH intravenouscontrast and WITHOUT oral contrast. Dose modulation, iterativereconstruction, and/or weight-based adjustment of the mA/kV was utilizedto reduce the radiation dose to as low as reasonably achievable.INDICATION: Unlisted Reason for ExamStaging. Metastatic adenocarcinoma with brain metastases. Recent fall.COMPARISON: CT chest, abdomen, pelvis02/16/2023.FINDINGS:LINES/TUBES: None.LUNGS AND AIRWAYS: Mild upper lobe predominant centrilobular emphysema.3.1 x 2.0 cm lobulated and somewhat spiculated mass within the leftlower lobe, not significantly changed compared to the prior examination.Central airways are patent. No new pulmonary nodule or m ass.PLEURA: Tiny left pleural effusion, as before. No right pleuraleffusion..HEART AND MEDIASTINUM: The visualized thyroid gland is normal. Prominentleft hilar lymph node measuring 1.2 x 0.8 cm, unchanged. Otherwise, nodiscrete enlarged mediastinal, hilar or axillary lymph node. Heart iswithin normal limits in size. No pericardial effusion. Coronary arteryatherosclerotic calcifications. Left lower lobe segmental andsubsegmental pulmonary artery filling defects compatible with pulmonaryemboli.HEPATOBILIARY: No focal hepatic lesions. Gallbladder is unremarkable. Nobiliary ductal dilatation.SPLEEN: No splenomegaly.PANCREAS: No focal masses or ductal dilatation.ADRENALS: No adrenal nodules.KIDNEYS/URETERS: No hydronephrosis, stones, or masses.PELVIC ORGANS/BLADDER: Unremarkable.PERITONEUM/RETROPERITONEUM: No free air or fluid.LYMPH NODES: No lymphadenopathy.VESSELS: Circumaortic left renal vein is noted scattered aortoiliacatherosclerotic lesions.GI TRACT: No distention or wall thickening. Normal appendix. Colonicdiverticulosis without evidence for acute diverticulitis. BONES AND SOFT TISSUES: There are new superior endplate compressiondeformities of T11 and L1 compared to CT from 02/16/2023. Acute fracturelines are noted at L1. T11 compression deformity is age indeterminate.There is minimal bonyretropulsion at the level of the superior endplateof L1. Comminuted fractures of the posterior aspect of the humeral headpossibly a Hill-Sachs deformity, new since the prior examination.IMPRESSION:1. Lobulated and somewhat spiculated left lower lobe mass not clearlychanged compared to the prior examination. Prominent left hilar lymphnode also remains unchanged. No specific evidence for progressivemetastatic disease to the chest. No evidence for metastatic disease tothe abdomen or pelvis.2. Left lower lobe segmental and subsegmental pulmonary embolus.3. New compression deformities of the T11 and L1 vertebral bodies withminimal bony retropulsion at L1 and acute fracture lines identified atL1. T11 fracture remains age indeterminate and is either subacute oracute.4. New comminuted fracture of the posterior aspect of the left humeralhead, possibly related to a Hill-Sachs deformity from recentdislocation. No dislocation currently.Critical results discussed with and acknowledged by patient's nurse,Tayla, on 05/30/2023 7:52 AM.Electronically Signed By: German Vazquez05/30/2023 07:55 CDTWorkstationName: [id number] CHEST WITH IV [id number] 07:53:36 [facility] : 1960 Sex: FTECHNIQUE: CT of the chest, abdomen, and pelvis WITH intravenouscontrast and WITHOUT oral contrast. Dose modulation, iterativereconstruction, and/or weight-based adjustment of the mA/kV was utilizedto reduce the radiation dose to as low as reasonably achievable.INDICATION: Unlisted Reason for ExamStaging. Metastatic adenocarcinoma with brain metastases. Recent fall.COMPARISON: CT chest, abdomen, pelvis02/16/2023.FINDINGS:LINES/TUBES: None.LUNGS AND AIRWAYS: Mild upper lobe predominant centrilobular emphysema.3.1 x 2.0 cm lobulated and somewhat spiculated mass within the leftlower lobe, not significantly changed compared to the prior examination.Central airways are patent. No new pulmonary nodule or m ass.PLEURA: Tiny left pleural effusion, as before. No right pleuraleffusion..HEART AND MEDIASTINUM: The visualized thyroid gland is normal. Prominentleft hilar lymph node measuring 1.2 x 0.8 cm, unchanged. Otherwise, nodiscrete enlarged mediastinal, hilar or axillary lymph node. Heart iswithin normal limits in size. No pericardial effusion. Coronary arteryatherosclerotic calcifications. Left lower lobe segmental andsubsegmental pulmonary artery filling defects compatible with pulmonaryemboli.HEPATOBILIARY: No focal hepatic lesions. Gallbladder is unremarkable. Nobiliary ductal dilatation.SPLEEN: No splenomegaly.PANCREAS: No focal masses or ductal dilatation.ADRENALS: No adrenal nodules.KIDNEYS/URETERS: No hydronephrosis, stones, or masses.PELVIC ORGANS/BLADDER: Unremarkable.PERITONEUM/RETROPERITONEUM: No free air or fluid.LYMPH NODES: No lymphadenopathy.VESSELS: Circumaortic left renal vein is noted scattered aortoiliacatherosclerotic lesions.GI TRACT: No distention or wall thickening. Normal appendix. Colonicdiverticulosis without evidence for acute diverticulitis. BONES AND SOFT TISSUES: There are new superior endplate compressiondeformities of T11 and L1 compared to CT from 02/16/2023. Acute fracturelines are noted at L1. T11 compression deformity is age indeterminate.There is minimal bonyretropulsion at the level of the superior endplateof L1. Comminuted fractures of the posterior aspect of the humeral headpossibly a Hill-Sachs deformity, new since the prior examination.IMPRESSION:1. Lobulated and somewhat spiculated left lower lobe mass not clearlychanged compared to the prior examination. Prominent left hilar lymphnode also remains unchanged. No specific evidence for progressivemetastatic disease to the chest. No evidence for metastatic disease tothe abdomen or pelvis.2. Left lower lobe segmental and subsegmental pulmonary embolus.3. New compression deformities of the T11 and L1 vertebral bodies withminimal bony retropulsion at L1 and acute fracture lines identified atL1. T11 fracture remains age indeterminate and is either subacute oracute.4. New comminuted fracture of the posterior aspect of the left humeralhead, possibly related to a Hill-Sachs deformity from recentdislocation. No dislocation currently.Critical results discussed with and acknowledged by patient's nurse,Tayla, on 05/30/2023 7:52 AM.Electronically Signed By: German Vazquez05/30/2023 07:55 CDTWorkstationName: [id number] BRAIN - [id number] 07:11:48 [facility] : 1960 Sex: FCT Head without contrastCLINICAL HISTORY: ICHTECHNIQUE: Contiguous thin section axial images of the head per Stealthprotocol. Coronal and sagittal reformations were performed. This examwas performed according to the departmental dose optimization programwhich includes automated exposure control, adjustment of the mA and/orkV according to the patient size, and/or use of an iterativereconstruction techniq ue.COMPARISON: 8/1/2023FINDINGS:The hemorrhagic mass in the left frontal lobe is grossly similarappearing with prominent surrounding parenchymal edema. Local masseffect is again seen with without significant midline shift. A smallhemorrhagic lesion is again seen in the adjacent right parafalcineregion. There is no CT evidence for acute infarct. There is no hydrocephalus.There are no extra-axial fluid collections. Left asymmetric vertexcraniotomy changes are again seen.IMPRESSION:Treatment planning stealth CT as discussed above.Electronically Signed By: Scotty Castro05/30/2023 07:13 CDTWorkstation Name : [id number] CHEST 1 VIEW PORTABLE / [id number] 06:53:00 [facility] : 1960 Sex: FINDICATION: Pre- opCOMPARISON: 05/02/2023TECHNIQUE: Single frontal view of the chest.FINDINGS: Lines, tubes, and devices: None.Lungs and pleura: Airspace opacity in the left midlung No pneumothorax.Heart and mediastinum: Normal heart size. Unremarkable mediastinalcontours.Osseous structures: No acute abnormality.Other: None.IMPRESSION:Airspace opacity in the left midlung, similar to prior exam, bettercharacterized on CT chestElectronically Signed By: Zackery Haro05/30/2023 06:55 CDTWorkstation Name: [id number] 02:10:09 Test Item Value Reference Range Interpretation Comments MAGNESIUM (BEAKER) 2.0 mg/dL 1.6-2.6 Specimen slightly (test code = 627) hemolyzed Grades 6 Through 8 Teacher ID - ADMINCOMPREHENSIVE METABOLIC [id number] 02:10:09 Test Item Value Reference Range Interpretation Comments TOTAL PROTEIN 8.1 gm/dL 6.0-8.3 Specimen sligh tly (BEAKER) (test hemolyzed code = 770) ALBUMIN (BEAKER) 4.3 g/dL 3.5-5.0 Specimen sl ightly (test code = 1145) hemolyzed ALKALINE 117 U/L 40-150 PHOSPHATASE (BEAKER) (test code = 346) BILIRUBIN TOTAL 0.3 mg/dL 0.2-1.2 Specimen sli ghtly (BEAKER) (test hemolyzed code = 377) SODIUM (BEAKER) 134 meq/L 136-145 L (test code = 381) POTASSIUM (BEAKER) 5.4 meq/L 3.5-5.1 H Specimen slightly (test code = 379) hemolyzed CHLORIDE (BEAKER) 98 meq/L 98-107 (test code = 382) CO2 (BEAKER) (test 22 meq/L 22-29 code = 355) BLOOD UREA 8 mg/dL 7-21 NITROGEN (BEAKER) (test code = 354) CREATININE 0.65 mg/dL 0.57-1.25 Specimen slight ly (BEAKER) (test hemolyzed code = 358) GLUCOSE RANDOM 132 mg/dL 70-105 H (BEAKER) (test code = 652) CALCIUM (BEAKER) 9.9 mg/dL 8.4-10.2 (test code = 697) AST (SGOT) 17 U/L 5-34 Specimen slight ly (BEAKER) (test hemolyzed code = 353) ALT (SGPT) 14 U/L 6-55 Specimen slight ly (BEAKER) (test hemolyzed code = 347) EGFR (BEAKER) 101 Interpretatio n of eGFR (test code = 1092) mL/min/1.73 values S tage Description sq m Result G1 Katie l [...] not appl icable for dialysis patien ts Grades 6 Through 8 Teacher ID - ADMINPROTHROMBIN TIME/[id number] 01:57:46 Test Item Value Reference Range Interpretation Comments PROTIME (BEAKER) 14.9 seconds 11.9-14.2 H (test code = 759) INR (BEAKER) (test 1.24 See_Comment [Automat ed message] code = 370) The system [employer] generated this result transmitted ref erence range: <=5.90. The reference range was not used to int erpret this result as normal/abnormal . RECOMMENDED COUMADIN/WARFARIN INR THERAPY RANGESSTANDARD DOSE: 2.0 - 3.0 Includes: PROPHYLAXIS for venous thrombosis, systemic embolization; TREATMENT for venous thrombosis and/or pulmonary embolus.HIGH RISK: Target INR is 2.5-3.5 for patients with mechanical heart valves.CBC W/PLT COUNT & AUTO [id number] 01:52:20 Test Item Value Reference Range Interpretation Comments WHITE BLOOD CELL COUNT (BEAKER) 6.4 K/ L 3.5-10.5 (test code = 775) RED BLOOD CELL COUNT (BEAKER) 3.87 M/ L 3.93-5.22 L (test code = 761) HEMOGLOBIN (BEAKER) (test code = 11.4 GM/DL 11.2-15.7 410) HEMATOCRIT (BEAKER) (test code = 35.6 % 34.1-44.9 411) MEAN CORPUSCULAR VOLUME (BEAKER) 92 fL 79-95 (test code = 753) MEAN CORPUSCULAR HEMOGLOBIN 29.5 pg 25.6-32.2 (BEAKER) (test code = 751) MEAN CORPUSCULAR HEMOGLOBIN CONC 32.0 GM/DL 32.2-35.5 L (BEAKER) (test code = 752) RED CELL DISTRIBUTION WIDTH 12.7 % 11.7-14.4 (BEAKER) (test code = 412) PLATELET COUNT (BEAKER) (test 462 K/CU MM 150-450 H code = 756) MEAN PLATELET VOLUME (BEAKER) 8.7 fL 9.4-12.3 L (test code = 754) [...] (test code = 437) NEUTROPHILS ABSOLUTE COUNT 5.69 K/ L 1.56-6.13 (BEAKER) (test code = 670) LYMPHOCYTES ABSOLUTE COUNT 0.56 K/ L 1.18-3.74 L (BEAKER) (test code = 414) MONOCYTES ABSOLUTE COUNT (BEAKER) 0.08 K/ L 0.24-0.36 L (test code = 415) EOSINOPHILS ABSOLUTE COUNT 0.00 K/ L 0.04-0.36 L (BEAKER) (test code = 416) BASOPHILS ABSOLUTE COUNT (BEAKER) 0.00 K/ L 0.01-0.08 L (test code = 417) IMMATURE GRANULOCYTES-RELATIVE 0.30 % 0.00-1.00 PERCENT (BEAKER) (test code = 2801) POCT-GLUCOSE [id number] 12:56:32 Test Item Value Reference Range Interpretation Comments POC-GLUCOSE METER 90 mg/dL 70-110 : TESTED A T [facility] 6720 (BEAKER) (test code = [facility] [employer] [facility], 1538) [address]11: Grades 6 Through 8 Teacher/Techni nate ID = [id number] for ROMMEL ALLEN [id number] 11:02:56 Test Item Value Reference Range Interpretation Comments POTASSIUM (BEAKER) (test code = 4.1 meq/L 3.5-5.1 379) Grades 6 Through 8 Teacher ID - AAHAMIDPOCT-GLUCOSE [id number] 07:50:33 Test Item Value Reference Range Interpretation Comments POC-GLUCOSE METER 97 mg/dL 70-110 : TESTED A T [facility] 6720 (BEAKER) (test code = [facility] [employer] [facility], 1538) 91600: Grades 6 Through 8 Teacher/Techni nate ID = [id number] for ROMMEL ALLEN BASIC METABOLIC [id number] 04:15:26 Test Item Value Reference Range Interpretation [...] not appl icable for dialysis patien ts Grades 6 Through 8 Teacher ID - DREW WCBC W/PLT COUNT & AUTO [id number] 04:10:16 Test Item Value Reference Range Interpretation [...] PERCENT (BEAKER) (test code = 2801) POCT-GLUCOSE [id number] 21:31:11 Test Item Value Reference Range Interpretation Comments POC-GLUCOSE METER 107 mg/dL 70-110 : TESTED A T [facility] 6720 (BEAKER) (test code = [facility], 153) 756[address]: Grades 6 Through 8 Teacher/Techni nate ID = [id number] for Ty ler, Reshawn POCT-GLUCOSE [id number] 17:53:07 Test Item Value Reference Range Interpretation Comments POC-GLUCOSE METER 114 mg/dL 70-110 H : TESTED A T [facility] 6720 (BEAKER) (test code = [facility], 153) 79284: Grades 6 Through 8 Teacher/Techni nate ID = [id number] for Um eh, Akumbu POCT-GLUCOSE [id number] 12:58:41 Test Item Value Reference Range Interpretation Comments POC-GLUCOSE METER 102 mg/dL 70-110 : TESTED A T [facility] 6720 (BEAKER) (test code = DICK Schmidt [facility], 1538) 23436: Grades 6 Through 8 Teacher/Techni nate ID = [id number] for Trey Abraham POCT-GLUCOSE [id number] 09:03:58 Test Item Value Reference Range Interpretation Comments POC-GLUCOSE METER 87 mg/dL 70-110 : TESTED A T [facility] 6720 (BEAKER) (test code = DICK Schimdt [facility], 1538) 70892: Grades 6 Through 8 Teacher/Techni nate ID = [id number] for Trey Leung BASIC METABOLIC [id number] 06:27:58 Test Item Value Reference Range Interpretation [...] not appl icable for dialysis patien ts Grades 6 Through 8 Teacher ID - ADMINCBC W/PLT COUNT & AUTO [id number] 05:36:18 Test Item Value Reference Range Interpretation [...] PERCENT (BEAKER) (test code = 2801) POCT-GLUCOSE [id number] 21:42:01 Test Item Value Reference Range Interpretation Comments POC-GLUCOSE METER 130 mg/dL 70-110 H : TESTED A T [facility] 6720 (BEAKER) (test code = [facility], [facility]) 68533: Grades 6 Through 8 Teacher/Techni nate ID = [id number] for Ty Raoul pittmanhawn POCT-GLUCOSE [id number] 17:23:00 Test Item Value Reference Range Interpretation Comments POC-GLUCOSE METER 114 mg/dL 70-110 H : TESTED A T [facility] 6720 (BEAKER) (test code = [facility], [facility]) 25510: Grades 6 Through 8 Teacher/Techni nate ID = [id number] for Um eh, Akumbu POCT-GLUCOSE [id number] 12:09:27 Test Item Value Reference Range Interpretation Comments POC-GLUCOSE METER 158 mg/dL 70-110 H : TESTED A T [facility] 6720 (BEAKER) (test code = [facility], [facility]8) 80209: Grades 6 Through 8 Teacher/Techni nate ID = [id number] for Um eh, Akumbu POCT-GLUCOSE [id number] 07:52:37 Test Item Value Reference Range Interpretation Comments POC-GLUCOSE METER 108 mg/dL 70-110 : TESTED A T [facility] 6720 (BEAKER) (test code = [facility], [facility]) 19275: Grades 6 Through 8 Teacher/Techni nate ID = [id number] for Um eh, Akumbu BASIC METABOLIC [id number] 07:12:22 Test Item Value Reference Range Interpretation [...] (test code = 697) EGFR (BEAKER) 102 Interpretati on of eGFR (test code = [...] not appl icable for dialysis patien ts Grades 6 Through 8 Teacher ID - ADMINCBC W/PLT COUNT & AUTO [id number] 06:53:15 Test Item Value Reference Range Interpretation [...] PERCENT (BEAKER) (test code = 2801) POCT-GLUCOSE [id number] 20:47:24 Test Item Value Reference Range Interpretation Comments POC-GLUCOSE METER 113 mg/dL 70-110 H : TESTED A T [facility] 6720 (BEAKER) (test code [facility], = 153) 31154: Grades 6 Through 8 Teacher/Techni nate ID = [id number] for Jus Hicks POCT-GLUCOSE [id number] 17:27:51 Test Item Value Reference Range Interpretation Comments POC-GLUCOSE METER 115 mg/dL 70-110 H : TESTED A T [facility] 6720 (BEAKER) (test code = [facility], 153) 07483: Grades 6 Through 8 Teacher/Techni nate ID = [id number] for Um eh, Akumbu POCT-GLUCOSE [id number] 11:46:33 Test Item Value Reference Range Interpretation Comments POC-GLUCOSE METER 102 mg/dL 70-110 : TESTED A T [facility] 6720 (BEAKER) (test code = [facility], 153) 41532: Grades 6 Through 8 Teacher/Techni nate ID = [id number] for Um eh, Akumbu POCT-GLUCOSE [id number] 08:03:17 Test Item Value Reference Range Interpretation Comments POC-GLUCOSE METER 124 mg/dL 70-110 H : TESTED A T [facility] 6720 (BEAKER) (test code = [facility] [place], 1538) 98539: Grades 6 Through 8 Teacher/Techni nate ID = [id number] for Trey brody BASIC METABOLIC [id number] 05:39:55 Test Item Value Reference Range Interpretation [...] not appl icable for dialysis patien ts Grades 6 Through 8 Teacher ID - ADMINCBC W/PLT COUNT & AUTO [id number] 05:23:17 Test Item Value Reference Range Interpretation [...] 0.00-1.00 PERCENT (BEAKER) (test code = 2801) [id number] 22:34:13 Test Item Value Reference Range Interpretation Comments SODIUM (BEAKER) (test code = 381) 132 meq/L 136-145 L Grades 6 Through 8 Teacher ID - ADMINPOCT-GLUCOSE [id number] 20:41:20 Test Item Value Reference Range Interpretation Comments POC-GLUCOSE METER 90 mg/dL 70-110 : TESTED A T [facility] 6720 (BEAKER) (test code = DICK Schmidt [facility], 1538) 21192: Grades 6 Through 8 Teacher/Techni nate ID = [id number] for Jus Hicks POCT-GLUCOSE [id number] 17:53:44 Test Item Value Reference Range Interpretation Comments POC-GLUCOSE METER 107 mg/dL 70-110 : TESTED A T [facility] 6720 (BECHARLIE) (test code = DICK Schmidt [facility], 1538) 39256: Grades 6 Through 8 Teacher/Techni nate ID = [id number] for Um eh, Nithinumbu TISSUE [id number] 14:22:28Surgical Pathology Report Case: [id number] Authorizing Provider: Leander Matias MD Collected: 0:35 AM Ordering Location: [address] Received: 05/02/2023 03:29 PM Service Pathologist: Parker Petersen MD Specimens: A) - Mass, Left Brain Mass B) - Hardware, Hardware for positive id only A. Brain, left brain mass, excision: - Metastatic carcinoma; see commentB. Hardware, removal: - Hardware as described (gross examination only) Signing Pathologist Direct Phone Line: [phone] signed by Parker Petersen MD on 05/04/2023 at 2:22 PMThe current specimen was compared to the patient's prior resection ([id number]), and the tumor shows similar histomorphology. Block A1 has adequate tumor cellularity for additional ancillary studies.86007, 51053Kozcz tumorA. MassReceived fresh labeled with the patient's name, medical record number and "mass" is a 1.5 x 1.5 x 0.4 cm aggregateof multiple lan-ramachandran soft tissue fragments. The largest [...] taken. No sections are submitted-gross only.RIVERA Roach, RONEL ([facility])cmPerformedylSan Dimas Community Hospital, Department of Pathology, [address] [place] [address], CcuurmSan Gabriel [facility], Department of Pathology, [address] [place] [address], AekukqSan Gabriel Valley Medical Center, Department of Pathology, [address] [place] [address], BDHL-GLUCOSE [id number] 11:29:59 Test Item Value Reference Range Interpretation Comments POC-GLUCOSE METER 111 mg/dL 70-110 H : TESTED A T [facility] 6720 (BEAKER) (test code = [facility], 1538) 37425: Grades 6 Through 8 Teacher/Techni nate ID = [id number] for MANDEEP SHANSPENCER WATERMAN POCT-GLUCOSE [id number] 09:17:23 Test Item Value Reference Range Interpretation Comments POC-GLUCOSE METER 89 mg/dL 70-110 : TESTED A T [facility] 6720 (BEAKER) (test code = [facility], 153) 21552: Grades 6 Through 8 Teacher/Techni nate ID = [id number] for SPENCER KNOX BASIC METABOLIC [id number] 05:11:50 Test Item Value Reference Range Interpretation [...] not appl icable for dialysis patien ts Grades 6 Through 8 Teacher ID - ADMINCBC W/PLT COUNT & AUTO [id number] 04:53:40 Test Item Value Reference Range Interpretation [...] PERCENT (BEAKER) (test code = 2801) POCT-GLUCOSE [id number] 22:04:05 Test Item Value Reference Range Interpretation Comments POC-GLUCOSE METER 88 mg/dL 70-110 : TESTED A T [facility] 6720 (BEAKER) (test code = DICK Schmidt [facility], 1538) 51922: Grades 6 Through 8 Teacher/Techni nate ID = [id number] for ARANZA CAVAZOS MR BRAIN WITH & WITHOUT IV [id number] 18:12:59 [facility] : 1960 Sex: [...] Signed By: Rocio Parmar05/03/2023 18:15 CDTWorkstation Name: [id number] METER 2023-05-03 16:45:22 Test Item Value Reference Range Interpretation Comments POC-GLUCOSE METER 121 mg/dL 70-110 H : TESTED A [facility] 6720 ([employer]) (test code = [facility], 1538) 88659: Grades 6 Through 8 Teacher/Techni nate ID = [id number] for [place], Pat [id number] 14:44:06 Test Item Value Reference Range Interpretation Comments SODIUM ([employer]) (test code = 381) 136 meq/L 136-145 Grades 6 Through 8 Teacher ID - ADMINPOCT-GLUCOSE [id number] 13:47:42 Test Item Value Reference Range Interpretation Comments POC-GLUCOSE METER 121 mg/dL 70-110 H : TESTED A T [facility] 6720 ([employer]) (test code = [facility], 1538) 11704: Grades 6 Through 8 Teacher/Techni nate ID = [id number] for Pat Cam POCT-GLUCOSE [id number] 07:10:38 Test Item Value Reference Range Interpretation Comments POC-GLUCOSE METER 96 mg/dL 70-110 : TESTED A T [facility] 6720 (BEAKER) (test code = DICK Schmidt [facility], 1538) 88820: Grades 6 Through 8 Teacher/Techni nate ID = [id number] for MIGUEL AIKEN [id number] 05:33:50 Test Item Value Reference Range Interpretation Comments MAGNESIUM (BEAKER) (test code = 2.1 mg/dL 1.6-2.6 627) Grades 6 Through 8 Teacher ID - [id number] 05:33:50 Test Item Value Reference Range Interpretation Comments PHOSPHORUS (BEAKER) (test code = 3.4 mg/dL 2.3-4.7 604) Grades 6 Through 8 Teacher ID - ADMINBASIC METABOLIC [id number] 05:33:49 Test Item Value Reference Range Interpretation [...] not appl icable for dialysis patien ts Grades 6 Through 8 Teacher ID - ADMINCBC W/PLT COUNT & AUTO [id number] 05:03:05 Test Item Value Reference Range Interpretation [...] 2801) XR CHEST 1 VIEW PORTABLE / [id number] 23:55:46 [facility] : 1960 Sex: FTECHNIQUE: Frontal [...] Signed By: German Vazquez05/02/2023 23:57 CDTWorkstation Name: [id number] 21:22:34 Test Item Value Reference Range Interpretation Comments POC-GLUCOSE METER 161 mg/dL 70-110 H : TESTED A T [facility] 6720 (BEAKER) (test code = [facility] [place], 1538) 53868: Grades 6 Through 8 Teacher/Techni nate ID = [id number] for LINA ARZOLA [id number] 21:22:06 Test Item Value Reference Range Interpretation Comments SODIUM (BEAKER) (test code = 381) 130 meq/L 136-145 L Grades 6 Through 8 Teacher ID - ADMINPOCT-GLUCOSE [id number] 17:54:40 Test Item Value Reference Range Interpretation Comments POC-GLUCOSE METER 115 mg/dL 70-110 H : TESTED A T [facility] 6720 (BEAKER) (test code = [facility] [place], 1538) 13353: Grades 6 Through 8 Teacher/Techni nate ID = [id number] for Chastity Juares SODIUM NA-STAT [id number] 10:08:24 Test Item Value Reference Range Interpretation Comments SODIUM (BEAKER) (test code = 381) 130 meq/L 136-145 L HGB/HCT (H&H) - STAT [id number] 10:08:18 Test Item Value Reference Range Interpretation Comments HEMOGLOBIN (BEAKER) (test code = 11.3 GM/DL 12.0-15.0 L 410) HEMATOCRIT (BEAKER) (test code = 33.0 % 36.0-45.0 L 411) BLOOD GAS, [id number] 10:08:12 Test Item Value Reference Range Interpretation [...] (BEAKER) (test code = 1819) 58.0 GLUCOSE-STAT [id number] 10:08:11 Test Item Value Reference Range Interpretation Comments GLUCOSE RANDOM (BEAKER) (test code 125 mg/dL 70-110 H = 652) POTASSIUM-STAT [id number] 10:08:11 Test Item Value Reference Range Interpretation Comments POTASSIUM (BEAKER) (test code = 3.5 meq/L 3.6-5.5 L 379) BLOOD GAS, [id number] 09:16:55 Test Item Value Reference Range Interpretation [...] (BEAKER) (test code = 1819) 100.0 POTASSIUM-STAT [id number] 09:16:43 Test Item Value Reference Range Interpretation Comments POTASSIUM (BEAKER) (test code = 2.0 meq/L 3.6-5.5 LL 379) HGB/HCT (H&H) - STAT [id number] 09:14:53 Test Item Value Reference Range Interpretation Comments HEMOGLOBIN (BEAKER) (test code = 7.7 GM/DL 12.0-15.0 L 410) HEMATOCRIT (BEAKER) (test code = 23.0 % 36.0-45.0 L 411) GLUCOSE-STAT [id number] 09:13:41 Test Item Value Reference Range Interpretation Comments GLUCOSE RANDOM (BEAKER) (test code = 74 mg/dL 70-110 652) SODIUM NA-STAT [id number] 09:13:41 Test Item Value Reference Range Interpretation Comments SODIUM (BEAKER) (test code = 381) 135 meq/L 136-[address] BRAIN WITHOUT IV [id number] 07:59:20 [facility] : 1960 Sex: FCT [...] Signed By: Pierre Curtis05/02/2023 08:01 CDTWorkstation Name: [id number] METABOLIC [id number] 05:51:03 Test Item Value Reference Range Interpretation [...] not appl icable for dialysis patien ts Grades 6 Through 8 Teacher ID - ADMINCBC W/PLT COUNT & AUTO [id number] 05:44:43 Test Item Value Reference Range Interpretation [...] (BEAKER) (test code = 2801) BASIC METABOLIC [id number] 17:51:29 Test Item Value Reference Range Interpretation [...] not appl icable for dialysis patien ts Grades 6 Through 8 Teacher ID - ADMINXR CHEST 1 VIEW PORTABLE / [id number] 11:33:10 [facility] : 1960 Sex: FCLINICAL HISTORY: Pre-op TECHNIQUE: 1 view of the chest.COMPARISON: 02/17/2023IMPRESSION:A left upper lobe mass is again seen. Critical correlation to biopsyresults is recommended.No pneumothorax. No infiltrates or effusions. No cardiomegaly.Electronically Signed By: Scotty Castro05/01/2023 11:39 CDTWorkst ation Name: [id number] 08:01:44 Test Item Value Reference Range Interpretation Comments POC-GLUCOSE METER 107 mg/dL 70-110 : TESTED A T [facility] 6720 (BEAKER) (test code = DICK Schmidt [facility], 1538) 22980: Grades 6 Through 8 Teacher/Techni nate ID = [id number] for Karrie Capone [id number] 05:04:07 Test Item Value Reference Range Interpretation Comments PHOSPHORUS (BEAKER) (test code = 3.5 mg/dL 2.3-4.7 604) Grades 6 Through 8 Teacher ID - ADMINBASIC METABOLIC [id number] 05:04:06 Test Item Value Reference Range Interpretation [...] De scription 1092) sq m Result G1 Katei l or high >=90 G2 Mildly decreased 60-89 G3a Mild ly to moderately 45-5 9 G3b Moderately to [...] not appl icable for dialysis patien ts Grades 6 Through 8 Teacher ID - [id number] 05:04:06 Test Item Value Reference Range Interpretation Comments MAGNESIUM (BEAKER) (test code = 2.1 mg/dL 1.6-2.6 627) Grades 6 Through 8 Teacher ID - ADMINCBC W/PLT COUNT & AUTO [id number] 04:31:47 Test Item Value Reference Range Interpretation [...] PERCENT (BEAKER) (test code = 2801) CALCIUM, [id number] 04:15:33 Test Item Value Reference Range Interpretation Comments CALCIUM IONIZED (BEAKER) (test 1.13 mmol/L 1.12-1.27 code = 698) PH, BLOOD (BEAKER) (test code = 7.42 1810) POCT-GLUCOSE [id number] 00:56:57 Test Item Value Reference Range Interpretation Comments POC-GLUCOSE METER 144 mg/dL 70-110 H : TESTED A T [facility] 6720 (BEAKER) (test code = [facility] [place], 1538) 16793: Grades 6 Through 8 Teacher/Techni nate ID = [id number] for Lindy Ubaldo solorzano (Ioana) CTA [id number] 13:48:50 [facility] : 1960 Sex: FCTA BRAIN, CTA CAROTIDINDICATION: Cerebral hemorrhage suspectedCerebral aneurysm, follow- upsuspected right MCA aneurysmCOMPARISON: MRI brain 04/29/2023, CT lung biopsy 02/17/2023TECHNIQUE:Rapid acquisitionspiral images were obtained between the aortic archand the cranial vertex during intravenous contrast infusion toreconstruct axial images and angiographic 3D maximum intensityprojections (MIP). 3-D volumetric reformatted images were created at [employer] workstation. Precontrast images of the brain were [...] Signed By: Pierre Curtis04/30/2023 13:50 CDTWorkstation Name: [id number] 13:48:50 [facility] : 1960 Sex: FCTA BRAIN, CTA CAROTIDINDICATION: Cerebral hemorrhage suspectedCerebral aneurysm, follow- upsuspected right MCA aneurysmCOMPARISON: MRI brain 04/29/2023, CT lung biopsy 02/17/2023TECHNIQUE:Rapid acquisitionspiral images were obtained between the aortic archand the cranial vertex during intravenous contrast infusion toreconstruct axial images and angiographic 3D maximum intensityprojections (MIP). 3-D volumetric reformatted images were created at [employer] workstation. Precontrast images of the brain were [...] Signed By: Pierre Curtis04/30/2023 13:50 CDTWorkstation Name: [id number] 09:41:57 Test Item Value Reference Range Interpretation Comments PHOSPHORUS (BEAKER) (test code = 2.8 mg/dL 2.3-4.7 604) Grades 6 Through 8 Teacher ID - [id number] 09:41:52 Test Item Value Reference Range Interpretation Comments MAGNESIUM (BEAKER) (test code = 2.0 mg/dL 1.6-2.6 627) Grades 6 Through 8 Teacher ID - MARCOBASIC METABOLIC [id number] 04:53:01 Test Item Value Reference Range Interpretation [...] not appl icable for dialysis patien ts Grades 6 Through 8 Teacher ID - MARCOCBC W/PLT COUNT & AUTO [id number] 04:26:21 Test Item Value Reference Range Interpretation [...] (BEAKER) (test code = 2801) BASIC METABOLIC [id number] 16:05:55 Test Item Value Reference Range Interpretation [...] not appl icable for dialysis patien ts Grades 6 Through 8 Teacher ID - ADMINRAPID DRUG SCREEN, [id number] 15:55:41 Test Item Value Reference Range Interpretation [...] ng/mLOpiate 300 ng/mLMethadone 300 ng/mLAmphetamine/ 1000 ng/mL MethamphetamineThis assay provides an unconfirmed qualitative test result for the clinical management of patients in emergency situations. Chain of custody not maintained. Some jqfs-hoy-kooaqiv medications, as well as adulterants, may cause inaccurate results. Clinical correlation should be applied. A more comprehensive drug screen or confirmation of a detected drug may be performed upon request.Grades 6 Through 8 Teacher ID - ADMINOperator ID - [auto]Grades 6 Through 8 Teacher ID - techMR BRAIN WITH & WITHOUT IV [id number] 12:12:06[facility] : 1960 Sex: FMRI Brain with and without contrastCLINICAL HISTORY: 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, stagingTechnique: Multiplanar, multisequence MRI images of [...] x 4 x 4 mm enhancing lesion adjacenttothe right MCA, M1 segment demonstrates T2*hypointensity.No acute ischemic infarct. Right frontal parasagittal lesiondemonstrates rim of DWI hyperintensity.IMPRESSION:Interval development of acute hemorrhage within the left frontal loberesection cavity, 3.6 x 3.0 x 3.0 cm. There is minimal superficialirregular enhancement possibly infolding of resection cavity versussmall region of tumor recurrence.Remainder of smooth enhancementsurrounding the resection cavity likely postoperative in origin.Right frontal parasagittal 5 x 5 x 4 mm curvilinear enhancementsuggestive of postoperative changes from prior tumor resection.Right inferior frontal lobe 4 x 4 x 4 mm enhancing lesion concerning formetastasis versus vascular abnormality, including aneurysm. Correlationwith CTA or MRA recommended.Electronically Signed By: Pierre Curtis04/29/2023 12:14 CDTWorkstation Name: [id number] HEMOGLOBIN [id number] 08:19:43 Test Item Value Reference Range Interpretation Comments HEMOGLOBIN A1C 5.4 % See_Comment [Automated m essage] ELECTROPHORESIS (BEAKER) The system which (test code = 3811) generated this result transmitted ref erence range: <=5.6%. The reference range was not used to int erpret this result as normal/abnormal . "The A1c is measured using a NGSP-certified method. HbA1c value equal to or greater than 6.5% as thediagnosis cutoff for diabetes. An HbA1c value of 5.7- 6.4% indicates increased risk for diabetes (prediabetes)."Grades 6 Through 8 Teacher ID - ADMCT BRAIN WITHOUT IV [id number] 07:21:12 [facility]ARY : 1960 Sex: FCT BRAIN WITHOUT IV CONTRASTCLINICAL INDICATION: Unlisted Reason for ExamCOMPARISON: CT head 04/29/2023, MRI brain 02/23/2023TECHNIQUE: Noncontrast axial CT imaging of the brain and skull. Coronaland sagittal reformats obtained.DOSE REDUCTION: Dose modulation, iterative reconstruction, and/orweight-basedadjustment of the mA/kV was utilized to reduce theradiation dose to as low as reasonably achievable.F INDINGS:Left posterior frontal lobe hemorrhagic lesion measures 3.3 x 3.7 x 3.1cm (not significantlychanged from one hour prior exam allowing fornormal measurement variation). There is moderate surrounding edema andan overlying biparietal craniotomy defect. There is regional sulcaleffacement without s ignificant midline shift. No hydrocephalus.Additional hyperdense lesion right inferior frontal lobe measures 4 x 4x 4 mm, axial image 72, stable compared to February 16, 2023. Hypoattenuationwithin the leftparamedian medulla is more conspicuous on the currentexamination and the heart and artifact may be co ntributory but raisesthe possibility of ischemia.Orbits, globes, paranasal sinuses and mastoid air cells areunremarkable. Several dental caries are noted.IMPRESSION:Left frontal lobe 3.7 x 3.3 x 3.1 cmlesion with intralesional acutehemorrhage is stable compared to one hour prior examination. As comparedto MRI brain February 23, 2023, findings are concerning for hemorrhagic tumorrecurrence. Moderate perilesional edema with regional sulcal effacementwithout midline shift. Consider further characterizationby MRI brainwith and without IV contrast.Stable right inferior frontal lobe 4 mm hyperdense lesion po ssiblycalcification or hemorrhagic metastasis.Electronically Signed By: Pierre Curtis04/29/2023 07:23 CDTWorkstation Name: [id number]/FREE T4 IF [id number] 02:32:32 Test Item Value Reference Range Interpretation Comments THYROID STIMULATING HORMONE 0.514 uIU/mL 0.350-4.940 (BEAKER) (test code = 772) Grades 6 Through 8 Teacher ID - [id number] 02:13:07 Test Item Value Reference Range Interpretation Comments PHOSPHORUS (BEAKER) (test code = 3.8 mg/dL 2.3-4.7 604) Grades 6 Through 8 Teacher ID - ADMINLIPID [id number] 02:13:07 Test Item Value Reference Range Interpretation [...] Borderline 130-159 High 160-189 Very High >=190 Grades 6 Through 8 Teacher ID - ADMINCOMPREHENSIVE METABOLIC [id number] 02:13:06 Test Item Value Reference Range Interpretation [...] not appl icable for dialysis patien ts Grades 6 Through 8 Teacher ID - [id number] 02:13:06 Test Item Value Reference Range Interpretation Comments MAGNESIUM (BEAKER) (test code = 2.2 mg/dL 1.6-2.6 627) Grades 6 Through 8 Teacher ID - ADMINCT BRAIN WITHOUT IV [id number] 02:11:45 [facility] : 1960 Sex: FCLINICAL HISTORY: [...] By: Sly De Leon04/29/2023 02:13 CDTWorkstation Name: [id number] 01:51:55 Test Item Value Reference Range Interpretation Comments PARTIAL THROMBOPLASTIN TIME 29.6 seconds 22.5-36.0 (BEAKER) (test code = 760) PROTHROMBIN TIME/[id number] 01:51:16 Test Item Value Reference Range Interpretation Comments PROTIME (BEAKER) (test code = 14.0 seconds 11.9-14.2 759) INR (BEAKER) (test code = 370) 1.15 <=5.90 RECOMMENDED COUMADIN/WARFARIN INR THERAPY RANGESSTANDARD DOSE: 2.0 - 3.0 Includes: PROPHYLAXIS for venous thrombosis, systemic embolization; TREATMENT for venous thrombosis and/or pulmonary embolus.HIGH RISK: Target INR is 2.5-3.5 for patients with mechanical heart valves.CBC W/PLT COUNT & AUTO [id number] 01:42:24 Test Item Value Reference Range Interpretation [...] PERCENT (BEAKER) (test code = 2801) CALCIUM, [id number] 01:25:17 Test Item Value Reference Range Interpretation Comments CALCIUM IONIZED (BEAKER) (test 1.18 mmol/L 1.12-1.27 code = 698) PH, BLOOD (BEAKER) (test code = 7.37 1810) POC-Glucose [id number] 06:31:58 Test Item Value Reference Range Interpretation Comments POC-Glucose Meter (test 130 mg/dL 70-110 H : TE STED AT [facility] code = 1538) [address] [facility], 770 30: Grades 6 Through 8 Teacher/Techni nate ID = [id number] for Nohemy Morfin Lab Interpretation (test Abnormal code = 87037-0) [facility] [id number] 06:31:58 Test Item Value Reference Range Interpretation Comments POC-GLUCOSE METER 130 mg/dL 70-110 H : TESTED A T [facility] 6720 (BEAKER) (test code = DICK Schmidt [place], 1538) [address]: Grades 6 Through 8 Teacher/Techni nate ID = [id number] for Nohemy Stone BASIC METABOLIC [id number] 05:18:43 Test Item Value Reference Range Interpretation [...] not appl icable for dialysis patien ts Grades 6 Through 8 Teacher ID - DREW [id number] 05:18:42 Test Item Value Reference Range Interpretation Comments MAGNESIUM (BEAKER) 1.7 mg/dL 1.6-2.6 Specimen slightly (test code = 627) hemolyzed Grades 6 Through 8 Teacher ID - DREW [id number] 05:18:42 Test Item Value Reference Range Interpretation Comments PHOSPHORUS (BEAKER) 3.5 mg/dL 2.3-4.7 Specimen slightly (test code = 604) hemolyzed Grades 6 Through 8 Teacher ID - DREW WCBC W/PLT COUNT & AUTO [id number] 05:03:57 Test Item Value Reference Range Interpretation [...] PERCENT (BEAKER) (test code = 2801) POCT-GLUCOSE [id number] 00:29:38 Test Item Value Reference Range Interpretation Comments POC-GLUCOSE METER 120 mg/dL 70-110 H : TESTED A T [facility] 6720 (BEAKER) (test code = [facility], 1538) [address]: Grades 6 Through 8 Teacher/Techni nate ID = [id number] for Nohemy Stone POCT-GLUCOSE [id number] 17:47:03 Test Item Value Reference Range Interpretation Comments POC-GLUCOSE METER 131 mg/dL 70-110 H : TESTED A T [facility] 6720 (BEAKER) (test code = [facility], 1538) [address]: Grades 6 Through 8 Teacher/Techni nate ID = [id number] for Um eh, Akumbu POCT-GLUCOSE [id number] 17:14:57 Test Item Value Reference Range Interpretation Comments POC-GLUCOSE METER 89 mg/dL 70-110 : TESTED A T [facility] 6720 (BEAKER) (test code = [facility], 1538) [address]: Grades 6 Through 8 Teacher/Techni nate ID = [id number] for Umeh , Akumbu [id number] 07:22:04 Test Item Value Reference Range Interpretation Comments PHOSPHORUS (BEAKER) 3.5 mg/dL 2.3-4.7 Specimen slightly (test code = 604) hemolyzed Grades 6 Through 8 Teacher ID - AAHAMIDBASIC METABOLIC [id number] 07:22:04 Test Item Value Reference Range Interpretation [...] not appl icable for dialysis patien ts Grades 6 Through 8 Teacher ID - AAHAMIDOperator ID - [id number] 07:22:03 Test Item Value Reference Range Interpretation Comments MAGNESIUM (BEAKER) 1.7 mg/dL 1.6-2.6 Specimen slightly (test code = 627) hemolyzed Grades 6 Through 8 Teacher ID - AAHAMIDCBC W/PLT COUNT & AUTO [id number] 06:26:03 Test Item Value Reference Range Interpretation [...] PERCENT (BEAKER) (test code = 2801) POCT-GLUCOSE [id number] 22:02:06 Test Item Value Reference Range Interpretation Comments POC-GLUCOSE METER 101 mg/dL 70-110 : TESTED A T [facility] 6720 (BEAKER) (test code = [facility], 153) [address]: Grades 6 Through 8 Teacher/Techni nate ID = [id number] for JODIE ANGUIANO POCT-GLUCOSE [id number] 17:18:49 Test Item Value Reference Range Interpretation Comments POC-GLUCOSE METER 116 mg/dL 70-110 H : TESTED A T [facility] 6720 (BEAKER) (test code = [facility], 153) [address]: Grades 6 Through 8 Teacher/Techni nate ID = [id number] for Emiliana Cao POCT-GLUCOSE [id number] 12:06:34 Test Item Value Reference Range Interpretation Comments POC-GLUCOSE METER 89 mg/dL 70-110 : TESTED A T [facility] 6720 (BEAKER) (test code = [place], 1538) [address]: Grades 6 Through 8 Teacher/Techni nate ID = [id number] for Emiliana Caro [id number] 08:29:55 Test Item Value Reference Range Interpretation Comments PHOSPHORUS (BEAKER) (test code = 3.6 mg/dL 2.3-4.7 604) Grades 6 Through 8 Teacher ID - MARCOBASIC METABOLIC [id number] 08:29:54 Test Item Value Reference Range Interpretation [...] high >=90 G2 Mildly decreased 60-89 G3a Mild ly to moderately 45-5 9 G3b Moderately to [...] not appl icable for dialysis patien ts Grades 6 Through 8 Teacher ID - [id number] 08:29:54 Test Item Value Reference Range Interpretation Comments MAGNESIUM (BEAKER) (test code = 1.8 mg/dL 1.6-2.6 627) Grades 6 Through 8 Teacher ID - MARCOCBC W/PLT COUNT & AUTO [id number] 07:41:47 Test Item Value Reference Range Interpretation [...] PERCENT (BEAKER) (test code = 2801) POCT-GLUCOSE [id number] 07:32:03 Test Item Value Reference Range Interpretation Comments POC-GLUCOSE METER 88 mg/dL 70-110 : TESTED A T [facility] 6720 (BEAKER) (test code = [facility], 153) [address]: Grades 6 Through 8 Teacher/Techni nate ID = [id number] for Anna Caroa POCT-GLUCOSE [id number] 22:24:14 Test Item Value Reference Range Interpretation Comments POC-GLUCOSE METER 101 mg/dL 70-110 : [facility] T [facility] 6720 [facility] (test code = [facility], 153) [address]: Grades 6 Through 8 Teacher/Techni nate ID = [id number] for JODIE ANGUIANO POCT-GLUCOSE [id number] 18:24:18 Test Item Value Reference Range Interpretation Comments POC-GLUCOSE METER 104 mg/dL 70-110 : TESTED A T [facility] 6720 (BEAKER) (test code = [facility], 153) [address]: Grades 6 Through 8 Teacher/Techni nate ID = [id number] for SANDRA MCKINLEY, ROMMEL POCT-GLUCOSE [id number] 13:30:42 Test Item Value Reference Range Interpretation Comments POC-GLUCOSE METER 100 mg/dL 70-110 : TESTED A T [facility] 6720 (BEAKER) (test code = [facility], 153) [address]: Grades 6 Through 8 Teacher/Techni nate ID = [id number] for SANDRA MCKINLEY, ROMMEL POCT-GLUCOSE [id number] 08:34:38 Test Item Value Reference Range Interpretation Comments POC-GLUCOSE METER 85 mg/dL 70-110 : TESTED A T [facility] 6720 (BEAKER) (test code = [facility], 153) [address]: Grades 6 Through 8 Teacher/Techni nate ID = [id number] for ASIF PRYOR ROMMEL BASIC METABOLIC [id number] 06:48:43 Test Item Value Reference Range Interpretation [...] not appl icable for dialysis patien ts Grades 6 Through 8 Teacher ID - [id number] 06:48:42 Test Item Value Reference Range Interpretation Comments MAGNESIUM (BEAKER) 1.9 mg/dL 1.6-2.6 Specimen slightly (test code = 627) hemolyzed Grades 6 Through 8 Teacher ID - [id number] 06:48:42 Test Item Value Reference Range Interpretation Comments PHOSPHORUS (BEAKER) 3.3 mg/dL 2.3-4.7 Specimen slightly (test code = 604) hemolyzed Grades 6 Through 8 Teacher ID - BSCBC W/PLT COUNT & AUTO [id number] 06:05:02 Test Item Value Reference Range Interpretation [...] PERCENT (BEAKER) (test code = 2801) POCT-GLUCOSE [id number] 05:13:39 Test Item Value Reference Range Interpretation Comments POC-GLUCOSE METER 113 mg/dL 70-110 H : Notified RN/MD: (RACHELL) (test code = TESTED AT [place] [id number] 1538) [facility], [address]: Grades 6 Through 8 Teacher/Techni nate ID = [id number] for LARRY MOREAU ICE POCT-GLUCOSE [id number] 23:47:59 Test Item Value Reference Range Interpretation Comments POC-GLUCOSE METER 91 mg/dL 70-110 : Notified RN/MD: TESTED ([facility]) (test code = AT [address] 1538) [facility], 770 30: Grades 6 Through 8 Teacher/Techni nate ID = [id number] for GIRISH WEEKS POCT-GLUCOSE [id number] 17:41:03 Test Item Value Reference Range Interpretation Comments POC-GLUCOSE METER 107 mg/dL 70-110 : TESTED A T [facility] 6720 ([facility] (test code = [facility], 153) [address]: Grades 6 Through 8 Teacher/Techni nate ID = [id number] for KOSTAS DGJAYME, PATRIAECA POCT-GLUCOSE [id number] 12:28:51 Test Item Value Reference Range Interpretation Comments POC-GLUCOSE METER 129 mg/dL 70-110 H : TESTED A T [facility] 6720 ([facility]) (test code = [facility], 1538) [address]: Grades 6 Through 8 Teacher/Techni nate ID = [id number] for RO DGERS, JAMECA POCT-GLUCOSE [id number] 06:26:17 Test Item Value Reference Range Interpretation Comments POC-GLUCOSE METER 95 mg/dL 70-110 : TESTED A T [facility] 6720 ([facility] (test code = [facility], 1538) [address]: Grades 6 Through 8 Teacher/Techni nate ID = [id number] for Wegerard erNohemy [id number] 04:51:25 Test Item Value Reference Range Interpretation Comments PHOSPHORUS (BEAKER) (test code = 3.1 mg/dL 2.3-4.7 604) Grades 6 Through 8 Teacher ID - MMBASIC METABOLIC [id number] 04:51:24 Test Item Value Reference Range Interpretation [...] not appl icable for dialysis patien ts Grades 6 Through 8 Teacher ID - [id number] 04:51:24 Test Item Value Reference Range Interpretation Comments MAGNESIUM (BEAKER) (test code = 2.2 mg/dL 1.6-2.6 627) Grades 6 Through 8 Teacher ID - MMCBC W/PLT COUNT & AUTO [id number] 04:29:22 Test Item Value Reference Range Interpretation [...] PERCENT (BEAKER) (test code = 2801) POCT-GLUCOSE [id number] 21:47:28 Test Item Value Reference Range Interpretation Comments POC-GLUCOSE METER 148 mg/dL 70-110 H : TESTED A T [facility] 6720 (BEAKER) (test code = [place], 1538) [address]: Grades 6 Through 8 Teacher/Techni nate ID = [id number] for Efrain Geronimo MR, BRAIN, [id number] 21:20:00Unlisted Reason for Exam - Click Yes and Enter Reason Below->No [facility] : 1960 Sex: FFINAL REPORT MR, BRAIN, WITH \\T\\ WITHOUT CONTRAST 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: 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,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 Technique: MRI of the brain utilizing [...] Rocio Parmar Verified Date/Time: 02/23/2023 21:20:37 POCT-GLUCOSE [id number] 15:57:43 Test Item Value Reference Range Interpretation Comments POC-GLUCOSE METER 127 mg/dL 70-110 H : TESTED A T [facility] 6720 ([facility] (test code = [place], 1538) [address]: Grades 6 Through 8 Teacher/Techni nate ID = [id number] for Eunice Urbina POCT-GLUCOSE [id number] 09:17:01 Test Item Value Reference Range Interpretation Comments POC-GLUCOSE METER 118 mg/dL 70-110 H : TESTED A T [facility] 6720 (BEAKER) (test code = DICK Schmidt [facility], 1538) [address]: Grades 6 Through 8 Teacher/Techni nate ID = [id number] for Eunice Urbina POCT-GLUCOSE [id number] 06:04:37 Test Item Value Reference Range Interpretation Comments POC-GLUCOSE METER 110 mg/dL 70-110 : TESTED A T [facility] 6720 (BEAKER) (test code = [facility]AFSHIN Schmidt [facility], 1538) [address]: Grades 6 Through 8 Teacher/Techni nate ID = [id number] for CASSANDRA GARAY (CELLAVISION MANUAL DIFF)2023-02-23 02:31:17 [...] CONCENTRATION Adequate (CELLAVISION)(BEAKER) (test code = 3438) Grades 6 Through 8 Teacher ID - Jaycee ScottTrue comments: Slide comments:CBC W/PLT COUNT & AUTO [id number] 02:31:16 Test Item Value Reference Range Interpretation [...] 0-0 CELLS (BEAKER) (test code = 413) [id number] 02:18:54 Test Item Value Reference Range Interpretation Comments PHOSPHORUS (BEAKER) (test code = 3.4 mg/dL 2.3-4.7 604) Grades 6 Through 8 Teacher ID - BSBASIC METABOLIC [id number] 02:18:53 Test Item Value Reference Range Interpretation [...] not appl icable for dialysis patien ts Grades 6 Through 8 Teacher ID - [id number] 02:18:53 Test Item Value Reference Range Interpretation Comments MAGNESIUM (BECHARLIE) (test code = 1.8 mg/dL 1.6-2.6 627) Grades 6 Through 8 Teacher ID - BSPOCT-GLUCOSE [id number] 00:56:09 Test Item Value Reference Range Interpretation Comments POC-GLUCOSE METER 99 mg/dL 70-110 : TESTED A T [facility] 6720 ([employer]) (test code = DICK Schmidt [facility], 153) [address]: Grades 6 Through 8 Teacher/Techni nate ID = [id number] for Terri Moody POCT-GLUCOSE [id number] 17:47:55 Test Item Value Reference Range Interpretation Comments POC-GLUCOSE METER 112 mg/dL 70-110 H : TESTED A T [facility] 6720 ([employer]) (test code = [facility] Brayan [facility], 153) [address]: Grades 6 Through 8 Teacher/Techni nate ID = [id number] for Ciara Eunice POCT-GLUCOSE [id number] 06:44:18 Test Item Value Reference Range Interpretation Comments POC-GLUCOSE METER 97 mg/dL 70-110 : TESTED A T [facility] 6720 (BEAKER) (test code = [place], 1538) [address]: Grades 6 Through 8 Teacher/Techni ntae ID = [id number] for Bethany Talley [id number] 06:39:21 Test Item Value Reference Range Interpretation Comments MAGNESIUM (BEAKER) (test code = 2.0 mg/dL 1.6-2.6 627) Grades 6 Through 8 Teacher ID - DREW [id number] 06:39:21 Test Item Value Reference Range Interpretation Comments PHOSPHORUS (BEAKER) (test code = 3.1 mg/dL 2.3-4.7 604) Grades 6 Through 8 Teacher ID - DREW WBASIC METABOLIC [id number] 06:39:20 Test Item Value Reference Range Interpretation [...] not appl icable for dialysis patien ts Grades 6 Through 8 Teacher ID - DREW WCBC W/PLT COUNT & AUTO [id number] 06:02:52 Test Item Value Reference Range Interpretation [...] PERCENT (BEAKER) (test code = 2801) POCT-GLUCOSE [id number] 23:46:20 Test Item Value Reference Range Interpretation Comments POC-GLUCOSE METER 122 mg/dL 70-110 H : TESTED A T [facility] 6720 (RACHELL) (test code = DICK Schmidt [place], 1538) [address]: Grades 6 Through 8 Teacher/Techni nate ID = [id number] for Bethany Anguiano SARS-CoV2/RT-PCR ([facility])2023-02-21 18:36:57 Test Item Value Reference Interpretation Comments Range SARS-COV2/RT-PCR Negative Negative The SARS-Co V-2 (test code = target nucleic 96701-2) acids are not detected in thi s [...] revoked sooner. Fact Sheet for Healthcare Providers: https://www.[employer]/Documents/Xp ert%20Xpress%20SAR S%20CoV-2/Fact%20S heets/983-6566%20S ARS-COV-2%20HEALTH CARE%20PROVIDERS%2 0FACT%20SHEET.pdf Fact Sheet for Healthcare Patients: https://www.[employer]/Documents/Xp ert%20Xpress%20SAR S%20CoV-2/Fact%20S heets/302-3801%20S ARS-COV-2%20PATIEN T%20FACT%20SHEET.p df Lab Interpretation Normal (test code = 51839-7) [facility])2023-02-21 18:36:57 Test Item Value Reference Range Interpretation Comments SARS-COV2/RT-PCR Negative Negative The SARS-Co V-2 target (test code = nucleic acids a re not 1525375) detected in thi s specimen. Negative result [...] revoked sooner. Fact Sheet for Healthcare Providers: https://www.[employer]/Documents/Xpert%20Xpress%20SARS%20CoV-2/Fact%20Sheets/3023802%89ABDT-KKT-9%20 HEALTHCARE%20PROVIDERS%20FACT%20SHEET.pdf Fact Sheet for Healthcare Patients: https://www.[employer]/Documents/Xpert%20Xp ress%20SARS%20CoV-2/Fact%20Sheets/302-3801%51PWSH-NZB-1%20PATIENT%20FACT%20SHEET .pdfPOCT-GLUCOSE [id number] 17:36:21 Test Item Value Reference Range Interpretation Comments POC-GLUCOSE METER 125 mg/dL 70-110 H : TESTED A T [facility] 6720 (BEAKER) (test code = [place], 1538) [address]: Grades 6 Through 8 Teacher/Techni nate ID = [id number] for GUANAKITO BALDWIN [id number] 15:40:40 Test Item Value Reference Range Interpretation Comments PARTIAL THROMBOPLASTIN TIME 28.9 seconds 22.5-36.0 (BEAKER) (test code = 760) PROTHROMBIN TIME/[id number] 15:39:58 Test Item Value Reference Range Interpretation Comments PROTIME (BEAKER) (test code = 13.9 seconds 11.9-14.2 759) INR (BEAKER) (test code = 370) 1.14 <=5.90 RECOMMENDED COUMADIN/WARFARIN INR THERAPY RANGESSTANDARD DOSE: 2.0 - 3.0 Includes: PROPHYLAXIS for venous thrombosis, systemic embolization; TREATMENT for venous thrombosis and/or pulmonary embolus.HIGH RISK: Target INR is 2.5-3.5 for patients with mechanical heart valves.Tissue [id number] 15:21:06 Test Item Value Reference Range Interpretation Comments Case Report (test code Surgical Pathology = 104) Report Case: [id number] Authorizing Provider: Edilia Westfall MD Collected: 02/17/2023 02:51 PM Ordering Location: [address] Received: 02/17/2023 04:08 PM Service Pathologist: Judy Jean MD Specimen: Lung DIAGNOSIS (test code = h5tbiPYfZHBgm1xvOWGqqU 3220) FuZzEwMzNcZnRuYmpcdWMx IHtccnRmMVxlcGljMTAyMD YqMJ4pcSpthHm6fOeuTZZs qaY6lIJaLRbxh5brQKB8b1 idvkmrKVMxFDzsUl4zxCQq gLinCtOqWAYdCHd0iA27HY KqxD6mrDJyUFe6PAEqbKRx aoEnHxSaTTHmxQOhuMV7ES LzQU9jdisvTHumNSqkCPIb ssK8TKGapTIkO2AuDSVfBX 0rzmwgBZJ7NKekBUXtJKR4 QyBoIXHmx3Emqrq6QnJsiZ FyZFxwbGFpblxmczIwIEEu XXzSJvcmDNIEXLTlMr6ZHO HFHGAHTbwVGTkyX4RnB8YA ENATMO5VBWRTVNTJXF1KF8 g2SFObvdZmPQYaORmARMRL JTZOLB3HJCjDT4tuVOXnHY MiNZYAFWAWD3PXMWSJJTqY BOCYWZ3MIz9KNr2MTUnMAG PIGlRVC1LMItPyV7tOZJPA MW8KHPJFDB2UD3OXK7kPP2 7GTXUdwj78LTZ9ApFpg1U6 NZA8ZDYnXQCsy9ywTQUfvF FuZzEwMzNcZnRuYmpcdWMx JPDqQsExu4xom997cZXxr0 kaWXNrQkV7aEJbKEBtjMGu C256MFStAWfrw4dxv1TtGU FhjLJqd0O7DMIRcaxcyXz3 bNaoX13rr5N5ZmqhN3ztUP IxUXGkN2JvZX4hOMSqDey1 GLV1CHN8FBWnSTGnP6HcWQ 0aDQZryIExGNk6n7evfJli HWGpRGY6b2maFYhjscZkCE 4lxq8dgNz7v4ofvlInNBRz CJXudZJLHBQmJ3LwuJtgUh 0qiHn1uFheFjtmMIX4Xwv5 FT7jrg39ikf1mQjmKROtpo akOoB7AVpaTFDklffuZDw4 KLqwUHZrxEV8OGIspJSaT4 BkKSMoDI1vlgl9KNL1SEan ZMGxUcU6LESqiQVdFFEkzK ujLYnbo772PBE4ApPvIX0q C8Xfr8R1gI2jdYYmYSPpsK NtGwSbILIjmf7mwVYiIHam p4XeRJY7jhR5bAWknEDhUP PnUpD8TGzhMT0rrf10RXLa BAG1qm7phPWhmLyvkqNktJ OmONliG0DeVJWev544JNUk J5WlYLYvf5W3pxPkWgJzJA PfjNC7axQ5XWRdFJ1nbewq b5qkRMatIFdlRFRemqX7ps C9ESHipHHpY9AboH5oZEHm VV1hyaxsb4jzNJY9RSoxGD EgEMJ5KjPuOWGzz5Ybjck3 FhHpi9EzyOBvBHmwT66gn5 72XURbqtGhL8sobUZnguee bIGflktkVBhhloD2NEItVU pueyoaUJUdELesS5jqOjNb ZOBknGczNZhpx7DtABCkMJ CmRtYflVNzJGVrUme4VVSd oKHhTBSpTqJoJ5vskpsmHd AYQWQzw0jfU5wnuEUZcXVm D6FeMQsvxaFlOLekSExnNr TfMBd6MV35EwCzIUFcus69 COMMENT (test code = f2tgyGJmGOFzxCWaUHRzUG 3359) fyvjCbRKGkdDDkJ0Rcqohc EDqyMD3iBM3btQplyRPlcF CfFNKmEoCvb9tnr979wZNh d6auDWGHnnrdgPo6iTizE6 8lf4Z7IqhuP81ecWByTFN1 ZQCsBFIegOMvJWQeZLL8WB FksQOrW4zqEGLmMA3ngnji BUuaIWylLBVjzUB7ALOxoJ WjR5IcMMXrPRbfMVNnuth5 LfJuVb5iaZZldGftYDgaXU JkXHBsYWluXGZzMjAgVGhl SIJomGRlfW1uZXxtFFX6tC YxbAMgbPKpkT9teBIbYFAw AGWyh44gnOI4cyJnKdRvaT AyyZPib5FmJV8hAIW9aMBd V4RxFFQfpKndJTY0oCdugX KtvVHfnmVjp0IcrNd0IOA4 zQAfOYAJPw4dFUQbbXYij2 P7wX9bVVYlAHLfRp86CTWy gMDcim8zcLGjWWKIaZLfsR qny7PgMYxkKNV5rMPhwWFf sDLhmPFefRGhkkNvcW7zLV EsdPY3KNZyd3NyOslhqDOu m3GzQMDbw9GlzstoCYYmrj 0= CPT Code(s) (test code t6teuXSfMJSbtKKhDOJjMB = 6775) yunwMeZNTjpAIcE2Zopwzq VSxnZY9qPZ5esZiscXFxeF ZmVVPjMxLpv9pkr269dJKd i3omHQNAvhfahAz4eBrqR8 4sw7E9AfgmV03orFDlBYH7 YYFoHDPsrPUnWYNbQEZ3QA YemCFmA7geKIYuJK5fhnrx VNkiPGvdUXKkaBM7CEXoxR TqV4ZqKXRcTUvoWNJdtro6 NqEkZk3ybBBebIinTVprKE JkXHBsYWluXGZzMjAgODgz MSYeaTTrACl5SqByKXCycj B7NDO9JZxsPIAkgw1= CLINICAL HISTORY (test d7pyhRVvLOOxuSEiYBUnHN code = 3355) cqnnPjQVQsvJXjX7Oygeew LWxuLW4hZM6tuSaihWMnxH GfUJDpGqCry0oma154vPOq e9tuRTQVhhrtjUt0fGhoW5 1db8L4CnhqF45eeHXeJEU3 REAmOSVdbLFvRRUmKIH9FC RaqPSiX3yuCUOuNC1cbhnf QAwgMGhgHTLahUJ6MMKevD RnM5WsBRKmWXbxSPWhudq5 GsYuSu4nyYQmgDrrFVjuIZ JkXHBsYWluXGZzMjAgNjAt oNTapl0exLTnBcSoSFtkMI E9brNdfbLdl58cz9ZcJPNu MDSuwfNwCYX7pQVyZTatkN ggcmlnaHQgYXJtIHdlYWtu IKBfUdLqZSXHYY2wOUKaIM VttnYzooFecW15XJLuACZs ABEqGLRsjlCkLS6hzCqrfH BlbmhhbmNpbmcgbWFzcyBt ZWFzdXJpbmcgMzQgeCAzMS ZacHTdpkC5eIGdgH2xtWJh rQ4uXYxsQwFhCoIvocTpeO Wnw8RwOgKzZQ6kvGearoVe gsRrEW5zdSpysSVtFZImLY 0cBZJ4uuczTnJsSGM1HQHz NN1kBDmrOCFiMIZqy0K1TE Ezg0KuepwuxHQyYvUyryRd aWXyd9YrKjGwB4YnD5thp7 Loz3quc6JoMZYjMnO6AGAo NSBjbSBtYXNzbGlrZSBvcG VtiIH6VCdzYEExUGSoEUR3 EDfvr8EfVLenVpQpKXLBSD QzO41zmNBasVVfiClecpNn uG0rgZNrm1RnSLvfXDoney Peq92zCTJzr8Mcqf1fHTyx zJH4GBJ4MEDbku5gpYYqdG == GROSS DESCRIPTION (test n1eelDKaADGlzRTKBEQsJZ code = [id number]) XfRQ9voDqngCv3aLfrOMAl iiY6yKQeNVsef0wgBUY4k1 fqxqBCUpwsSPMjPS9pVAox XTWmZN2qEiPjVVHyAkOiKI BhcGVydzEyMjQwXHBhcGVy xJA1NOZaMU4pkzpzYNcrXF feXKKnuiJ5ERQfwFEzA7Lw GIJgEU7cppuzBLT5JJPUHb buPh9anSAcvHwsEaQqTuHz YXJzZXQwXGZuaWwgQXJpYW h5oW5BQqthI44bj1U4Cuh7 AEFbFQIiG0FyTH5jSPLksN McI05SSthlMBD4MRLBIowo JeiqeQheg8IcyMGnYAVeXO xcaWQgNTEwMDAgXFxkYiBP HnKjJzYjEDG3CMv3VZOrPV b7XYirCxXGRBQ8QIP5LWlv DDe8HPepCHdjlQDgUOPsDV JfHQLpFJpivnS2w2xvUZOa bGTmLBD1DKcrt8esVDyqUG A4HQPrPsEsKWQzIF2KSsHq PZPbMDDtCRUzNmS9AJs0MM BPVlMgIiAgMzQzNjcwMDUi VAu5YOt4JKlWIvV6DkgvCf ytEfAyGNL5RDmhEOb1NPHr XFxzcyAzIFxcZmwgXFxuY3 1ccGFyZCANClxwbGFpblxm tzFeZYMrEWp2lcwvqLOyXR 9XJLNyhsJzAEsfsXuuiC5o ZnMyMlxsdHJjaFxlcGljTm VzdERvYzEgDQpcbHRycGFy XGxpbjBccmluMCANClxjZj FcZnMyMCBSZWNlaXZlZCBp crYst4ObNTefuuIbGQFviF VkIHdpdGggdGhlIHBhdGll ceNpW9W0ocEfSY5vSFYuSF ZcG9TmUMBzT88fBXSbgV4y ODLoBP0uRVa2IHPsTXNqBt kcwFTqUqZcZHRxPN94jPUo oWhsENHripVts6YrXGDhl2 SlaIIzGWKtzhbirfdnaV2l u1t8CMYdmi8sFCFwZA6pYc NnF07pGSshbXLbOLAnXLLd iJEvyDP0FPAadZ8apE41be UzvgAOTUp3AILuGLCoHxo4 QTIuXHBhciANClxwYXIgDQ qim7ovY2BgrYVyBLGeWsSc FJDaG9ysOHKxPJ0DCSVuYB ucvcQsAEtplJA8grEEPX5v qe4UOOSteTOFOXB3UD1pTM bfLEAfO8QmS1EsepL2a3nz wSppp4SdvTAdQR5gyBVnRN 4EDTZkfsCcYMu4 MICROSCOPIC DESCRIPTION g2kmjEIiSMVasYRpPELuDM (test code = 3371) pmyaNqPLDpzWJnA3Dlywur VVezOA4mQX0lgRgyoMWznF XdATAlDiUcf2ycb841cXUd p5fwQXTLswnoaGq1gPmvI4 7jo0U1DckkW45zoMFnREQ6 JPEoRNWzoFQoTUNlQIG2RE JclROpB9ugMNDkCI3neton NIvgYBcbDRRutCB1YORxeO FeT1TrBENqWAlnNDYuncd7 SdRnMw0urUKxnLhqFMyeMK JkXHBsYWluXGZzMjAgUGVy Ao1ucHTxRXVgfr0= SPECIAL STUDIES (test c5usjGEhVQVkiYHkWFQkTN code = 3376) lexiAmHEZwzOXgB2Dnrruy KYzjRO4cYB0pkMousDIspV JyDWGmFkOcf6gaq711nCDh f4fkKCAGgadekMj6v3neWG SHRQniJqZxB487b8wzb9gw agIybDY9KETnIZGaK9HkNH 4aEOPcjTHoV69fuWYyDHK0 QGGsDJIqaYRdRMJtGHF9ET RsxOOpX4akOWHzLZ1txici ULxiNKdcTYCipLO7AIVpmQ DlC2FcTSHqQAnfANPapet6 RrOrBz0kkRKtzEeoFKqlEH JkXHBsYWluXGYxXGZzMjJc L5YmRGZhMZMexhNcapVyQM YdvKggrvYlUbB2gFkaLDNa g2WavR8rrOToRUTleSswTS MnQYJyIwOsmH10kj7nyOS6 r6WlRP0zz0IjxBWcewAfqZ ThfVAaEYJ0EOtqvt0xoHUt NPMiieEQr107jb2qHXNygY TcxxXCyJMekE9tDMcpDGtg GRcaqEVgAHkkr9mcSWBuq2 c9pSOvOGFaivPcg8oaONav cmUgZXZhbHVhdGVkIGFsb2 2wVWmvyFuavIaaTNWty2Kp rJpti2TmBoFcYUrqw8PpS5 9udHJvbCBzbGlkZXMgcnVu DATqp60fi3ylVVEbCvO0hW DdwGD9uFDkrFQjl7MuxTzx BZAix5loTKXrwc1hanrruC Jbw3FklB0rozesURxurGLh ahUcZYEpd7b0dRTnENEyKM KrZFuicCq0TYFyw725cy1h opE9yGDsFSQ3LHryNRRhHK BhcmUgZXZhbHVhdGVkXHBh srPmFGMtvnBVeF72rn9gnL W6j9StCK2gu5KbeSJ3PFTi ikotFFgszCZkcQspXoF7XH RjqSSgUp7yvDCeHOU6SBXx nQepcpCLmK6lOARrPYr3LJ RzCaUfNduixeCYYLSuC1Ub MVUmpkXhqusiKAG1aV2gk8 t2SSvpYw2yUDMkspppt0nx tgLrkXLcg3WzZKYoxyNsf6 BlZCBhbmQgaXRzIHBlcmZv wn3fysMyYVNzRGNkI0Mwio zgiIhsviZ7MMZhQBMuzOEg cCvfGWVsSDc4YMjehlZhn9 IiMqMtgxOguVOdggXyBB1t ONHgtDVeyjMoDVU7YPHiDV GVVpWeIKXrx8SlIW3iLWQn pJqwCFGpfO7lk8LpXFJhr8 4uIFRoZSBGREEgaGFzIGRl dGVybWluZWQgdGhhdCBzdW ScWGJfEQXiTK5iCZYueoBt jROip0MvjOCibbNof0Lfkh WnFJVoRWJ8DgTBjJDtmNJp aSJlypR7e6CiTTKxwxQziP tcjPZtyQIsvKTkt1Jsgm9z GNAzw1cvuYbqJW2qbNNmXV ByZWdhcmRlZCBhcyBpbnZl v2GaF6A5mM9tVMdyf5AjAh 8tCZKcs9BxziZzMgFKeBqf BVrlGr1gGSBxmabenXXfU2 VydGlmaWVkIHVuZGVyIHRo ZSBDbGluaWNhbCBMYWJvcm B5e9Y9FNcbxBVnzwLtCG67 MQWqDQ9ddHItqELhs1BbLY y3MARiK4aAFD41ZUvxYXAf cXVhbGlmaWVkIHRvIHBlcm Viho7ohGitoOPnl33biDV3 oRQ9TEPfqS3aM7GsTCuhSg 5wOPAatdzryCSttUbhAf3k qKWyEDOxg9UjMKSwJobtEG AdFAEXGFZ2NMMvu6u1zXAs CXMfpxKEIKZ7ZN5oU3A4xV ZlXHBhciBHQVRBMzogTmVn YXRpdmVccGFyfQ== [facility] [id number] 15:21:06Surgical Pathology Report Case: [id number] Authorizing Provider: Edilia Westfall MD Collected: 02/17/2023 02:51 PM Ordering Location: [address] Received: 02/17/2023 04:08 PM Service Pathologist: Judy Jean MD Specimen: Lung A. LUNG, SITE NOT SPECIFIED, CT-GUIDED NEEDLE BIOPSY:- LIMITED SAMPLING- ATYPICAL CELLS, IMMUNOPROFILE CONSISTENT WITH LUNG ADENOCARCINOMA Signing Pathologist Direct Phone Line: [phone] signed by Judy Jean MD on 02/21/2023 at3:21 PMPreliminary result electronically signed by Judy Jean MD on 02/20/2023 at 11:37 AMThe sampling is extremely limited and consists of small foci of atypical cells, which stain positive with TTF-1, supporting the above diagnosis. The tissue is extremely small and inadequate for biomarkertesting.[id number] female current smoker presented with with right [...] evaluated Immunohistochemistry technical testing was performed at [facility], Pathology Laboratory where it was developed [...] perform high complexity clinical laboratory testing.Block A1:TTF-1: MueirkrlX13: NegativeGATA3: NegativePOCT-GLUCOSE [id number] 12:24:38 Test Item Value Reference Range Interpretation Comments POC-GLUCOSE METER 152 mg/dL 70-110 H : TESTED A T [facility] 6720 (BEAKER) (test code = [place], 1538) [address]: Grades 6 Through 8 Teacher/Techni nate ID = [id number] for GUANAKITO BALDWIN [id number] 06:02:41 Test Item Value Reference Range Interpretation Comments MAGNESIUM (BEAKER) (test code = 2.1 mg/dL 1.6-2.6 627) Grades 6 Through 8 Teacher ID - [id number] 06:02:41 Test Item Value Reference Range Interpretation Comments PHOSPHORUS (BEAKER) (test code = 3.8 mg/dL 2.3-4.7 604) Grades 6 Through 8 Teacher ID - MMBASIC METABOLIC [id number] 06:02:40 Test Item Value Reference Range Interpretation [...] not appl icable for dialysis patien ts Grades 6 Through 8 Teacher ID - MMCBC W/PLT COUNT & AUTO [id number] 05:48:33 Test Item Value Reference Range Interpretation [...] PERCENT (BEAKER) (test code = 2801) POCT-GLUCOSE [id number] 04:12:24 Test Item Value Reference Range Interpretation Comments POC-GLUCOSE METER 123 mg/dL 70-110 H : TESTED A T [facility] 6720 ([facility]) (test code = [facility], [facility]) 6[address]: Grades 6 Through 8 Teacher/Techni nate ID = [id number] for Li nh, Phillips POCT-GLUCOSE [id number] 23:52:59 Test Item Value Reference Range Interpretation Comments POC-GLUCOSE METER 126 mg/dL 70-110 H : TESTED A T [facility] 6720 ([facility]) (test code = [facility], [facility]) 5[address]: Grades 6 Through 8 Teacher/Techni nate ID = [id number] for Bethany Anguiano POCT-GLUCOSE [id number] 16:39:21 Test Item Value Reference Range Interpretation Comments POC-GLUCOSE METER 110 mg/dL 70-110 : TESTED A T [facility] 6720 (BEAKER) (test code = [facility], [facility]8) [address]: Grades 6 Through 8 Teacher/Techni nate ID = [id number] for Dajuan Winkler POCT-GLUCOSE [id number] 11:56:10 Test Item Value Reference Range Interpretation Comments POC-GLUCOSE METER 92 mg/dL 70-110 : [facility] (test code = [facility], [facility]8) [address]: Grades 6 Through 8 Teacher/Techni nate ID = [id number] for Dajuan Melgoza POCT-GLUCOSE [id number] 10:53:04 Test Item Value Reference Range Interpretation Comments POC-GLUCOSE METER 124 mg/dL 70-110 H : TESTED A T [facility] 6720 (BEAKER) (test code = [facility], 1538) 58598: Grades 6 Through 8 Teacher/Techni nate ID = [id number] for Shar davies (contract)Mandy POCT-GLUCOSE [id number] 04:53:12 Test Item Value Reference Range Interpretation Comments POC-GLUCOSE METER 122 mg/dL 70-110 H : TESTED A T [facility] 6720 (BEAKER) (test code = [facility], 1538) [address]72: Grades 6 Through 8 Teacher/Techni nate ID = [id number] for Eboni solorzano Phillips [id number] 04:49:28 Test Item Value Reference Range Interpretation Comments PHOSPHORUS (BEAKER) (test code = 3.9 mg/dL 2.3-4.7 604) Grades 6 Through 8 Teacher ID - MMBASIC METABOLIC [id number] 04:49:27 Test Item Value Reference Range Interpretation [...] not appl icable for dialysis patien ts Grades 6 Through 8 Teacher ID - [id number] 04:49:27 Test Item Value Reference Range Interpretation Comments MAGNESIUM (BEAKER) (test code = 2.1 mg/dL 1.6-2.6 627) Grades 6 Through 8 Teacher ID - MMCBC W/PLT COUNT & AUTO [id number] 04:34:15 Test Item Value Reference Range Interpretation [...] PERCENT (BEAKER) (test code = 2801) POCT-GLUCOSE [id number] 23:53:02 Test Item Value Reference Range Interpretation Comments POC-GLUCOSE METER 89 mg/dL 70-110 : TESTED A T [facility] 6720 (BEAKER) (test code = [facility], 153) 27026: Grades 6 Through 8 Teacher/Techni nate ID = [id number] for Wandy , Phillips POCT-GLUCOSE [id number] 19:45:14 Test Item Value Reference Range Interpretation Comments POC-GLUCOSE METER 115 mg/dL 70-110 H : TESTED A T [facility] 6720 (BEAKER) (test code = [facility], 153) 37656: Grades 6 Through 8 Teacher/Techni nate ID = [id number] for Bi bbs (contract), Mandy xis POCT-GLUCOSE [id number] 16:33:23 Test Item Value Reference Range Interpretation Comments POC-GLUCOSE METER 193 mg/dL 70-110 H : TESTED A T [facility] 6720 (BEAKER) (test code = [facility], 153) 69298: Grades 6 Through 8 Teacher/Techni nate ID = [id number] for Co ok, Skye POCT-GLUCOSE [id number] 11:18:13 Test Item Value Reference Range Interpretation Comments POC-GLUCOSE METER 126 mg/dL 70-110 H : TESTED A T [facility] 6720 (BEAKER) (test code = [facility], 153) 34629: Grades 6 Through 8 Teacher/Techni nate ID = [id number] for Co ok, Skye CBC W/PLT COUNT & AUTO [id number] 06:51:35 Test Item Value Reference Range Interpretation [...] 0.00-1.00 PERCENT (BEAKER) (test code = 2801) [id number] 06:41:32 Test Item Value Reference Range Interpretation Comments PHOSPHORUS (BEAKER) (test code = 4.2 mg/dL 2.3-4.7 604) Grades 6 Through 8 Teacher ID - MARCOBASIC METABOLIC [id number] 06:41:31 Test Item Value Reference Range Interpretation [...] not appl icable for dialysis patien ts Grades 6 Through 8 Teacher ID - [id number] 06:41:31 Test Item Value Reference Range Interpretation Comments MAGNESIUM (BEAKER) (test code = 2.1 mg/dL 1.6-2.6 627) Grades 6 Through 8 Teacher ID - MARCOPOCT-GLUCOSE [id number] 05:42:09 Test Item Value Reference Range Interpretation Comments POC-GLUCOSE METER 137 mg/dL 70-110 H : TESTED A T [facility] 6720 (BEAKER) (test code = [facility], 1538) 72976: Grades 6 Through 8 Teacher/Techni nate ID = [id number] for HANDY HARTMAN POCT-GLUCOSE [id number] 00:13:36 Test Item Value Reference Range Interpretation Comments POC-GLUCOSE METER 159 mg/dL 70-110 H : TESTED A T [facility] 6720 (BEAKER) (test code = [facility] Brayan [facility], 1538) 64116: Grades 6 Through 8 Teacher/Techni nate ID = [id number] for HANDY HARTMAN POCT-GLUCOSE [id number] 12:23:13 Test Item Value Reference Range Interpretation Comments POC-GLUCOSE METER 112 mg/dL 70-110 H : TESTED A T [facility] 6720 (BEAKER) (test code = [facility], 1538) 14787: Grades 6 Through 8 Teacher/Techni nate ID = [id number] for Dajuan Winkler [id number] 06:31:41 Test Item Value Reference Range Interpretation Comments PHOSPHORUS (BEAKER) 3.9 mg/dL 2.3-4.7 Specimen slightly (test code = 604) hemolyzed Grades 6 Through 8 Teacher ID - MARCOBASIC METABOLIC [id number] 06:31:41 Test Item Value Reference Range Interpretation [...] not appl icable for dialysis patien ts Grades 6 Through 8 Teacher ID - [id number] 06:31:40 Test Item Value Reference Range Interpretation Comments MAGNESIUM (BEAKER) 2.0 mg/dL 1.6-2.6 Specimen slightly (test code = 627) hemolyzed Grades 6 Through 8 Teacher ID - MARCOPOCT-GLUCOSE [id number] 06:13:53 Test Item Value Reference Range Interpretation Comments POC-GLUCOSE METER 123 mg/dL 70-110 H : TESTED A T [facility] 6720 (BEAKER) (test code = [place], 1538) 87425: Grades 6 Through 8 Teacher/Techni nate ID = [id number] for Safia Isaacs CBC W/PLT COUNT & AUTO [id number] 06:10:17 Test Item Value Reference Range Interpretation [...] PERCENT (BEAKER) (test code = 2801) POCT-GLUCOSE [id number] 00:37:58 Test Item Value Reference Range Interpretation Comments POC-GLUCOSE METER 157 mg/dL 70-110 H : TESTED A T [facility] 6720 (BEAKER) (test code = DICK Schmidt [facility], 1538) 93684: Grades 6 Through 8 Teacher/Techni nate ID = [id number] for Safia Isaacs RAD, CHEST, 1 VIEW, NON [id number] 17:56:00Reason for exam:->post lung biopsy 3 hrShould this be performed at the bedside?->Yes [facility] 1960 Sex: FFINAL REPORT [...] MDReport Verified Date/Time: 02/17/2023 17:56:58 Reading Location: [address] Neuro Reading Room POCT-GLUCOSE [id number] 17:13:48 Test Item Value Reference Range Interpretation Comments POC-GLUCOSE METER 177 mg/dL 70-110 H : TESTED A T [facility] 6720 (ARMANDOAKER) (test code = [place], 1538) 51913: Grades 6 Through 8 Teacher/Techni nate ID = [id number] for Dajuan Winkler RAD, CHEST, 1 VIEW, NON [id number] 17:09:00Reason for exam:->Post lung biopsy immediateShould this be performed at the bedside?->Yes [facility] MARY : 1960 Sex: FFINAL REPORT TECHNIQUE: Frontal [...] ninth rib fractures laterally. Signed: German Vazquez [facility] Verified Date/Time: 02/17/2023 17:09:20 CT, BIOPSY, [id number] 15:36:00lung biopsy julienne mass [facility] : 1960 Sex: [...] needle: 19 gauge Core needle biopsy device: Arch Grants needle size: 20 gaugeNumber of core specimens: [...] MDReport Verified Date/Time: 02/17/2023 15:36:51 Reading Location: [facility] C013V Neuro Reading Room POCT-GLUCOSE [id number] 12:17:07 Test Item Value Reference Range Interpretation Comments POC-GLUCOSE METER 118 mg/dL 70-110 H : TESTED A T [facility] 6720 (BEAKER) (test code = [place], 1538) 28638: Grades 6 Through 8 Teacher/Techni ante ID = [id number] for Dajuan Winkler BASIC METABOLIC [id number] 06:10:23 Test Item Value Reference Range Interpretation [...] not appl icable for dialysis patien ts Grades 6 Through 8 Teacher ID - [id number] 06:10:23 Test Item Value Reference Range Interpretation Comments MAGNESIUM (BEAKER) (test code = 2.0 mg/dL 1.6-2.6 627) Grades 6 Through 8 Teacher ID - [id number] 06:10:23 Test Item Value Reference Range Interpretation Comments PHOSPHORUS (BEAKER) (test code = 4.0 mg/dL 2.3-4.7 604) Grades 6 Through 8 Teacher ID - MMPOCT-GLUCOSE [id number] 05:46:20 Test Item Value Reference Range Interpretation Comments POC-GLUCOSE METER 109 mg/dL 70-110 : TESTED A T [facility] 6720 (BEAKER) (test code = [place], 1538) 13814: Grades 6 Through 8 Teacher/Techni nate ID = [id number] for Eg be, Mary CBC W/PLT COUNT & AUTO [id number] 05:38:28 Test Item Value Reference Range Interpretation [...] PERCENT (BEAKER) (test code = 2801) POCT-GLUCOSE [id number] 00:13:52 Test Item Value Reference Range Interpretation Comments POC-GLUCOSE METER 151 mg/dL 70-110 H : TESTED A T [facility] 6720 (BEAKER) (test code = [place], 1538) 82564: Grades 6 Through 8 Teacher/Techni nate ID = [id number] for HANYD HARTMAN MR, BRAIN, [id number] 21:24:00STEALTH protocol - please include the tip of the noseUnlisted Reason for Exam - Click Yes and Enter Reason Below- >YesUnlisted Reason for Exam->Brain massDoes the patient have an implanted electronic device?->No [facility] FEICHRISTY HERNANDEZ : 1960 Sex: FFINAL REPORT EXAM: MR, [...] on a nonemergent basis. Signed: Jae Castillo [facility] Verified Date/Time: 02/16/2023 21:24:19 [id number] 19:01:06 Test Item Value Reference Range Interpretation Comments PARTIAL THROMBOPLASTIN TIME 28.7 seconds 22.5-36.0 (BEAKER) (test code = 760) PROTHROMBIN TIME/[id number] 19:00:25 Test Item Value Reference Range Interpretation Comments PROTIME (BEAKER) (test code = 14.1 seconds 11.9-14.2 759) INR (BEAKER) (test code = 370) 1.16 <=5.90 RECOMMENDED COUMADIN/WARFARIN INR THERAPY RANGESSTANDARD DOSE: 2.0 - 3.0 Includes: PROPHYLAXIS for venous thrombosis, systemic embolization; TREATMENT for venous thrombosis and/or pulmonary embolus.HIGH RISK: Target INR is 2.5-3.5 for patients with mechanical heart valves.POCT-GLUCOSE [id number] 17:54:50 Test Item Value Reference Range Interpretation Comments POC-GLUCOSE METER 124 mg/dL 70-110 H : TESTED A T [facility] 6720 (BEAKER) (test code = [facility], 1538) 39176: Grades 6 Through 8 Teacher/Techni nate ID = [id number] for Pa mariolan, Joy POCT-GLUCOSE [id number] 11:14:09 Test Item Value Reference Range Interpretation Comments POC-GLUCOSE METER 109 mg/dL 70-110 : TESTED A T [facility] 6720 (BEAKER) (test code = [facility], 1538) 10910: Grades 6 Through 8 Teacher/Techni nate ID = [id number] for Pa mariolan, Joy Sodium, random [id number] 10:41:26 Test Item Value Reference Range Interpretation Comments Sodium Urine (test 54 meq/L code = 2955-3) MIKIE (test code = Reference Range: No MIKIE) NormalsOperator ID - ADMIN [facility] CenterODIUM, RANDOM [id number] 10:41:26 Test Item Value Reference Range Interpretation Comments SODIUM URINE (BEAKER) (test code = 54 meq/L 243) Reference Range: No NormalsOperator ID - ADMINCreatinine, random [id number] 10:41:25 Test Item Value Reference Range Interpretation Comments Creatinine, Ur 81.8 mg/dL (test code = 2161-8) MIKIE (test code = Reference Range: No MIKIE) NormalsOperator ID - ADMIN [facility] R[facility]OM [id number] 10:41:25 Test Item Value Reference Range Interpretation Comments CREATININE URINE (BEAKER) (test 81.8 mg/dL code = 375) Reference Range: No NormalsOperator ID - ADMINCT, CHEST, WITH [id number] 08:55:00Unlisted Reason for Exam - Click Yes and Enter Reason Below->No [facility] : 1960 Sex: FFINAL REPORT CT of the chest, abdomen and pelvis, with contrast 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, 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 Technique: CT of the chest, [...] Putnam MDReport Verified Date/Time: 308:55:23 Reading Location: [address] Ortho Consult Reading Room CT, [id number] 08:55:00Unlisted Reason for Exam - Click Yes and Enter Reason Below->NoProtocol Please Specify:->Standard ProtocolWill this procedure require oral contrast?->No [facility] : 1960 Sex: FFINAL REPORT CT of the chest, abdomen and pelvis, with contrast 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, 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 Technique: CT of the chest, [...] Rand Putnam Verified Date/Time: 308:55:23 Reading Location: [address] Consult Reading Room OSMOLALITY, [id number] 07:54:52 Test Item Value Reference Range Interpretation Comments OSMOLALITY, SERUM (BEAKER) (test 275 mOsm/kg 275-295 code = 615) CARCINOEMBRYONIC ANTIGEN (CEA)2023-02-16 06:59:03 Test Item Value Reference Range Interpretation Comments CARCINOEMBRYONIC ANTIGEN (BEAKER) 102.4 ng/mL 0.0-5.0 H (test code = 685) Grades 6 Through 8 Teacher ID - ADMINBASIC METABOLIC [id number] 06:27:36 Test Item Value Reference Range Interpretation [...] not appl icable for dialysis patien ts Grades 6 Through 8 Teacher ID - [id number] 06:27:36 Test Item Value Reference Range Interpretation Comments MAGNESIUM (BEAKER) (test code = 2.0 mg/dL 1.6-2.6 627) Grades 6 Through 8 Teacher ID - [id number] 06:27:36 Test Item Value Reference Range Interpretation Comments PHOSPHORUS (BEAKER) (test code = 4.0 mg/dL 2.3-4.7 604) Grades 6 Through 8 Teacher ID - ADMINPOCT-GLUCOSE [id number] 06:25:21 Test Item Value Reference Range Interpretation Comments POC-GLUCOSE METER 117 mg/dL 70-110 H : TESTED A T [facility] [address] (BEAKER) (test code = [place], 1538) 37648: Grades 6 Through 8 Teacher/Techni nate ID = [id number] for Eg be, Mary CBC W/PLT COUNT & AUTO [id number] 05:57:23 Test Item Value Reference Range Interpretation [...] (test code = 2801) CT, BRAIN, WITHOUT [id number] 03:24:00[facility] protocol [facility] : 1960 Sex: [...] 3.0 x 3.4 x 2.8 cm with moderate surrounding vasogenic edema. No midline shift or downward herniation. Additional focal hyperdensityadjacent to the right sylvian fissure 0.5 cm in diameter without associated mass effect. No evidenceof acute infarction. No hemorrhage. Extra- axial Collection: None Ventricular System: No hydrocephalus Osseous Structures: No acute osseous abnormality. Included Orbits: Normal Paranasal Sinuses: Predomi nantly clear Tympanomastoid Cavities: Normal Other: None IMPRESSION:The 3.0 x 3.4 x 2.7 mass in the posterior left frontal lobe is favored intra-axial and is compatible with neoplasm. There is moderateassociated vasogenic edema without midline shift. Recommend further evaluation with MRI preferably with and without contrast. Additional small focal 0.5 cm hyperdensity in the cerebral parenchyma near the right sylvian fissure suspicious for additional brain lesion. Attention to on forthcoming MRI. Signed: Jae Castillo MDReport Verified Date/Time: 02/16/2023 03:24:24 BASIC METABOLIC [id number] 23:45:44 Test Item Value Reference Range Interpretation [...] not appl icable for dialysis patien ts Grades 6 Through 8 Teacher ID - [id number] 23:32:32 Test Item Value Reference Range Interpretation [...] 2.5-3.5 for patients with mechanical heart valves.PROTHROMBIN TIME/[id number] 23:31:34 Test Item Value Reference Range Interpretation Comments PROTIME (BEAKER) (test code = 14.1 seconds 11.9-14.2 759) INR (BEAKER) (test code = 370) 1.16 <=5.90 RECOMMENDED COUMADIN/WARFARIN INR THERAPY RANGESSTANDARD DOSE: 2.0 - 3.0 Includes: PROPHYLAXIS for venous thrombosis, systemic embolization; TREATMENT for venous thrombosis and/or pulmonary embolus.HIGH RISK: Target INR is 2.5-3.5 for patients with mechanical heart valves.CBC W/PLT COUNT & AUTO [id number] 23:21:41 Test Item Value Reference Range Interpretation [...] = 2801) RAD, CHEST, 1 VIEW, NON [id number] 21:27:00Reason for exam:->Pre-opShould this be performed at the bedside?->Yes [facility] : 1960 Sex: FFINAL REPORT EXAM: Chest [...] pulmonary lesion as described. Signed: Anastacio Hooper [facility] Verified Date/Time: 02/15/2023 21:27:18
[2023-07-29 16:33] LABS: Absolute Lymphocytes (CBC) 0.6 K/uL (0.7-4.9); Hematocrit 32.4 % (36.0-45.0); Lymphocytes % 4.2 % (15.3-44.8); MCV 87.6 fL (80-100); MPV 7.1 fL (7.6-11.3); Platelets 451 thou/uL (152-406)
[2023-07-29 16:52] LABS: Albumin 2.6 g/dL (3.4-5.0); Bilirubin Total 0.3 mg/dL (0.2-1.0); Protein, Total 6.5 g/dL (6.4-8.2)
[2023-07-29 16:56] LABS: Potassium 2.6 mEq/L (3.5-5.1)
[2023-07-29] MEDS ORDERED: NA CHLORIDE 0.9% 1,000 ML ONE (17:11)
[2023-07-29] MEDS ORDERED: BISACODYL 10 MG RECTAL SUPP ONE ×2 (17:27→22:50)
[2023-07-29] MEDS ORDERED: KCL 20 MEQ/100 mL IVPB 100 ML IV ONE (17:28)
--- NOTE | 2023-07-29 17:37 | RAD REPORT ---
EXAM DESCRIPTION: CTAbdomen Pelvis W Contrast - 07/29/2023 5:25 pm CLINICAL HISTORY: Abd pain;Constipation COMPARISON: Spine Lumbar Wo Con dated 05/29/2023 TECHNIQUE: CT of the abdomen and pelvis was performed with IV contrast. All CT scans are performed using dose optimization technique as appropriate and may include automated exposure control or mA/KV adjustment according to patient size. FINDINGS: Lower chest: Trace right pleural effusions. Small hiatal hernia. Coronary artery calcifica tions. Liver: Minimal intrahepatic biliary duct dilatation. Low-density lesion the long segment for the live r. This is benign. Biliary: Distended gallbladder. No extrahepatic biliary duct dilatation. Stomach: No significant focal abnormality. Duodenum: No significant focal abnormality. Pancreas: No significant abnormality. Spleen: No significant abnormality. Adrenal: No suspicious lesions. Kidney/ureter: No hydronephrosis. No renal calculi. Retroperitoneum: No retroperitoneal adenopathy. Vascular: No aneurysm. Other causes for Bowel: Large rectal stool burden.. Peritoneum: No ascites or free air. Bladder: Grossly unremarkable. Reproductive: No adnexal masses. Bones: T9 compression fracture which may be pathologic has approximately 20% loss of height. T11 comp ression fracture with approximately 20% loss of height. L1 burst fracture noted. The L1 burst fractur e is chronic. The T9 and T11 compression fractures are probably subacute or chronic. Sclerotic focus in the right posterior iliac bone is likely benign. Other: n/a IMPRESSION: Large rectal stool burden could indicate fecal impaction. Spinal fractures including T9, T11, and L1. L1 is chronic. T9 and T11 are probably subacute or chronic but no prior imaging availab le for comparison.
[2023-07-29 17:57] LABS: Anisocytosis 1+; Blood Morphology Comment NOTED (NOT SEEN); Platelet Estimate ADEQ; Poikilocytosis 1+; White Blood Cell Scan OK (OK)
[2023-07-29] MEDS ORDERED: MINERAL OIL ENEMA 135 ML BTL PR ONE (18:28)
[2023-07-29] MEDS ORDERED: LACTULOSE 20 GM/30 ML UCUP ONE ×2 (18:28→18:29)
[2023-07-29] MEDS ORDERED: FENTANYL CITR 100 MCG/2 ML ONE (21:58)
[2023-07-29] MEDS ORDERED: POTASSIUM 25 MEQ EFFERV TAB ONE (23:20)
--- NOTE | 2023-07-30 00:57 | ER ---
Nurse's Notes [facility] Name: Paola Alex Age: 62 yrs Sex: Female : 1960 Arrival Date: 07/29/2023 Time: 14:36 Bed 20 Private MD: Diagnosis: Fecal impaction;Constipation Presentation: 07/29 15:17 Chief complaint: Constipation, abdominal pain, and rectal pain unrelieved by enema x 2 hb today. Has lung CA with mets to brain, on oral morphine. doing chemo and radiation with Dr. Keyes. Coronavirus screen: At this time, the client does not indicate any symptoms associated with coronavirus-19. Ebola Screen: No symptoms or risks identified at this time. Initial Sepsis Screen: Does the patient meet any 2 criteria? No. Patient's initial sepsis screen is negative. Does the patient have a suspected source of infection? No. Patient's initial sepsis screen is negative. Risk Assessment: Do you want to hurt yourself or someone else? Patient reports no desire to harm self or others. Onset of symptoms was July 29, 2023. 15:17 Method Of Arrival: Wheelchair hb 15:17 Acuity: TEENA 3 hb Historical: - Allergies: 15:22 No Known Allergies; hb - PMHx: 15:22 Chronic obstructive lung disease; Hypertensive disorder; ledy tumor; hb - PSHx: 15:22 Brain CA; hb - Immunization history:: Adult Immunizations up to date. - Social history:: Smoking status: Patient denies any tobacco usage or history of. Screenin:06 [facility] ED Fall Risk Assessment (Adult) History of falling in the last 3 months, ko1 including since admission No falls in past 3 months (0 pts) Confusion or Disorientation No (0 pts) Intoxicated or Sedated No (0 pts) Impaired Gait Yes (1 pt) Mobility Assist Device Used Yes (1 pt) Altered Elimination No (0 pt) Score/Fall Risk Level 0 - 2 = Low Risk Oriented to surroundings, Maintained a safe environment, Educated pt \T\ family on fall prevention, incl call for assistance when getting out of bed, Assessed \T\ reinforced patient's understanding of fall precautions, Provided non-skid footwear, Hourly rounding (assess needs \T\ fall precautionary measures) done, Used ambulatory aids as needed (educated on \T\ assisted with), Used gait belt as appropriate. Abuse screen: Denies threats or abuse. Denies injuries from another. Nutritional screening: No deficits noted. Tuberculosis screening: No symptoms or risk factors identified. Assessment: 17:06 General: Appears distressed, uncomfortable, Behavior is cooperative, appropriate for ko1 age, anxious. Pain: Complains of pain in pelvis/rectal. Neuro: No deficits noted. Cardiovascular: No deficits noted. Respiratory: No deficits noted. GI: Bowel sounds hyperactive in right lower quadrant and left lower quadrant Abdomen is tender to palpation X 4 quads. Reports constipation. : No deficits noted. EENT: No deficits noted. Derm: No deficits noted. Musculoskeletal: No deficits noted. 17:51 Reassessment: cleaned smal amount of brown soft stool. ko1 19:50 General: Appears uncomfortable, Behavior is cooperative. Pain: Complains of pain in ha1 buttocks Pain does not radiate. Pain currently is 8 out of 10 on a pain scale. Quality of pain is described as crampy, pressure, sharp. Neuro: Level of Consciousness is awake, alert, obeys commands, Oriented to person, place, time, situation. Cardiovascular: Denies chest pain, Capillary refill < 3 seconds. Respiratory: Airway is patent Respiratory effort is even, unlabored, Respiratory pattern is regular, symmetrical. GI: Abdomen is flat, non-distended, Bowel sounds present X 4 quads. Abdomen is tender to palpation X 4 quads. Reports constipation. Musculoskeletal: Range of motion: limited on the right side. 20:15 Reassessment: Patient and/or family updated on plan of care and expected duration. Pain ha1 level reassessed. Patient is alert, oriented x 3, equal unlabored respirations, skin warm/dry/pink. 21:00 Reassessment: Patient and/or family updated on plan of care and expected duration. Pain ha1 level reassessed. Patient is alert, oriented x 3, equal unlabored respirations, skin warm/dry/pink. 22:05 Reassessment: Patient and/or family updated on plan of care and expected duration. Pain ha1 level reassessed. Patient is alert, oriented x 3, equal unlabored respirations, skin warm/dry/pink. pain 3/10. 23:11 Reassessment: Patient and/or family updated on plan of care and expected duration. Pain ha1 level reassessed. Patient is alert, oriented x 3, equal unlabored respirations, skin warm/dry/pink. 07/30 00:15 Reassessment: Patient and/or family updated on plan of care and expected duration. Pain ha1 level reassessed. 01:35 Reassessment: pt. had large bowel movement . Reassessment: Patient states feeling ha1 better. Patient states symptoms have improved. Respiratory: Respiratory effort is even, unlabored, Respiratory pattern is regular, symmetrical. Vital Signs: 07/29 15:17 BP 97 / 73; Pulse 115; Resp 18; Temp 97.2; Pulse Ox 100% on R/A; Weight 48.99 kg; hb Height 5 ft. 7 in. ; Pain 07/11; 17:06 BP 102 / 72; Pulse 110; Resp 18; Pulse Ox 99% ; ko1 17:51 BP 98 / 69; Pulse 98; Resp 18; Pulse Ox 98% ; ko1 18:24 BP 110 / 78; Pulse 98; Resp 16; Pulse Ox 99% ; ko1 19:45 BP 101 / 45; Pulse 87; Resp 17 S; Pulse Ox 98% on R/A; ha1 20:15 BP 107 / 80; Pulse 95; Resp 18 S; Pulse Ox 97% on R/A; ha1 21:11 BP 115 / 75; Pulse 83; Resp 17 S; Pulse Ox 98% ; ha1 22:05 BP 115 / 75; Pulse 83; Resp 16 S; Pulse Ox 99% on R/A; ha1 23:12 BP 105 / 74; Pulse 92; Resp 16 S; Pulse Ox 95% on R/A; ha1 07/30 00:45 BP 128 / 89; Pulse 89; Resp 17 S; Pulse Ox 98% on R/A; ha1 01:20 BP 108 / 78; Pulse 82; Resp 17 S; Pulse Ox 98% on R/A; ha1 07/29 15:17 Body Mass Index 16.92 (48.99 kg, 170.18 cm) hb 07/29 15:17 Pain Scale: Adult hb ED Course: 07/29 14:39 Patient arrived in ED. im 15:09 Bill Toro PA is PHCP. cp 15:09 Elijah Chong MD is Attending Physician. cp 15:22 Triage completed. hb 15:22 Arm band placed on. hb 16:21 CBC with Diff Sent. bc6 16:21 CMP Sent. bc6 16:21 Lipase Sent. bc6 16:21 Missed attempt(s): 20 gauge in left antecubital area. bc6 16:22 Missed attempt(s): 22 gauge in left forearm. bc6 16:28 Inserted saline lock: 22 gauge in left forearm, using aseptic technique. Blood em1 collected. 16:53 Eli Clark, RN is Primary Nurse. ko1 17:06 Patient has correct armband on for positive identification. Bed in low position. Call ko1 light in reach. Side rails up X2. Provided Education on: na. Pulse ox on. NIBP on. Door closed. Noise minimized. Lights dimmed. Warm blanket given. 17:27 CT Abd/Pelvis - IV Contrast Only In Process Unspecified. EDMS 07/30 02:00 No provider procedures requiring assistance completed. ha1 02:00 IV discontinued, intact, bleeding controlled, No redness/swelling at site. Pressure ha1 dressing applied. Administered Medications: 07/29 17:03 Drug: NS 0.9% IV 500 ml IV at bolus once Route: IV; Rate: bolus; Site: left forearm; ko1 17:57 Follow up: Response: No adverse reaction; IV Status: Completed infusion; IV Intake: ko1 500ml 17:17 Drug: Potassium Chloride IV 20 mEq IV at calculated rate once; administer over 1-2 ko1 hours Route: IV; Rate: calculated rate; Site: left forearm; 17:50 Drug: NS 0.9% IV 500 ml IV at 125 ml/hr continuous Route: IV; Rate: 125 ml/hr; Site: ko1 left forearm; 17:50 Drug: Glycerin (Adult) MS Suppository 1 supp MS once Route: MS; ko1 17:57 Follow up: Response: No adverse reaction ko1 18:15 Drug: Lactulose PO 30 grams 45 ml PO once Volume: 45 ml; Route: PO; ko1 18:15 Drug: Fleet Enema MS 133 ml MS once; may repeat once Route: MS; ko1 21:43 Drug: fentaNYL (PF) IVP 25 mcg IVP once Route: IVP; Site: left forearm; ha1 22:05 Follow up: Response: No adverse reaction; Pain is decreased; RASS: Alert and Calm (0) ha1 22:44 Drug: Dulcolax MS Suppository 10 mg MS once Route: MS; ha1 23:30 Follow up: Response: No adverse reaction ha1 23:10 Drug: Potassium PO Effervescent Tablet 50 mEq PO once; dissolve in 4 ounces of water or ha1 juice Route: PO; 07/30 02:00 Follow up: Response: No adverse reaction ha1 01:35 Drug: Magnesium Citrate PO Liquid 300 ml PO once Route: PO; ha1 02:00 Follow up: Response: No adverse reaction ha1 Medication: 02:00 VIS not applicable for this client. ha1 Intake: 07/29 17:57 IV: 500ml; Total: 500ml. ko1 Outcome: 07/30 00:57 Discharge ordered by . cp 02:00 Discharged to home via wheelchair, with family, ha1 02:00 Condition: stable 02:00 Discharge instructions given to patient, family, Instructed on discharge instructions, follow up and referral plans. medication usage, Demonstrated understanding of instructions, follow-up care, medications, Prescriptions given X 1, 02:01 Patient left the ED. ha1 Signatures: Dispatcher [employer] EDMS Andrey Marcum em1 Bill Toro PA PA cp Viridiana Alcantar RN RN Brenda Thao RN RN ha1 Eli Clark RN RN ko1 Akua Cisneros 6 Fina Jackson Corrections: (The following items were deleted from the chart) 07/29 15:31 15:17 Chief complaint: Constipation, abdominal pain, and rectal pain unrelieved by hb digital impaction and enema x 2 today. Has lung CA with mets to brain, on oral morphine. doing chemo and radiation with Dr. Keyes. hb
--- NOTE | 2023-07-30 00:57 | EDPHYS ---
Physician Documentation [facility] Name: Paola Alex Age: 62 yrs Sex: Female : 1960 Arrival Date: 07/29/2023 Time: 14:36 Bed 20 Private MD: ED Physician Elijah Chong HPI: 07/29 15:33 This 62 yrs old Female presents to ER via Wheelchair with complaints of Constipation. cp 15:33 The patient presents with abdominal pain. cp 15:33 Onset: The symptoms/episode began/occurred 2 day(s) ago. The patient presents to the emergency department with pain in the rectal area. Associated signs and symptoms: Pertinent positives: constipation, Pertinent negatives: fever, vomiting. Patient reports HX of metastatic cancer. Takes prescribed pain medication and reports constipation times 1 week. Historical: - Allergies: 15:22 No Known Allergies; hb - PMHx: 15:22 Chronic obstructive lung disease; Hypertensive disorder; ledy tumor; hb - PSHx: 15:22 Brain CA; hb - Immunization history:: Adult Immunizations up to date. - Social history:: Smoking status: Patient denies any tobacco usage or history of. ROS: 15:35 Constitutional: Negative for body aches, chills, fever, poor PO intake, cp 15:35 Eyes: Negative for injury, pain, redness, and discharge, cp 15:35 ENT: Negative for drainage from ear(s), ear pain, sore throat, difficulty swallowing, difficulty handling secretions, 15:35 Cardiovascular: Negative for chest pain, 15:35 Respiratory: Negative for cough, shortness of breath, wheezing, 15:35 Abdomen/GI: Positive for abdominal pain, constipation, rectal pain, Negative for vomiting, diarrhea, anorexia, hematemesis, black/tarry stool, rectal bleeding, 15:35 Back: Positive for pain at rest, pain with movement, 15:35 : Negative for urinary symptoms, 15:35 Neuro: Negative for altered mental status, headache, 15:35 All other systems are negative, Exam: 15:40 Constitutional: The patient appears in no acute distress, alert, awake, cp non-diaphoretic, non-toxic, well developed, frail, uncomfortable, 15:40 Head/Face: Normocephalic, atraumatic. cp 15:40 Eyes: Periorbital structures: appear normal, Conjunctiva: normal, no exudate, no injection, Sclera: no appreciated abnormality, Lids and lashes: appear normal, bilaterally, 15:40 ENT: External ear(s): are unremarkable, Nose: is normal, Mouth: Lips: moist, Oral mucosa: pink and intact, moist, Posterior pharynx: is normal, airway is patent, no erythema, no exudate, 15:40 Neck: ROM/movement: is normal, is supple, without pain, no range of motions limitations, 15:40 Chest/axilla: Inspection: normal, 15:40 Cardiovascular: Rate: tachycardic, Rhythm: regular, Edema: is not appreciated, JVD: is not appreciated, 15:40 Respiratory: the patient does not display signs of respiratory distress, Respirations: normal, no use of accessory muscles, no retractions, labored breathing, is not present, Breath sounds: are clear throughout, no decreased breath sounds, no stridor, no wheezing, 15:40 Abdomen/GI: Inspection: abdomen appears normal, Bowel sounds: active, all quadrants, Palpation: soft, in all quadrants, moderate abdominal tenderness, in all quadrants, rebound tenderness, is not appreciated, involuntary guarding, is not appreciated, Rectal exam: fecal impaction, that is severe, the exam is chaperoned by the nurse, 15:40 Back: pain, that is moderate, ROM is painful, with all movement, 15:40 Neuro: Orientation: to person, place \T\ time. Mentation: is normal, Vital Signs: 15:17 BP 97 / 73; Pulse 115; Resp 18; Temp 97.2; Pulse Ox 100% on R/A; Weight 48.99 kg; hb Height 5 ft. 7 in. ; Pain 10/10; 17:06 BP 102 / 72; Pulse 110; Resp 18; Pulse Ox 99% ; ko1 17:51 BP 98 / 69; Pulse 98; Resp 18; Pulse Ox 98% ; ko1 18:24 BP 110 / 78; Pulse 98; Resp 16; Pulse Ox 99% ; ko1 19:45 BP 101 / 45; Pulse 87; Resp 17 S; Pulse Ox 98% on R/A; ha1 20:15 BP 107 / 80; Pulse 95; Resp 18 S; Pulse Ox 97% on R/A; ha1 21:11 BP 115 / 75; Pulse 83; Resp 17 S; Pulse Ox 98% ; ha1 22:05 BP 115 / 75; Pulse 83; Resp 16 S; Pulse Ox 99% on R/A; ha1 23:12 BP 105 / 74; Pulse 92; Resp 16 S; Pulse Ox 95% on R/A; ha1 07/30 00:45 BP 128 / 89; Pulse 89; Resp 17 S; Pulse Ox 98% on R/A; ha1 01:20 BP 108 / 78; Pulse 82; Resp 17 S; Pulse Ox 98% on R/A; ha1 07/29 15:17 Body Mass Index 16.92 (48.99 kg, 170.18 cm) hb 07/29 15:17 Pain Scale: Adult hb MDM: 07/29 15:25 Patient medically screened. cp 07/30 00:55 Data reviewed: vital signs, nurses notes, lab test result(s), radiologic studies. cp 00:55 Consideration of Admission/Observation Escalation of care including cp admission/observation considered. I considered the following discharge prescriptions or medication management in the emergency department Medications were administered in the Emergency Department. See MAR. Counseling: I had a detailed discussion with the patient and/or guardian regarding the historical points, exam findings, and any diagnostic results supporting the discharge/admit diagnosis, lab results, radiology results, to return to the emergency department if symptoms worsen or persist or if there are any questions or concerns that arise at home. Response to treatment: the patient's symptoms have markedly improved after treatment, Patient observed to have large bowel movement while in ED. Will discharge to home for continued monitoring. 07/29 15:26 Order name: CBC with Diff; Complete Time: 22:52 cp 07/29 16:57 Interpretation: Normal except: WBC 13.40; RBC 3.70; HGB 10.6; HCT 32.4; PLT 451; MPV cp 7.1; YOSELIN% 91.3; LYM% 4.2; NEUT A 12.3; LYMA 0.6. 07/29 15: Order name: CMP; Complete Time: 16:57 cp 07/29 16:57 Interpretation: Normal except: K 2.6; GLUC 118; BUN 6; CRE 0.40; CA 8.3; ALB 2.6; GLOB cp 3.9; A/G 0.7. 07/29 15:26 Order name: Lipase; Complete Time: 16:57 cp 07/29 17:58 Order name: CBC Smear Scan; Complete Time: 22:52 EDMS 07/29 16:19 Order name: CT Abd/Pelvis - IV Contrast Only; Complete Time: 17:53 cp 07/29 16:58 Order name: EKG; Complete Time: 16:58 cp 07/29 15:26 Order name: IV Saline Lock; Complete Time: 16:28 cp 07/29 15:26 Order name: Labs collected and sent; Complete Time: 16:21 cp 07/29 16:58 Order name: EKG - Nurse/Tech; Complete Time: 17:50 cp 07/29 20:30 Order name: Misc. Order: soap suds enema; Complete Time: 21:11 cp Administered Medications: 07/29 17:03 Drug: NS 0.9% IV 500 ml IV at bolus once Route: IV; Rate: bolus; Site: left forearm; ko1 17:57 Follow up: Response: No adverse reaction; IV Status: Completed infusion; IV Intake: ko1 500ml 17:17 Drug: Potassium Chloride IV 20 mEq IV at calculated rate once; administer over 1-2 ko1 hours Route: IV; Rate: calculated rate; Site: left forearm; 17:50 Drug: NS 0.9% IV 500 ml IV at 125 ml/hr continuous Route: IV; Rate: 125 ml/hr; Site: ko1 left forearm; 17:50 Drug: Glycerin (Adult) SD Suppository 1 supp SD once Route: SD; ko1 17:57 Follow up: Response: No adverse reaction ko1 18:15 Drug: Lactulose PO 30 grams 45 ml PO once Volume: 45 ml; Route: PO; ko1 18:15 Drug: Fleet Enema SD 133 ml SD once; may repeat once Route: SD; ko1 21:43 Drug: fentaNYL (PF) IVP 25 mcg IVP once Route: IVP; Site: left forearm; ha1 22:05 Follow up: Response: No adverse reaction; Pain is decreased; RASS: Alert and Calm (0) ha1 22:44 Drug: Dulcolax SD Suppository 10 mg SD once Route: SD; ha1 23:30 Follow up: Response: No adverse reaction ha1 23:10 Drug: Potassium PO Effervescent Tablet 50 mEq PO once; dissolve in 4 ounces of water or ha1 juice Route: PO; 07/30 02:00 Follow up: Response: No adverse reaction ha1 01:35 Drug: Magnesium Citrate PO Liquid 300 ml PO once Route: PO; 02:00 Follow up: Response: No adverse reaction ha1 Disposition Summary: 07/30/23 00:57 Discharge Ordered Notes: Location: Home cp Problem: new cp Symptoms: have improved cp Condition: Stable cp Diagnosis - Fecal impaction cp - Constipation cp Followup: cp - With: Private Physician - When: 2 - 3 days - Reason: Recheck today's complaints Discharge Instructions: - Discharge Summary Sheet cp - Constipation, Adult cp - Fecal Impaction cp Forms: - Medication Reconciliation Form cp - Thank You Letter cp - Antibiotic Education cp - Prescription Opioid Use cp - Patient Portal Instructions cp - Leadership Thank You Letter cp Prescriptions: - Golytely [id number] -5.86 gram Oral Recon Soln - take 240 milliliter ORAL route once; 240 milliliter; Refills: 0, Product cp Selection Permitted Addendum: 07/31/2023 11:01 I was immediately available for consultation during this patient's visit. I did not e c2 personally see the patient or guide the patient's care. Signatures: Dispatcher [employer] Bill Manrique PA PA cp Baxter, Heather, RN RN hb Ayala, Heidy, RN RN ha1 Eli Clark RN RN ko1 Elijah Chong MD MD ec2
[2023-07-30] MEDS ORDERED: MAGNESIUM CITRATE 300 ML BOT ONE (01:36)
[2023-07-30 02:18] VITALS: TEMP 97.2
[2023-07-30 02:32] VITALS: BP 105/74; O2SAT 95
--- NOTE | 2023-08-01 07:57 | EKG ---
Test Date: 2023-07-29 Test Time: 17:35:58 Senior Qualitative Researcher: SANGITA MEASUREMENT RESULTS: Intervals: Rate: 95 VT: 138 QRSD: 76 QT: 338 QTc: 424 [place]: P: 61 VT: 138 QRS: 64 T: 102 INTERPRETIVE STATEMENTS: Normal sinus rhythm Normal ECG Compared to ECG 04/28/2023 19:27:50 No significant changes Electronically Signed On 08-01-23 07:52:35 CDT by Ki Mcguire
== END 2023-07-30 02:01 | disposition home or self-care (01) ==
LOC: ER 14:36
DX: K56.41 Fecal impaction (principal); Z85.841 Personal history of malignant neoplasm of brain
CPT/HCPCS: 96361; 93005; 85025; 36415; 83690; 80053; 74177; 96375; 96374; 99284; Q9967; J3480; J3010; J7030

== ENCOUNTER 2023-08-03 09:20 | Day surgery (SDC) | payer OTHER ==
[2023-08-03] MEDS ORDERED: Ringers Lactate 1,000 ML IV ONE (10:15)
[2023-08-03] MEDS ORDERED: CEFAZOLIN SODIUM 1 GM/VIAL ONE ×2 (10:15→12:40)
[2023-08-03] MEDS ORDERED: BUPIVACAINE 0.25% PF 10 ML VIAL ONE (11:31)
[2023-08-03] MEDS ORDERED: HEPARIN 5000 UNIT/ML 1 ML VIAL ONE (11:31)
[2023-08-03] MEDS ORDERED: NS 0.9% VIAL 20 ML ONE ×2 (11:31→13:09)
[2023-08-03] MEDS ORDERED: propofoL 200 MG/20 ML VIAL IV ONE (11:56)
[2023-08-03] MEDS ORDERED: MIDAZOLAM HCL 2 MG/2 ML INJ ONE (11:57)
[2023-08-03] MEDS ORDERED: FENTANYL CITR 100 MCG/2 ML ONE (11:57)
[2023-08-03] MEDS ORDERED: ONDANSETRON 4 MG/2 ML VIAL ONE ×2 (11:58→12:44)
[2023-08-03] MEDS ORDERED: LIDOCAINE 2% MPF 5 ML VIAL ONE (11:58)
[2023-08-03] MEDS ORDERED: dexAMETHasone 4 MG/ML VIAL ONE ×2 (12:26→12:44)
--- NOTE | 2023-08-03 13:09 | P.OP ---
Preoperative diagnosis: Need for Chemotherapy Access Postoperative diagnosis: Need for Chemotherapy Access Primary procedure: Placement of RIGHT internal jugular port a cath Secondary procedure: ultrasound and flouroscopy with interpretatoin utilized Anesthesia: GETA + Local Estimated blood loss: <5cc Specimen: none Findings: position confirmed @ SVC Complications: None Implants: Port a cath Transferred to: Recovery Room Condition: Good
[2023-08-03] MEDS ORDERED: MORPHINE 4 MG/ML SYR ONE (13:48)
--- NOTE | 2023-08-03 14:20 | RAD REPORT ---
EXAM DESCRIPTION: RAD - Fluoroscopy <1 Hour - 08/03/2023 1:20 pm CLINICAL HISTORY: PORT A CATH PLACEMENT COMPARISON: None available. FINDINGS: Nine Images were sent to PACS, documenting imaging guidance during Port-A-Cath placement. No radiologist was available for the procedure, nor will any image interpretation he provided. Please refer to the procedural report for additional details. Fluoroscopy time: 0.3 Minutes. IMPRESSION: Documentation of fluoroscopy utilization as above.
--- NOTE | 2023-08-03 15:19 | RAD REPORT ---
[facility] CLINICAL HISTORY: s/p port a cath placement, r/o pneumothorax COMPARISON: Chest Single View dated 04/28/2023; Chest Single View dated 02/15/2023 TECHNIQUE: Portable AP view of the chest. FINDINGS: Right Port-A-Cath with catheter tip at the level of the mid SVC. The lungs show a stable l eft suprahilar opacity. No pneumothorax or effusion. The cardiomediastinal contours are unremarkable. IMPRESSION: Right Port-A-Cath in satisfactory position. Stable left suprahilar opacity. No other acu te findings.
[2023-08-03] MEDS ORDERED: HYDROCODONE/APAP 10/325 TAB ONE (15:39)
[2023-08-03 16:12] VITALS: BP 128/74; TEMP 97.7; O2SAT 95
--- NOTE | 2023-08-03 21:02 | OP ---
Date of Procedure: 08/03/2023 Surgeon: Jarrett Melara MD, Preoperative Diagnosis: Need for chemotherapy access. Postoperative Diagnosis: Need for chemotherapy access. Procedure Performed: Placement of right internal jugular Port-A-Cath using ultrasound and fluoroscopic guidance with interpretation. Anesthesia: General endotracheal plus local with 0.25% Marcaine. Estimated Blood Loss: Less than 5 cc. Specimen: None. Findings: Position confirmed with superior vena cava using fluoroscopic guidance. Complications: None. Implants: Port-A-Cath. Disposition: The patient was transferred to the recovery room in good condition. Procedure In Detail: After informed consent was obtained, the patient was brought to the operating room, prepped and draped in usual sterile fashion. After adequate anesthesia was received. Using ultrasound, cannulated the internal jugular vein in first attempt. I then advanced the microwire at this point to the SVC, an incision was made overlying the insertion site. A 5-Yi sheath was placed using Seldinger technique. The microwire was removed and standard wire was passed at this point and found to be in good position in the SVC, into the right atrium. At this point, I anesthetized the tract superolateral and to the infraclavicular position down through subcutaneous tissues. I made an incision overlying the chest wall. Dissection down to the prepectoral fascia including the adipose tissue around this. I then used a tunneling device, brought the catheter up through the insertion site. I placed the introducer sheath using Seldinger technique at this point. I then advanced the catheter into the SVC at this point using fluoroscopic guidance. I then under fluoroscopic guidance optimally positioned the catheter, secured the catheter at this point. I placed a lock collar on and I hooked up the Port-A-Cath. It withdrew and flushed quite easily at this point and it was then packed with heparin. At this point, all skin edges were then copiously irrigated and the Port-A-Cath was secured to the chest wall using 2-0 Prolene sutures. I then irrigated the area once again and closed the neck incision using interrupted nylon suture and the skin was closed with 4-0 Monocryl in a running fashion. Dermabond placed over top. The patient tolerated the procedure well without complications and transferred to PACU in good condition. All counts were correct at the end of the case. TK/MODL Voice ID: [id number] Report ID: [id number]
== END 2023-08-03 15:45 | disposition home or self-care (01) ==
LOC: OR 09:20
PROVIDERS: ATTEND Surgery
PROC: 0JH60WZ Insertion of Totally Implantable Vascular Access Device into Chest Subcutaneous Tissue and Fascia, Open Approach (ICD-10-PCS; principal; 2023-08-03 14:45)
DX: C34.90 Malignant neoplasm of unspecified part of unspecified bronchus or lung (principal)
CPT/HCPCS: 80048; 36415; 71045; 76000; 36561; J1644 ×3; A4216 ×2; J2704; J1100 ×2; J2001; J2250; J3010; J2405 ×2; J7120; J0690 ×2; C1788

== ENCOUNTER 2024-09-11 13:42 | Emergency (ER) | payer OTHER ==
[2024-09-11] MEDS ORDERED: HYDROCODONE/APAP 5/325 MG TAB ONE (14:43)
--- NOTE | 2024-09-11 14:45 | RAD REPORT ---
EXAMINATION: XR RIGHT SHOUDLER CLINICAL INDICATION: Female, 63 years old. PAIN RIGHT TECHNIQUE: Multiple views of the right shoulder were obtained. COMPARISON: No prior exam. FINDINGS: Fracture of the proximal right humerus surgical neck is seen with mild impaction. No dislo cation.
--- NOTE | 2024-09-11 14:46 | RAD REPORT ---
EXAMINATION: XR RIGHT FEMUR CLINICAL INDICATION: . PAIN RIGHT TECHNIQUE: Multiple views of the right femur were obtained. COMPARISON: No prior exam. FINDINGS: Right total hip arthroplasty. No hardware loosening is seen. No acute fracture. Vascular a therosclerosis.
--- NOTE | 2024-09-11 16:01 | EDPHYS ---
Physician Documentation [facility] Name: Paola Alex Age: 63 yrs Sex: Female : 1960 Arrival Date: 09/11/2024 Time: 13:42 Bed 13 Private MD: ED Physician Norbert Case HPI: 09/11 14:30 This 63 yrs old Female presents to ER via Wheelchair with complaints of Fall Injury, ms3 Hip Pain - Right, Arm Pain - Right. 14:30 Ms. Alex presents to the Emergency Department reporting an incident in which she msGerson lost her balance while getting up to go to the restroom. During the fall, her right leg hit the seat of a recliner, and her right arm was caught on the arm of the recliner, extending it all the way up. She reports severe discomfort, rated 10 out of 10, particularly when moving her right shoulder and leg. She has a past medical history of stage 4 brain cancer, which affected the nerves on the right side of her body, and she has undergone three brain surgeries. Ms. Thibodeaux reports not hitting her head or losing consciousness during the incident. . Historical: - Allergies: 13:56 No Known Allergies; ll1 - PMHx: 13:56 Hypertensive disorder; ledy tumor; ll1 - PSHx: 13:56 Brain CA; ll1 - Immunization history:: Adult Immunizations up to date. - Infectious Disease History:: Denies. - Immunization history: Last tetanus immunization: unknown. - Social history:: Smoking status: Patient/guardian denies using tobacco, the patient reports quitting approximately 1.5 years ago. ROS: 14:30 Constitutional: Negative for fever, and chills. Cardiovascular: Negative for chest ms3 pain, and palpitations. Respiratory: Negative for shortness of breath, cough, wheezing, and pleuritic chest pain, Abdomen/GI: Negative for abdominal pain, nausea, vomiting, diarrhea, and constipation, 14:30 MS/extremity: Positive for pain, of the right leg and right arm, Exam: 14:30 Constitutional: This is a well developed, well nourished patient who is awake, alert, ms3 and in no acute distress. Head/Face: Normocephalic, atraumatic. Chest/axilla: Normal chest wall appearance and motion. Nontender with no deformity. Cardiovascular: Regular rate and rhythm with a normal S1 and S2. No gallops, murmurs, or rubs. Normal PMI, no JVD. No pulse deficits. Respiratory: Lungs have equal breath sounds bilaterally, clear to auscultation and percussion. No rales, rhonchi or wheezes noted. No increased work of breathing, no retractions or nasal flaring. Abdomen/GI: Soft, non-tender, with normal bowel sounds. No distension or tympany. No guarding or rebound. No evidence of tenderness throughout. Skin: Warm, dry with normal turgor. Normal color with no rashes, no lesions, and no evidence of cellulitis. 14:30 Musculoskeletal/extremity: Extremities: noted in the right arm: decreased ROM, pain, tenderness, There is no evidence of deformity, swelling, noted in the right leg: pain, tenderness, no evidence of deformity, swelling, Vital Signs: 13:57 BP 113 / 79; Pulse 87; Resp 17; Temp 97.4; Pulse Ox 100% ; Weight 58.97 kg; Height 5 ll1 ft. 7 in. ; Pain 10/10; 16:00 BP 118 / 72; Pulse 81; Resp 18; Temp 97.9; Pulse Ox 98% on R/A; ph 13:57 Body Mass Index 20.36 (58.97 kg, 170.18 cm) ll1 13:57 Pain Scale: Adult ll1 Patrice Coma Score: 15:05 Eye Response: spontaneous(4). Motor Response: obeys commands(6). Verbal Response: ph oriented(5). Total: 15. 16:00 Eye Response: spontaneous(4). Motor Response: obeys commands(6). Verbal Response: ph oriented(5). Total: 15. Trauma Score (Adult): 15:05 Eye Response: spontaneous(1); Verbal Response: oriented(1); Motor Response: obeys ph commands(2); Systolic BP: > 89 mm Hg(4); Respiratory Rate: 10 to 29 per min(4); Patrice Score: 15; Trauma Score: 12 16:00 Eye Response: spontaneous(1); Verbal Response: oriented(1); Motor Response: obeys ph commands(2); Systolic BP: > 89 mm Hg(4); Respiratory Rate: 10 to 29 per min(4); Patrice Score: 15; Trauma Score: 12 MDM: 14:04 Medical Screening Exam initiated ms3 14:30 Differential diagnosis: abrasion, closed head injury, contusion, fracture, sprain, ms3 strain. 16:23 Data reviewed: vital signs, nurses notes, radiologic studies, and as a result, I will ms3 discharge patient. I considered the following discharge prescriptions or medication management in the emergency department Medications were administered in the Emergency Department. See MAR. Independent interpretation of the following test(s) in the Emergency Department X-Ray: My interpretation is Right shoulder x-ray image reviewed by me reveals proximal humerus fracture. Counseling: I had a detailed discussion with the patient and/or guardian regarding the historical points, exam findings, and any diagnostic results supporting the discharge/admit diagnosis, radiology results, the need for outpatient follow up, to return to the emergency department if symptoms worsen or persist or if there are any questions or concerns that arise at home. Special discussion: I discussed with the patient/guardian in detail that at this point there is no indication for admission to the hospital. It is understood, however, that if the symptoms persist or worsen the patient needs to return immediately for re-evaluation. ED course: Discussed imaging results with patient and her daughter. Patient placed in sling. Discussed [id number] pain medications with patient. Patient understands agrees with plan. All questions were answered. Return precautions discussed include worsening symptoms, or any other concerns. On reevaluation patient is alert, no apparent distress, nontoxic-appearing, speaking full sentences, no signs of compartment syndrome present. 09/11 14:05 Order name: Shoulder Right (2 View) XRAY; Complete Time: 15:31 ms3 09/11 14:05 Order name: Femur Right XRAY; Complete Time: 15:31 ms3 09/11 16:07 Order name: Sling; Complete Time: 16:43 ms3 Administered Medications: 15:04 Drug: HYDROcodone-acetaminophen PO 5 mg-325 mg 1 tabs PO once Route: PO; ph 15:30 Follow up: Response: No adverse reaction; Pain is decreased; RASS: Alert and Calm (0) ph Disposition Summary: 09/11/24 16:00 Discharge Ordered Notes: Location: Home ms3 Condition: Stable ms3 Diagnosis - Fracture of upper end of humerus ms3 Followup: ms3 - With: Stephan Kwong MD - When: 2 - 3 days - Reason: Recheck today's complaints Discharge Instructions: - Discharge Summary Sheet ms3 - Humerus Fracture Treated With Immobilization, [id number] ms3 Forms: - Medication Reconciliation Form ms3 - Antibiotic Education ms3 - Prescription Opioid Use ms3 - Patient Portal Instructions ms3 - Leadership Thank You Letter ms3 Signatures: Dispatcher [employer] EDSonali Aburto, RN RN Ava Welch RN RN ll1 Norbert Case DO DO ms3 Corrections: (The following items were deleted from the chart) 13:57 13:56 PMHx: Chronic obstructive lung disease; ll1 ll1 14:05 14:05 Femur Right+RAD.RAD.BRZ ordered. EDDE EDMS
--- NOTE | 2024-09-11 16:01 | ER ---
Nurse's Notes [facility] Name: Paola Alex Age: 63 yrs Sex: Female : 1960 Arrival Date: 09/11/2024 Time: 13:42 Bed 13 Private MD: Diagnosis: Fracture of upper end of humerus Presentation: 09/11 13:57 Chief complaint: Patient states: Fell this AM. R arm and R leg pain since. No head ll1 injury or LOC. Coronavirus screen: Client denies travel out of the [place] in the last 14 days. At this time, the client does not indicate any symptoms associated with coronavirus-19. Ebola Screen: Patient denies travel to an Ebola-affected area in the 21 days before illness onset. Initial Sepsis Screen: Does the patient meet any 2 criteria? No. Patient's initial sepsis screen is negative. Does the patient have a suspected source of infection? No. Patient's initial sepsis screen is negative. Risk Assessment: Do you want to hurt yourself or someone else? Patient reports no desire to harm self or others. Onset of symptoms was September 11, 2024. 13:57 Method Of Arrival: Wheelchair ll1 13:57 Acuity: TEENA 3 ll1 15:06 Care prior to arrival: None. Mechanism of Injury: Fall from standing position. Trauma ph event details: Injury occurred in the [facility], Injury occurred: at home. Injury occurred: September 11, 2024. Triage Assessment: 13:59 General: Appears uncomfortable, Behavior is calm, cooperative, appropriate for age. ll1 Pain: Complains of pain in right arm and right leg Quality of pain is described as aching. Musculoskeletal: Reports pain in right arm and right leg. Trauma Activation: Not Applicable Physician: ED Physician; Name: ; Notified At: ; Arrived At: Physician: General Surgeon; Name: ; Notified At: ; Arrived At: Physician: Radiology; Name: ; Notified At: ; Arrived At: Physician: Respiratory; Name: ; Notified At: ; Arrived At: Physician: Lab; Name: ; Notified At: ; Arrived At: Historical: - Allergies: 13:56 No Known Allergies; ll1 - PMHx: 13:56 Hypertensive disorder; ledy tumor; ll1 - PSHx: 13:56 Brain CA; ll1 - Immunization history:: Adult Immunizations up to date. - Infectious Disease History:: Denies. - Immunization history: Last tetanus immunization: unknown. - Social history:: Smoking status: Patient/guardian denies using tobacco, the patient reports quitting approximately 1.5 years ago. Screenin:05 [facility] ED Fall Risk Assessment (Adult) History of falling in the last 3 months, ph including since admission Yes- fall prone (multiple falls) (3 pts) Confusion or Disorientation No (0 pts) Intoxicated or Sedated No (0 pts) Impaired Gait No (0 pts) Mobility Assist Device Used Yes (1 pt) Altered Elimination No (0 pt) Score/Fall Risk Level 3 or more points = High Risk Oriented to surroundings, Maintained a safe environment, Hourly rounding (assess needs \T\ fall precautionary measures) done, Used ambulatory aids as needed (educated on \T\ assisted with), Used gait belt as appropriate. Abuse screen: Denies threats or abuse. Denies injuries from another. Nutritional screening: No deficits noted. Tuberculosis screening: No symptoms or risk factors identified. Primary Survey: 15:05 NO uncontrolled hemorrhage observed. A: The client is awake and alert. The airway is ph patent. Breathing/Chest: Spontaneous respiratory effort, equal unlabored respirations, breath sounds clear bilaterally, regular pattern, symmetrical chest rise and fall. Circulation: No external hemorrhage present. Regular and strong central pulse, skin warm/dry/normal color. Disability Pupils are equal, round, reactive to light and accommodation. Exposure/Environment: All clothing and personal items were removed. Forensic evidence collection is not deemed to be indicated at this time. Items placed in patient belonging bag. There is no evidence of uncontrolled external bleeding. No obvious injuries are noted at this time. A warming method has been applied: A warm blanket has been provided to the patient. 16:30 Reassessment Alertness and Airway: Awake and alert. The airway is patent. Breathing: ph Spontaneous respiratory effort, equal unlabored respirations, breath sounds clear bilaterally, regular pattern with symmetrical chest rise and fall. Circulation: No external hemorrhage noted. Regular and strong central pulse, skin warm/dry/normal color. Disability: Pupils Pupils are equal, round, reactive to light and accomodation. Alert. Secondary Survey: 15:07 HEENT: No deficits noted. Musculoskeletal: Reports pain in right leg and right arm. ph Assessment: 15:06 General: Appears in no apparent distress. Behavior is calm, cooperative. Pain: ph Complains of pain in right leg and right arm. Neuro: Level of Consciousness is awake, alert, obeys commands, Oriented to person, place, time, situation. Cardiovascular: Capillary refill < 3 seconds in bilateral fingers Patient's skin is warm and dry. Respiratory: Airway is patent Respiratory effort is even, unlabored, Respiratory pattern is regular, symmetrical. Derm: Skin is pink, warm \T\ dry. Vital Signs: 13:57 BP 113 / 79; Pulse 87; Resp 17; Temp 97.4; Pulse Ox 100% ; Weight 58.97 kg; Height 5 ll1 ft. 7 in. ; Pain 10/10; 16:00 BP 118 / 72; Pulse 81; Resp 18; Temp 97.9; Pulse Ox 98% on R/A; ph 13:57 Body Mass Index 20.36 (58.97 kg, 170.18 cm) ll1 13:57 Pain Scale: Adult ll1 Maywood Coma Score: 15:05 Eye Response: spontaneous(4). Motor Response: obeys commands(6). Verbal Response: ph oriented(5). Total: 15. 16:00 Eye Response: spontaneous(4). Motor Response: obeys commands(6). Verbal Response: ph oriented(5). Total: 15. Trauma Score (Adult): 15:05 Eye Response: spontaneous(1); Verbal Response: oriented(1); Motor Response: obeys ph commands(2); Systolic BP: > 89 mm Hg(4); Respiratory Rate: 10 to 29 per min(4); Maywood Score: 15; Trauma Score: 12 16:00 Eye Response: spontaneous(1); Verbal Response: oriented(1); Motor Response: obeys ph commands(2); Systolic BP: > 89 mm Hg(4); Respiratory Rate: 10 to 29 per min(4); Maywood Score: 15; Trauma Score: 12 ED Course: 13:46 Patient arrived in ED. ra3 13:50 Elijah Chong MD is Attending Physician. ec2 13:54 Norbert Case DO is Attending Physician. ms3 13:56 Arm band placed on. ll1 13:59 Triage completed. ll1 14:37 Shoulder Right (2 View) XRAY In Process Unspecified. EDMS 14:37 Femur Right XRAY In Process Unspecified. EDMS 14:42 Sonali Alvarez, RN is Primary Nurse. ph 14:42 Patient placed in an exam room, on a stretcher. ll1 15:06 Patient has correct armband on for positive identification. Bed in low position. Call ph light in reach. Side rails up X2. Pulse ox on. NIBP on. Door closed. Noise minimized. Warm blanket given. 15:06 Patient maintains SpO2 saturation greater than 95% on room air. ph 15:07 Thermoregulation: warm blanket given to patient. ph 16:00 Stephan Kwong MD is Referral Physician. ms3 16:30 No provider procedures requiring assistance completed. Patient did not have IV access ph during this emergency room visit. Sling applied to right arm. Administered Medications: 15:04 Drug: HYDROcodone-acetaminophen PO 5 mg-325 mg 1 tabs PO once Route: PO; ph 15:30 Follow up: Response: No adverse reaction; Pain is decreased; RASS: Alert and Calm (0) ph Medication: 15:07 VIS not applicable for this client. ph Intake: 16:55 PO: 0ml; Total: 0ml. ph Output: 16:55 Urine: 0ml; Total: 0ml. ph Outcome: 16:00 Discharge ordered by MD. ms3 16:44 Patient left the ED. ph 16:44 Discharged to home via wheelchair, with family, ph 16:44 Condition: good 16:44 Discharge instructions given to patient, Instructed on discharge instructions, follow up and referral plans. Demonstrated understanding of instructions, follow-up care, Signatures: Dispatcher [employer] Sonali Chew, EUGENIA BELLO Ava Welch RN RN ll1 Norbert Case DO DO ms3 Elijah Chong MD MD ec2 Alva, Ruby ra3 Corrections: (The following items were deleted from the chart) 13:57 13:56 PMHx: Chronic obstructive lung disease; ll1 ll1
[2024-09-11 16:49] VITALS: BP 113/79; TEMP 97.4; O2SAT 100
== END 2024-09-11 16:44 | disposition home or self-care (01) ==
LOC: ER 13:42
DX: S42.211A Unspecified displaced fracture of surgical neck of right humerus, initial encounter for closed fracture (principal); W18.30XA Fall on same level, unspecified, initial encounter
CPT/HCPCS: 99284

== ENCOUNTER 2025-01-27 12:30 | Emergency (ER) | payer OTHER ==
[2025-01-27] MEDS ORDERED: METOCLOPRAMIDE 10 MG/2mL INJ ONE (13:15)
[2025-01-27] MEDS ORDERED: NA CHLORIDE 0.9% 1,000 ML ONE (13:15)
[2025-01-27] MEDS ORDERED: DIPHENHYDRAMINE 50 MG/ML VIAL ONE (13:15)
[2025-01-27] MEDS ORDERED: KETOROLAC 30 MG/ML INJ ONE (13:15)
--- NOTE | 2025-01-27 15:02 | RAD REPORT ---
EXAM: CT Head Brain Wo Cont HISTORY: HEADACHE COMPARISON: 04/28/2023 TECHNIQUE: Multiple contiguous axial images were obtained for a CT of the brain without contrast. Sag ittal and coronal reformats were performed. One or more of the following dose reduction techniques were used: Automated exposure control, adjus tment of the mA and kV according to patient size, and iterative reconstruction. Unless otherwise specified, incidental findings do not require dedicated imaging follow-up. FINDINGS: No evidence of hydrocephalus, intracranial hemorrhage, or extra-axial fluid collection. Small left perirolandic focus of encephalomalacia region of prior parenchymal hemorrhage. Moderate diffuse brain atrophy and nonspecific advanced periventricular and deep white matter hypode nsities most suggestive of chronic microvascular ischemic changes. The findings are progressive since prior exam. The calvarium is intact. Sequelae of left parietal craniotomy reaching the vertex again seen. The vis ualized paranasal sinuses and mastoid air cells are essentially clear. IMPRESSION: No evidence of acute intracranial abnormality. Chronic findings as above.
--- NOTE | 2025-01-27 15:15 | EDPHYS ---
Physician Documentation [facility] Name: Paola Alex Age: 64 yrs Sex: Female : 1960 Arrival Date: 01/27/2025 Time: 12:30 Bed 20 Private MD: ED Physician Norbert Case HPI: 01/27 13:01 This 64 yrs old Female presents to ER via Wheelchair with complaints of Headache. [facility] 13:01 64-year-old female with past medical history of hypertension, brain tumor presents to [facility] the emergency department for headache that began on Monday. Patient denies nausea, vomiting, new numbness or weakness. Patient rates her pain a 9/10 this morning and after taking Motrin the pain decreased to a 5/10.. Historical: - Allergies: 12:46 No Known Allergies; ld1 - PMHx: 12:46 Hypertensive disorder; ledy tumor; ld1 - PSHx: 12:46 Brain CA; ld1 - Immunization history:: Adult Immunizations up to date. - Infectious Disease History:: Denies. - Social history:: Smoking status: Patient denies any tobacco usage or history of. ROS: 13:01 Constitutional: Negative for fever, and chills. Cardiovascular: Negative for chest ms3 pain, and palpitations. Respiratory: Negative for shortness of breath, cough, wheezing, and pleuritic chest pain, Abdomen/GI: Negative for abdominal pain, nausea, vomiting, diarrhea, and constipation, Skin: Negative for injury, rash, and discoloration, 13:01 Neuro: Positive for headache, Exam: 13:01 Constitutional: This is a well developed, well nourished patient who is awake, alert, ms3 and in no acute distress. Cardiovascular: Regular rate and rhythm with a normal S1 and S2. No gallops, murmurs, or rubs. Normal PMI, no JVD. No pulse deficits. Respiratory: Lungs have equal breath sounds bilaterally, clear to auscultation and percussion. No rales, rhonchi or wheezes noted. No increased work of breathing, no retractions or nasal flaring. Abdomen/GI: Soft, non-tender, with normal bowel sounds. No distension or tympany. No guarding or rebound. No evidence of tenderness throughout. Skin: Warm, dry with normal turgor. Normal color with no rashes, no lesions, and no evidence of cellulitis. 13:01 Neuro: Orientation: is normal, to person, place, time \T\ situation. Mentation: is normal, Cranial nerves: CN I not tested, CN II- XII are normal as tested, Vital Signs: 12:47 BP 141 / 100; Pulse 85; Resp 18; Temp 97.6(TE); Pulse Ox 96% on R/A; Height 5 ft. 4 in. ld1 ; Pain 8/10; 12:48 Weight 63.5 kg; ld1 12:47 Pain Scale: Adult ld1 MDM: 12:50 Medical Screening Exam initiated ms3 15:11 Differential diagnosis: migraine, neoplasm, subdural hematoma, tension headache. Data ms3 reviewed: vital signs, nurses notes, radiologic studies, and as a result, I will discharge patient. Management of patient was discussed with the following: Fund Manager: Dr Cardoso- will follow up patient outpatient.. I considered the following discharge prescriptions or medication management in the emergency department Medications were administered in the Emergency Department. See MAR. Counseling: I had a detailed discussion with the patient and/or guardian regarding the historical points, exam findings, and any diagnostic results supporting the discharge/admit diagnosis, radiology results, the need for outpatient follow up, to return to the emergency department if symptoms worsen or persist or if there are any questions or concerns that arise at home. Special discussion: I discussed with the patient/guardian in detail that at this point there is no indication for admission to the hospital. It is understood, however, that if the symptoms persist or worsen the patient needs to return immediately for re-evaluation. ED course: Discussed case with Dr. Cardoso and he will follow patient up in clinic. Discussed plans with patient and she understands agrees with plan. All questions were answered. Return precautions discussed include worsening symptoms, or any other concerns.. 01/27 12:51 Order name: CT Head Brain wo Cont; Complete Time: 15:05 ms3 01/27 12:51 Order name: IV Start; Complete Time: 13:37 ms3 Administered Medications: 13:37 Drug: Ketorolac IVP 10 mg 10 mg IVP once Route: IVP; Site: right hand; bp 13:37 Drug: NS 0.9% IV 1000 ml IV at 1000 ml once; to be given as a bolus over 60 minutes bp Route: IV; Rate: 1000 ml; Site: right hand; 13:38 Drug: metoCLOPramide IVP 10 mg IVP once; over 1 to 2 minutes Route: IVP; Site: right bp hand; 13:38 Drug: diphenhydrAMINE IVP 12.5 mg IVP once Route: IVP; Site: right hand; bp Disposition Summary: 01/27/25 15:14 Discharge Ordered Notes: Location: Home ms3 Condition: Stable ms3 Diagnosis - Headache ms3 Followup: ms3 - With: Private Physician - When: 2 - 3 days - Reason: Recheck today's complaints Discharge Instructions: - Discharge Summary Sheet ms3 - General Headache Without Cause ms3 Forms: - Medication Reconciliation Form ms3 - Antibiotic Education ms3 - Prescription Opioid Use ms3 - Patient Portal Instructions ms3 - Leadership Thank You Letter ms3 Signatures: Dispatcher [employer] Bryson Mosher RN RN Norbert Case DO DO ms3 Alina Case RN RN ld1
--- NOTE | 2025-01-27 15:15 | ER ---
Nurse's Notes [facility] Name: Paola Alex Age: 64 yrs Sex: Female : 1960 Arrival Date: 01/27/2025 Time: 12:30 Bed 20 Private MD: Diagnosis: Headache Presentation: 01/27 12:47 Chief complaint: Patient states: Headache since Monday. Coronavirus screen: At this ld1 time, the client does not indicate any symptoms associated with coronavirus-19. Ebola Screen: No symptoms or risks identified at this time. Initial Sepsis Screen: Does the patient meet any 2 criteria? No. Patient's initial sepsis screen is negative. Does the patient have a suspected source of infection? No. Patient's initial sepsis screen is negative. Risk Assessment: Do you want to hurt yourself or someone else? Patient reports no desire to harm self or others. Onset of symptoms was January 27, 2025. 12:47 Method Of Arrival: Wheelchair ld1 12:47 Acuity: TEENA 3 ld1 Triage Assessment: 12:47 Headache History: The patient has had previous headaches and this one is similar to ld1 previous episodes. General: Appears in no apparent distress. comfortable, Behavior is calm, cooperative, appropriate for age. Pain: Complains of pain in face Pain does not radiate. Pain currently is 8 out of 10 on a pain scale. Quality of pain is described as throbbing, Pain began 2-3 days ago. Also complains of no other associated symptoms. EENT: No signs and/or symptoms were reported regarding the EENT system. Neuro: Level of Consciousness is awake, alert, obeys commands, Oriented to person, place, time, situation. Cardiovascular: Capillary refill < 3 seconds Patient's skin is warm and dry. Respiratory: Airway is patent Respiratory effort is even, unlabored. GI: Abdomen is flat, non-distended. : No signs and/or symptoms were reported regarding the genitourinary system. Derm: No signs and/or symptoms reported regarding the dermatologic system. Musculoskeletal: No signs and/or symptoms reported regarding the musculoskeletal system. Historical: - Allergies: 12:46 No Known Allergies; ld1 - PMHx: 12:46 Hypertensive disorder; ledy tumor; ld1 - PSHx: 12:46 Brain CA; ld1 - Immunization history:: Adult Immunizations up to date. - Infectious Disease History:: Denies. - Social history:: Smoking status: Patient denies any tobacco usage or history of. Screenin:37 [facility] ED Fall Risk Assessment (Adult) History of falling in the last 3 months, bp including since admission No falls in past 3 months (0 pts) Confusion or Disorientation No (0 pts) Intoxicated or Sedated No (0 pts) Impaired Gait No (0 pts) Mobility Assist Device Used No (0 pt) Altered Elimination No (0 pt) Score/Fall Risk Level 0 - 2 = Low Risk Oriented to surroundings. Abuse screen: Denies threats or abuse. Denies injuries from another. Nutritional screening: No deficits noted. Tuberculosis screening: No symptoms or risk factors identified. Assessment: 13:36 General: Appears in no apparent distress. uncomfortable, Behavior is calm, cooperative, bp appropriate for age. Pain: Complains of pain in head. Vital Signs: 12:47 BP 141 / 100; Pulse 85; Resp 18; Temp 97.6(TE); Pulse Ox 96% on R/A; Height 5 ft. 4 in. ld1 ; Pain 8/10; 12:48 Weight 63.5 kg; ld1 12:47 Pain Scale: Adult ld1 ED Course: 12:35 Patient arrived in ED. al6 12:36 Norbert Case DO is Attending Physician. ms3 12:47 Triage completed. ld1 12:47 Arm band placed on right wrist. ld1 13:11 Bryson Barlow, RN is Primary Nurse. bp 13:36 Inserted saline lock: 24 gauge in right wrist, using aseptic technique. Flushed with 10 bp mL NS. 13:37 Patient has correct armband on for positive identification. bp 13:39 CT Head Brain wo Cont In Process Unspecified. EDMS Administered Medications: 13:37 Drug: Ketorolac IVP 10 mg 10 mg IVP once Route: IVP; Site: right hand; bp 13:37 Drug: NS 0.9% IV 1000 ml IV at 1000 ml once; to be given as a bolus over 60 minutes bp Route: IV; Rate: 1000 ml; Site: right hand; 13:38 Drug: metoCLOPramide IVP 10 mg IVP once; over 1 to 2 minutes Route: IVP; Site: right bp hand; 13:38 Drug: diphenhydrAMINE IVP 12.5 mg IVP once Route: IVP; Site: right hand; bp Medication: 13:36 VIS not applicable for this client. bp Outcome: 15:14 Discharge ordered by MD. pollard 15:50 Patient left the ED. iw Signatures: Dispatcher [employer] Beth Steele RN RN iw Bryson Barlow RN RN bp Norbert Case DO DO ms3 Alina Case RN RN ld1 Vickie Pride6
[2025-01-28 18:34] VITALS: BP 141/100; TEMP 97.6; O2SAT 96
== END 2025-01-27 15:50 | disposition home or self-care (01) ==
LOC: ER 12:30
DX: R51.9 Headache, unspecified (principal); I10 Essential (primary) hypertension; Z85.841 Personal history of malignant neoplasm of brain
CPT/HCPCS: 70450; 96375; 96374; 99284; J2765; J1200; J7030

== ENCOUNTER 2025-01-27 16:46 | Emergency (ER) | payer OTHER ==
--- NOTE | 2025-01-27 17:16 | ER ---
Nurse's Notes [facility] Name: Paola Alex Age: 64 yrs Sex: Female : 1960 Arrival Date: 01/27/2025 Time: 16:46 Bed 6 Private MD: Diagnosis: C7 Intermedulary mass with cord compression;Essential (primary) hypertension Presentation: 01/27 16:57 Chief complaint: Patient states: Pt was seen in ER - discharged. Went to Oncologist ld1 Walker- requesting transfer due to tumor, family reports oncologist stating need for surgery. Coronavirus screen: At this time, the client does not indicate any symptoms associated with coronavirus-19. Ebola Screen: No symptoms or risks identified at this time. Initial Sepsis Screen: Does the patient meet any 2 criteria? No. Patient's initial sepsis screen is negative. Does the patient have a suspected source of infection? No. Patient's initial sepsis screen is negative. Risk Assessment: Do you want to hurt yourself or someone else? Patient reports no desire to harm self or others. Onset of symptoms was January 27, 2025. 16:57 Method Of Arrival: Wheelchair ld1 16:57 Acuity: TEENA 3 ld1 Triage Assessment: 16:56 General: Appears in no apparent distress. comfortable, Behavior is calm, cooperative, ld1 appropriate for age. Pain: Complains of pain in face Pain does not radiate. Pain currently is 8 out of 10 on a pain scale. Quality of pain is described as throbbing, Pain began suddenly, Is continuous. EENT: No signs and/or symptoms were reported regarding the EENT system. Neuro: Level of Consciousness is awake, alert, obeys commands, Oriented to person, place, time, situation. Cardiovascular: Capillary refill < 3 seconds Patient's skin is warm and dry. Respiratory: Airway is patent Respiratory effort is even, unlabored. GI: Abdomen is flat, non-distended. : No signs and/or symptoms were reported regarding the genitourinary system. Derm: No signs and/or symptoms reported regarding the dermatologic system. Musculoskeletal: No signs and/or symptoms reported regarding the musculoskeletal system. 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 - Infectious Disease History:: Denies. - Social history:: Smoking status: Patient denies any tobacco usage or history of. Screenin:02 [facility] ED Fall Risk Assessment (Adult) History of falling in the last 3 months, ll1 including since admission No falls in past 3 months (0 pts) Confusion or Disorientation No (0 pts) Intoxicated or Sedated No (0 pts) Impaired Gait Yes (1 pt) Mobility Assist Device Used Yes (1 pt) Altered Elimination Yes (1 pt) Score/Fall Risk Level 3 or more points = High Risk Maintained a safe environment, Hourly rounding (assess needs \\T\\ fall precautionary measures) done. Abuse screen: Denies threats or abuse. Nutritional screening: No deficits noted. Tuberculosis screening: No symptoms or risk factors identified. Assessment: 18:02 Reassessment: No changes from previously documented assessment. Patient and/or family ll1 updated on plan of care and expected duration. Pain level reassessed. Patient is alert, oriented x 3, equal unlabored respirations, skin warm/dry/pink. 18:57 Reassessment: No changes from previously documented assessment. Patient and/or family ll1 updated on plan of care and expected duration. Pain level reassessed. Patient is alert, oriented x 3, equal unlabored respirations, skin warm/dry/pink. 19:13 Reassessment: Patient appears in no apparent distress at this time. Patient and/or bm8 family updated on plan of care and expected duration. Pain level reassessed. Patient is alert, oriented x 3, equal unlabored respirations, skin warm/dry/pink. pt reports "bad" head ache rates pain 10. 21:48 Reassessment: Patient appears in no apparent distress at this time. Patient and/or bm8 family updated on plan of care and expected duration. Pain level reassessed. pt is resting with eyes closed breathing is even unlabored with symmetrical rise and fall of chest. Patient states feeling better. Patient states symptoms have improved. 01/28 01:01 Reassessment: Patient appears in no apparent distress at this time. No changes from bm8 previously documented assessment. Patient and/or family updated on plan of care and expected duration. Pain level reassessed. 02:20 Reassessment: Patient appears in no apparent distress at this time. No changes from bm8 previously documented assessment. Patient and/or family updated on plan of care and expected duration. Pain level reassessed. 04:20 Reassessment: Patient appears in no apparent distress at this time. No changes from bm8 previously documented assessment. Patient and/or family updated on plan of care and expected duration. Pain level reassessed. 04:52 Reassessment: Diaper changed, Linen rearranged for comfort, Pur wic placed. Pt bm8 repositioned per her request. 10:14 Reassessment: REPORT TO GUERRERO BELLO. bp 10:44 Reassessment: EMS AT B/S FOR TRANSPORT. bp Vital Signs: 01/27 16:57 BP 134 / 109; Pulse 88; Resp 18; Temp 97.6(TE); Pulse Ox 100% on R/A; Weight 63.5 kg; ld1 Height 5 ft. 4 in. ; 18:01 BP 148 / 101; Pulse 77; Resp 17; Pulse Ox 100% on R/A; ll1 18:56 BP 145 / 88; Pulse 77; Resp 17; Pulse Ox 97% on R/A; ll1 19:13 BP 152 / 92; Pulse 75; Resp 18; Temp 97.6; Pulse Ox 98% ; Pain 7/10; bm8 19:30 BP 150 / 89; Pulse 82; Resp 16; Pulse Ox 99% ; al5 20:00 BP 152 / 87; Pulse 71; Resp 17; Pulse Ox 96% ; al5 20:30 BP 149 / 92; Pulse 70; Resp 16; Pulse Ox 100% ; al5 21:00 BP 134 / 90; Pulse 71; Resp 17; Pulse Ox 97% ; al5 21:48 BP 128 / 94; Pulse 75; Resp 18; Temp 97.6; Pulse Ox 95% ; Pain 0/10; bm8 22:00 BP 130 / 82; Pulse 75; Resp 16; Pulse Ox 98% ; al5 22:30 BP 139 / 87; Pulse 73; Resp 18; Pulse Ox 98% ; al5 23:00 BP 121 / 77; Pulse 72; Resp 18; Pulse Ox 97% ; al5 23:30 BP 116 / 77; Pulse 73; Resp 17; Pulse Ox 97% ; al5 01/28 00:00 BP 120 / 79; Pulse 71; Resp 15; Pulse Ox 99% ; al5 01:01 BP 129 / 81; Pulse 73; Resp 16; Temp 97.6; Pulse Ox 94% ; Pain 0/10; bm8 02:20 BP 144 / 92; Pulse 68; Resp 17; Temp 97.6; Pulse Ox 98% ; Pain 0/10; bm8 04:20 BP 130 / 84; Pulse 75; Resp 18; Temp 97.6; Pulse Ox 98% ; Pain 0/10; bm8 07:39 BP 141 / 70; Pulse 72; Pulse Ox 96% on R/A; rs6 10:44 BP 145 / 92; Pulse 73; Resp 16; Pulse Ox 100% ; bp 01/27 16:57 Body Mass Index 24.03 (63.50 kg, 162.56 cm) ld1 19:13 Pain Scale: Adult bm8 21:48 Pain Scale: Adult bm8 01:01 Pain Scale: Adult bm8 02:20 Pain Scale: Adult bm8 04:20 Pain Scale: Adult bm8 Patrice Coma Score: 01/27 19:13 Eye Response: spontaneous(4). Motor Response: obeys commands(6). Verbal Response: bm8 oriented(5). Total: 15. 21:48 Eye Response: to voice(3). Motor Response: obeys commands(6). Verbal Response: bm8 oriented(5). Total: 14. ED Course: 16:49 Patient arrived in ED. gl 16:56 Arm band placed on right wrist. ld1 17:01 Triage completed. ld1 17:04 Norbert Case DO is Attending Physician. ms3 17:27 Ava Welch, RN is Primary Nurse. ll1 17:[address] [facility]. bd 17:28 Patient placed in an exam room, on a stretcher. ll1 17:30 Patient has correct armband on for positive identification. Bed in low position. Call ll1 light in reach. Client placed on continuous cardiac and pulse oximetry monitoring. NIBP monitoring applied. 17:30 Provided Education on: ER procedures and process. ll1 17:40 No provider procedures requiring assistance completed. Missed attempt(s): 22 gauge in ll1 right hand. Bleeding controlled, band aid applied, catheter tip intact. 17:45 Inserted saline lock: 24 gauge in right hand, using aseptic technique. Blood collected. ll1 Flushed with 10 mL NS. 01/28 01:54 Still awaiting bed placement at [facility]. rv1 06:03 Called [facility] for update on transfer. Ira said pt is still pending a bed but rv1 will check with the rn house supervisor and call back. 07:13 Primary Nurse role handed off by Ava Welch RN bd 08:26 was contacted by Tania Christian with the transfer center, pt is still on waiting list but bd she has escalated the bed request. updated vitals were sent as requested. 09:45 pt accepted in transfer to [facility] 12 tower rm [id number] Matos admin approval bd given by Tania Christian. 10:13 Bryson Barlow, RN is Primary Nurse. bp Administered Medications: 01/27 20:49 Drug: morphine IVP or IV 4 mg IVP once over 4 mins Route: IVP; Infused Over: 4 mins; bm8 Site: right hand; 21:50 Follow up: Response: No adverse reaction bm8 20:49 Drug: Ondansetron IVP 4 mg IVP once; over 2 minutes Route: IVP; Site: right hand; bm8 21:50 Follow up: Response: No adverse reaction bm8 22:43 Drug: NS 0.9% IV 1000 ml IV at 75 ml once Route: IV; Rate: 75 ml; Site: right hand; bm8 01/28 10:44 Follow up: IV Status: Completed infusion bp 01/27 22:44 CANCELLED (Physician Discretion): ns0.45 % 1000 ml IV at 75 ml/hr continuous bm8 Medication: 18:04 VIS not applicable for this client. ll1 Outcome: 17:16 ER care complete, transfer ordered by . ms3 01/28 10:46 Patient left the ED. bp Signatures: Marjan Dewitt bd Bryson Barlow, RN RN bp Ava Welch, RN RN ll1 Norbert Case DO DO ms3 Alina Case, RN RN ld1 Mirta Smyth rv1 Alen Hernandez RN RN bm8 Tara Anders RN RN al5 Smith, Ryan rs6 Esme Rocha, Reg Reg gl
--- NOTE | 2025-01-27 17:16 | EDPHYS ---
Physician Documentation [facility] Name: Paola Alex Age: 64 yrs Sex: Female : 1960 Arrival Date: 01/27/2025 Time: 16:46 Bed 6 Private MD: ED Physician Norbert Case HPI: 01/27 17:13 This 64 yrs old Female presents to ER via Wheelchair with complaints of cervical spine ms3 mass. 17:13 64-year-old female with past medical history of brain tumor, hypertension presents to [facility] the emergency department after MRI from January 24, 2025 reviewed by radiology oncology at the cancer center shows C7 intramedullary mass. Patient denies any new neurodeficits.. 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 - Infectious Disease History:: Denies. - Social history:: Smoking status: Patient denies any tobacco usage or history of. ROS: 17:13 Constitutional: Negative for fever, and chills. Cardiovascular: Negative for chest ms3 pain, and palpitations. Respiratory: Negative for shortness of breath, cough, wheezing, and pleuritic chest pain, Abdomen/GI: Negative for abdominal pain, nausea, vomiting, diarrhea, and constipation, MS/Extremity: Negative for injury and deformity, Skin: Negative for injury, rash, and discoloration, 17:13 Neuro: Positive for headache, Exam: 17:13 Constitutional: This is a well developed, well nourished patient who is awake, alert, ms3 and in no acute distress. Cardiovascular: Regular rate and rhythm with a normal S1 and S2. No gallops, murmurs, or rubs. Normal PMI, no JVD. No pulse deficits. Respiratory: Lungs have equal breath sounds bilaterally, clear to auscultation and percussion. No rales, rhonchi or wheezes noted. No increased work of breathing, no retractions or nasal flaring. Abdomen/GI: Soft, non-tender, with normal bowel sounds. No distension or tympany. No guarding or rebound. No evidence of tenderness throughout. Skin: Warm, dry with normal turgor. Normal color with no rashes, no lesions, and no evidence of cellulitis. 17:13 Musculoskeletal/extremity: Extremities: Right sided paralysis presented after her 2nd and 3rd brain surgeries per patient and her [id number]., Vital Signs: 16:57 BP 134 / 109; Pulse 88; Resp 18; Temp 97.6(TE); Pulse Ox 100% on R/A; Weight 63.5 kg; ld1 Height 5 ft. 4 in. ; 18:01 BP 148 / 101; Pulse 77; Resp 17; Pulse Ox 100% on R/A; ll1 18:56 BP 145 / 88; Pulse 77; Resp 17; Pulse Ox 97% on R/A; ll1 19:13 BP 152 / 92; Pulse 75; Resp 18; Temp 97.6; Pulse Ox 98% ; Pain 7/10; bm8 19:30 BP 150 / 89; Pulse 82; Resp 16; Pulse Ox 99% ; al5 20:00 BP 152 / 87; Pulse 71; Resp 17; Pulse Ox 96% ; al5 20:30 BP 149 / 92; Pulse 70; Resp 16; Pulse Ox 100% ; al5 21:00 BP 134 / 90; Pulse 71; Resp 17; Pulse Ox 97% ; al5 21:48 BP 128 / 94; Pulse 75; Resp 18; Temp 97.6; Pulse Ox 95% ; Pain 0/10; bm8 22:00 BP 130 / 82; Pulse 75; Resp 16; Pulse Ox 98% ; al5 22:30 BP 139 / 87; Pulse 73; Resp 18; Pulse Ox 98% ; al5 23:00 BP 121 / 77; Pulse 72; Resp 18; Pulse Ox 97% ; al5 23:30 BP 116 / 77; Pulse 73; Resp 17; Pulse Ox 97% ; al5 /29 00:00 BP 120 / 79; Pulse 71; Resp 15; Pulse Ox 99% ; al5 01:01 BP 129 / 81; Pulse 73; Resp 16; Temp 97.6; Pulse Ox 94% ; Pain 0/10; bm8 02:20 BP 144 / 92; Pulse 68; Resp 17; Temp 97.6; Pulse Ox 98% ; Pain 0/10; bm8 04:20 BP 130 / 84; Pulse 75; Resp 18; Temp 97.6; Pulse Ox 98% ; Pain 0/10; bm8 07:39 BP 141 / 70; Pulse 72; Pulse Ox 96% on R/A; rs6 10:44 BP 145 / 92; Pulse 73; Resp 16; Pulse Ox 100% ; bp 01/27 16:57 Body Mass Index 24.03 (63.50 kg, 162.56 cm) ld1 19:13 Pain Scale: Adult bm8 21:48 Pain Scale: Adult bm8 01:01 Pain Scale: Adult bm8 02:20 Pain Scale: Adult bm8 04:20 Pain Scale: Adult bm8 Patrice Coma Score: 01/27 19:13 Eye Response: spontaneous(4). Motor Response: obeys commands(6). Verbal Response: bm8 oriented(5). Total: 15. 21:48 Eye Response: to voice(3). Motor Response: obeys commands(6). Verbal Response: bm8 oriented(5). Total: 14. MDM: 17:04 Medical Screening Exam initiated ms3 17:58 Differential Diagnosis Metastatic Cancer vs Headache. ms3 17:58 Data reviewed: vital signs, nurses notes, and as a result, I will transfer to [facility] for ms3 higher level of care. Consideration of Admission/Observation Patient will be transferred. Management of patient was discussed with the following: Elastic Attacher Zigzag: Dr Yung- Patient can be admitted to the floor under Medicine.. Independent interpretation of the following test(s) in the Emergency Department MRI: My interpretation is Printed MRI image from 01/24/2025 shows tumor at C7. Historians other than the Patient: Family Member: Patient's brother in law. Counseling: I had a detailed discussion with the patient and/or guardian regarding the historical points, exam findings, and any diagnostic results supporting the discharge/admit diagnosis, radiology results, the need to transfer to another facility, [facility] does not immediately have the required specialist. 18:14 Management of patient was discussed with the following: Hospitalist: Discussed case ms3 with Dr Levin and she accepts patient to med/surg. Care significantly affected by the following chronic conditions: Hypertension. ED course: Discussed transfer and status with patient. Patient understands and agrees with transfer. All questions were answered. Patient remains in stable condition without new neurologic deficits.. 01/28 09:59 ED course: Patient reevaluated. Patient is alert and orient x 4, in no apparent ms3 distress. Patient without any neurodeficits or changes overnight. Patient states left arm and left leg deficits are chronic and she does not have any new weakness or numbness of the arm or leg.. 10:00 ED course: Discussed case with Dr. Matos at [facility]. ms3 Transfer center states bed available at this time.. 01/27 17:05 Order name: CBC with Diff; Complete Time: 18:12 ms3 01/27 17:05 Order name: CMP; Complete Time: 03:04 ms3 Administered Medications: 01/27 20:49 Drug: morphine IVP or IV 4 mg IVP once over 4 mins Route: IVP; Infused Over: 4 mins; bm8 Site: right hand; 21:50 Follow up: Response: No adverse reaction bm8 20:49 Drug: Ondansetron IVP 4 mg IVP once; over 2 minutes Route: IVP; Site: right hand; bm8 21:50 Follow up: Response: No adverse reaction bm8 22:43 Drug: NS 0.9% IV 1000 ml IV at 75 ml once Route: IV; Rate: 75 ml; Site: right hand; bm8 01/28 10:44 Follow up: IV Status: Completed infusion bp 01/27 22:44 CANCELLED (Physician Discretion): ns0.45 % 1000 ml IV at 75 ml/hr continuous bm8 Disposition Summary: 01/27/25 17:16 Transfer Ordered Notes: Transfer Location: [facility] ms3 Reason: Higher level of care ms3 Condition: Stable ms3 Problem: new ms3 Symptoms: are unchanged ms3 Accepting Physician: Dr Matos(01/28/25 10:46) bp Diagnosis - C7 Intermedulary mass with cord compression ms3 - Essential (primary) hypertension ms3 Forms: - Medication Reconciliation Form ms3 - SBAR form ms3 Signatures: Dispatcher [employer] EDBryson Savage RN RN Norbert Power DO DO ms3 Alina Case RN RN ld1 Joy Angel, PA-C PARodyC [email or web address] Ari Garcia MD MD sp4 Alen Hernandez RN RN bm8 Corrections: (The following items were deleted from the chart) 17:05 17:05 CBC+H.LAB.BRZ ordered. EDMS EDMS 17:05 17:05 COMPREHENSIVE METABOLIC PANEL+C.LAB.BRZ ordered. EDMS EDMS 22:44 22:06 NS IV 0.45 % 1000 ml IV at 75 ml/hr continuous ordered. sb4 bm8 01/28 10:01 01/27 17:16 Dr yanes3 ms3 01/28 10:46 10:01 Dr Matos ms3 bp
[2025-01-27 18:08] LABS: Absolute Basophils 0.1 K/uL (0-0.5); Absolute Eosinophils 0.1 K/uL (0-0.5); Absolute Lymphocytes (CBC) 0.9 K/uL (0.7-4.9); Absolute Monocytes 0.7 K/uL (0.1-1.3); Eosinophils % 1.8 % (0-4.4); Hematocrit 40.7 % (36.0-45.0); Hemoglobin 14.1 g/dL (12.0-15.0); Lymphocytes % 11.2 % (15.3-44.8); MCH 31.7 pg (27.0-35.0); MCHC 34.6 g/dL (32.0-36.0); MCV 91.7 fL (80-100); MPV 7.1 fL (7.6-11.3); Monocytes % 9.4 % (3.3-12.3); Neutrophils % 76.6 % (41.7-73.7); Platelets 316 thou/uL (152-406); RBC Red Blood Cell Count 4.44 M/uL (3.86-4.86); Red Cell Distribution Width 13.9 % (12.1-15.2)
[2025-01-27 18:24] LABS: Albumin/Globulin Ratio 1.1 (1.1-1.8); Anion Gap 10.7 mEq/L (5.0-15.0); Bilirubin Total 0.7 mg/dL (0.2-1.0); Globulin 3.5 g/dL (2.3-3.5); Potassium 3.7 mEq/L (3.5-5.1); Protein, Total 7.5 g/dL (6.4-8.2)
[2025-01-27] MEDS ORDERED: ONDANSETRON 4 MG/2 ML VIAL ONE (20:44)
[2025-01-27] MEDS ORDERED: MORPHINE 4 MG/ML SYR ONE (20:44)
[2025-01-27] MEDS ORDERED: NACHLORIDE 0.45% 0 ML IV ONE (22:25)
[2025-01-27] MEDS ORDERED: NA CHLORIDE 0.9% 1,000 ML ONE (22:41)
[2025-01-29 03:35] VITALS: TEMP 97.6
[2025-01-29 04:07] VITALS: BP 145/92; O2SAT 100
== END 2025-01-28 10:46 | disposition short-term general hospital (02) ==
LOC: ER 16:46
DX: S14.117A Complete lesion at C7 level of cervical spinal cord, initial encounter (principal); I10 Essential (primary) hypertension; Z85.841 Personal history of malignant neoplasm of brain
CPT/HCPCS: 85025; 36415; 80053; J2405; J7030